=== PATIENT | female | born 1940 | race Caucasian/White ===

== ENCOUNTER 2017-01-01 09:18 | Emergency (ER) | payer OTHER ==
[2017-01-01 09:31] VITALS: TEMP 36.6; Ht 162.6 cm
[2017-01-01] MEDS ORDERED: DIPHTHERIA/TETANUS/PERTUSSIS 0.5 ML SYR/VIAL IM. ONE (10:15)
[2017-01-01] MEDS ORDERED: METH8TAB5 PO (10:45)
[2017-01-01] MEDS ORDERED: ATOR-24 PO (10:45)
[2017-01-01] MEDS ORDERED: HYDR-4717 PO (10:45)
[2017-01-01] MEDS ORDERED: CHOL1TAB2 PO (10:45)
[2017-01-01] MEDS ORDERED: FURO-85 PO (10:45)
[2017-01-01] MEDS ORDERED: GLIP5TAB11 PO (10:45)
[2017-01-01] MEDS ORDERED: METO25TA3 PO (10:45)
[2017-01-01] MEDS ORDERED: ASPI81TA28 PO (10:45)
[2017-01-01] MEDS ORDERED: FOLI1TAB7 PO (10:45)
[2017-01-01] MEDS ORDERED: LEVO50TA PO (10:45)
[2017-01-01] MEDS ORDERED: HYG/25 PO (10:45)
--- NOTE | 2017-01-01 11:16 | EMERGENCY ROOM VISIT NOTE ---
History First contact with patient: 10:06 Chief Complaint: FALL Stated Complaint: FELL AT HOME, BRUISES/CUTS ON ARM History of Present Illness The patient is a 76 year old female who presents to the Emergency Room via private vehicle accompanied by son with complaints of "fell at home, bruises/ cuts on arm". The patient states that this morning around 7:30 AM, in her home where she lives alone, she went to the refrigerator, and when she reached out to grab the handle she missed the handle, and fell and went to lean against her walker of which was not locked, and continue to wheel causing her to fall. She states that she fell forward and struck her left arm on the counter. She states that although she was hypertensive in triage, she normally takes blood pressure medications 3 times daily, and because the fall was not able take her medication this morning and instead came here for evaluation and management. She denies any anticoagulants, and her tetanus is not up-to-date. She points to the left arm as a location of the laceration/skin tears. She denies any loss of consciousness, syncope, chest pain, shortness of breath, other concerns or injuries. Review of Systems A complete 10-point Review of Systems was discussed with the patient, with pertinent positives and negatives listed in the History of Present Illness. All remaining Review of Systems questions can be considered negative unless otherwise specified. Past Medical/Surgical History Diabetes, high blood pressure, skin problems, cholecystectomy, appendectomy Family History High blood pressure, cancer, gallbladder disease Social History Smoking Status: Never Smoker Social History: Patient lives at home with self. Current/Historical Medications Scheduled Aspirin (Aspirin Ec), 81 MG PO DAILY Atorvastatin (Lipitor), 40 MG PO DAILY Chlorthalidone (Hygroton), 62.5 MG PO DAILY Cholecalciferol (Vitamin D-3), 1,000 TAB PO DAILY Folic Acid (Folvite), 1 MG PO DAILY Furosemide (Lasix), 20 MG PO DAILY Glipizide (Glucotrol), 5 MG PO DAILY Hydralazine Hcl (Apresoline), 50 MG PO TID Levothyroxine Sodium (Synthroid), 50 MCG PO DAILY Methylprednisolone (Methylprednisolone), 4 MG PO DAILY Metoprolol Succ (Toprol Xl) (Toprol-Xl), 37.5 MG PO DAILY Allergies Coded Allergies: Regla (Verified Allergy, Severe, ANAPHYLAXIS, 01/01/17) tongue throat swelling Physical Exam Vital Signs Date Time Temp Pulse Resp B/P Pulse Ox O2 Delivery O2 Flow Rate FiO2 01/01/17 11:17 70 20 190/69 94 Room Air 01/01/17 09:31 36.6 70 18 208/85 96 Room Air Pain Rating (0-10): 0 Physical Exam VITAL SIGNS - Vital signs and nursing notes were reviewed. Patient is afebrile , hypertensive at 208/85, non-tachycardic and is saturating well on room air 96% . GENERAL -76-year-old female appearing her stated age who is in no acute distress. Communicates well with provider and answers questions appropriately. SKIN - there are numerous skin tears over the left lateral/dorsal aspect of the forearm. These are superficial, with evidence of contusion surrounding his regions. HEAD - NC/AT. EYES - PERRL with EOMI bilaterally. Sclera anicteric. Palpebral conjunctiva pink and moist with no injection noted. EARS - No deformities of external structures noted on gross examination bilaterally. No pain elicited with palpation of the tragus bilaterally. External auditory canals without discharge or otorrhea. Tympanic membranes pearly quiroz without retraction or bulging. No fluid or purulent material visualized behind the TM. Handle of malleus, umbo, cone of light, pars tensa/ flaccid all easily visualized. NOSE - Midline and without cyanosis. No epistaxis or purulent drainage noted. Septum midline without deviation or septal hematoma noted. MOUTH/OROPHARYNX - Without perioral cyanosis. Buccal mucosa pink and moist and without leukoplakia. Tongue midline with equal elevation of palate bilaterally. No tonsillar hypertrophy, erythema, or exudates noted. Fair dentition noted. NECK - Neck with FROM. Supple to palpation. No C-spine tenderness LUNGS - Chest wall symmetric without accessory muscle use, intercostals retractions, or central cyanosis. Normal vesicular breath sounds CTA B/L. No wheezes, rales, or rhonchi appreciated. CARDIAC - RRR with S1/S2. No murmur, rubs, or gallops appreciated. ABDOMEN - Abdominal contour without pulsations or visible masses. BS normoactive all four quadrants. No tenderness, palpable masses, hepatosplenomegaly, or ascites noted. EXTREMITIES - No clubbing or peripheral cyanosis. No pretibial edema present. She is neurovascularly intact in the upper extremity is. +5/5 strength noted in UE/LE bilaterally. NEUROLOGIC - Cranial nerves II through XII grossly intact. Sensory intact to light touch throughout. PSYCH - A&Ox3 and cooperates fully with examiner. Pt is very pleasant and interacts well with examiner. Medical Decision & Procedures Medications Administered Medications (Trade) Dose Ordered Sig/Rob Route Start Time Stop Time Status Last Admin Dose Admin Diphtheria/ Pertussis/Tetanus Vacc (Adacel Inj) 0.5 ml ONCE ONCE IM. 01/01/17 10:15 01/01/17 10:17 DC 01/01/17 10:24 0.5 ML Medical Decision Patient was seen and evaluated as above. She presents for evaluation of her skin tears of the left arm. There is no bony tenderness. No other complaints. I do not believe that radiographs or laboratory studies at this time would be of benefit. She denies any chest pain, shortness of breath, syncope, loss of consciousness or any other concerns. The region, after obtaining consent was cleansed with normal saline, was then dried with sterile gauze and Dermabond was applied to the regions. This was to help provide protection, and decrease chance of infection secondary to open wounds. The region was dressed with nonadherent bandages, and was supplied circumferentially with rolled gauze. She was educated upon management as was her son. She was given her Adacel vaccination. She was educated upon worrisome symptoms in which to return, had questions prior to discharge and was discharged home in good condition. In the evaluation and treatment of this patient following differential diagnoses were entertained: Laceration, skin tear, fracture, among others. Impression Primary Impression: Fall Additional Impressions: Contusion of multiple sites Skin tear Departure Information Dispostion Home / Self-Care Condition GOOD Referrals Capri Gonzáles M.D. (PCP) Patient Instructions [facility] Additional Instructions Discharge Instructions: You have received dermabond on your left arm. This is dissolvable. Proper wound care is essential for adequate wound healing and infection prevention. You can shower and clean the wound with soap and water. Do not scour over the wound, pat dry with a towel. Do not submerse the wound (i.e. bathe or dish wash) Look for signs of infection of the wound including: increased pain, swelling, foul discharge, streaking, or increased temperature. If any of these are noticed you should return to the Emergency Department for further assessment and treatment. As with any laceration you may have received nerve damage to the surrounding tissues. This damage may or may not be permanent. You should keep the area covered with sunscreen for the first 6 months to 1 year when at risk for exposure to help minimize scarring. You can also use scar reducing creams or Vitamin E oil to help minimize scarring. Please continue regular medications. Please call your family doctor first thing Tuesday to schedule follow-up regarding your fall today. Please return to the emergency department with any new/concerning symptoms. Problem Qualifiers
[2017-01-01 11:17] VITALS: BP 190/69; PULSE 70; O2SAT 94
[2017-03-05] MEDS ORDERED: GLIP5TAB11 PO (09:21)
[2017-03-05] MEDS ORDERED: CIPR250T5 PO (09:21)
[2017-03-05] MEDS ORDERED: PRED10TA PO (09:21)
[2017-03-05] MEDS ORDERED: MCRK/10 PO (09:33)
== END 2017-01-01 11:30 | disposition home or self-care (01) ==
LOC: C.EDB 09:23 → C.EDC 11:30
DX: S40.022A Contusion of left upper arm, initial encounter (principal); W19.XXXA Unspecified fall, initial encounter; I10 Essential (primary) hypertension; Z79.82 Long term (current) use of aspirin; Z23 Encounter for immunization

== ENCOUNTER 2017-03-02 08:42 | Inpatient (IN) | payer OTHER ==
[2017-03-02] VITALS (7 sets, daily range): BP systolic 126–154; BP diastolic 71–78; PULSE 58–78; TEMP 36.3–37; O2SAT 93–96; BMI 43.4
[~2017-03-02] VITALS: Ht 152.4 cm; Wt 103.6 kg
[~2017-03-02 08:42] MED LIST: ASPI81TA28 PO; ATOR-24 PO; CHOL1TAB2 PO; FOLI1TAB7 PO; FURO-85 PO; GLIP5TAB11 PO; HYDR-4717 PO; HYG/25 PO; LEVO50TA PO; METH8TAB5 PO; METO25TA3 PO
--- NOTE | 2017-03-02 09:26 | EMERGENCY ROOM VISIT NOTE ---
History First contact with patient: 08:58 Chief Complaint: FOOT PAIN Stated Complaint: FOOT PAIN History of Present Illness The patient is a 76 year old female who presents to the Emergency Room with complaints of right foot pain. The patient states that she has had pain in the right foot since yesterday. She states it got significantly worse around 3 AM. The patient has a history of gout but states this is more painful. She rates her discomfort a 10/10. She states that she does not have any pain at rest but has significant discomfort when she tries to bear weight. She states she also was scratched by a dog a few weeks ago and has not completely healed. She has a history of lymphedema. She states that the swelling in her legs seems to be her baseline. She states that she usually takes prednisone with her flareups of gout. She states she just finished prednisone on Tuesday for wrist pain. She denies any fevers, chills. She denies any falls or injuries. She denies any abdominal pain, nausea, vomiting, chest pain or trouble breathing. She denies any other extremity pain. Review of Systems A 10 system review of systems was completed with positives and pertinent negatives listed in the HPI. Past Medical/Surgical History Medical Problems: (1) Foot pain, right (2) Hyperlipidemia (3) Hypertension (4) Hypothyroid Social History Smoking Status: Never Smoker Current/Historical Medications Scheduled Aspirin (Aspirin Ec), 81 MG PO DAILY Atorvastatin (Lipitor), 40 MG PO DAILY Chlorthalidone (Hygroton), 62.5 MG PO DAILY Cholecalciferol (Vitamin D-3), 1,000 TAB PO DAILY Folic Acid (Folvite), 1 MG PO DAILY Furosemide (Lasix), 20 MG PO DAILY Glipizide (Glucotrol), 5 MG PO DAILY Hydralazine Hcl (Apresoline), 50 MG PO TID Levothyroxine Sodium (Synthroid), 50 MCG PO DAILY Methylprednisolone (Methylprednisolone), 4 MG PO DAILY Metoprolol Succ (Toprol Xl) (Toprol-Xl), 37.5 MG PO DAILY Allergies Coded Allergies: Pecan (Verified Allergy, Severe, ANAPHYLAXIS, 03/02/17) tongue throat swelling Physical Exam Vital Signs Date Time Temp Pulse Resp B/P (MAP) Pulse Ox O2 Delivery O2 Flow Rate FiO2 03/02/17 12:56 65 22 161/64 92 03/02/17 10:15 65 22 148/74 92 Room Air 03/02/17 08:48 36.8 69 22 176/57 96 Room Air Physical Exam VITALS: Vitals are noted on the nurse's note and reviewed by myself. Vital signs stable. The patient is afebrile. GENERAL: This is a 76-year-old female, in no acute distress, nondiaphoretic, well-developed well-nourished. SKIN: The skin was without rashes, erythema, or bruising. There is 3+ bilateral pitting edema to the lower extremities. It is symmetric. There is no tenting of the skin. Capillary reflex less than 2 seconds. HEAD: Normocephalic atraumatic. EARS: The external ears are normal in appearance. EYES: Pupils equal round and reactive to light and accommodation. Conjunctivae without injection, sclerae without icterus. Extraocular movements intact. NOSE: Patent, turbinates without inflammation or discharge. MOUTH: Mucous membranes moist. Tonsils are not enlarged. Pharynx without erythema or exudate. Uvula midline. Airway patent. Tongue does not deviate. NECK: Supple without nuchal rigidity. No lymphadenopathy. No thyromegaly. Cervical spine is nontender. No JVD. HEART: Regular rate and rhythm without murmurs gallops or rubs. LUNGS: Clear to auscultation bilaterally without wheezes, rales or rhonchi. No retractions or accessory muscle use. MUSCULOSKELETAL: There is an abrasion to the right anterior lower extremity. There is very faint erythema but no significant warmth. There is no purulent drainage. There is bilateral lower extremity edema. It is symmetric. There is no calf tenderness or palpable cord. The remaining extremities are otherwise unremarkable. NEURO: Patient was alert and oriented to person place and time. No focal neurological deficits. Medical Decision & Procedures ER Provider Diagnostic Interpretation: RIGHT FOOT MIN 3 VIEWS ROUTINE CLINICAL HISTORY: right foot pain and swelling Right pain. Edema. COMPARISON: None. DISCUSSION: Generalized significant degenerative change throughout. Small bony erosion distal first metatarsal age-indeterminate fracture distal aspect distal phalanx second toe. Generalized osteopenia. Heel spur. Mild calcification of plantar fascia. Subtalar joint is intact. IMPRESSION: 1. Generalized osteoporosis. 2. Bony erosive change distal first metatarsal as well as the dorsal aspect of tarsal bones. 3. Age-indeterminate fracture distal aspect proximal phalanx second toe. 4. Underlying osteomyelitis at the sites of erosion are not excluded. Additional etiologies potentially include erosive osteoarthritis versus gout. Laboratory Results 03/02/17 09:47 Red Blood Count 4.66, Mean Corpuscular Volume 85.4, Mean Corpuscular Hemoglobin 27.3, Mean Corpuscular Hemoglobin Concent 31.9, Mean Platelet Volume 10.5, Neutrophils (%) (Auto) 92.7, Lymphocytes (%) (Auto) 3.9, Monocytes (%) (Auto) 2.9, Eosinophils (%) (Auto) 0.0, Basophils (%) (Auto) 0.1, Neutrophils # (Auto) 16.53, Lymphocytes # (Auto) 0.69, Monocytes # (Auto) 0.52, Eosinophils # (Auto) 0.00, Basophils # (Auto) 0.02 03/02/17 09:47 Test 03/02/17 09:43 03/02/17 09:47 03/02/17 12:06 Prothrombin Time 10.7 SECONDS (9.0-12.0) Prothromb Time International Ratio 1.0 (0.9-1.1) White Blood Count 17.83 K/uL (4.8-10.8) Red Blood Count 4.66 M/uL (4.2-5.4) Hemoglobin 12.7 g/dL (12.0-16.0) Hematocrit 39.8 % (37-47) Mean Corpuscular Volume 85.4 fL (80-100) Mean Corpuscular Hemoglobin 27.3 pg (25-34) Mean Corpuscular Hemoglobin Concent 31.9 g/dl (32-36) Platelet Count 261 K/uL (130-400) Mean Platelet Volume 10.5 fL (7.4-10.4) Neutrophils (%) (Auto) 92.7 % Lymphocytes (%) (Auto) 3.9 % Monocytes (%) (Auto) 2.9 % Eosinophils (%) (Auto) 0.0 % Basophils (%) (Auto) 0.1 % Neutrophils # (Auto) 16.53 K/uL (1.4-6.5) Lymphocytes # (Auto) 0.69 K/uL (1.2-3.4) Monocytes # (Auto) 0.52 K/uL (0.11-0.59) Eosinophils # (Auto) 0.00 K/uL (0-0.5) Basophils # (Auto) 0.02 K/uL (0-0.2) RDW Standard Deviation 46.3 fL (36.4-46.3) RDW Coefficient of Variation 14.8 % (11.5-14.5) Immature Granulocyte % (Auto) 0.4 % Immature Granulocyte # (Auto) 0.07 K/uL (0.00-0.02) Acanthocytes 1+ Erythrocyte Sedimentation Rate 38 mm/hr (0-21) Anion Gap 12.0 mmol/L (3-11) Est Creatinine Clear Calc Drug Dose 23.7 ml/min Estimated GFR () 24.4 Estimated GFR (Non- 21.1 BUN/Creatinine Ratio 33.2 (10-20) Uric Acid 13.2 mg/dl (2.6-7.2) Calcium Level 9.6 mg/dl (8.5-10.1) Total Bilirubin 0.8 mg/dl (0.2-1) Aspartate Amino Transf (AST/SGOT) 14 U/L (15-37) Alanine Aminotransferase (ALT/SGPT) 17 U/L (12-78) Alkaline Phosphatase 89 U/L (45-117) C-Reactive Protein 16.80 mg/dl (0-0.29) Total Protein 7.2 gm/dl (6.4-8.2) Albumin 2.9 gm/dl (3.4-5.0) Globulin 4.3 gm/dl (2.5-4.0) Albumin/Globulin Ratio 0.7 (0.9-2) Beta-Hydroxybutyric Acid 8.56 mg/dL (0.2-2.81) Lactic Acid Level 1.0 mmol/L (0.4-2.0) Medications Administered Medications (Trade) Dose Ordered Sig/Rob Route Start Time Stop Time Status Last Admin Dose Admin Piperacillin Sod/ Tazobactam Sod (Zosyn Iv) 4.5 gm NOW STAT IV 03/02/17 11:25 03/02/17 11:26 DC 03/02/17 12:20 4.5 GM Vancomycin HCl 2000 mg/Sodium Chloride 540 ml @ 200 mls/hr 1125 IV 03/02/17 11:25 03/02/17 16:00 DC 03/02/17 16:20 200 MLS/HR Sodium Chloride 1,000 ml @ 75 mls/hr [id number] IV 03/02/17 12:10 04/01/17 12:09 03/02/17 16:21 75 MLS/HR Hydralazine HCl (Apresoline Tab) 50 mg TID PO 03/02/17 14:00 04/01/17 13:59 03/02/17 16:21 50 MG ED Course Patient was seen and examined. Previous visits were reviewed. The patient does have a leukocytosis of 17.3. Her sedimentation rate is 38. He CRP is elevated at 16.8 and uric acid is elevated at 13.3. The patient's creatinine elevated at 73 and 2.2, respectively. Her baseline creatinine is 1.6. She is hyperglycemic with glucose 310. beta hydroxybutyric acid is elevated at 8.56. INR is 1.0. The patient declined pain medication throughout her stay. She was given 2 g IV vancomycin She was given IV Zosyn X-ray of the foot was obtained as above and reveals bony erosion with consideration of osteomyelitis versus gout. The patient presents to the emergency department with right foot pain. The pain is diffuse in nature. There is no significant erythema or warmth. She does have an open wound proximal to the foot pain. There is question of osteomyelitis versus gout on x-ray. Given the patient's leukocytosis, hyperglycemia, severe diffuse foot pain and question of osteomyelitis on x-ray, she would benefit from further evaluation and management in the hospital. It is likely that this represents gout but osteomyelitis must be considered. [facility] of the foot and this was ordered. The patient was also seen and examined by who agrees with the assessment and treatment plan. Medical Decision The differential diagnosis includes osteomyelitis, cellulitis, gout, arthritis, among others Impression Primary Impression: Right foot pain Additional Impressions: Acute on chronic renal insufficiency Cellulitis Departure Information Dispostion Admitted as an inpatient Referrals Capri Gonzáles M.D. (PCP) Forms HOME CARE DOCUMENTATION FORM, IMPORTANT VISIT INFORMATION Patient Instructions [facility] Problem Qualifiers Additional Impressions:
--- NOTE | 2017-03-02 09:49 | DIAGNOSTIC IMAGING REPORT ---
RIGHT FOOT MIN 3 VIEWS ROUTINE CLINICAL HISTORY: right foot pain and swelling Right pain. Edema. COMPARISON: None. DISCUSSION: Generalized significant degenerative change throughout. Small bony erosion distal first metatarsal age-indeterminate fracture distal aspect distal phalanx second toe. Generalized osteopenia. Heel spur. Mild calcification of plantar fascia. Subtalar joint is intact. IMPRESSION: 1. Generalized osteoporosis. 2. Bony erosive change distal first metatarsal as well as the dorsal aspect of tarsal bones. 3. Age-indeterminate fracture distal aspect proximal phalanx second toe. 4. Underlying osteomyelitis at the sites of erosion are not excluded. Additional etiologies potentially include erosive osteoarthritis versus gout. Electronically signed by: Hans Gr M.D. 03/02/2017 9:48 AM Dictated Date/Time: 03/02/2017 9:45 AM
[2017-03-02 10:03] LABS: HEMATOCRIT 39.8 % (37-47); MEAN CELL VOLUME 85.4 fL (80-100); MEAN CORPUSCULAR HEMOGLOBIN 27.3 pg (25-34); MEAN CORPUSCULAR HGB CONC 31.9 g/dl (32-36); MEAN PLATELET VOLUME 10.5 fL (7.4-10.4); PLATELET COUNT 261 K/uL (130-400); RED BLOOD COUNT 4.66 M/uL (4.2-5.4); WHITE BLOOD COUNT 17.83 K/uL (4.8-10.8)
[2017-03-02 10:23] LABS: ACANTHOCYTES 1+; BASO % 0.1 %; BASO ABS # 0.02 K/uL (0-0.2); COMPLETE YES; IG% 0.4 %; LYMPH % 3.9 %; LYMPH ABS # 0.69 K/uL (1.2-3.4); MONO % 2.9 %; NEUT % 92.7 %
[2017-03-02 10:25] LABS: CREATININE 2.2 mg/dl (0.60-1.20)
[2017-03-02 10:26] LABS: ALB/GLOB RATIO 0.7 (0.9-2); BUN/CREATININE RATIO 33.2 (10-20); C-REACTIVE PROTEIN 16.8 mg/dl (0-0.29); CALCIUM 9.6 mg/dl (8.5-10.1); URIC ACID 13.2 mg/dl (2.6-7.2)
[2017-03-02 10:35] LABS: POTASSIUM 3.6 mmol/L (3.5-5.1)
[2017-03-02 10:41] LABS: POTASSIUM 3.6 mmol/L (3.5-5.1)
[2017-03-02 10:47] LABS: BETA-HYDROXYBUTYRATE 8.56 mg/dL (0.2-2.81)
--- NOTE | 2017-03-02 11:18 | EMERGENCY ROOM VISIT NOTE ---
ED Visit Note First contact with patient: 08:58 Patient was seen by our PA/STOCK HOLDER. I was involved in the patient's care and did evaluate the patient myself. I was involved in the care throughout the ER stay. Patient presents with right foot pain which is now better than when she arrived. She did receive some oral prednisone this morning. She has a history of gout in multiple different joints and feels this may be a gout flare. There has been no fever. No trauma reported. Laboratory testing shows a leukocytosis and some renal insufficiency/dehydration. She also is somewhat hyperglycemic. Imaging has been ordered.
[2017-03-02] MEDS ORDERED: PIPERACILLIN/TAZOBACTAM 4.5 GM/100ML D5W IV STA (11:25)
[2017-03-02] MEDS ORDERED: VANCOMYCIN INJ 2,000 MG in SODIUM CHLORIDE 0.9% 250ML 250 ML IV STA (11:25)
[2017-03-02] MEDS ORDERED: VANCOMYCIN INJ 2,000 MG in SODIUM CHLORIDE 0.9% 500ML 500 ML IV SCH (11:25)
[2017-03-02] MEDS ORDERED: ONDANSETRON INJ 2 MG/ML 2 ML VIAL IV PRN (12:15)
[2017-03-02] MEDS ORDERED: ACETAMINOPHEN 325 MG TAB PO PRN (12:15)
[2017-03-02] MEDS ORDERED: GLUCOSE 40% GEL 15 GM TUBE PO PRN (12:30)
[2017-03-02] MEDS ORDERED: DEXTROSE 50% 50 ML SYR IV PRN (12:30)
[2017-03-02] MEDS ORDERED: GLUCOSE 10 TABS/TUBE PO PRN (12:30)
[2017-03-02] MEDS ORDERED: GLUCAGON FOR INJ 1 MG VIAL SQ PRN (12:30)
--- NOTE | 2017-03-02 13:05 | History and Physical ---
History & Physical Date & Time of Service: Mar 02, 2017 at 12:36 Chief Complaint: Foot Pain Primary Care Physician: Capri Gonzáles M.D. History of Present Illness Source: patient, family Patient is a 76 Yr female with PMH of CAD, CKD III, DM II, RA, HTN, HLP and ? pseudogout presents with history of sudden onset of right foot pain since one day duration. She states the foot pain is worse at night and especially with weight bearing and on ambulation. Rates the pain as 10/10, non radiating. She took 3 baby aspirin and prednisone this morning and currently states the pain is better. Denies any trauma, fever, chills, redness, swelling, discharge, nausea, vomiting, change in medications recently. She reports acquiring a scratch wound on her right leg by her dog 2 weeks ago while playing with it but denies any discharge, swelling, redness. Her PCP treated her for possible pseudogout of her wrist with prednisone which she completed 3 days ago. She also has history of lymphedema and rheumatoid arthritis for which she was not treated with methotrexate secondary to kidney disease per patient. Also denies any chest pain, SOB, abd pain, dizziness, headache, change in bowel/bladder habits. Past Medical/Surgical History Past Medical History: CAD, CKD III, DM II, RA, HTN, HLP Past Surgical History: Cholecystectomy Family History Not contributory Social History Smoking Status: Never Smoker Alcohol Use: occasionally Drug Use: none Allergies Coded Allergies: Pecan (Verified Allergy, Severe, ANAPHYLAXIS, 03/02/17) tongue throat swelling Home Medications Scheduled Aspirin (Aspirin Ec), 81 MG PO DAILY Atorvastatin (Lipitor), 40 MG PO DAILY Chlorthalidone (Hygroton), 62.5 MG PO DAILY Cholecalciferol (Vitamin D-3), 1,000 TAB PO DAILY Folic Acid (Folvite), 1 MG PO DAILY Furosemide (Lasix), 20 MG PO DAILY Glipizide (Glucotrol), 5 MG PO DAILY Hydralazine Hcl (Apresoline), 50 MG PO TID Levothyroxine Sodium (Synthroid), 50 MCG PO DAILY Methylprednisolone (Methylprednisolone), 4 MG PO DAILY Metoprolol Succ (Toprol Xl) (Toprol-Xl), 37.5 MG PO DAILY Review of Systems See HPI for pertinent positives & negatives. A total of 10 systems reviewed and were otherwise negative. Physical Exam Vital Signs Date Time Temp Pulse Resp B/P (MAP) Pulse Ox O2 Delivery O2 Flow Rate FiO2 03/02/17 10:15 65 22 148/74 92 Room Air 03/02/17 08:48 36.8 69 22 176/57 96 Room Air General Appearance: WD/WN, no apparent distress Head: normocephalic, atraumatic Eyes: normal inspection, PERRL ENT: normal ENT inspection, hearing grossly normal Neck: supple, trachea midline Respiratory/Chest: chest non-tender, lungs clear, no respiratory distress, no accessory muscle use Cardiovascular: regular rate, rhythm, no JVD, no murmur Abdomen/GI: normal bowel sounds, non tender, soft, + pertinent finding ( Protuberant) Back: normal inspection Extremities/Musculoskelatal: normal inspection, + pertinent finding (+B/L Lymphedema, non tender foot on exam, No erythema ) 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, no motor/sensory deficits, alert, normal mood/affect, oriented x 3 Skin: normal color, + pertinent finding (Right leg scatch wound) Diagnostics Laboratory Results Results Past 24 Hours Test 03/02/17 09:47 03/02/17 12:06 Range/Units White Blood Count 17.83 4.8-10.8 K/uL Red Blood Count 4.66 4.2-5.4 M/uL Hemoglobin 12.7 12.0-16.0 g/dL Hematocrit 39.8 37-47 % Mean Corpuscular Volume 85.4 80-100 fL Mean Corpuscular Hemoglobin 27.3 25-34 pg Mean Corpuscular Hemoglobin Concent 31.9 32-36 g/dl Platelet Count 261 130-400 K/uL Mean Platelet Volume 10.5 7.4-10.4 fL Neutrophils (%) (Auto) 92.7 % Lymphocytes (%) (Auto) 3.9 % Monocytes (%) (Auto) 2.9 % Eosinophils (%) (Auto) 0.0 % Basophils (%) (Auto) 0.1 % Neutrophils # (Auto) 16.53 1.4-6.5 K/uL Lymphocytes # (Auto) 0.69 1.2-3.4 K/uL Monocytes # (Auto) 0.52 0.11-0.59 K/uL Eosinophils # (Auto) 0.00 0-0.5 K/uL Basophils # (Auto) 0.02 0-0.2 K/uL RDW Standard Deviation 46.3 36.4-46.3 fL RDW Coefficient of Variation 14.8 11.5-14.5 % Immature Granulocyte % (Auto) 0.4 % Immature Granulocyte # (Auto) 0.07 0.00-0.02 K/uL Acanthocytes 1+ Erythrocyte Sedimentation Rate 38 0-21 mm/hr Sodium Level 137 136-145 mmol/L Potassium Level 3.6 3.5-5.1 mmol/L Chloride Level 97 98-107 mmol/L Carbon Dioxide Level 28 21-32 mmol/L Anion Gap 12.0 3-11 mmol/L Blood Urea Nitrogen 73 7-18 mg/dl Creatinine 2.20 0.60-1.20 mg/dl Est Creatinine Clear Calc Drug Dose 23.7 ml/min Estimated GFR () 24.4 Estimated GFR (Non- 21.1 BUN/Creatinine Ratio 33.2 10-20 Random Glucose 310 70-99 mg/dl Uric Acid 13.2 2.6-7.2 mg/dl Calcium Level 9.6 8.5-10.1 mg/dl Total Bilirubin 0.8 0.2-1 mg/dl Aspartate Amino Transf (AST/SGOT) 14 15-37 U/L Alanine Aminotransferase (ALT/SGPT) 17 12-78 U/L Alkaline Phosphatase 89 45-117 U/L C-Reactive Protein 16.80 0-0.29 mg/dl Total Protein 7.2 6.4-8.2 gm/dl Albumin 2.9 3.4-5.0 gm/dl Globulin 4.3 2.5-4.0 gm/dl Albumin/Globulin Ratio 0.7 0.9-2 Beta-Hydroxybutyric Acid 8.56 0.2-2.81 mg/dL Microbiology Results 03/02/17 Blood Culture, Received Pending 03/02/17 Blood Culture, Received Pending Diagnostic Radiology Foot X ray: 1. Generalized osteoporosis. 2. Bony erosive change distal first metatarsal as well as the dorsal aspect of tarsal bones. 3. Age-indeterminate fracture distal aspect proximal phalanx second toe. 4. Underlying osteomyelitis at the sites of erosion are not excluded. Additional etiologies potentially include erosive osteoarthritis versus gout. Impression Assessment and Plan Right Foot Pain: DD: Likely secondary to 2nd toe fracture/Inflammatory Joint disease. To r/o osteomyelitis Presents with sudden onset of right foot pain, denies trauma, fever. Foot X ray: showed bony erosive change distal 1st metatarsal and dorsal aspect of tarsal bones. Age-indeterminate fracture distal aspect proximal phalanx second toe Will start empirically on Vanco and Zosyn Will get MRI foot Has elevated uric acid levels (On Chlorthalidone, Lasix at home) Leukocytosis, elevated ESR: patient recently completed prednisone course for possible pseudo gout of wrist Follow up blood/wound cultures Consider ID input if MRI suggestive of Osteomyelitis Start on prednisone 20mg daily PT//OT GILBERTO on CKD III: Baseline Cr:1.6 Start on IV Fluids Hold home diuretics for now Avoid nephrotoxic agents Monitor renal function DM II: Last A1C:5.6 in Aug 2016 Blood sugar levels are uncontrolled likely secondary to acute infection and recent prednisone use Hold home diabetic meds Start ISS, accu checks H/O Rheumatoid arthritis: Not on any disease modifying meds at home Hypothyroidism: Continue levothyroxine DVT Px: Heparin SQ Code Status: Full Code VTE Prophylaxis VTE Risk Assessment Done? Y/N: Yes Risk Level: Low
[2017-03-02] MEDS ORDERED: VANCOMYCIN CONSULT ACTIVE PRN (13:28)
[2017-03-02] MEDS ORDERED: PIPERACILL/TAZOBAC CONSULT ACTIVE PRN (13:45)
--- NOTE | 2017-03-02 14:35 | DIAGNOSTIC IMAGING REPORT ---
MRI OF THE RIGHT FOREFOOT WITHOUT IV CONTRAST CLINICAL HISTORY: Right foot pain and swelling. Clinical concern for ostomy myelitis. COMPARISON STUDY: Radiographs of the right foot dated 03/02/2017. TECHNIQUE: MRI of the right forefoot is performed utilizing various T1 and T2-weighted sequences in the axial, sagittal, coronal planes. IV contrast was not measured for this examination. FINDINGS: There is no marrow signal in amount is identified typical in appearance for osteomyelitis. There is erosive change is seen along the medial aspect of the first metatarsal head. This is T1 hypointense and largely T2 hypointense. Similar-appearing change is seen at the third and fourth tarsometatarsal joints. Multiple milder foci of similar change are seen diffusely throughout the tarsal bones and phalanges. Similar-appearing changes are also seen within the tibia on the coronal view. There is mild marrow edema with more typical osteoarthritic change seen in the midfoot. Degenerative spurring is noted along the dorsal aspect of the tarsal bones. There is significant subcutaneous soft tissue edema in the foot, greatest dorsally and laterally. No organized fluid collection is seen to suggest abscess. IMPRESSION: 1. There are no marrow signal changes identified typical in appearance for osteomyelitis. 2. There are numerous foci of bony erosion throughout the foot, with the largest present in the first metatarsal head and at the third and fourth tarsometatarsal articulations. The appearance is nonspecific, with gouty arthropathy or other erosive arthritis top differential considerations. Clinical correlation will be essential. 3. There is no MRI evidence of fracture. 4. Diffuse subcutaneous soft tissue edema is identified, greatest dorsally and laterally. The appearance suggests cellulitis. No organized fluid collection is seen. Electronically signed by: Johnny Soliman M.D. 03/02/2017 2:33 PM Dictated Date/Time: 03/02/2017 2:16 PM
--- NOTE | 2017-03-02 15:20 | Pharmacy Progress Note ---
Pharmacy Abx Initial Consult Date of Service Mar 02, 2017. Pharmacy Dosing Scope Date of Consult: 03/02/17 Consultation requested by: Dr. Middleton Pharmacy is consulted to initiate Vancomycin IV dosing therapy, order appropriate labs and adjust drug dose/frequency. Subjective The patient is a 76 year old female admitted on Mar 02, 2017 at 14:46. Objective Height (Feet): 5 Height (Inches): 1.00 Weight (Kilograms): 100.800 Vital Signs (Past 12Hrs) Vital Signs Past 12 Hours Date Time Temp Pulse Resp B/P (MAP) Pulse Ox O2 Delivery O2 Flow Rate FiO2 03/02/17 14:47 36.6 58 20 153/78 (103) 96 Room Air 03/02/17 12:56 65 22 161/64 92 03/02/17 10:15 65 22 148/74 92 Room Air 03/02/17 08:48 36.8 69 22 176/57 96 Room Air Lab Results (24Hrs) Laboratory Tests (24 Hours) Test 03/02/17 09:47 03/02/17 12:06 C-Reactive Protein 16.80 mg/dl (0-0.29) H Erythrocyte Sedimentation Rate 38 mm/hr (0-21) H White Blood Count 17.83 K/uL (4.8-10.8) H Red Blood Count 4.66 M/uL (4.2-5.4) Hemoglobin 12.7 g/dL (12.0-16.0) Hematocrit 39.8 % (37-47) Mean Corpuscular Volume 85.4 fL (80-100) Mean Corpuscular Hemoglobin 27.3 pg (25-34) Mean Corpuscular Hemoglobin Concent 31.9 g/dl (32-36) L Platelet Count 261 K/uL (130-400) Mean Platelet Volume 10.5 fL (7.4-10.4) H Neutrophils (%) (Auto) 92.7 % Lymphocytes (%) (Auto) 3.9 % Monocytes (%) (Auto) 2.9 % Eosinophils (%) (Auto) 0.0 % Basophils (%) (Auto) 0.1 % Neutrophils # (Auto) 16.53 K/uL (1.4-6.5) H Lymphocytes # (Auto) 0.69 K/uL (1.2-3.4) L Monocytes # (Auto) 0.52 K/uL (0.11-0.59) Eosinophils # (Auto) 0.00 K/uL (0-0.5) Basophils # (Auto) 0.02 K/uL (0-0.2) Lactic Acid Level 1.0 mmol/L (0.4-2.0) Micro Results Date/Time Source Procedure Growth Status 03/02/17 12:06 Blood Blood Culture Pending Received 03/02/17 11:51 Blood Blood Culture Pending Received Assessment & Plan Assessment 76 year old female admitted with possible Osteomyelitis of foot Plan Vancomycin for treatment of Osteomyelitis. Vancomycin IV * Patient with Scr = 2.2, Crcl = 23.7 today. Vancomycin 2000 mg (19.8 mg/kg) IV x1 dose ordered today. * Since patient has renal impairment, will wait to get a random level with AM labs tomorrow before re-dosing. * Goal trough level for Osteomyelitis: 15 to 20 mcg/mL * Patient's baseline Scr = 1.6. Therefore expecting renal function to improve tomorrow. Pharmacy will continue to follow and will adjust dose/frequency as necessary. Thank you.
[2017-03-02 15:26] LABS: PROTHROMBIN TIME (PATIENT) 10.7 SECONDS (9.0-12.0)
[2017-03-02] MEDS: SODIUM CHLORIDE 0.9% 1000ML 1,000 ML IV SCH (16:21)
[2017-03-02] MEDS: PIPERACILL/TAZOBAC IV 4.5 GM in DEXTROSE 5% 100ML IV SCH (17:55)
[2017-03-02] MEDS: INSULIN ASPART 100 UNITS/ML 3 ML PEN SC SCH ×2 (17:58→21:00)
[2017-03-02] MEDS ORDERED: NURSING VERBAL MED ORDER ONE (21:00)
[2017-03-02] MEDS ORDERED: INSULIN ASPART 100 UNITS/ML 3 ML PEN SC STA (21:35)
[2017-03-02] MEDS ORDERED: MICONAZOLE NITRATE POWDER 43 GM EXT PRN (21:45)
[2017-03-02] MEDS: HEPARIN SOD 5000 UNIT/0.5 ML CARP SQ SCH (21:58)
[2017-03-03] MEDS: PIPERACILL/TAZOBAC IV 4.5 GM in DEXTROSE 5% 100ML IV SCH ×2 (02:22→11:01)
[2017-03-03 04:00] VITALS: BP 154/76; PULSE 58; TEMP 36.5; O2SAT 96
[2017-03-03] MEDS: LEVOTHYROXINE 50 MCG TAB PO SCH (06:00)
[2017-03-03] MEDS: SODIUM CHLORIDE 0.9% 1000ML 1,000 ML IV SCH ×2 (06:00→14:48)
[2017-03-03] MEDS: HEPARIN SOD 5000 UNIT/0.5 ML CARP SQ SCH ×3 (06:01→21:04)
[2017-03-03 06:54] LABS: BASO % 0.2 %; BASO ABS # 0.03 K/uL (0-0.2); COMPLETE YES; HEMATOCRIT 32.2 % (37-47); IG% 0.4 %; LYMPH % 19.5 %; LYMPH ABS # 2.44 K/uL (1.2-3.4); MEAN CORPUSCULAR HEMOGLOBIN 27.4 pg (25-34); MEAN CORPUSCULAR HGB CONC 32.3 g/dl (32-36); MEAN PLATELET VOLUME 10.3 fL (7.4-10.4); MONO % 5.4 %; NEUT % 73.5 %; PLATELET COUNT 251 K/uL (130-400); RED BLOOD COUNT 3.79 M/uL (4.2-5.4); WHITE BLOOD COUNT 12.49 K/uL (4.8-10.8)
[2017-03-03 07:31] LABS: BUN/CREATININE RATIO 37.3 (10-20); CALCIUM 8.3 mg/dl (8.5-10.1); CREATININE 1.8 mg/dl (0.60-1.20); POTASSIUM 2.7 mmol/L (3.5-5.1)
[2017-03-03 07:38] VITALS: BP 133/69; PULSE 57; TEMP 36.7; O2SAT 95
[2017-03-03] MEDS: ASPIRIN 81 MG ECTAB PO SCH (08:17)
[2017-03-03] MEDS: ATORVASTATIN 40 MG TAB PO SCH (08:18)
[2017-03-03] MEDS: INSULIN ASPART 100 UNITS/ML 3 ML PEN SC SCH ×4 (08:19→21:03)
[2017-03-03] MEDS: METOPROLOL SUCC 25MG EXT REL TAB PO SCH (08:20)
[2017-03-03 08:59] LABS: ESTIMATED AVERAGE GLUCOSE 194 mg/dl; HA1C FLAG Normal (Normal)
[2017-03-03] MEDS: POTASSIUM CHLORIDE 10 MEQ TABCR PO SCH ×2 (11:03→14:36)
--- NOTE | 2017-03-03 11:30 | Pharmacy Progress Note ---
Pharmacy Abx Dose Progress Nt Date of Service Mar 03, 2017. Pharmacy Dosing Scope The patient is currently receiving the following antimicrobial agents per Pharmacy consult: Vancomycin IV pulse doses based on random levels. Objective Height (Feet): 5 Height (Inches): 0.00 Weight (Kilograms): 102.300 Vital Signs (Past 12Hrs) Vital Signs Past 12 Hours Date Time Temp Pulse Resp B/P (MAP) Pulse Ox O2 Delivery O2 Flow Rate FiO2 03/03/17 07:38 36.7 57 18 133/69 (90) 95 Room Air 03/03/17 04:00 36.5 58 18 154/76 (102) 96 Room Air 03/03/17 04:00 Room Air 03/02/17 23:59 Room Air 03/02/17 23:44 37.0 78 20 144/71 (95) 93 Room Air Lab Results (24Hrs) Item Value Date Time Random Vancomycin Level 21.2 mcg/ml 03/03/17 0615 Laboratory Tests (24 Hours) Test 03/02/17 12:06 03/03/17 06:15 Lactic Acid Level 1.0 mmol/L (0.4-2.0) White Blood Count 12.49 K/uL (4.8-10.8) H Red Blood Count 3.79 M/uL (4.2-5.4) L Hemoglobin 10.4 g/dL (12.0-16.0) L Hematocrit 32.2 % (37-47) L Mean Corpuscular Volume 85.0 fL (80-100) Mean Corpuscular Hemoglobin 27.4 pg (25-34) Mean Corpuscular Hemoglobin Concent 32.3 g/dl (32-36) Platelet Count 251 K/uL (130-400) Mean Platelet Volume 10.3 fL (7.4-10.4) Neutrophils (%) (Auto) 73.5 % Lymphocytes (%) (Auto) 19.5 % Monocytes (%) (Auto) 5.4 % Eosinophils (%) (Auto) 1.0 % Basophils (%) (Auto) 0.2 % Neutrophils # (Auto) 9.17 K/uL (1.4-6.5) H Lymphocytes # (Auto) 2.44 K/uL (1.2-3.4) Monocytes # (Auto) 0.67 K/uL (0.11-0.59) H Eosinophils # (Auto) 0.13 K/uL (0-0.5) Basophils # (Auto) 0.03 K/uL (0-0.2) Micro Results Date/Time Source Procedure Growth Status 03/02/17 12:06 Blood Blood Culture Pending Received 03/02/17 11:51 Blood Blood Culture Pending Received 03/02/17 21:50 Skin Leg Right Lower Gram Stain - Final Resulted 03/02/17 21:50 Wound Culture - Preliminary Gram Negative Bacilli Resulted Assessment & Plan Assessment 76 year old female receiving Vancomycin for treatment of possible osteomyelitis of the foot. Day # 2 of antimicrobial therapy Plan Vancomycin IV * Random Vanco level = 21.2 mcg/mL at 0615 am is slightly supra-therapeutic. * Goal trough level= 15 to 20 mcg/mL * Ordered Vancomycin 1350 mg IV x1 for 1400 today. Level should have dropped down into therapeutic range of 15 to 20 by that time. * A new random level ordered for: 03/04 with AM labs. * Less than traditional dose and pulse dosing selected in this patient due to likelihood of drug accumulation in obese patient (BMI 42 kg/m2) and with CKD. * Today Scr has improved to 1.8, Crcl = 28.6. Expecting to improve further. * We may be able to order a scheduled maintenance dose once renal function is stable. Pharmacy will continue to follow and will adjust dose/frequency as necessary. Thank you.
[2017-03-03 11:52] VITALS: BP 167/72; PULSE 67; TEMP 36.6; O2SAT 95
--- NOTE | 2017-03-03 12:19 | Progress Note ---
Internal Med Progress Note Date of Service: Mar 03, 2017. Provider Documentation: SUBJECTIVE: Patients right foot pain is better than on admission Does have pain in right hand joint- jessee 3rd finger. No fever, chills. OBJECTIVE: Vital Signs-as noted below Exam: General-AAOX3, no distress, morbidly obese Neck-Supple Lungs-AEBE, no wheezing, rhonchi Heart-S1, S2 normal Extremities-Chronic lymphedema bilaterally. No deformities noted. Tenderness on palpation of right foot. No erythema, swelling noted. Skin- Multiple ecchymosis + both upper extremities Lab data as noted below. MRI RIGHT LOWER EXTREMITY IMPRESSION: 1. There are no marrow signal changes identified typical in appearance for osteomyelitis. 2. There are numerous foci of bony erosion throughout the foot, with the largest present in the first metatarsal head and at the third and fourth tarsometatarsal articulations. The appearance is nonspecific, with gouty arthropathy or other erosive arthritis top differential considerations. Clinical correlation will be essential. 3. There is no MRI evidence of fracture. 4. Diffuse subcutaneous soft tissue edema is identified, greatest dorsally and laterally. The appearance suggests cellulitis. No organized fluid collection is seen. ASSESSMENT & PLAN: RIGHT FOOT PAIN : MRI lower extremities shows bony erosions throughout foot, largest in first MT head and 3rd, 4th Tarsometatarsal articulations, no fracture noted. D/D considered: Gout - with uric acid levels 13.2 . Does have hx of Rheumatoid arthritis but would see more involvement of joints with it. Was taken off MTX 1 -2 years ago due to worsening kidney function. No issues since than except for last few weeks with right hand- joint pains which was treated with steroid with possible diagnosis of pseudogout per PCP -Initially x rays concern for 2nd toe fracture/Osteomyelitis, however, MRI shows no fracture or OM. Clinically not concerned about OM. -Started on prednisone 20 mg daily on admission---> will change it to medrol dose pack -On IV Antibiotics- Vancomycin/Zosyn---> Change to Doxycycline for 4 more days as MRI on presentation shows cellulitis - right foot though clinically now no signs present now- likely resolved with IV antibiotics. -Continue with pain mx -Will need follow up with Rheumatology outpatient -PT/OT ordered. GILBERTO ON CKD III: Worsened Baseline Cr:1.6 . Came with creatinine of 2.2 -> down to 1.8 -On IV Fluids -Hold chlorthalidone HYPOKALEMIA Likely secondary to being on chlorthalidone at home -Replaced -Monitor K, Mg DM II : Last A1C:5.6 in Aug 2016 Blood sugar levels are uncontrolled likely secondary to acute infection and recent prednisone use -Hold home diabetic meds -ISS, accu checks HX OF RHEUMATOID ARTHRITIS Not on any disease modifying meds at home -Was taken off MTX 1-2 years ago due to worsening kidney function HYPOTHYROIDISM: Continue levothyroxine DVT Px: Heparin SQ Code Status: Full Code DISPOSITION PT/OT Expected discharge home when stable Vital Signs: Date Time Temp Pulse Resp B/P (MAP) Pulse Ox O2 Delivery O2 Flow Rate FiO2 03/03/17 11:52 36.6 67 18 167/72 (103) 95 Room Air 03/03/17 07:38 36.7 57 18 133/69 (90) 95 Room Air 03/03/17 04:00 36.5 58 18 154/76 (102) 96 Room Air 03/03/17 04:00 Room Air 03/02/17 23:59 Room Air 03/02/17 23:44 37.0 78 20 144/71 (95) 93 Room Air 03/02/17 21:48 61 154/75 (101) 03/02/17 20:00 96 Room Air 03/02/17 19:46 36.3 63 18 126/71 (89) 96 Room Air 03/02/17 18:18 36.6 58 20 153/78 96 Room Air 03/02/17 16:00 96 Room Air 03/02/17 14:47 36.6 58 20 153/78 (103) 96 Room Air 03/02/17 12:56 65 22 161/64 92 Lab Results: Results Past 24 Hours Test 03/02/17 16:25 03/02/17 20:39 03/03/17 06:15 03/03/17 07:41 Range/Units Bedside Glucose 292 310 115 70-90 mg/dl White Blood Count 12.49 4.8-10.8 K/uL Red Blood Count 3.79 4.2-5.4 M/uL Hemoglobin 10.4 12.0-16.0 g/dL Hematocrit 32.2 37-47 % Mean Corpuscular Volume 85.0 80-100 fL Mean Corpuscular Hemoglobin 27.4 25-34 pg Mean Corpuscular Hemoglobin Concent 32.3 32-36 g/dl Platelet Count 251 130-400 K/uL Mean Platelet Volume 10.3 7.4-10.4 fL Neutrophils (%) (Auto) 73.5 % Lymphocytes (%) (Auto) 19.5 % Monocytes (%) (Auto) 5.4 % Eosinophils (%) (Auto) 1.0 % Basophils (%) (Auto) 0.2 % Neutrophils # (Auto) 9.17 1.4-6.5 K/uL Lymphocytes # (Auto) 2.44 1.2-3.4 K/uL Monocytes # (Auto) 0.67 0.11-0.59 K/uL Eosinophils # (Auto) 0.13 0-0.5 K/uL Basophils # (Auto) 0.03 0-0.2 K/uL RDW Standard Deviation 45.7 36.4-46.3 fL RDW Coefficient of Variation 14.6 11.5-14.5 % Immature Granulocyte % (Auto) 0.4 % Immature Granulocyte # (Auto) 0.05 0.00-0.02 K/uL Sodium Level 142 136-145 mmol/L Potassium Level 2.7 3.5-5.1 mmol/L Chloride Level 103 98-107 mmol/L Carbon Dioxide Level 29 21-32 mmol/L Anion Gap 10.0 3-11 mmol/L Blood Urea Nitrogen 67 7-18 mg/dl Creatinine 1.80 0.60-1.20 mg/dl Est Creatinine Clear Calc Drug Dose 28.6 ml/min Estimated GFR () 31.1 Estimated GFR (Non- 26.9 BUN/Creatinine Ratio 37.3 10-20 Random Glucose 109 70-99 mg/dl Estimated Average Glucose 194 mg/dl Hemoglobin A1c 8.4 4.5-5.6 % Calcium Level 8.3 8.5-10.1 mg/dl Random Vancomycin Level 21.2 mcg/ml Test 03/03/17 11:44 Range/Units Bedside Glucose 271 70-90 mg/dl Microbiology Results 03/02/17 Gram Stain - Final, Resulted 03/02/17 Wound Culture - Preliminary, Resulted Gram Negative Bacilli
[2017-03-03] MEDS ORDERED: METHYLPREDNISOLONE 4MG TAB, 6 DAY TAPER PO SCH (12:30)
[2017-03-03] MEDS ORDERED: VANCOMYCIN INJ 1,350 MG in SODIUM CHLORIDE 0.9% 250ML 250 ML IV SCH (14:00)
[2017-03-03 14:21] VITALS: BMI 44.0
[2017-03-03] MEDS: METHYLPREDNISOLONE 4 MG TAB PO SCH ×3 (14:36→21:00)
[2017-03-03 15:44] VITALS: BP 164/76; PULSE 66; TEMP 37.2; O2SAT 92
[2017-03-03 18:41] LABS: BUN/CREATININE RATIO 32.2 (10-20); CALCIUM 8.5 mg/dl (8.5-10.1); CREATININE 1.8 mg/dl (0.60-1.20)
[2017-03-03 18:44] LABS: POTASSIUM 3.8 mmol/L (3.5-5.1)
[2017-03-03] MEDS ORDERED: NURSING VERBAL MED ORDER ONE (19:00)
[2017-03-03] MEDS ORDERED: INSULIN ASPART 100 UNITS/ML 3 ML PEN SC ONE (19:15)
[2017-03-03 19:28] VITALS: BP 139/77; PULSE 71; TEMP 37.3; O2SAT 94
[2017-03-03 19:32] LABS: BETA-HYDROXYBUTYRATE 1.78 mg/dL (0.2-2.81)
[2017-03-03] MEDS ORDERED: DOXYCYCLINE HYCLATE 100 MG CAP PO SCH (21:00)
[2017-03-03 23:04] VITALS: BP 150/72; PULSE 71; TEMP 37; O2SAT 94
[2017-03-04] VITALS (7 sets, daily range): BP systolic 142–185; BP diastolic 71–102; PULSE 56–109; TEMP 36.4–37; O2SAT 96–97; Ht 152.4 cm; Wt 103.6 kg
[2017-03-04] MEDS: SODIUM CHLORIDE 0.9% 1000ML 1,000 ML IV SCH (04:17)
[2017-03-04] MEDS: LEVOTHYROXINE 50 MCG TAB PO SCH (06:14)
[2017-03-04] MEDS: HEPARIN SOD 5000 UNIT/0.5 ML CARP SQ SCH ×3 (06:15→21:43)
[2017-03-04] MEDS: METHYLPREDNISOLONE 4 MG TAB PO SCH ×4 (06:33→21:42)
[2017-03-04] MEDS: METOPROLOL SUCC 25MG EXT REL TAB PO SCH (07:14)
[2017-03-04 07:43] LABS: HEMATOCRIT 35.2 % (37-47); MEAN CELL VOLUME 86.3 fL (80-100); MEAN CORPUSCULAR HGB CONC 31.3 g/dl (32-36); PLATELET COUNT 251 K/uL (130-400); RED BLOOD COUNT 4.08 M/uL (4.2-5.4); WHITE BLOOD COUNT 10.64 K/uL (4.8-10.8)
[2017-03-04 08:14] LABS: BUN/CREATININE RATIO 30.8 (10-20); CREATININE 1.6 mg/dl (0.60-1.20); MAGNESIUM 1.9 mg/dl (1.8-2.4); POTASSIUM 3.7 mmol/L (3.5-5.1)
[2017-03-04] MEDS ORDERED: VANCOMYCIN CONSULT ACTIVE PRN (08:36)
[2017-03-04] MEDS ORDERED: VANCOMYCIN INJ 2,000 MG in SODIUM CHLORIDE 0.9% 500ML 500 ML IV ONE (08:41)
[2017-03-04] MEDS: CIPROFLOXACIN 250 MG TAB PO SCH ×2 (08:55→21:41)
[2017-03-04] MEDS: INSULIN GLARGINE SOLOSTAR 100 UNITS/ML 3 ML PEN SC SCH (08:57)
[2017-03-04] MEDS: INSULIN ASPART 100 UNITS/ML 3 ML PEN SC SCH ×4 (08:59→21:44)
[2017-03-04] MEDS: ASPIRIN 81 MG ECTAB PO SCH (08:59)
[2017-03-04] MEDS: ATORVASTATIN 40 MG TAB PO SCH (08:59)
--- NOTE | 2017-03-04 09:04 | Pharmacy Progress Note ---
Pharmacy Abx Initial Consult Date of Service Mar 04, 2017. Pharmacy Dosing Scope Date of Consult: 03/04/17 Consultation requested by: Dr. Christelle Breen Pharmacy is consulted to initiate Vancomycin IV dosing therapy, order appropriate labs and adjust drug dose/frequency. Subjective The patient is a 76 year old female admitted on Mar 02, 2017 at 14:46. Objective Height (Feet): 5 Height (Inches): 0.00 Weight (Kilograms): 102.300 Vital Signs (Past 12Hrs) Vital Signs Past 12 Hours Date Time Temp Pulse Resp B/P (MAP) Pulse Ox O2 Delivery O2 Flow Rate FiO2 03/04/17 07:03 36.6 74 20 182/81 (114) 96 Room Air 03/04/17 04:00 Room Air 03/04/17 03:55 37.0 66 18 142/80 (100) 96 Room Air 03/04/17 00:00 Room Air 03/03/17 23:04 37.0 71 18 150/72 (98) 94 Room Air Lab Results (24Hrs) Laboratory Tests (24 Hours) Test 03/04/17 07:22 White Blood Count 10.64 K/uL (4.8-10.8) Micro Results Date/Time Source Procedure Growth Status 03/02/17 12:06 Blood Blood Culture - Preliminary NO GROWTH TO DATE. Resulted 03/02/17 11:51 Blood Blood Culture - Preliminary Gram Positive Cocci Resulted 03/02/17 21:50 Skin Leg Right Lower Gram Stain - Final Resulted 03/02/17 21:50 Wound Culture - Preliminary Enterobacter Cloacae Resulted Risk Factors for Resistance None identified at this time Assessment & Plan Assessment 76 year old female being restarted on IV Vancomycin for possible bacteremia. * 1 of 2 blood culture from 03/02/17 growing G+ cocci. She last received Vancomycin 2000mg (~20mg/kg) IV x 1 on 03/02 @ 1620. This resulted in a random Vancomycin level of 21.2 mcg/mL (~14 hours after this dose). * Patient also with cellulitis; RLE wound grew alcala-sensitive Enterobacter cloacae (she is on Cipro 250mg po BID for this; not a consult) * Renal function improved to baseline (per H&P, baseline sCr = 1.6 for this patient with stage III CKD). sCr = 1.6 mg/dL with estimated CrCL ~32 mL/min per recent labs today 03/04/17. Therefore, will start maintenance regimen. Plan Vancomycin IV * Loading dose: 2000 mg (~19.5 mg/kg) x 1 today on 03/04/17 * Maintenance dose: 1350 mg IV (13 mg/kg) every 24 hours on 03/05/17 * Goal trough level for bacteremia : 15 to 20 mcg/mL * Trough level ordered for 03/06/17 @ 0930 (only prior to 2nd dose and therefore not reflective of steady state, but would like to assess dosing regimen early due to CKD and BMI 44 kg/m2 -- she is at risk for drug accumulation) Pharmacy will continue to follow and will adjust dose/frequency as necessary. Thank you.
[2017-03-04] MEDS ORDERED: NURSING VERBAL MED ORDER ONE (10:45)
[2017-03-04] MEDS ORDERED: AMLODIPINE BESYLATE 5 MG TAB PO ONE (11:00)
--- NOTE | 2017-03-04 11:38 | Progress Note ---
Internal Med Progress Note Date of Service: Mar 04, 2017. Provider Documentation: SUBJECTIVE: Patients right foot pain is better than on admission Does have pain in right hand joint- jessee 3rd finger. No fever, chills. OBJECTIVE: Vital Signs-as noted below Exam: General-AAOX3, no distress, morbidly obese Neck-Supple Lungs-AEBE, no wheezing, rhonchi Heart-S1, S2 normal Extremities-Chronic lymphedema bilaterally. No deformities noted. Tenderness on palpation of right foot. RLL -payne- wound with dressing + No erythema, swelling noted. Skin- Multiple ecchymosis + both upper extremities Lab data as noted below. MRI RIGHT LOWER EXTREMITY IMPRESSION: 1. There are no marrow signal changes identified typical in appearance for osteomyelitis. 2. There are numerous foci of bony erosion throughout the foot, with the largest present in the first metatarsal head and at the third and fourth tarsometatarsal articulations. The appearance is nonspecific, with gouty arthropathy or other erosive arthritis top differential considerations. Clinical correlation will be essential. 3. There is no MRI evidence of fracture. 4. Diffuse subcutaneous soft tissue edema is identified, greatest dorsally and laterally. The appearance suggests cellulitis. No organized fluid collection is seen. ASSESSMENT & PLAN: RIGHT FOOT PAIN : MRI lower extremities shows bony erosions throughout foot, largest in first MT head and 3rd, 4th Tarsometatarsal articulations, no fracture noted. D/D considered: Gout - with uric acid levels 13.2 . Does have hx of Rheumatoid arthritis but would see more involvement of joints with it. Was taken off MTX 1 -2 years ago due to worsening kidney function. No issues since than except for last few weeks with right hand- joint pains which was treated with steroid with possible diagnosis of pseudogout per PCP -Initially x rays concerning for 2nd toe fracture/Osteomyelitis, however, MRI shows no fracture or OM. Clinically not concerned about OM. -Started on prednisone 20 mg daily on admission--->Changed it to medrol dose pack on 03/03/17 -S/P IV Antibiotics- Vancomycin/Zosyn. MRI showed some cellulitis - right foot , no signs on my evaluation, so antibiotics changed to Doxy on 03/03 and today will change to Ciprofloxacin per Wound cx- RLE- Enterobacter Cloacae sensitivity results -Continue with pain mx -Will need follow up with Rheumatology outpatient -Consulted orthopedics for abnormal MRI results, unclear etiology. Discussed with MARKUS Cha. -PT/OT ordered. GILBERTO ON CKD III: Worsened Baseline Cr:1.6 . Came with creatinine of 2.2 -> down to 1.8-->1.6 -On IV Fluids- Ok to discontinue today -Hold chlorthalidone HYPOKALEMIA Likely secondary to being on chlorthalidone at home -Replaced -Monitor K, Mg HTN- Uncontrolled -Added norvasc 5 mg today -Continue with Hydralazine 50 mg PO TID DM II :, Uncontrolled Last A1C:5.6 in Aug 2016, now 8.4 Blood sugar levels are uncontrolled likely secondary to acute infection and recent prednisone use -Was taken off Metformin due to CKD. Will need to start her on medications prior to discharge -In hospital, added lantus q HS and ISS -Appreciate DM educator inputs. HX OF RHEUMATOID ARTHRITIS Not on any disease modifying meds at home -Was taken off MTX 1-2 years ago due to worsening kidney function HYPOTHYROIDISM: -Continue levothyroxine DVT Px: -Heparin SQ Code Status: -Full Code DISPOSITION -PT/OT - Rehab -Agreeable to go to rehab Vital Signs: Date Time Temp Pulse Resp B/P (MAP) Pulse Ox O2 Delivery O2 Flow Rate FiO2 03/04/17 10:42 64 174/72 (106) 03/04/17 07:03 36.6 74 20 182/81 (114) 96 Room Air 03/04/17 04:00 Room Air 03/04/17 03:55 37.0 66 18 142/80 (100) 96 Room Air 03/04/17 00:00 Room Air 03/03/17 23:04 37.0 71 18 150/72 (98) 94 Room Air 03/03/17 20:00 Room Air 03/03/17 19:28 37.3 71 20 139/77 (97) 94 Room Air 03/03/17 16:00 Room Air 03/03/17 15:44 37.2 66 20 164/76 (105) 92 Room Air 03/03/17 12:00 Room Air 03/03/17 11:52 36.6 67 18 167/72 (103) 95 Room Air Lab Results: Results Past 24 Hours Test 03/03/17 11:44 03/03/17 16:30 03/03/17 17:13 03/03/17 20:24 Range/Units Bedside Glucose 271 318 341 70-90 mg/dl Sodium Level 140 136-145 mmol/L Potassium Level 3.8 3.5-5.1 mmol/L Chloride Level 104 98-107 mmol/L Carbon Dioxide Level 26 21-32 mmol/L Anion Gap 10.0 3-11 mmol/L Blood Urea Nitrogen 58 7-18 mg/dl Creatinine 1.80 0.60-1.20 mg/dl Est Creatinine Clear Calc Drug Dose 28.6 ml/min Estimated GFR () 31.1 Estimated GFR (Non- 26.9 BUN/Creatinine Ratio 32.2 10-20 Random Glucose 360 70-99 mg/dl Calcium Level 8.5 8.5-10.1 mg/dl Magnesium Level 2.0 1.8-2.4 mg/dl Beta-Hydroxybutyric Acid 1.78 0.2-2.81 mg/dL Test 03/04/17 07:19 03/04/17 07:22 Range/Units Bedside Glucose 125 70-90 mg/dl White Blood Count 10.64 4.8-10.8 K/uL Red Blood Count 4.08 4.2-5.4 M/uL Hemoglobin 11.0 12.0-16.0 g/dL Hematocrit 35.2 37-47 % Mean Corpuscular Volume 86.3 80-100 fL Mean Corpuscular Hemoglobin 27.0 25-34 pg Mean Corpuscular Hemoglobin Concent 31.3 32-36 g/dl RDW Standard Deviation 46.0 36.4-46.3 fL RDW Coefficient of Variation 14.6 11.5-14.5 % Platelet Count 251 130-400 K/uL Mean Platelet Volume 10.0 7.4-10.4 fL Sodium Level 144 136-145 mmol/L Potassium Level 3.7 3.5-5.1 mmol/L Chloride Level 109 98-107 mmol/L Carbon Dioxide Level 27 21-32 mmol/L Anion Gap 8.0 3-11 mmol/L Blood Urea Nitrogen 49 7-18 mg/dl Creatinine 1.60 0.60-1.20 mg/dl Est Creatinine Clear Calc Drug Dose 32.2 ml/min Estimated GFR () 35.9 Estimated GFR (Non- 31.0 BUN/Creatinine Ratio 30.8 10-20 Random Glucose 130 70-99 mg/dl Calcium Level 9.0 8.5-10.1 mg/dl Magnesium Level 1.9 1.8-2.4 mg/dl
--- NOTE | 2017-03-04 18:55 | Medical Consult ---
Consultation Note Date of Service Mar 04, 2017. Consultation Note This is a 76-year-old female seen at the request of Dr. Nupur Breen. Patient had sudden onset of right foot pain. Patient had difficulty with ambulation due to the pain. She presented to [facility]. Patient was admitted for treatment of cellulitis with possibility of osteomyelitis in the right foot. The patient has a history of rheumatoid arthritis and has been on disease modifying drugs for the last 1-2 years. She is noted to have an elevated sedimentation rate, C-reactive protein and serum uric acid. Patient was placed on IV antibiotics and steroids. Past medical history: CKD 3, rheumatoid arthritis, HLP, previous diagnosis diabetes mellitus now resolved, hypertension, obesity Past surgical history: Noncontributory Allergies: pecans Medications: Please see the medications in the medical record. Social history: Denies tobacco, drug use, alcohol. Lives alone. Retired. Physical exam: Patient is sitting upright in the bedside chair. Her niece is present at bedside. The patient is alert and oriented 3. Speech is clear and fluent. Examination of the lower extremities demonstrates chronic venous stasis changes. She has a superficial abrasion on the right anterior lower leg which is covered with a bandage. There is mild cellulitic appearance of the right lower extremity. There is 3 out of 4 edema on bilateral lower extremities with slight the enlarged right lower extremity compared to the left. Dorsalis pedis and posterior tibial pulses are 2 out of 4 bilateral lower extremities. She has light touch sensation intact bilateral lower extremities. Skin is warm, dry and intact. There are no abrasions, ulcers or lesions of the right foot noted. Active and passive range of motion of the ankles and hindfoot, midfoot and toes are slightly diminished however within normal limits. She has right greater than left hindfoot, midfoot, and forefoot edema. She has right greater than left swelling of the toes. She has mild tenderness to palpation over the midfoot and forefoot on the right compared to the left. Imaging studies: Radiographs and MRI reviewed. Periarticular erosions noted. Findings more consistent with gouty arthropathy or CPPD rather than rheumatoid, cellulitis, abscess or osteomyelitis. Impression: Acute gouty flare right foot with superimposed cellulitis. Chronic venous stasis changes bilateral lower extremities. Rheumatoid arthritis Recommendation: Continue conservative management with IV antibiotics and steroids. No indication for surgical intervention. Thank you the opportunity to consult in the care of this patient. Jose Mon D.O.
[2017-03-04] MEDS ORDERED: METHYLPREDNISOLONE 4 MG TAB PO SCH (21:00)
[2017-03-05] VITALS: BP 171/82; PULSE 69; TEMP 36.6; O2SAT 94
[2017-03-05 05:51] LABS: HEMATOCRIT 34.7 % (37-47); MEAN CELL VOLUME 85.9 fL (80-100); MEAN CORPUSCULAR HEMOGLOBIN 27.5 pg (25-34); PLATELET COUNT 251 K/uL (130-400); RED BLOOD COUNT 4.04 M/uL (4.2-5.4); WHITE BLOOD COUNT 8.81 K/uL (4.8-10.8)
[2017-03-05 06:16] LABS: CREATININE 1.3 mg/dl (0.60-1.20)
[2017-03-05] MEDS: LEVOTHYROXINE 50 MCG TAB PO SCH (06:28)
[2017-03-05] MEDS: METHYLPREDNISOLONE 4 MG TAB PO SCH ×2 (06:28→13:00)
[2017-03-05] MEDS: HEPARIN SOD 5000 UNIT/0.5 ML CARP SQ SCH ×2 (06:29→13:53)
[2017-03-05 07:46] VITALS: BP 192/92; PULSE 71; TEMP 36.8; O2SAT 95
[2017-03-05 08:00] VITALS: O2SAT 95
[2017-03-05] MEDS: ASPIRIN 81 MG ECTAB PO SCH (08:56)
[2017-03-05] MEDS: ATORVASTATIN 40 MG TAB PO SCH (08:56)
[2017-03-05] MEDS: METOPROLOL SUCC 25MG EXT REL TAB PO SCH (08:56)
[2017-03-05] MEDS: CIPROFLOXACIN 250 MG TAB PO SCH (08:58)
[2017-03-05] MEDS ORDERED: AMLODIPINE BESYLATE 5 MG TAB PO SCH (09:00)
[2017-03-05] MEDS: INSULIN ASPART 100 UNITS/ML 3 ML PEN SC SCH ×2 (09:02→13:02)
[2017-03-05] MEDS: INSULIN GLARGINE SOLOSTAR 100 UNITS/ML 3 ML PEN SC SCH (09:04)
--- NOTE | 2017-03-05 09:19 | Progress Note ---
Internal Med Progress Note Date of Service: Mar 05, 2017. Provider Documentation: SUBJECTIVE: Patient is upset, crying that she wants to just go home. Tried to ask her if anything is bothering her and keeps saying that she wants to go home Refusing to let us take her BP, take any pills. Denies any complaints. No fever, chills. OBJECTIVE: Vital Signs-as noted below Exam: General-Awake, alert, oriented, Emotional, crying + Neck-Supple Lungs-AEBE, no wheezing, rhonchi Heart-S1, S2 normal Extremities-Chronic lymphedema bilaterally. Tenderness on palpation of right foot. RLL - payne- wound with dressing + No erythema, swelling noted. Skin- Multiple ecchymosis + both upper extremities. Lab data as noted below. MRI RIGHT LOWER EXTREMITY IMPRESSION: 1. There are no marrow signal changes identified typical in appearance for osteomyelitis. 2. There are numerous foci of bony erosion throughout the foot, with the largest present in the first metatarsal head and at the third and fourth tarsometatarsal articulations. The appearance is nonspecific, with gouty arthropathy or other erosive arthritis top differential considerations. Clinical correlation will be essential. 3. There is no MRI evidence of fracture. 4. Diffuse subcutaneous soft tissue edema is identified, greatest dorsally and laterally. The appearance suggests cellulitis. No organized fluid collection is seen. ASSESSMENT & PLAN: Patient is very emotional, crying and wants to be discharged home. Refusing any rx, vitals, medications because wants to go home. Refusing to go home. RIGHT FOOT PAIN : LIKELY ACUTE GOUTY FLARE MRI lower extremities shows bony erosions throughout foot, largest in first MT head and 3rd, 4th Tarsometatarsal articulations, no fracture noted. D/D considered: Gout - with uric acid levels 13.2 . Does have hx of Rheumatoid arthritis but would see more involvement of joints with it. Was taken off MTX 1 -2 years ago due to worsening kidney function. No issues since than except for last few weeks with right hand- joint pains which was treated with steroid with possible diagnosis of pseudogout per PCP -Initially x rays concerning for 2nd toe fracture/Osteomyelitis, however, MRI shows no fracture or OM. Clinically not concerned about OM. -Started on prednisone 20 mg daily on admission--->Changed it to medrol dose pack on 7/6/17--> Discharge on steroids- prednisone 40 mg x 4 more days -S/P IV Antibiotics- Vancomycin/Zosyn. MRI showed some cellulitis - right foot , no signs on my evaluation, so antibiotics changed to to Levofloxacin per Wound cx- RLE- Enterobacter Cloacae sensitivity results -Not required any pain medications -Recommend follow up with Rheumatology outpatient -Consulted orthopedics for abnormal MRI results, unclear etiology--> Per ortho, this is likely acute gouty flare -PT/OT ordered.- recommends rehab, but patient refusing now. GILBERTO ON CKD III: Improved Baseline Cr:1.6 . Came with creatinine of 2.2 -> down to 1.8-->1.6 -->1.3 ( Likely near baseline) -S/P IV Fluids -Okay to restart Chlorthalidone HYPOKALEMIA Likely secondary to being on chlorthalidone at home -Replaced -Monitor K, Mg HTN- Uncontrolled -Added norvasc 5 mg yesterday. BP in 190s, but refusing to let us take her BP today morning. Convinced her to take her PO pills at least before being discharged. Agreeable to taking pills. -Continue with Hydralazine 50 mg PO TID . Will re start her home medication- Chlorthalidone. DM II :, Uncontrolled Last A1C:5.6 in Aug 2016, now 8.4 Blood sugar levels are uncontrolled likely secondary to acute infection and recent prednisone use -Was taken off Metformin due to CKD. Will start her on low dose of Glipizide 5 mg daily -In hospital, added lantus q HS and ISS -Appreciate DM educator inputs. -Need to follow up outpatient HX OF RHEUMATOID ARTHRITIS Not on any disease modifying meds at home -Was taken off MTX 1-2 years ago due to worsening kidney function HYPOTHYROIDISM: -Continue levothyroxine DVT Px: -Heparin SQ Code Status: -Full Code DISPOSITION -PT/OT - Recommends Rehab -Patient is very emotional, crying and wants to be discharged home. Refusing any rx, vitals, medications because wants to go home. Refusing to go rehab. Says she will have enough support from family members at home Okay to discharge home today. Refusing to let us take her BP which is high in AM, convinced to take atleast AM pills before being discharged. Vital Signs: Date Time Temp Pulse Resp B/P (MAP) Pulse Ox O2 Delivery O2 Flow Rate FiO2 03/05/17 07:46 36.8 71 18 192/92 (125) 95 Room Air 03/05/17 04:00 Room Air 03/05/17 00:00 36.6 69 20 171/82 (111) 94 Room Air 03/05/17 00:00 Room Air 03/04/17 22:25 66 185/102 (129) 03/04/17 20:07 36.5 109 18 168/79 (108) 97 Room Air 03/04/17 19:30 Room Air 03/04/17 16:00 Room Air 03/04/17 15:12 36.4 64 16 157/71 (99) 97 Room Air 03/04/17 12:00 Room Air 03/04/17 11:37 36.5 56 16 167/81 (109) 97 Room Air 03/04/17 10:42 64 174/72 (106) Lab Results: Results Past 24 Hours Test 03/04/17 11:21 03/04/17 16:24 03/04/17 19:27 03/05/17 05:27 Range/Units Bedside Glucose 159 198 287 70-90 mg/dl White Blood Count 8.81 4.8-10.8 K/uL Red Blood Count 4.04 4.2-5.4 M/uL Hemoglobin 11.1 12.0-16.0 g/dL Hematocrit 34.7 37-47 % Mean Corpuscular Volume 85.9 80-100 fL Mean Corpuscular Hemoglobin 27.5 25-34 pg Mean Corpuscular Hemoglobin Concent 32.0 32-36 g/dl RDW Standard Deviation 45.2 36.4-46.3 fL RDW Coefficient of Variation 14.4 11.5-14.5 % Platelet Count 251 130-400 K/uL Mean Platelet Volume 10.0 7.4-10.4 fL Creatinine 1.30 0.60-1.20 mg/dl Est Creatinine Clear Calc Drug Dose 39.6 ml/min Estimated GFR () 46.2 Estimated GFR (Non- 39.8 Test 03/05/17 08:04 Range/Units Bedside Glucose 147 70-90 mg/dl
[2017-03-05] MEDS ORDERED: PRED10TA PO (09:21)
[2017-03-05] MEDS ORDERED: GLIP5TAB11 PO (09:21)
[2017-03-05] MEDS ORDERED: CPR250 PO (09:21)
--- NOTE | 2017-03-05 09:25 | Discharge Instructions ---
Discharge Instructions Date of Service Mar 05, 2017. Admission Reason for Admission: Foot Pain Discharge Discharge Diagnosis / Problem: 1. Right foot pain, likely acute gouty flare 2. HTN, uncontrolled Discharge Goals Goal(s): Decrease discomfort, Improve function, Improve disease control, Prevent Disease Progression Activity Recommendations Activity Limitations: resume your previous activity (as tolerated - Outpatient PT/OT recommended) . Instructions / Follow-Up Instructions / Follow-Up MEDICATION CHANGES: 1. New medication; Prednisone 40 mg daily x 4 more days for gouty flare 2. New medication: Ciprofloxacin 250 mg PO BID x 5 more days to complete course of 7 days of antibiotics for RLE Cellulitis/Wound growing Enterobacter Cloacae 3. Increase Glipizide to 10 mg from 5 mg as DM uncontrolled 4. Kdur supplement 10 meq to be taken daily while on chlorthalidone/Lasix to prevent low K FOLLOW UP 1. Follow up with PCP in 1 week. We will call you for appt date/time Current Hospital Diet Patient's current hospital diet: AHA Diet (Heart Healthy), Diabetes Type 2 Diet Discharge Diet Recommended Diet: AHA Diet (Heart Healthy), Low Sodium Diet (2gm Na), Diabetes Type 2 Diet Pending Studies Studies pending at discharge: no Laboratory Results Hemoglobin A1c Test 03/03/17 06:15 Range/Units Estimated Average Glucose 194 mg/dl Hemoglobin A1c 8.4 H 4.5-5.6 % Medical Emergencies . Who to Call and When: Medical Emergencies: If at any time you feel your situation is an emergency, please call 911 immediately. . Non-Emergent Contact Non-Emergency issues call your: Primary Care Provider . . "Provider Documentation" section prepared by Nupur Breen. . VTE Core Measure Inpt VTE Proph given/why not?: Unfractionated heparin SQ
--- NOTE | 2017-03-05 09:31 | Discharge Summary ---
Discharge Summary Date of Service Mar 05, 2017. Discharge Summary Admission Date: Mar 02, 2017 at 14:46 Discharge Date: Mar 05, 2017 Discharge Disposition: Home with services (PT/OT at home recommended) Principal Diagnosis: 1. Right foot pain, likely acute gouty flare 2. GILBERTO on CKD III 3. Hypokalemia 4. HTN, Uncontrolled 5. Abnormal Blood cx, likely contaminant Secondary Diagnoses/Problems: 1. DM-II, Uncontrolled 2. Hypothyroidism 3. Morbid obesity 4. Chronic lymphedema 5. Physical deconditioning Procedures: MRI Lower extremity- right foot CXR IV antibiotics Wound cx Blood cx PT/OT Consultations: Orthopedics, Dr Mon DM educator Pending Studies/Follow-Up: Instructions / Follow-Up Instructions / Follow-Up MEDICATION CHANGES: 1. New medication; Prednisone 40 mg daily x 4 more days for gouty flare 2. New medication: Ciprofloxacin 250 mg PO BID x 5 more days to complete course of 7 days of antibiotics for RLE Cellulitis/Wound growing Enterobacter Cloacae 3. Increase Glipizide to 10 mg from 5 mg as DM uncontrolled 4. Kdur supplement 10 meq to be taken daily while on chlorthalidone/Lasix to prevent low K MONITOR 1. BP- Hypertensive while in hospital 2. DM-II uncontrolled with HAB1C 8.4. Increased glipizide to 10 mg. 3. Monitor K outpatient while on chlorthalidone FOLLOW UP 1. Follow up with PCP in 1 week. We will call you for appt date/time Medication Reconciliation New Medications: Potassium Chloride (K-Tabs) 10 Meq Tabcr 10 MEQ PO DAILY for 20 Days, % Prednisone Tab (Prednisone) 10 Mg Tab 40 MG PO DAILY for 4 Days, #16 TAB Ciprofloxacin (Ciprofloxacin HCl) 250 Mg Tab 250 MG PO Q12 for 7 Days, #14 TAB Changed Medications: Glipizide (Glucotrol) 5 Mg Tab 10 MG PO DAILY for 30 Days, #60 TAB (Changed from: 5 MG) Continued Medications: Aspirin (Aspirin Ec) 81 Mg Tab 81 MG PO DAILY Atorvastatin (Lipitor) 40 Mg Tab 40 MG PO DAILY, TAB Chlorthalidone (Hygroton) 25 Mg Tab 62.5 MG PO DAILY, TAB Cholecalciferol (Vitamin D-3) 1,000 Unit Tab 1000 TAB PO DAILY Folic Acid (Folvite) 1 Mg Tab 1 MG PO DAILY, TAB Furosemide (Lasix) 20 Mg Tab 20 MG PO DAILY, TAB Hydralazine Hcl (Apresoline) 50 Mg Tab 50 MG PO TID, TAB Levothyroxine Sodium (Synthroid) 50 Mcg Tab 50 MCG PO DAILY, TAB Metoprolol Succ (Toprol Xl) (Toprol-Xl) 25 Mg Tabcr 37.5 MG PO DAILY, #30 TAB Discontinued Medications: Methylprednisolone (Methylprednisolone) 8 Mg Tab 4 MG PO DAILY Admission Information HPI (per Admitting provider): Patient is a 76 Yr female with PMH of CAD, CKD III, DM II, RA, HTN, HLP and ? pseudogout presents with history of sudden onset of right foot pain since one day duration. She states the foot pain is worse at night and especially with weight bearing and on ambulation. Rates the pain as 10/10, non radiating. She took 3 baby aspirin and prednisone this morning and currently states the pain is better. Denies any trauma, fever, chills, redness, swelling, discharge, nausea, vomiting, change in medications recently. She reports acquiring a scratch wound on her right leg by her dog 2 weeks ago while playing with it but denies any discharge, swelling, redness. Her PCP treated her for possible pseudogout of her wrist with prednisone which she completed 3 days ago. She also has history of lymphedema and rheumatoid arthritis for which she was not treated with methotrexate secondary to kidney disease per patient. Also denies any chest pain, SOB, abd pain, dizziness, headache, change in bowel/bladder habits. Physical Exam (per Admitting): General Appearance: WD/WN, no apparent distress Head: normocephalic, atraumatic Eyes: normal inspection, PERRL ENT: normal ENT inspection, hearing grossly normal Neck: supple, trachea midline Respiratory/Chest: chest non-tender, lungs clear, no respiratory distress, no accessory muscle use Cardiovascular: regular rate, rhythm, no JVD, no murmur Abdomen/GI: normal bowel sounds, non tender, soft, + pertinent finding ( Protuberant) Back: normal inspection Extremities/Musculoskelatal: normal inspection, + pertinent finding (+B/L Lymphedema, non tender foot on exam, No erythema ) Neurologic/Psych: rn pool II-XII nml as tested, no motor/sensory deficits, alert , normal mood/affect, oriented x 3 Skin: normal color, + pertinent finding (Right leg scatch wound) Hospital Course Patient is very emotional, crying and wants to be discharged home. Refusing any rx, vitals, medications because wants to go home. Refusing to go home. RIGHT FOOT PAIN : LIKELY ACUTE GOUTY FLARE : MRI lower extremities shows bony erosions throughout foot, largest in first MT head and 3rd, 4th Tarsometatarsal articulations, no fracture noted. D/D considered: Gout - with uric acid levels 13.2 . Does have hx of Rheumatoid arthritis but would see more involvement of joints with it. Was taken off MTX 1 -2 years ago due to worsening kidney function. No issues since than except for last few weeks with right hand- joint pains which was treated with steroid with possible diagnosis of pseudogout per PCP -Initially x rays concerning for 2nd toe fracture/Osteomyelitis, however, MRI shows no fracture or OM. Clinically not concerned about OM. -Started on prednisone 20 mg daily on admission--->Changed it to medrol dose pack on 03/03/17--> Discharge on steroids- prednisone 40 mg x 4 more days -S/P IV Antibiotics- Vancomycin/Zosyn. MRI showed some cellulitis - right foot , no signs on my evaluation, so antibiotics changed to to Ciprofloxacin x 5 more days to complete 7 day course per Wound cx- RLE- Enterobacter Cloacae sensitivity results -Not required any pain medications -Recommend follow up with Rheumatology outpatient -Consulted orthopedics for abnormal MRI results, unclear etiology--> Per ortho, this is likely acute gouty flare -PT/OT ordered.- recommends rehab, but patient refusing now. GILBERTO ON CKD III: Improved Baseline Cr:1.6 . Came with creatinine of 2.2 -> down to 1.8-->1.6 -->1.3 ( Likely near baseline) -S/P IV Fluids -Okay to restart Chlorthalidone HYPOKALEMIA Likely secondary to being on chlorthalidone at home -Replaced -Added Kdur 10 meq daily supplement while on lasix, chlorthalidone -Monitor K outpatient ABNORMAL BLOOD CULTURE -Received 2 dose of IV Vancomycin as 1/2 bottles grew GPC--> Coag negative staph ---> Likely contaminant. Discontinued antibiotics HTN- Uncontrolled -Added norvasc 5 mg yesterday. BP in 190s, but refusing to let us take her BP today morning. Convinced her to take her PO pills at least before being discharged. Agreeable to taking pills. -Continue with Hydralazine 50 mg PO TID . Will re start her home medication- Chlorthalidone, lasix daily, so not discharging on Norvasc -Monitor BP outpatient. DM II :, Uncontrolled Last A1C:5.6 in Aug 2016, now 8.4 Blood sugar levels are uncontrolled likely secondary to acute infection and recent prednisone use -Was taken off Metformin due to CKD. Increase glipizide to 10 mg daily from 5 mg daily -In hospital, added lantus q HS and ISS -Appreciate DM educator inputs. -Need to follow up outpatient HX OF RHEUMATOID ARTHRITIS Not on any disease modifying meds at home -Was taken off MTX 1-2 years ago due to worsening kidney function HYPOTHYROIDISM: -Continue levothyroxine DVT Px: -Heparin SQ Code Status: -Full Code DISPOSITION -PT/OT - Recommends Rehab -Patient is very emotional, crying and wants to be discharged home. Refusing any rx, vitals, medications because wants to go home. Refusing to go rehab. Says she will have enough support from family members at home Okay to discharge home today. Refusing to let us take her BP which is high in AM, convinced to take atleast AM pills before being discharged. Total time spent on discharge = 35 minutes This includes examination of the patient, discharge planning, medication reconciliation, and communication with other providers. Discharge Instructions Discharge Discharge Diagnosis / Problem: 1. Right foot pain, likely acute gouty flare 2. HTN, uncontrolled Discharge Goals Goal(s): Decrease discomfort, Improve function, Improve disease control, Prevent Disease Progression Activity Recommendations Activity Limitations: resume your previous activity (as tolerated - Outpatient PT/OT recommended) . Instructions / Follow-Up Instructions / Follow-Up MEDICATION CHANGES: 1. New medication; Prednisone 40 mg daily x 4 more days for gouty flare 2. New medication: Ciprofloxacin 250 mg PO BID x 5 more days to complete course of 7 days of antibiotics for RLE Cellulitis/Wound growing Enterobacter Cloacae 3. Increase Glipizide to 10 mg from 5 mg as DM uncontrolled 4. Kdur supplement 10 meq to be taken daily while on chlorthalidone/Lasix to prevent low K FOLLOW UP 1. Follow up with PCP in 1 week. We will call you for appt date/time Current Hospital Diet Patient's current hospital diet: AHA Diet (Heart Healthy), Diabetes Type 2 Diet Discharge Diet Recommended Diet: AHA Diet (Heart Healthy), Low Sodium Diet (2gm Na), Diabetes Type 2 Diet Pending Studies Studies pending at discharge: no Laboratory Results Hemoglobin A1c Test 03/03/17 06:15 Range/Units Estimated Average Glucose 194 mg/dl Hemoglobin A1c 8.4 H 4.5-5.6 % Medical Emergencies . Who to Call and When: Medical Emergencies: If at any time you feel your situation is an emergency, please call 911 immediately. . Non-Emergent Contact Non-Emergency issues call your: Primary Care Provider . . "Provider Documentation" section prepared by Nupur Breen. . VTE Core Measure Inpt VTE Proph given/why not?: Unfractionated heparin SQ
[2017-03-05] MEDS ORDERED: MCRK/10 PO (09:33)
[2017-03-05] MEDS ORDERED: VANCOMYCIN INJ 1,350 MG in SODIUM CHLORIDE 0.9% 250ML 250 ML IV SCH (10:00)
[2017-03-05 10:08] VITALS: BP 192/92; PULSE 71; TEMP 36.8; O2SAT 95
[2017-03-05 12:00] VITALS: O2SAT 96
[2017-03-06] MEDS ORDERED: METHYLPREDNISOLONE 4 MG TAB PO SCH (07:00)
[2017-03-06] MEDS ORDERED: VANCOMYCIN TROUGH ONE (09:30)
[2017-03-07] MEDS ORDERED: METHYLPREDNISOLONE 4 MG TAB PO SCH (07:00)
[2017-03-08] MEDS ORDERED: METHYLPREDNISOLONE 4 MG TAB PO SCH (07:00)
== END 2017-03-05 15:20 | disposition home health service (06) | DRG 603 ==
LOC: EDBD 08:42 → C.EDB 08:44 → ENRESERV 12:43 → C.MED 14:46
PROVIDERS: ADMIT Internal Medicine; ATTEND Internal Medicine
DX: L03.115 Cellulitis of right lower limb (principal); N17.9 Acute kidney failure, unspecified; Z68.41 Body mass index [BMI] 40.0-44.9, adult; E66.9 Obesity, unspecified; E78.5 Hyperlipidemia, unspecified; I12.9 Hypertensive chronic kidney disease with stage 1 through stage 4 chronic kidney disease, or unspecified chronic kidney disease; E03.9 Hypothyroidism, unspecified; E87.6 Hypokalemia; N18.3 Chronic kidney disease, stage 3 (moderate); Z79.82 Long term (current) use of aspirin

== ENCOUNTER 2024-07-16 10:24 | Inpatient (IN) ==
[2024-07-16 11:31] LABS: Basophils # (auto) 0.05 K/uL (0.00-0.20); Basophils % (auto) 0.9 %; Eosinophils # (auto) 0.17 K/uL (0.00-0.50); Eosinophils % (auto) 2.9 %; Hematocrit (blood only) 25.5 % (37.0-47.0); Hemoglobin 7.4 g/dl (12.0-16.0); Immature Granulocytes # (auto) 0.03 K/uL (0.01-0.20); Immature Granulocytes % (auto) 0.5 %; Lymphocytes # (auto) 1.12 K/uL (1.20-3.40); Lymphocytes % (auto) 19.2 %; Mean Corpuscular Hemoglobin 30.6 pg (25.0-34.0); Mean Corpuscular Volume 105.4 fL (80.0-100.0); Monocytes # (auto) 0.24 K/uL (0.11-0.59); Monocytes % (auto) 4.1 %; Neutrophils # (auto) 4.23 K/uL (1.40-6.50); Neutrophils % (auto) 72.4 %; Platelet Count 204 K/uL (130-400); RDW Coefficient of Variation 14.6 % (11.5-14.5); Red Blood Count 2.42 M/uL (4.20-5.40); White Blood Count 5.84 K/ul (4.8-10.8)
--- NOTE | 2024-07-16 11:31 | XRay Report ---
XR chest 1V portable HISTORY: 84 years-old Female Chest pain, nonspecific COMPARISON: None TECHNIQUE: AP view of the chest FINDINGS: Heart size is normal. Perivascular congestion with interstitial coarsening. Small pleural effusions w ith mild bibasilar consolidation. Atherosclerosis of the aorta. Bones appear grossly intact. IMPRESSION: 1. Cardiomegaly with pulmonary edema. 2. Small pleural effusions with mild bibasilar consolidation. ACT 112: Negative or not required by law. The above report was generated using voice recognition software. It may contain grammatical, syntax o r spelling errors. Electronically signed by: Lizandro Pond M.D. 07/16/2024 11:30 AM
[2024-07-16 11:56] LABS: Anion Gap 8 (3-11); BUN Creatinine Ratio 26.9 (10-20); Blood Urea Nitrogen 73 mg/dl (6-23); Calcium 9.6 mg/dl (8.6-10.3); Carbon Dioxide 24 mmol/L (21-32); Chloride 111 mmol/L (98-107); Glucose 111 mg/dl (70-99(Fasting)); Lipase 30 U/L (11-82); Potassium 4.9 mmol/L (3.5-5.1); Sodium 143 mmol/L (136-145)
[2024-07-16 12:02] LABS: Macrocytosis Present; Polychromasia 1+
[2024-07-16 12:06] LABS: Influenza A virus by PCR Negative (Neg); Influenza B virus by PCR Negative (Neg); RSV by PCR Negative (Neg); SARS CoV2 RNA(COVID-19) Ceph NEGATIVE (Negative)
[2024-07-16 12:20] LABS: Troponin I High Sensitivity 246.7 pg/ml (0-14)
[2024-07-16 13:33] LABS: INR 1.1 (0.9-1.1); Partial Thromboplastin Time 27 Seconds (21-31); Prothrombin Time 11.6 Seconds (9.0-12.0)
--- NOTE | 2024-07-16 13:39 | History & Physical Report ---
Date of Service July 16, 2024 Assessment & Plan (1) Acute on chronic diastolic CHF (congestive heart failure): (2) Acute worsening of stage 4 chronic kidney disease: (3) Elevated troponin: (4) Anemia: (5) T2DM (type 2 diabetes mellitus): (6) Hypertension: (7) Hyperlipidemia: Plan This is an 84-year-old female who has a significant past medical history of T2DM, HTN, HLD, hypothyroidism, hyperparathyroidism, venous insufficiency, CKD stage IV, aortic valve sclerosis, vitamin D deficiency, senile osteoporosis, gouty arthropathy and lymphedema of the bilateral lower extremities who presents to ED secondary to worsening shortness of breath. Shortness of breath Acute on chronic diastolic CHF Elevated troponin admit to PCU consult cardiology obtain echocardiogram, repeat troponin q6h, 2hr trop is stable TSH WNL Lasix 40mg IV BID, shafer cath placed, strict I and O, daily standing weights last echo 04/2022 preserved EF, diastolic dysfunction with AV sclerosis Acute worsening of stage [address] Gomez/Osmar Nephro baseline cr 1.8-2, cr 2.7 today avoid nephrotoxic agents, consult nephrology Urine negative for blood/protein Acute uncomplicated UTI urine concerning for infection, wbc normal, no fever possible asymptomatic bacturia, await urine culture, empiric ceftriaxone for now Anemia hgb 7.4, last done 1 year ago was 11.3 pt reports no concerning s/sx for bleeding anemia panel unremarkable, folate/b12 still pending possibly in setting of CKD vs loss, monitor closely hx of T2DM diet controlled as outpt, last a1c 4.8, will repeat a1c in a.m. DVT ppx: SCDS for now, if hemoglobin remains stable consider chemical prophylaxis in a.m. FULL CODE PCP: Jovita Gutiérrez Dispo: admit to PCU, will need to consult PT/OT when appropriate I spent a total of 76 minutes reviewing notes, outpatient records, labs, medication, coordinating, documenting and providing care for this patient exclu ding time spent in the performance of separately billed services. Pt was seen and examined in collaboration with Dr. Olson, please see addendum History of Present Illness Chief Complaint: SOB Primary Care Provider: Jovita Gutiérrez, DO This is an 84-year-old female who has a significant past medical history of T2DM, HTN, HLD, hypothyroidism, hyperparathyroidism, venous insufficiency, CKD stage IV, aortic valve sclerosis, vitamin D deficiency, senile osteoporosis, gouty arthropathy and lymphedema of the bilateral lower extremities who presents to ED secondary to worsening shortness of breath. History obtained from patient, family at bedside and and patient and chart review. She reports acute onset of shortness of breath that started 2 days ago. She typically lives at home alone and ambulates with assist device. She noted 2 days ago she was becoming more short of breath with exertion. She denies any shortness of breath at rest, orthopnea or PND, but she does sleep in a recliner. She does note an intermittent cough, but nothing that is new. She denies any significant weight gain or change in her chronic lower extremity edema. She asked reports a 16 pound weight loss as she reports she has been trying to lose weight and is watching her bread intake. She feels she is cautious on her salt intake. She has been taking her medications regularly. No recent illness. She denies any fever, chills, sweats, chest pain, hemoptysis, nausea, vomiting, abdominal pain, melena, medic easier, hematuria, change in her bowel or urinary habits. Family at bedside also states that she has a caregiver that comes to the house to help her bathe and they also report no new changes in regards to any possible concerns for bleeding. Son at bedside feels her medications and is competent she is taking her medications appropriately. Per outpatient chart review her last echocardiogram was in April 2022 which revealed a preserved EF of 55%, grade 1 diastolic dysfunction aortic valve sclerosis. Her baseline creatinine is approximately 1.8-2 which she follows with [facility] nephrology. Her most recent A1c over a year ago was 4.8. Her last hemoglobin 1 year ago was 11.3. Allergies Allergy/AdvReac Type Severity Reaction Status Date / Time pecan nut Allergy Severe ANAPHYLAXIS Verified 03/02/17 09:41 Home Medications Medication Instructions Recorded Confirmed Type allopurinol 100 mg tablet 200 mg PO DAILY 07/16/24 07/16/24 History aspirin 81 mg tablet,delayed 81 mg PO 2XWK 07/16/24 07/16/24 History release atorvastatin 40 mg tablet 40 mg PO DAILY 07/16/24 07/16/24 History chlorthalidone 25 mg tablet 50 mg PO DAILY 07/16/24 07/16/24 History cholecalciferol (vitamin D3) 10 10 mcg PO DAILY 07/16/24 07/16/24 History mcg (400 unit) capsule folic acid 1 mg tablet 1 mg PO DAILY 07/16/24 07/16/24 History furosemide 20 mg tablet 20 mg PO DAILY 07/16/24 07/16/24 History hydralazine 10 mg tablet 10 mg PO BID 07/16/24 07/16/24 History levothyroxine 75 mcg tablet 75 mcg PO DAILY@0630 07/16/24 07/16/24 History lisinopril 5 mg tablet 5 mg PO PM 07/16/24 07/16/24 History metoprolol succinate 25 mg 25 mg PO DAILY 07/16/24 07/16/24 History tablet,extended release 24 hr Past Med/Surg History Problem List (Updated 07/16/24 @ 15:48 by Agatha Bronson PA-C) Elevated troponin Acute worsening of stage 4 chronic kidney disease Acute on chronic diastolic CHF (congestive heart failure) Anemia (Acute) Congestive heart failure (Acute) Medical History CKD (chronic kidney disease) stage 4, GFR 15-29 ml/min Gouty arthropathy Osteoporosis Vitamin D deficiency Aortic valve sclerosis Hyperparathyroidism T2DM (type 2 diabetes mellitus) Foot pain, right Hypothyroid Hyperlipidemia Hypertension Surgical History Hx of cholecystectomy Hx of appendectomy Family History Mother No problems noted. Sister Stroke Social History Smoking Status: Never smoker Preferred Language: Kazakh Feels Safe at Home: Yes Review of Systems Review of Systems: All systems reviewed & are unremarkable except as noted in HPI & below Physical Exam Physical Exam: Gen: WD/WN, elderly, F, lying in bed, answers questions appropriately, NAD, A&O x3 HEENT: Normocephalic, atraumatic, conjunctivae moist, sclerae anicteric, mucous membranes moist. Lung: Clear to Auscultation bilaterally, no wheezes/rales/rhonchi Heart: Regular rate, regular rhythm, no murmurs, rubs, or gallops Abdomen: obese Soft, NT, ND +BS x 4 Extremities: bilateral lymphedema, nonpitting, no erythema Skin: Warm, no rash, negative turgor. Results & Data Results & Data Vital Signs (Past 12 Hours) Vital Signs Temp Pulse Resp BP Pulse Ox O2 Del Method 07/16/24 13:00 60 20 176/81 H 94 07/16/24 12:30 61 21 174/88 H 95 07/16/24 12:19 54 L 07/16/24 12:03 59 L 17 176/83 H 96 07/16/24 11:30 26 H 166/85 H 95 07/16/24 11:12 94 Room Air 07/16/24 11:12 Room Air 07/16/24 11:05 50 L 18 145/54 H 96 07/16/24 10:48 59 L 22 94 Room Air 07/16/24 10:31 36.7 C 59 L 22 136/41 L 94 Room Air Laboratory Results I have independently reviewed and interpreted patient's admitting labs including CBC, CMP, PTT, PT/INR, mag and troponin. Diagnostic Findings Chest X-Ray 07/16/24 10:50 XR chest 1V portable HISTORY: 84 years-old Female Chest pain, nonspecific COMPARISON: None TECHNIQUE: AP view of the chest FINDINGS: Heart size is normal. Perivascular congestion with interstitial coarsening. Sma ll pleural effusions with mild bibasilar consolidation. Atherosclerosis of the aorta. Bones appear grossly intact. IMPRESSION: 1. Cardiomegaly with pulmonary edema. 2. Small pleural effusions with mild bibasilar consolidation. ACT 112: Negative or not required by law. The above report was generated using voice recognition software. It may contain grammatical, syntax or spelling errors. Electronically signed by: Lizandro Pond M.D. 07/16/2024 11:30 AM Medications Administered Medication List Discontinued Medications Furosemide (Furosemide 40 Mg/4 Ml Vial) 40 mg IV ONE ONE Stop: 07/16/24 12:45 Last Admin: 07/16/24 14:07 Dose: 40 mg Documented By: HI ECG Additional Comments: I have independently reviewed and interpreted patient's admitting EKG which revealed: COVID-19 Results Results COVID-19 Adm Lab Results: RBC 2.42 M/uL (4.20-5.40) L 07/16/24 WBC 5.84 K/ul (4.8-10.8) 07/16/24 Hgb 7.4 g/dl (12.0-16.0) L 07/16/24 Hct 25.5 % (37.0-47.0) L 07/16/24 Plt Count 204 K/uL (130-400) 07/16/24 Neutrophils (%) (Auto) 72.4 % 07/16/24 Lymphocytes (%) (Auto) 19.2 % 07/16/24 Monocytes # (Auto) 0.24 K/uL (0.11-0.59) 07/16/24 Eosinophils # (Auto) 0.17 K/uL (0.00-0.50) 07/16/24 Immature Granulocyte % (Auto) 0.5 % 07/16/24 Neutrophils # (Auto) 4.23 K/uL (1.40-6.50) 07/16/24 Lymphocytes # (Auto) 1.12 K/uL (1.20-3.40) L 07/16/24 Monocytes # (Auto) 0.24 K/uL (0.11-0.59) 07/16/24 Eosinophils # (Auto) 0.17 K/uL (0.00-0.50) 07/16/24 Basophils # (Auto) 0.05 K/uL (0.00-0.20) 07/16/24 Immature Granulocyte # (Auto) 0.03 K/uL (0.01-0.20) 4 Polychromasia 1+ 07/16/24 Macrocytosis Present 07/16/24 Na 143 mmol/L (136-145) 07/16/24 K 4.9 mmol/L (3.5-5.1) 07/16/24 Cl 111 mmol/L (98-107) H 07/16/24 CO2 24 mmol/L (21-32) 07/16/24 Anion Gap 8 (3-11) 07/16/24 BUN 73 mg/dl (6-23) H 07/16/24 Creatinine 2.71 mg/dl (0.6-1.2) H 07/16/24 BUN/Creatinine Ratio 26.9 (10-20) H 07/16/24 Glucose Level 111 mg/dl (70-99(Fasting)) H 07/16/24 Ca 9.6 mg/dl (8.6-10.3) 07/16/24 Ferritin 181.1 ng/ml (8-388) 07/16/24 PTT 27 Seconds (21-31) 07/16/24 INR 1.1 (0.9-1.1) 07/16/24 COVID-19 PCR NEGATIVE (Negative) 07/16/24 Influenza Virus Type A (PCR) Negative (Neg) 07/16/24 Influenza Virus Type B (PCR) Negative (Neg) 07/16/24 Chest X-Ray 07/16/24 Code Status & VTE Plan Code Status FULL CODE Supervising Physician Co-Signing Physician Notes Pt seen and examined in the ED. Her daughter is present along with nursing. Main complaint is increasing CARTER requiring longer recovery periods. Will need esther work up the anemia. I agree with the AYAAN plan of treatment as indicated above. Total time spent in care was 20 minutes. (4) Anemia Anemia type: unspecified type Qualified Code(s): D64.9 - Anemia, unspecified
[2024-07-16] MEDS: FUROSEMIDE 40 MG/4 ML VIAL IV ONE (14:07)
[2024-07-16 14:51] LABS: Appearance Urine Clear (Clear); Bacteria Urine Automated 4+ (None Seen); Bilirubin Urine Negative (Negative); Blood Urine Negative (Negative); Cast Urine Automated 0-2 /lpf (0-2); Color Urine Yellow; Epithelial Cell Urine Auto 0-2 /hpf (0-2); Glucose Urine UA Negative (Negative); Ketones Urine Negative (Negative); Leukocyte Esterase Urine 2+ (Negative); Nitrite Urine Negative (Negative); Protein Urine Negative (Negative); RBC Urine Automated 0-2 /hpf (0-2); Urobilinogen Urine Negative (Negative); WBC Urine Automated 21-50 /hpf (0-5); pH Urine 5.5 (4.5-7.5)
--- NOTE | 2024-07-16 15:03 | Emergency Department Note ---
History of Present Illness General Chief Complaint: Shortness of Breath/Dyspnea Stated Complaint: SOB/TROUBLE BREATHING, FATIGUE Time Seen by Provider: 07/16/24 10:49 History of Present Illness Provider Complaint: shortness of breath Onset (ago): week(s) (1) Severity: moderate Consistency/Duration: + progressively worsening Relieved By: + rest Exacerbated By: + exertion Known history of: congestive heart failure Associated symptoms: + orthopnea; no chest pain, no pain with inspiration, no cough, no wheezing, no sputum production or no abdominal pain Related Data Home oxygen amount: none Home Medications Medication Instructions Recorded Confirmed Type allopurinol 100 mg tablet 200 mg PO DAILY 07/16/24 07/16/24 History aspirin 81 mg tablet,delayed 81 mg PO 2XWK 07/16/24 07/16/24 History release atorvastatin 40 mg tablet 40 mg PO DAILY 07/16/24 07/16/24 History chlorthalidone 25 mg tablet 50 mg PO DAILY 07/16/24 07/16/24 History cholecalciferol (vitamin D3) 10 10 mcg PO DAILY 07/16/24 07/16/24 History mcg (400 unit) capsule folic acid 1 mg tablet 1 mg PO DAILY 07/16/24 07/16/24 History furosemide 20 mg tablet 20 mg PO DAILY 07/16/24 07/16/24 History hydralazine 10 mg tablet 10 mg PO BID 07/16/24 07/16/24 History levothyroxine 75 mcg tablet 75 mcg PO DAILY@0630 07/16/24 07/16/24 History lisinopril 5 mg tablet 5 mg PO PM 07/16/24 07/16/24 History metoprolol succinate 25 mg 25 mg PO DAILY 07/16/24 07/16/24 History tablet,extended release 24 hr Allergies Allergy/AdvReac Type Severity Reaction Status Date / Time pecan nut Allergy Severe ANAPHYLAXIS Verified 03/02/17 09:41 Past Med/Surg History Problem List (Updated 07/16/24 @ 15:03 by oBb Coles MD) Anemia (Acute) Congestive heart failure (Acute) Medical History CKD (chronic kidney disease) stage 4, GFR 15-29 ml/min Gouty arthropathy Osteoporosis Vitamin D deficiency Aortic valve sclerosis Hyperparathyroidism T2DM (type 2 diabetes mellitus) Foot pain, right Hypothyroid Hyperlipidemia Hypertension Surgical History Hx of cholecystectomy Hx of appendectomy Family History Mother No problems noted. Sister Stroke Social History Smoking Status: Never smoker Preferred Language: Singaporean Feels Safe at Home: Yes Physical Exam 2 Vital Signs: Vital Signs - 24 hr 07/16/24 10:31 07/16/24 10:48 07/16/24 11:05 Temperature 36.7 C Temperature Source Temporal Artery Sc an Pulse Rate 59 L 59 L 50 L Pulse Rate from Sp O2 Sensor Pulse Rhythm Regular Respiratory Rate 22 22 18 Respiratory Effort / Characteristics Non-Labored Sponta neous Respiratory Depth Normal Respiratory Patter n Regular Blood Pressure 136/41 L 145/54 H Blood Pressure Nilsa n 72 94 Pulse Oximetry 94 94 96 Oxygen Delivery Me thod Room Air Room Air Sepsis Recent Feve r Within 48 Hours No Sepsis New/Unexpla ined Change in Men ghassan Status N/A Sepsis Action Take n by Nursing No Action Required 07/16/24 11:12 07/16/24 11:12 07/16/24 11:30 Temperature Temperature Source Pulse Rate Pulse Rate from Sp O2 Sensor 54 L Pulse Rhythm Respiratory Rate 26 H Respiratory Effort / Characteristics Non-Labored Sponta neous Respiratory Depth Normal Respiratory Patter n Regular Blood Pressure 166/85 H Blood Pressure Nilsa n 112 Pulse Oximetry 94 95 Oxygen Delivery Me thod Room Air Room Air Sepsis Recent Feve r Within 48 Hours Sepsis New/Unexpla ined Change in Men ghassan Status Sepsis Action Take n by Nursing 07/16/24 12:03 07/16/24 12:19 07/16/24 12:30 Temperature Temperature Source Pulse Rate 59 L 54 L 61 Pulse Rate from Sp O2 Sensor 57 L 60 Pulse Rhythm Respiratory Rate 17 21 Respiratory Effort / Characteristics Respiratory Depth Respiratory Patter n Blood Pressure 176/83 H 174/88 H Blood Pressure Nilsa n 114 116 Pulse Oximetry 96 95 Oxygen Delivery Me thod Sepsis Recent Feve r Within 48 Hours Sepsis New/Unexpla ined Change in Men ghassan Status Sepsis Action Take n by Nursing 07/16/24 13:00 07/16/24 14:15 Temperature Temperature Source Pulse Rate 60 58 L Pulse Rate from Sp O2 Sensor 52 L 59 L Pulse Rhythm Respiratory Rate 20 21 Respiratory Effort / Characteristics Respiratory Depth Respiratory Patter n Blood Pressure 176/81 H 157/77 H Blood Pressure Nilsa n 112 103 Pulse Oximetry 94 93 Oxygen Delivery Me thod Sepsis Recent Feve r Within 48 Hours Sepsis New/Unexpla ined Change in Men ghassan Status Sepsis Action Take n by Nursing Physical Exam: Physical Exam GENERAL: oriented to person, place, and time. appears well-developed and well- nourished. HENT: Exam performed. - Head: Normocephalic and atraumatic. EYES: Conjunctivae and EOM are normal. Right eye exhibits no discharge. Left eye exhibits no discharge. No scleral icterus. NECK: Normal range of motion. Neck supple. No JVD present. CV: Normal rate, irregular rhythm, normal heart sounds and intact distal pulses. 2+ pitting edema of the bilateral lower extremity. Palpable radial pulses bue. PULM/CHEST: Inspiratory rales bilaterally at the bases ABD: The abdomen is soft and obese. There is no tenderness. NEURO: Motor and sensation grossly intact. Course Course 1049: The patient was evaluated in room C12. A complete history and physical exam was performed Cardiac monitoring: An order was placed for continuous cardiac monitoring. The monitor shows a rate of 60 with atrial fibrilation rhythm interpreted by me 1237: Vital signs stable. Labs show a hemoglobin of 7.4. External medical records from the [facility] system were obtained by [facility] case coordinator and the patient's last blood work showed a hemoglobin of 11.3. Patient's imaging shows that she is fluid overloaded. Discussed case with Dr. Hancock patient's b2b sales consultant at [facility]. She agrees that the patient should be diuresed starting with Lasix. She states no need for transfusion at this time. Patient to be admitted to the hospitalist team and Dr. Hancock will see the patient when they are admitted. Administered Medications Discontinued Medications Furosemide (Furosemide 40 Mg/4 Ml Vial) 40 mg IV ONE ONE Stop: 07/16/24 12:45 Last Admin: 07/16/24 14:07 Dose: 40 mg Documented By: HI Medical Decision Making Medical Records Attestation: I reviewed the patient's medical records. External medical records from the [facility] system were obtained by [facility] case [facility] and the patient's last blood work showed a hemoglobin of 11.3. Laboratory Data Attestation: I reviewed the patient's lab results. 07/16/24 11:00 07/16/24 11:00 Lab Results 07/16/24 07/16/24 07/16/24 Range/Units 11:00 11:05 12:30 WBC 5.84 (4.8-10.8) K/ul RBC 2.42 L (4.20-5.40) M/uL Hgb 7.4 L (12.0-16.0) g/dl Hct 25.5 L (37.0-47.0) % MCV 105.4 H (80.0-100.0) fL MCH 30.6 (25.0-34.0) pg MCHC 29.0 L (32.0-36.0) g/dL RDW Std Deviation 57.0 H (36.4-46.3) fL RDW Coeff of Roverto 14.6 H (11.5-14.5) % Plt Count 204 (130-400) K/uL MPV 12.0 (9.4-12.4) fL Immature Gran % (Auto) 0.5 % Neut % (Auto) 72.4 % Lymph % (Auto) 19.2 % Republic % (Auto) 4.1 % Eos % (Auto) 2.9 % Baso % (Auto) 0.9 % Neut # (Auto) 4.23 (1.40-6.50) K/uL Lymph # (Auto) 1.12 L (1.20-3.40) K/uL Republic # (Auto) 0.24 (0.11-0.59) K/uL Eos # (Auto) 0.17 (0.00-0.50) K/uL Baso # (Auto) 0.05 (0.00-0.20) K/uL Immature Gran # (Auto) 0.03 (0.01-0.20) K/uL Polychromasia 1+ Macrocytosis Present PT Cancelled 11.6 INR Cancelled 1.1 APTT Cancelled 27 PTT Ratio Cancelled 1.0 Sodium 143 (136-145) mmol/L Potassium 4.9 (3.5-5.1) mmol/L Chloride 111 H (98-107) mmol/L Carbon Dioxide 24 (21-32) mmol/L Anion Gap 8 (3-11) BUN 73 H (6-23) mg/dl Creatinine 2.71 H (0.6-1.2) mg/dl Est Cr Clr Drug Dosing Not Reportable eGFR 16.79 BUN/Creatinine Ratio 26.9 H (10-20) Glucose 111 H (70-99(Fasting)) mg/dl Calcium 9.6 (8.6-10.3) mg/dl Troponin I High Sens 246.7 H* (0-14) pg/ml B-Natriuretic Peptide 3242 H (0-100) pg/ml Lipase 30 (11-82) U/L Urine Color Urine Appearance (Clear) Urine pH (4.5-7.5) Ur Specific [place] (1.000-1.030) Urine Protein (Negative) Urine Glucose (UA) (Negative) Urine Ketones (Negative) Urine Blood (Negative) Urine Nitrite (Negative) Urine Bilirubin (Negative) Urine Urobilinogen (Negative) Ur Leukocyte Esterase (Negative) Urine WBC (Auto) (0-5) /hpf Urine RBC (Auto) (0-2) /hpf U Hyaline Cast (Auto) (0-2) /lpf U Epithel Cells (Auto) (0-2) /hpf Urine Bacteria (Auto) (None Seen) SARS-CoV-2 (PCR) NEGATIVE (Negative) Influenza Type A (PCR) Negative (Neg) Influenza Type B (PCR) Negative (Neg) RSV (RT-PCR) Negative (Neg) 07/16/24 Range/Units 14:25 WBC (4.8-10.8) K/ul RBC (4.20-5.40) M/uL Hgb (12.0-16.0) g/dl Hct (37.0-47.0) % MCV (80.0-100.0) fL MCH (25.0-34.0) pg MCHC (32.0-36.0) g/dL RDW Std Deviation (36.4-46.3) fL RDW Coeff of Roverto (11.5-14.5) % Plt Count (130-400) K/uL MPV (9.4-12.4) fL Immature Gran % (Auto) % Neut % (Auto) % Lymph % (Auto) % Republic % (Auto) % Eos % (Auto) % Baso % (Auto) % Neut # (Auto) (1.40-6.50) K/uL Lymph # (Auto) (1.20-3.40) K/uL Republic # (Auto) (0.11-0.59) K/uL Eos # (Auto) (0.00-0.50) K/uL Baso # (Auto) (0.00-0.20) K/uL Immature Gran # (Auto) (0.01-0.20) K/uL Polychromasia Macrocytosis PT INR APTT PTT Ratio Sodium (136-145) mmol/L Potassium (3.5-5.1) mmol/L Chloride (98-107) mmol/L Carbon Dioxide (21-32) mmol/L Anion Gap (3-11) BUN (6-23) mg/dl Creatinine (0.6-1.2) mg/dl Est Cr Clr Drug Dosing eGFR BUN/Creatinine Ratio (10-20) Glucose (70-99(Fasting)) mg/dl Calcium (8.6-10.3) mg/dl Troponin I High Sens (0-14) pg/ml B-Natriuretic Peptide (0-100) pg/ml Lipase (11-82) U/L Urine Color Yellow Urine Appearance Clear (Clear) Urine pH 5.5 (4.5-7.5) Ur Specific [place] 1.010 (1.000-1.030) Urine Protein Negative (Negative) Urine Glucose (UA) Negative (Negative) Urine Ketones Negative (Negative) Urine Blood Negative (Negative) Urine Nitrite Negative (Negative) Urine Bilirubin Negative (Negative) Urine Urobilinogen Negative (Negative) Ur Leukocyte Esterase 2+ H (Negative) Urine WBC (Auto) 21-50 H (0-5) /hpf Urine RBC (Auto) 0-2 (0-2) /hpf U Hyaline Cast (Auto) 0-2 (0-2) /lpf U Epithel Cells (Auto) 0-2 (0-2) /hpf Urine Bacteria (Auto) 4+ H (None Seen) SARS-CoV-2 (PCR) (Negative) Influenza Type A (PCR) (Neg) Influenza Type B (PCR) (Neg) RSV (RT-PCR) (Neg) Imaging Data Attestation: I personally reviewed and interpreted this imaging study as follows: My Impression: Chest x-ray: Cardiomegaly with cephalization Radiologist's Impression: Chest X-Ray 07/16/24 10:50 XR chest 1V portable HISTORY: 84 years-old Female Chest pain, nonspecific COMPARISON: None TECHNIQUE: AP view of the chest FINDINGS: Heart size is normal. Perivascular congestion with interstitial coarsening. Small pleural effusions with mild bibasilar consolidation. Atherosclerosis of the aorta. Bones appear grossly intact. IMPRESSION: 1. Cardiomegaly with pulmonary edema. 2. Small pleural effusions with mild bibasilar consolidation. ACT 112: Negative or not required by law. The above report was generated using voice recognition software. It may contain grammatical, syntax or spelling errors. Electronically signed by: Lizandro Pond M.D. 07/16/2024 11:30 AM ECG Data Attestation: I personally reviewed and interpreted this ECG as follows: Interpretation: Atrial fibrillation with a rate of 59. QRS [address] elevation or ST depression. T wave inversion in lead I and aVL. Right bundle branch block present. MDM Narrative Vital signs stable. Labs show a hemoglobin of 7.4. External medical records from the [facility] system were obtained by [facility] case [facility] and the patient's last blood work showed a hemoglobin of 11.3. Patient's imaging shows that she is fluid overloaded. Discussed case with Dr. Hancock patient's b2b sales consultant at [facility]. She agrees that the patient should be diuresed starting with Lasix. She states no need for transfusion at this time. Patient to be admitted to the hospitalist team and Dr. Hancock will see the patient when they are admitted. Impression & Plan Congestive heart failure, Anemia Discharge Plan Visit Data Chief Complaint: Shortness of Breath/Dyspnea Stated Complaint: SOB/TROUBLE BREATHING, FATIGUE ED Provider: Bob Coles Discharge Problem: Congestive heart failure, Anemia Patient Disposition: Admitted As Inpatient Forms Stand Alone Forms: My [facility] Prescriptions Prescriptions: No Action atorvastatin 40 mg tablet 40 mg PO DAILY hydralazine 10 mg tablet 10 mg PO BID chlorthalidone 25 mg tablet 50 mg PO DAILY allopurinol 100 mg tablet 200 mg PO DAILY aspirin [Aspir-81] 81 mg Tablet,Delayed Release (Dr/Ec) 81 mg PO 2XWK levothyroxine 75 mcg tablet 75 mcg PO DAILY@0630 folic acid 1 mg Tablet 1 mg PO DAILY lisinopril 5 mg tablet 5 mg PO PM furosemide 20 mg tablet 20 mg PO DAILY metoprolol succinate 25 mg tablet extended release 24 hr 25 mg PO DAILY cholecalciferol (vitamin D3) 10 mcg (400 unit) Capsule 10 mcg PO DAILY Referrals Referrals: Jovita Gutiérrez DO [Primary Care Provider] - Discharge Problem: Congestive heart failure Qualifiers: Heart failure type: unspecified Heart failure chronicity: acute on chronic Q ualified Code(s): I50.9 - Heart failure, unspecified Anemia Qualifiers: Anemia type: unspecified type Qualified Code(s): D64.9 - Anemia, unspecified
[2024-07-16 15:21] LABS: Thyroid Stimulating Hormone 2.99 uIu/ml (0.300-4.500)
[2024-07-16 15:23] LABS: T4 Free Thyroxine 1.61 ng/dl (0.61-1.60)
[2024-07-16 15:27] LABS: Ferritin 181.1 ng/ml (8-388)
[2024-07-16] MEDS: cefTRIAXone SODIUM 2,000 MG/50 ML BAG IV SCH (15:33)
--- OUTSIDE RECORDS SUMMARY | 2024-07-16 15:52 | External Medical Summary | Summary of Care ---
Author Name Unknown Organization [facility] Address [address] [facility] [place] [address] Phone [phone] Care Team Providers Care Raschel Knitting Machine Operator Name Role Phone Bandar Gutiérrez DO Primary Care Provider + [phone] Reason for Visit * Reason Onset Date Comments Medication Refill 04/19/2024 Encounter Details Date Type Department Care Team (Late st Contact Info) Description 04/19/2024 Refill Family Medicine [address] [phone] Bandar Gutiérrez [address] [place] [address] Allergies Active Allergy Reactions Criticality Noted Date Comments Amlodipine Edema Other Low 06/19/2014 Food (See Comments) Edema face/lips/tongue High 02/27 Nuts, pecans Nifedipine Edema Other Low 06/19/2014 documented as of this encounter (statuses as of 06/05/2024) Medications Medication Sig Dispensed Refills Start Date End Date Status Cholecalciferol 25 MCG (1000 UT) Oral Capsule Take 1 Capsule by mouth in the morning. 12/04/2015 Active Aspirin 81 MG TabletIndications: Sundays and Wednesdays Take one pill 2 days per week 1 Tab 01/06/2017 Active OneTouch Ultra Blue In Vitro Strip (Glucose Blood) Use once daily to check blood sugars. Dx E11.9. 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 2 Each 2 08/03/2022 Active Levothyroxine Sodium 75 MCG Oral Tablet (Levoxyl) Take 1 Tablet by mouth in the morning. (at least 30 min prior to breakfast or other meds). 90 Tablet 3 07/04/2023 Active Metoprolol Succinate ER 25 MG Oral Tablet Extended Release 24 Hour (toPROL XL) Take 1 Tablet by mouth in the morning. 90 Tablet 3 08/23/2023 Active hydrALAZINE HCl 10 MG Oral Tablet (Apresoline)Indica tions:HTN, goal below 140/90 Take 1 Tablet by mouth 2 times a day. 180 Tablet 1 03/15/2024 Active Chlorthalidone 25 MG Oral Tablet (Hygroton)Indicati ons:Essential hypertension with goal blood pressure less than 140/90 TAKE TWO TABLETS BY MOUTH EVERY DAY 180 Tablet 1 03/23/2024 Active Allopurinol 100 MG Oral Tablet (Zyloprim)Indicati ons:Gouty arthropathy TAKE TWO TABLETS BY MOUTH EVERY MORNING 180 Tablet 3 04/16/2024 Active Lisinopril 5 MG Oral Tablet (Prinivil)Indicati ons:Kidney disease, chronic, stage IV (GFR 15-29 ml/min) (HCC) TAKE ONE TABLET BY MOUTH ONCE DAILY IN THE EVENING 90 Tablet 1 04/13/2024 Active Furosemide 20 MG Oral Tablet (Lasix) Take 1 Tablet by mouth in the morning. 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 90 Tablet 3 05/04/2023 4 Discontinue d(Refill) Atorvastatin Calcium 40 MG Oral Tablet (Lipitor)Indicatio ns:Dyslipidemia, goal LDL below 100 Take 1 Tablet by mouth in the morning. 90 Tablet 3 05/04/2023 4 Discontinue d(Refill) Furosemide 20 MG Oral Tablet (Lasix) TAKE 1 TABLET BY MOUTH EVERY MORNING 30 Tablet 5 10/15/2023 4 Discontinue d(Refill) documented as of this encounter (statuses as of 06/05/2024) Active Problems Problem Noted Date Diagnosed Date DM type 2 causing eye disease 05/30/2023 Body mass index (BMI) of 45.0 to 49.9 in adult 0 03/04/2023 Hyperparathyroidism 03/04/2023 Aortic valve sclerosis 05/13/2022 Kidney disease, chronic, stage IV (GFR 15-29 ml/ min) 01/06/2021 Overview: Per CKD protocol Type 2 diabetes mellitus wit h stage 4 chronic kidney disease, without long-term current use of insulin 12/15/2018 Lymphedema of both lower extremities 12/15/2018 Irregular heart beat 12/15/2018 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, without long-term current use of insulin 10/24/2018 Benign hypertension with CKD (chronic kidney disease) stage IV 05/30/2018 Gouty arthropathy 03/09/2017 Generalized osteoarthritis 09/22/2016 Essential hypertension with goal blood pressure less than 140/90 05/12/2016 Senile osteoporosis 12/24/2015 Type 2 diabetes mellitus wit h hemoglobin A1c goal of less than 8.0% 12/09/2014 Overview: ICD-10 update of inactive term Vitamin D deficiency 09/14/2014 Hypothyroidism (acquired) 09/01/2014 Rotator cuff tear, left 05/21/2014 Dyslipidemia, goal LDL below 100 03/19/2014 Venous insufficiency 03/19/2014 documented as of this encounter (statuses as of 06/05/2024) Resolved Problems Problem Noted Date Diagnosed Date Resolved Date Body mass index (BMI) of 40. 0 to 44.9 in adult 06/07/2022 03/04/2023 Overview: Per Obesity protocol - Per Obesity protocol - Body mass index (BMI) of 45. 0 to 49.9 in adult 02/10/2021 06/10/2022 Overview: Per Obesity protocol - Body mass index (BMI) of 40. 0 to 44.9 in adult 01/08/2019 02/12/2021 Overview: Per Obesity protocol #1 Kidney disease, chronic, sta ge IV (GFR 15-29 ml/min) 12/15/2018 02/07/2019 Type 2 diabetes mellitus wit h stage 3 chronic kidney disease, without long-term current use of insulin 10/24/2018 12/15/2018 Rheumatoid arthritis of [facility] with negative rheumatoid factor 09/22/2016 05/23/2020 Osteoarthritis of ankle 11/18/201408/30 Osteoarthritis of foot joint 11/18/2014 09/22/2016 HTN, goal below 140/90 10/07/201405/12 Type 2 diabetes mellitus wit h hemoglobin A1c goal of less than 7.0% 09/02/2014 03/25/2015 Overview: ICD-10 update of inactive term Rotator cuff tear arthropathy 04/09/2014 12/15/2018 Hypertension goal BP (blood pressure) < 140/90 03/19/2014 10/07/2014 CAD (coronary artery disease) 03/19/2014 12/15/2018 Kidney disease, chronic, sta ge III (GFR 30-59 ml/min) 03/19/2014 06/12/2018 documented as of this encounter (statuses as of 06/05/2024) Immunizations Name Administration Dates Next Due COVID-19 mRNA, LNP-s, No Pre serve, 2-Dose Series (Moderna) 02/27/2021,01/30/2021 COVID-19, mRNA, LNP-s, PF, B ooster, 100mcg/0.5mg (Moderna) 09/09/2021 Covid-19, Mrna, Lnp-s, Pf, B ivalent, 30 Mcg, IM, 12 yrs and above ([facility] [place]) 06/09/2022 DTaP HIB - Dipth/Tet/Acell Pert/HIB 01/01/2017 Pneumococcal Conjugate Vaccine, 20-valent (Prevn ar20) 08/03/2022 Pneumococcal Polysaccharide PPV23 (Pneumovax) Seasonal Influenza, Quadrivalent Hd (Fluzone Hd) 05/13/2023,08/03/2022 documented as of this encounter Social History Tobacco Use Types Packs/Day Years Used Date Smoking Tobacco: Never Smokeless Tobacco: Never Alcohol Use Standard Drinks/Week Comments Yes 0 (1 standard drink = 0.6 oz pure alcohol) drinks a can a beer once a month or more AUDIT-C Answer Date Recorded Frequency of Alcohol Consumption Monthly or less 12/15/2018 Average Number of Drinks 1 or 2 019 Frequency of Binge Drinking Not on file 11/27 PHQ-2 Answer Date Recorded PHQ Adult Total Score 0 05/17/2024 Hunger Vital Sign Answer Date Recorded Within the past 12 months, y ou worried that your food would run out before you got the money to buy more. Never true 05/17/20 24 Within the past 12 months, t he food you bought just didn't last and you didn't have money to get more. Never true 05/17/2024 Childcare Answer Date Recorded Do you feel overwhelmed with taking care of a child, family member or friend? No 05/17/2024 Does your family need help f inding childcare? (Household - for ages 0-17 years) Not on file 05/17/2024 Clothing Answer Date Recorded Have you been unable to get clothing when it was really needed? No 05/17/2024 Is your family able to get c lothes or diapers when needed? (Household - for ages 0-17 years) Not on file 05/17/2024 Personal Safety Answer Date Recorded Do you feel unsafe or have concerns for your saf ety? No 05/17/2024 Do you have concerns for you r family's safety? (Household - for ages 0-17 years) Not on file 05/17/2024 Utilities Answer Date Recorded Do you have trouble paying y our heating, water, or electric bill? No 05/17/2024 Is your family able to pay t he heat, water, or electric bill? (Household - for ages 0-17 years) Not on file 05/17/2024 Does your family have access to good internet? (Household - for ages 0-17 years) Not on file 05/17/2024 Employment Status Answer Date Recorded Are you unemployed or without regular income? No 05/17/2024 Does the household have a re gular source of income? (Household - for ages 0-17 years) Not on file 05/17/2024 Social Connections Answer Date Recorded How often do you feel lonely or isolated from th ose around you? Never 05/17/2024 Financial Resource Strain Answer Date R ecorded Do you have any trouble payi ng for your medications, or do you think you might in the future? No 05/17/2024 Does your family have troubl e paying for medicine? (Household - for ages 0-17 years) Not on file 05/17/2024 Transportation Needs Answer Date Record ed Do you have trouble getting a ride to medical visits or work? (Adult - for ages 18 years and over) Not on file 05/17/2024 Does your family have a hard time getting a ride to doctors visits? (Household - for ages 0-17 years) Not on file 05/17/2024 Has lack of transportation k ept you from medical appointments, meetings, work, or from getting things needed for daily living? Check all that apply. No 05/17/2024 Do you (or your family) have trouble finding or paying for a ride (transportation)? (Household - for ages 0-17 years) Not on file 05/17/2024 Housing Stability Answer Date Recorded Do you currently live in a s helter or have no steady place to sleep at night? No 05/17/2024 Do you think you are at risk of becoming homeless? (Adult - for ages 18 years and over) Not on file 05/17/2024 Does your family worry about paying for your home or becoming homeless? (Household - for ages 0-17 years) Not on file 0 05/17/2024 Are you homeless or worried that you might be in the future? No 05/17/2024 Are you (or your family) shiva eless or worried that you might be in the future? (Household - for ages 0-17 years) Not on file Food Insecurity Answer Date Recorded Do you need food for this week? No 05/17/2024 Are you able to get enough f ood for your family? (Household - for ages 0-17 years) Not on file 05/17/2024 Does your family need food t his week? (Household - for ages 0-17 years) Not on file 05/17/2024 Do you always have enough fo od for your family? (Household - for ages 0-17 years) Not on file 05/17/2024 Sex and Gender Information Value Date Recorded Sex Assigned at Female 04/30/2021 3:22 PM EDT Gender Identity Female 04/30/2021 3:22 PM EDT Sexual Orientation Straight 04/30/2021 3: 22 PM EDT Job Start Date Occupation Industry Not on file Not on file Not on file documented as of this encounter Miscellaneous Notes * Telephone Encounter - Bandar Gutiérrez DO - 06/05/2024 3:53 PM EDTSigned Prescriptions: Disp Refills Furosemide 20 MG Oral Tablet (Lasix) 30 Tab*5 Sig: Take 1 Tabletby mouth in the morning.Authorizing Provider: BANDAR GUTIÉRREZ * Telephone Encounter - Katlyn Potts RN - 06/04/2024 8:53 AM EDTPending Prescriptions: Disp Refills Furosemide 20 MG Oral Tablet (Lasix) 30 Tab*5 Sig: Take 1 Tablet by mouth in the morning. * Telephone Encounter - Toribio Vargas, RAMON - 06/01/2024 10:18 AM EDTPending Prescriptions: Disp Refills Furosemide 20 MG Oral Tablet (Lasix) 30 Tab*5 Sig: Take 1 Tablet by mouth in the morning. In the morning.. * Telephone Encounter - Toribio Vargas OSA - 06/01/2024 10:17 AM EDT Pt is scheduled with Alonso 06/12/24. I am not able to close/done encounter * Telephone Encounter - Tiffany Butler OSA - 05/17/2024 3:01 PM EDT Pt is scheduled to see Alonso Tamayo in May and Dr. Gutiérrez in December 2024. * Telephone Encounter - Pamela Ardon LPN - 04/19/2024 3:30 PM EDTPending Prescriptions: Disp Refills Furosemide 20 MG Oral Tablet (Lasix) 30 Tab*5 Sig: Take 1 Tablet by mouth in the morning. In the morning.. * Telephone Encounter - Pamela Ardon LPN - 04/19/2024 3:30 PM EDT Pt needs appt with Dr. Gutiérrez. * Telephone Encounter - Jamee East OSA - 04/19/2024 1:49 PM EDT Did you pend patient's preferred pharmacy and medication before forwarding?yes Pharmacy: [id number] Pending Prescriptions: Disp Refills Furosemide 20 MG Oral Tablet (Lasix) 30 Tab*5 Sig: Take 1 Tablet by mouth in the morning. In the morning.. Last Visit: 03/04/2023 (in office), Visit date not found (telemedicine) Next Visit: Visit date not found If no future appointments scheduled, and last appointment is greater than a year ago, please schedule patient for a follow-up appointment Last date the medication was ordered: 10.15.23 Is this request for a controlled substance?No Urine Drug Screen:No results found for this or any previous visit. Patient Phone Numbers Labs: Lab Results Component Value Date/Time CREAT 2.1 (H) 05/20/2023 09:38 AM CREAT 2.2 (H) 05/30/2020 10:46 AM POTASSIUM 4.4 05/20/2023 09:38 AM POTASSIUM 4.6 05/30/2020 10:46 AM TSH 3.24 05/20/2023 09:38 AM TSH 4.42 (H) 05/30/2020 10:46 AM LDLCALC 45 05/20/2023 09:38 AM LDLCALC 50 05/30/2020 10:46 AM LDLDIRECT NOT APPLICABLE 05/30/2020 10:46 AM ALT 8 (L) 07/15/2023 09:29 AM ALT 13 05/30/2020 10:46 AM HGBA1C 4.8 05/20/2023 09:38 AM HGBA1C 8.3 (H) 05/30/2020 10:46 AM documented in this encounter Plan of Treatment Upcoming Encounters Date Type Department Care Team (Late st Contact Info) Description 06/12/2024 3:40 PM EDT Office Visit Family Medicine [address] [place] [phone] Alonso Tamayo CRNP [address] [place] [address] [place] [address] 08/28/2024 2:40 PM EST Office Visit Nephrology [address] [place] [address] Unique Gomez MD [address] [facility] [place], [place] [address] 11/19/2024 3:00 PM EDT Office Visit Nephrology [address] [place] [address] Unique Gomez MD [address] [facility] [address] [place] [address] 01/09/2025 3:10 PM EDT Office Visit Family Medicine [address] [place] [phone] Bandar Gutiérrez, [address] [place] [address] 05/21/2025 2:30 PM EDT Nurse Only Ancillary [address] [place] [address] [place], Nurse [address] [place] [address] Health Maintenance Due Date Last Done Comments Zoster Vaccines (1 of 2) 1990 GFR 11/18/2023 05/20/2023, 01/28, 08/03/2022, Additional history exists HbA1c 11/18/2023 05/20/2023, 12/01/2022, 2022, Additional history exists Albumin/Creatinine Ratio 02/17/2024 023, 05/11/2022, 08/07/2021, Additional history exists PTH 02/17/2024 02/16/2023, 04/29, 07/21/2021, Additional history exists Phosphate 02/17/2024 02/16/2023, 04/29, 07/21/2021, Additional history exists Nephrology Referral 03/08/2024 03/08/2023 Diabetic Eye Exam 04/07/2024 04/07/2023, , 01/14/2021, Additional history exists COVID-19 Vaccine ( season) 2024 06/09/2022, 09/09/2021, 02/27/2021, Additional history exists Influenza Vaccine (FLU shot) (#1) 2024 05/13/2023, 08/03/2022 TSH 05/20/2024 05/20/2023, 12/01/2022, 01/18/2022, Additional history exists *BISPHONATE OR OTHER ACCEPTABLE MEDICATION NEEDED FOR OSTEOPOROSIS (REFER TO SMARTSET #1146) 05/22/2024 Hgb 07/15/2024 07/15/2023, 04/30, 02/16/2023, Additional history exists Adult Wellness Visit 05/17/2025 05/17/2024, 05/13/2023, 05/11/2022, Additional history exists Depression Screening 05/17/2025 05/17/2024 Diabetic Foot Exam 05/17/2025 05/17/2024, 0 03/04/2023, 01/18/2022, Additional history exists DTap/Tdap Vaccines (2 - Tdap) 01/01/2027 01/01/2017 Pneumococcal Vaccine: 65+ Years Completed 08/03/2022, 07/21/2021 HPV (Gardasil) Vaccine Aged Out No lo nger eligible based on patient's age to complete this topic Hepatitis B Vaccine Aged Out No longe r eligible based on patient's age to complete this topic MENINGOCOCCAL (MENACTRA/MENVEO) Aged Out No longer eligible based on patient's age to complete this topic documented as of this encounter Medical Devices Not on filedocumented as of this encounter Care Teams Raschel Knitting Machine Operator Relationship Specialty Start Date End Date Bandar Gutiérrez DO [address] [place] [address] [place] [address] PCP - General Internal Medicine 12/15/18 documented as of this encounter
--- OUTSIDE RECORDS SUMMARY | 2024-07-16 15:52 | External Medical Summary | Summary of Care ---
Author Name Unknown Organization [facility] Address [address] [facility] [place] [address] Phone [phone] Care Team Providers Care Dial Lathe Operator Name Role Phone Jovita Gutiérrez DO Primary Care Provider + [phone] Reason for Visit * Reason Onset Date Comments Medication Refill 07/04/2024 Encounter Details Date Type Department Care Team (Late st Contact Info) Description 07/04/2024 Refill Family Medicine [address] [place] [phone] Jovita Gutiérrez [address] [place] [address] Allergies Active Allergy Reactions Criticality Noted Date Comments Amlodipine Edema Other Low 06/19/2014 Food (See Comments) Edema face/lips/tongue High 02/27 Nuts, pecans Nifedipine Edema Other Low 06/19/2014 documented as of this encounter (statuses as of 07/04/2024) Medications Medication Sig Dispensed Refills Start Date [...] Emergency room. 2 Each 2 08/03/2022 Active Metoprolol Succinate ER 25 MG Oral Tablet Extended Release 24 Hour (toPROL XL) Take 1 Tablet by mouth in the morning. 90 Tablet 3 08/23/2023 Active Chlorthalidone 25 MG Oral Tablet (Hygroton)Indicati ons:Essential hypertension with goal blood pressure less than 140/90 TAKE TWO TABLETS BY MOUTH EVERY DAY 180 Tablet 1 03/23/2024 Active Allopurinol 100 MG Oral Tablet (Zyloprim)Indicati ons:Gouty arthropathy TAKE TWO TABLETS BY MOUTH EVERY MORNING 180 Tablet 3 04/16/2024 Active Lisinopril 5 MG Oral Tablet (Prinivil)Indicati ons:Kidney disease, chronic, stage IV (GFR 15-29 ml/min) ([facility]) TAKE ONE TABLET BY MOUTH ONCE DAILY IN THE EVENING 90 Tablet 1 04/13/2024 Active Furosemide 20 MG Oral Tablet (Lasix) Take 1 Tablet by mouth in the morning. 30 Tablet 5 06/05/2024 Active Atorvastatin Calcium 40 MG Oral Tablet (Lipitor)Indicatio ns:Dyslipidemia, goal LDL below 100 Take 1 Tablet by mouth in the morning. 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 90 Tablet 04/23/2024 Active hydrALAZINE HCl 10 MG Oral Tablet (Apresoline)Indica tions:HTN, goal below 140/90 Take 1 Tablet by mouth 2 times a day. 180 Tablet 1 06/12/2024 Active Levothyroxine Sodium 75 MCG Oral Tablet (Levoxyl) Take 1 Tablet by mouth in the morning. (at least 30 min prior to breakfast or other meds). 90 Tablet 3 07/04/2024 Active Levothyroxine Sodium 75 MCG Oral Tablet (Levoxyl) Take 1 Tablet by mouth in the morning. (at least 30 min prior to breakfast or other meds). 90 Tablet 3 07/04/2023 4 Discontinue d(Refill) documented as of this encounter (statuses as of 07/04/2024) Active Problems Problem Noted Date Diagnosed Date [...] as of this encounter (statuses as of 07/04/2024) Resolved Problems Problem Noted Date Diagnosed Date [...] of insulin 10/24/2018 12/15/2018 Rhe[facility]oid [facility] with negative rheumatoid factor 09/22/2016 [...] as of this encounter (statuses as of 07/04/2024) Immunizations Name Administration Dates Next Due COVID-19 mRNA, LNP-s, No Pre serve, 2-Dose Series (Moderna) 02/27/2021,01/30/2021 COVID-19, mRNA, LNP-s, PF, B ooster, 100mcg/0.5mg (Moderna) 09/09/2021 Covid-19, Mrna, Lnp-s, Pf, B ivalent, 30 Mcg, IM, 12 yrs and above ([place]) 06/09/2022 DTaP HIB - Dipth/Tet/Acell Pert/HIB 01/01/2017 [...] encounter Miscellaneous Notes * Telephone Encounter - Sherita Friedman MD - 07/04/2024 1:47 PM EST Signed Prescriptions: Disp Refills Levothyroxine Sodium 75 MCG Oral Tablet (L*90 Tab*3 Sig: Take 1 Tablet by mouth in the morning. (at least 30 min prior to breakfast or other meds). Authorizing Provider: SHERITA FRIEDMAN * Telephone Encounter - Katlyn Potts, GIN - 07/04/2024 8:59 AM ESTPending Prescriptions: Disp Refills Levothyroxine Sodium 75 MCG Oral Tablet (L*90 Tab*3 Sig: Take 1 Tablet by mouth in the morning. (at least 30 min prior to breakfast or other meds). * Telephone Encounter - Karyn Sanchez OSA - 07/04/2024 7:54 AM EST Did you pend patient's preferred pharmacy and medication before forwarding?yes [facility]acy[id number] [address] [facility] Pending Prescriptions: Disp Refills Levothyroxine Sodium 75 MCG Oral Tablet (*90 Tab*3 Sig: Take 1 Tablet by mouth in the morning. (at least 30 min prior to breakfast or other meds). Last Visit: 03/04/2023 (in office), Visit date not found (telemedicine) Next Visit: 01/09/2025 If no future appointments scheduled, and last appointment is greater than a year ago, please schedule patient for a follow-up appointment Last date the medication was ordered: 07.04.23 Is this request for a controlled substance?No Urine Drug Screen:No results found for this or any previous visit. Patient Phone Numbers Labs: Lab Results Component Value Date/Time CREAT 2.1 (H) 05/20/2023 09:38 AM CREAT 2.2 (H) 05/30/2020 10:46 AM POTASSIUM 4.4 05/20/2023 09:38 AM POTASSIUM 4.6 05/30/2020 10:46 AM TSH 3.24 05/20/2023 09:38 AM TSH 4.42 (H) 05/30/2020 10:46 AM LDL 45 05/20/2023 09:38 AM LDL 50 05/30/2020 10:46 AM LDL NOT APPLICABLE 05/30/2020 10:46 AM ALT 8 (L) 07/15/2023 09:29 AM ALT 13 05/30/2020 10:46 AM HGBA1C 4.8 05/20/2023 09:38 AM HGBA1C 8.3 (H) 05/30/2020 10:46 AM documented in this encounter Plan of Treatment Upcoming Encounters Date Type Department Care Team (Late st Contact Info) Description 08/28/2024 2:40 PM EST Office Visit Nephrology [address] [place] [address] Unique Gomez MD [address] [place] [address] 11/19/2024 3:00 PM EDT Office Visit Nephrology [address] [place] [address] Unique Gomez MD [address] [place] [address] 01/09/2025 3:10 PM EDT Office Visit Family Medicine [address] [place] [phone] Jovita Gutiérrez[address] [place] [address] 05/21/2025 2:30 PM EDT Nurse Only Ancillary [address] [place] [address] [place], Nurse Annual [address] [place] [address] Health Maintenance Due Date Last Done Comments Zoster Vaccines (1 of 2) 1990 GFR 11/18/2023 05/20/2023, 01/28, 08/03/2022, Additional history exists HbA1c 11/18/2023 05/20/2023, 01/2022, 2022, Additional history exists Albumin/Creatinine Ratio 02/17/2024 [...] (#1) 2024 05/13/2023, 08/03/2022 TSH 05/20/2024 05/20/2023, 01/2022, 01/18/2022, Additional history exists *BISPHONATE OR OTHER [...] filedocumented as of this encounter Care Teams Dial Lathe Operator Relationship Specialty Start Date End Date Jovita Gutiérrez DO [address] [place] [address] [place] [address] PCP - General Internal Medicine 12/15/18 documented as of this encounter
--- OUTSIDE RECORDS SUMMARY | 2024-07-16 15:52 | External Medical Summary | Summary of Care ---
Author Name Unknown Organization [facility] Address [address] [facility] [place] [address] Phone [phone] Care Team Providers Care Prosthetic Aides Teacher Name Role Phone Bandar Gutiérrez DO Primary Care Provider [phone] Reason for Visit * Reason Onset Date Comments Medication Refill 06/12/2024 Encounter Details Date Type Department Care Team (Late st Contact Info) Description 06/12/2024 Refill Family Medicine [address] [place] [address] Bandar Gutiérrez [address] [place] [address] HTN, goal below 140/90 Allergies Active Allergy Reactions Criticality Noted Date Comments Amlodipine Edema Other Low 06/19/2014 Food (See Comments) Edema face/lips/tongue High 02/27 Nuts, pecans Nifedipine Edema Other Low 06/19/2014 documented as of this encounter (statuses as of 06/12/2024) Medications Medication Sig Dispensed Refills Start Date [...] a day. 180 Tablet 1 06/12/2024 Active hydrALAZINE HCl 10 MG Oral Tablet (Apresoline)Indica tions:HTN, goal below 140/90 Take 1 Tablet by mouth 2 times a day. 180 Tablet 1 03/15/2024 4 Discontinue d(Refill) documented as of this encounter (statuses as of 06/12/2024) Active Problems Problem Noted Date Diagnosed Date [...] as of this encounter (statuses as of 06/12/2024) Resolved Problems Problem Noted Date Diagnosed Date [...] of insulin 10/24/2018 12/15/2018 Rheumatoid arthritis of [facility] sites with negative rheumatoid factor 09/22/2016 05/23/2020 [...] as of this encounter (statuses as of 06/12/2024) Immunizations Name Administration Dates Next Due COVID-19 mRNA, LNP-s, No Pre serve, 2-Dose Series (Moderna) 02/27/2021,01/30/2021 COVID-19, mRNA, LNP-s, PF, B ooster, 100mcg/0.5mg (Moderna) 09/09/2021 Covid-19, Mrna, Lnp-s, Pf, B ivalent, 30 Mcg, IM, 12 yrs and above ([employer]) 06/09/2022 DTaP HIB - Dipth/Tet/Acell Pert/HIB 01/01/2017 [...] Telephone Encounter - Bandar Gutiérrez DO - 06/12/2024 4:12 PM EDTSigned Prescriptions: Disp Refills hydrALAZINE HCl 10 MG Oral Tablet (Apresol*180 Ta*1 Sig: Take 1 Tablet by mouth 2 times a day. Authorizing Provider: BANDAR GUTIÉRREZ * Telephone Encounter - Katlyn Potts, RN - 06/12/2024 8:06 AM EDTPending Prescriptions: Disp Refills hydrALAZINE HCl 10 MG Oral Tablet (Apresol*180 Ta*1 Sig: Take 1 Tablet by mouth 2 times a day. * Telephone Encounter - Jigna Zepeda OSA - 06/12/2024 7:53 AM EDT Did you pend patient's preferred pharmacy and medication before forwarding?yes Pharmacy: [id number] Pending Prescriptions: Disp Refills hydrALAZINE HCl 10 MG Oral Tablet (Apreso*180 Ta*1 Sig: Take 1 Tablet by mouth 2 times a day. Last Visit: 03/04/2023 (in office), Visit date not found (telemedicine) Next Visit: 01/09/2025 If no future appointments scheduled, and last appointment is greater than a year ago, please schedule patient for a follow-up appointment Last date the medication was ordered: 03.15.24 Is this request for a controlled substance?No [...] 08/28/2024 2:40 PM EST Office Visit Nephrology [address] [place] [address] Unique Gomez MD [address] [place] [id number] 11/19/2024 3:00 PM EDT Office Visit Nephrology [address] [place] [address] Unique Gomez MD [address] [place] [address] [id number] 01/09/2025 3:10 PM EDT Office Visit Family Medicine [address] [place] [phone] Bandar Gutiérrez[address] [place] [address] 05/21/2025 2:30 PM EDT Nurse Only Ancillary [address] [place] [address] [place], Nurse Annual [address] [place] [address] Health Maintenance Due Date Last Done Comments [...] Not on filedocumented as of this encounter Visit Diagnoses Diagnosis HTN, goal below 140/90 Unspecified essential hypertension documented in this encounter Care Teams Prosthetic Aides Teacher Relationship Specialty Start Date End Date Bandar Gutiérrez DO [address] [place] [address] [place] [address] PCP - General Internal Medicine 12/15/18 documented as of this encounter
--- OUTSIDE RECORDS SUMMARY | 2024-07-16 15:53 | External Medical Summary | Summary of Care ---
Author Name Unknown Organization [facility] Address [address] [facility] [place] [address] Phone [phone] Care Team Providers Care Cpas Name Role Phone Bandar Gutiérrez DO Primary Care Provider + [phone] Reason for Visit * Reason Onset Date Comments Medication Refill 04/26/2024 Encounter Details Date Type Department Care Team (Late st Contact Info) Description 04/26/2024 Refill Family Medicine [address] [address] Bandar Gutiérrez [address] [place] [address] Allergies Active Allergy Reactions Criticality Noted Date Comments Amlodipine Edema Other Low 06/19/2014 Food (See Comments) Edema face/lips/tongue High 02/27 Nuts, pecans Nifedipine Edema Other Low 06/19/2014 documented as of this encounter (statuses as of 04/27/2024) Medications Medication Sig Dispensed Refills Start Date [...] THE EVENING 90 Tablet 1 04/13/2024 Active Atorvastatin Calcium 40 MG Oral Tablet (Lipitor)Indicatio ns:Dyslipidemia, goal LDL below 100 Take 1 Tablet by mouth in the morning. 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 90 Tablet 04/23/2024 Active Furosemide 20 MG Oral Tablet (Lasix) One daily 90 Tablet 1 04/27/2024 Active Furosemide 20 MG Oral Tablet (Lasix) TAKE 1 TABLET BY MOUTH EVERY MORNING 30 Tablet 5 10/15/2023 Discontinue d(Refill) documented as of this encounter (statuses as of 04/27/2024) Active Problems Problem Noted Date Diagnosed Date [...] as of this encounter (statuses as of 04/27/2024) Resolved Problems Problem Noted Date Diagnosed Date [...] of insulin 10/24/2018 12/15/2018 Rheumatoid arthritis of [facility] sites with negative rheumatoid factor 09/22/2016 05/23/2020 [...] as of this encounter (statuses as of 04/27/2024) Immunizations Name Administration Dates Next Due COVID-19 mRNA, LNP-s, No Pre serve, 2-Dose Series (Moderna) 02/27/2021,01/30/2021 COVID-19, mRNA, LNP-s, PF, B ooster, 100mcg/0.5mg (Moderna) 09/09/2021 Covid-19, Mrna, Lnp-s, Pf, B ivalent, 30 Mcg, IM, 12 yrs and above ([employer]) 06/09/2022 DTaP HIB - Dipth/Tet/Acell Pert/HIB 01/01/2017 [...] Date Recorded PHQ Adult Total Score 0 05/13/2023 Hunger Vital Sign Answer Date Recorded Within the past 12 months, y ou worried that your food would run out before you got the money to buy more. Never true 05/13/20 23 Within the past 12 months, t he food you bought just didn't last and you didn't have money to get more. Never true 05/13/2023 Childcare Answer Date Recorded Do you feel overwhelmed with taking care of a child, family member or friend? No 05/13/2023 Does your family need help f inding childcare? (Household - for ages 0-17 years) Not on file 05/13/2023 Clothing Answer Date Recorded Have you been unable to get clothing when it was really needed? No 05/13/2023 Is your family able to get c lothes or diapers when needed? (Household - for ages 0-17 years) Not on file 05/13/2023 Personal Safety Answer Date Recorded Do you feel unsafe or have concerns for your saf ety? No 05/13/2023 Do you have concerns for you r family's safety? (Household - for ages 0-17 years) Not on file 05/13/2023 Utilities Answer Date Recorded Do you have trouble paying y our heating, water, or electric bill? No 05/13/2023 Is your family able to pay t he heat, water, or electric bill? (Household - for ages 0-17 years) Not on file 05/13/2023 Does your family have access to good internet? (Household - for ages 0-17 years) Not on file 05/13/2023 Employment Status Answer Date Recorded Are you unemployed or without regular income? No 05/13/2023 Does the household have a re gular source of income? (Household - for ages 0-17 years) Not on file 05/13/2023 Social Connections Answer Date Recorded How often do you feel lonely or isolated from th ose around you? Never 05/13/2023 Financial Resource Strain Answer Date R ecorded Do you have any trouble payi ng for your medications, or do you think you might in the future? No 05/13/2023 Does your family have troubl e paying for medicine? (Household - for ages 0-17 years) Not on file 05/13/2023 Transportation Needs Answer Date Record ed READ ONLY Do you have troubl e getting a ride to medical visits or work? Never True 05/13/2023 Does your family have a hard time getting a ride to doctors visits? (Household - for ages 0-17 years) Not on file 05/13/2023 Has lack of transportation k ept you from medical appointments, meetings, work, or from getting things needed for daily living? Check all that apply. (Adult - for ages 18 years and over) Not on file 05/13/2023 Do you (or your family) have trouble finding or paying for a ride (transportation)? (Household - for ages 0-17 years) Not on file 05/13/2023 Housing Stability Answer Date Recorded Do you currently live in a s helter or have no steady place to sleep at night? No 05/13/2023 READ ONLY Do you think you a re at risk of becoming homeless? No 05/13/2023 Does your family worry about paying for your home or becoming homeless? (Household - for ages 0-17 years) Not on file 0 05/13/2023 Are you homeless or worried that you might be in the future? (Adult - for ages 18 years and over) Not on file Are you (or your family) shiva eless or worried that you might be in the future? (Household - for ages 0-17 years) Not on file Food Insecurity Answer Date Recorded Do you need food for this week? No 05/13/2023 Are you able to get enough f ood for your family? (Household - for ages 0-17 years) Not on file 05/13/2023 Does your family need food t his week? (Household - for ages 0-17 years) Not on file 05/13/2023 Do you always have enough fo od for your family? (Household - for ages 0-17 years) Not on file 05/13/2023 Sex and Gender Information Value Date Recorded Sex Assigned at Female 04/30/2021 3:22 PM EDT Gender Identity Female 04/30/2021 3:22 PM EDT Sexual Orientation Straight 04/30/2021 3: 22 PM EDT Job Start Date Occupation Industry Not on file Not on file Not on file documented as of this encounter Miscellaneous Notes * Telephone Encounter - Bandar Gutiérrez DO - 04/27/2024 8:26 AM EDTSigned Prescriptions: Disp Refills Furosemide 20 MG Oral Tablet (Lasix) 90 Tab*1 Sig: One daily Authorizing Provider: BANDAR GUTIÉRREZ * Telephone Encounter - Katlyn Potts RN - 04/26/2024 9:50 AM EDTPending Prescriptions: Disp Refills Furosemide 20 MG Oral Tablet (Lasix) 90 Tab*1 Sig: One daily * Telephone Encounter - Jamee East OSA - 04/26/2024 9:35 AM EDT Did you pend patient's preferred pharmacy and medication before forwarding?yes Pharmacy: [id number] [address] [facility] Pending Prescriptions: Disp Refills Furosemide 20 MG [...] Care Team (Late st Contact Info) Description 05/17/2024 2:00 PM EDT Nurse Only Ancillary [address] [place] [address] [place], Nurse [address] [place] [address] 11/19/2024 3:00 PM EDT Office Visit Nephrology [address] [place] [address] Unique Gomez MD [address] [place] [address] [place] [address] Health Maintenance Due Date Last Done Comments Zoster Vaccines (1 of 2) 1990 COVID-19 Vaccine ( season) 2023 06/09/2022, 09/09/2021, 02/27/2021, Additional history exists GFR 11/18/2023 05/20/2023, 01/28, 08/03/2022, Additional history exists HbA1c 11/18/2023 05/20/2023, 1201/2022, 2022, Additional history exists Albumin/Creatinine Ratio 02/17/2024 023, 05/11/2022, 08/07/2021, Additional history exists PTH 02/17/2024 02/16/2023, 04/29, 07/21/2021, Additional history exists Phosphate 02/17/2024 02/16/2023, 04/29, 07/21/2021, Additional history exists Diabetic Foot Exam 03/04/2024 03/04/2023, 0 01/18/2022, 01/14/2021, Additional history exists Nephrology Referral 03/08/2024 03/08/2023 Diabetic Eye Exam 04/07/2024 04/07/2023, , 01/14/2021, Additional history exists Influenza Vaccine (FLU shot) (#1) 2024 05/13/2023, 08/03/2022 Adult Wellness Visit 05/13/2024 05/13/2023, 05/11/2022, 04/30/2021 Depression Screening 05/13/2024 05/13/2023 TSH 05/20/2024 05/20/2023, 01/2022, 01/18/2022, Additional history exists Hgb 07/15/2024 07/15/2023, 04/30, 02/16/2023, Additional history exists DTap/Tdap Vaccines (2 - [...] filedocumented as of this encounter Care Teams Cpas Relationship Specialty Start Date End Date Bandar Gutiérrez DO [address] [place] [address] [place] [id number] PCP - General Internal Medicine 12/15/18 documented as of this encounter
--- OUTSIDE RECORDS SUMMARY | 2024-07-16 15:53 | External Medical Summary | Summary of Care ---
Author Name Unknown Organization [facility] Address [address] [facility] [place] [address] Phone [phone] Care Team Providers Care Defensive Fire Control Systems Operator Name Role Phone Bandar Palomino DO Primary Care Provider [phone] Reason for Visit * Reason Onset Date Comments Medication Refill 04/23/2024 Encounter Details Date Type Department Care Team (Late st Contact Info) Description 04/23/2024 Refill Family Medicine [address] [place] [address] Bandar Palomino [address] [place] [address] Dyslipidemia, goal LDL below 100; Rheumatoid arthritis of multiple sites with negative rheumatoid factor (HCC) Allergies Active Allergy Reactions Criticality Noted Date Comments Amlodipine Edema Other Low 06/19/2014 Food (See Comments) Edema face/lips/tongue High 02/27 Nuts, pecans Nifedipine Edema Other Low 06/19/2014 documented as of this encounter (statuses as of 04/23/2024) Medications Medication Sig Dispensed Refills Start Date [...] the morning. 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 90 Tablet 04/23/2024 Active Folic Acid 1 MG Oral TabletIndications: Rheumatoid arthritis of multiple sites with negative rheumatoid factor ([facility]) Take 1 Tablet by mouth in the morning. 90 Tablet 04/23/2024 Active Folic Acid 1 MG Oral TabletIndications: Rheumatoid arthritis of multiple sites with negative rheumatoid factor ([facility]) Take 1 Tablet by mouth in the morning. 90 Tablet 3 05/04/2023 4 Discontinue d(Refill) Atorvastatin Calcium 40 MG Oral Tablet (Lipitor)Indicatio ns:Dyslipidemia, goal LDL below 100 Take 1 Tablet by mouth in the morning. 90 Tablet 3 05/04/2023 4 Discontinue d(Refill) documented as of this encounter (statuses as of 04/23/2024) Active Problems Problem Noted Date Diagnosed Date [...] as of this encounter (statuses as of 04/23/2024) Resolved Problems Problem Noted Date Diagnosed Date [...] of insulin 10/24/2018 12/15/2018 Rheumatoid arthritis of [facility] sites with negative rheumatoid factor 09/22/2016 [...] as of this encounter (statuses as of 04/23/2024) Immunizations Name Administration Dates Next Due COVID-19 mRNA, LNP-s, No Pre serve, 2-Dose Series (Moderna) 02/27/2021,01/30/2021 COVID-19, mRNA, LNP-s, PF, B ooster, 100mcg/0.5mg (Moderna) 09/09/2021 Covid-19, Mrna, Lnp-s, Pf, B ivalent, 30 Mcg, IM, 12 yrs and above ([employer]) 06/09/2022 DTaP HIB - Dipth/Tet/Acell Pert/HIB 01/01/2017 [...] Miscellaneous Notes * Telephone Encounter - Bandar Palomino DO - 04/23/2024 1:20 PM EDTSigned Prescriptions: Disp Refills Atorvastatin Calcium 40 MG Oral Tablet (Li*90 Tab*0 Sig: Take 1 Tablet by mouth in the morning. Authorizing Provider: BANDAR PALOMINO Folic Acid 1 MG Oral Tablet 90 Tab*0 Sig: Take 1 Tablet by mouth in the morning. Authorizing Provider: BANDAR PALOMINO * Telephone Encounter - Katlyn Potts RN - 04/23/2024 11:44 AM EDTPending Prescriptions: Disp Refills Atorvastatin Calcium 40 MG Oral Tablet (Li*90 Tab*3 Sig: Take 1 Tablet by mouth in the morning. Folic Acid 1 MG Oral Tablet 90 Tab*3 Sig: Take 1 Tablet by mouth in the morning. * Telephone Encounter - Alexandra Gilman OSA - 04/23/2024 10:12 AM EDT Did you pend patient's preferred pharmacy and medication before forwarding?yes Pharmacy: [id number] [facility] Pending Prescriptions: Disp Refills Atorvastatin Calcium 40 MG Oral Tablet (L*90 Tab*3 Sig: Take 1 Tablet by mouth in the morning. Folic Acid 1 MG Oral Tablet 90 Tab*3 Sig: Take 1 Tablet by mouth in the morning. Last Visit: 03/04/2023 (in office), Visit date not found (telemedicine) Next Visit: Visit date not found If no future appointments scheduled, and last appointment is greater than a year ago, please schedule patient for a follow-up appointment Last date the medication was ordered: 05/04/23 Is this request for a controlled substance?No [...] Upcoming Encounters Date Type Department Care Team ([facility] st Contact Info) Description 05/17/2024 2:00 PM EDT Nurse Only Ancillary [address] [place] [address] [place], Nurse Annual Wellness [address] [place] [address] [place] [address] 11/19/2024 3:00 PM EDT Office Visit Nephrology [address] [place] [address] Unique Gomez MD [address] [facility] [place] [address] Health Maintenance Due Date Last Done Comments [...] Depression Screening 05/13/2024 05/13/2023 TSH 05/20/2024 05/20/2023, 12/0 01/2022, 01/18/2022, Additional history exists Hgb 07/15/2024 07/15/2023, 04/30, 02/16/2023, Additional history exists DTaP,Tdap,and Td Vaccines (2 - Tdap) 01/01/2027 01/01/2017 Pneumococcal [...] as of this encounter Visit Diagnoses Diagnosis Dyslipidemia, goal LDL below 100 Other and unspecified hyperlipidemia Rheumatoid arthritis of multiple sites with negative rheumatoid factor (HCC) documented in this encounter Care Teams Defensive Fire Control Systems Operator Relationship Specialty Start Date End Date Bandar Palomino DO [address] [place] [address] [place] [address] PCP - General Internal Medicine 12/15/18 documented as of this encounter
--- OUTSIDE RECORDS SUMMARY | 2024-07-16 15:53 | External Medical Summary | Summary of Care ---
Author Name Unknown Organization [facility] Address [address] [facility] [address] Phone [phone] Care Team Providers Care Supervisor Electric Name Role Phone Bandar Gutiérrez Primary Care Provider [phone] Reason for Visit * Reason Comments eRx-Medication Refill Encounter Details Date Type Department Care Team (Late st Contact Info) Description 04/13/2024 Refill Family Medicine [address] [address] Magdaleno Bills MD [address] [place] [address] [place] [address] Gouty arthropathy Allergies Active Allergy Reactions Criticality Noted Date Comments Amlodipine Edema Other Low 06/19/2014 Food (See Comments) Edema face/lips/tongue High 02/27 Nuts, pecans Nifedipine Edema Other Low 06/19/2014 documented as of this encounter (statuses as of 04/16/2024) Medications Medication Sig Dispensed Refills Start Date [...] Emergency room. 2 Each 2 08/03/2022 Active Folic Acid 1 MG Oral TabletIndications: Rheumatoid arthritis of multiple sites with negative rheumatoid factor (HCC) Take 1 Tablet by mouth in the morning. 90 Tablet 3 05/04/2023 Active Atorvastatin Calcium 40 MG Oral Tablet (Lipitor)Indicatio ns:Dyslipidemia, goal LDL below 100 Take 1 Tablet by mouth in the morning. 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 180 Tablet 3 04/19/2023 4 Discontinued documented as of this encounter (statuses as of 04/16/2024) Active Problems Problem Noted Date Diagnosed Date [...] as of this encounter (statuses as of 04/16/2024) Resolved Problems Problem Noted Date Diagnosed Date [...] of insulin 10/24/2018 12/15/2018 Rheumatoid arthritis of [facility] sites with negative rheumatoid factor 09/22/2016 05/23/2020 [...] as of this encounter (statuses as of 04/16/2024) Immunizations Name Administration Dates Next Due COVID-19 mRNA, LNP-s, No Pre serve, 2-Dose Series ([employer]) 02/27/2021,01/30/2021 COVID-19, mRNA, LNP-s, PF, B ooster, 100mcg/0.5mg ([employer]) 09/09/2021 Covid-19, Mrna, Lnp-s, Pf, B ivalent, 30 Mcg, IM, 12 yrs and above ([employer]) 06/09/2022 DTaP HIB - Dipth/Tet/Acell Pert/HIB 01/01/2017 [...] Telephone Encounter - Bandar Gutiérrez DO - 04/16/2024 11:42 AM EDTSigned Prescriptions: Disp Refills Allopurinol 100 MG Oral Tablet (Zyloprim) 180 Ta*3 Sig: TAKE TWO TABLETS BY MOUTH EVERY MORNING Authorizing Provider: BANDAR GUTIÉRREZ * Telephone Encounter - Nima Tucker [facility] - 04/15/2024 1:15 PM EDTPending Prescriptions: Disp Refills Allopurinol 100 MG Oral Tablet (Zyloprim) 180 Ta*3 Sig: TAKE TWO TABLETS BY MOUTH EVERY MORNING * Telephone Encounter - Nima Tucker [facility] - 04/15/2024 1:15 PM EDT Pending Prescriptions: Disp Refills Allopurinol 100 MG Oral Tablet (Zyloprim) 180 Ta*3 Sig: TAKE TWO TABLETS BY MOUTH EVERY MORNING Last Visit: 03/04/2023 (in office), Visit date not found (telemedicine) Next Visit: Visit date not found If no future appointments scheduled, and last appointment is greater than a year ago, please schedule patient for a follow-up appointment Last date the medication was ordered: 04-19-23 [facility]acy: [id number] [facility] Is this request for a controlled substance?No [...] AM HGBA1C 8.3 (H) 05/30/2020 10:46 AM Jessica Mehta.Ph. Clinical Pharmacist [facility] ([facility]) [address] [place] [address]: [phone] 04/15/2024,1:15 PM * Telephone Encounter - Interface, [facility] S[facility] Inbound - 04/15/2024 6:02 AM EDT Pending Prescriptions: Disp Refills Allopurinol 100 MG Oral Tablet [Pharmacy M*180 Ta*0 Sig: TAKE TWO TABLETS BY MOUTH EVERY MORNING documented in this encounter Plan of Treatment Upcoming Encounters Date Type Department Care Team (Late st Contact Info) Description 05/17/2024 2:00 PM EDT Nurse Only Ancillary [address] [place] [address] [place], Nurse [address] [place] [address] 11/19/2024 3:00 PM EDT Office Visit Nephrology [address] [place] [address] Unique Gomez MD [address] [place] [address] Health Maintenance Due Date Last Done Comments [...] as of this encounter Visit Diagnoses Diagnosis Gouty arthropathy Gouty arthropathy, unspecified documented in this encounter Care Teams Supervisor Electric Relationship Specialty Start Date End Date Bandar Gutiérrez DO [address] [place] [address] [place] [address] PCP - General Internal Medicine 12/15/18 documented as of this encounter
--- OUTSIDE RECORDS SUMMARY | 2024-07-16 15:53 | External Medical Summary | Summary of Care ---
Author Name Unknown Organization [facility] [address] [facility] [place] [address] Phone [phone] Care Team Providers Care Chain Saw Mechanic Name Role Phone Jovita Gutiérrez DO Primary Care Provider + [phone] Reason for Visit * Reason Onset Date Comments Medication Refill 04/24/2024 Encounter Created in Error 04/24/2024 Refil l script already sent through Encounter Details Date Type Department Care Team (Late st Contact Info) Description 04/24/2024 Refill Family Medicine [address] [place] [phone] Jovita Gutiérrez DO [address] [place] [address] [place] [address] Allergies Active Allergy Reactions Criticality Noted Date Comments Amlodipine Edema Other Low 06/19/2014 Food (See Comments) Edema face/lips/tongue High 02/27 Nuts, pecans Nifedipine Edema Other Low 06/19/2014 documented as of this encounter (statuses as of 05/21/2024) Medications Medication Sig Dispensed Refills Start Date End Date Status Cholecalciferol 25 MCG (1000 UT) Oral Capsule Take 1 Capsule by mouth in the morning. 12/04/2015 Active Aspirin 81 MG TabletIndications: and Wednesdays Take one pill 2 days per week 1 Tab 01/06/2017 Active OneTouch Ultra Blue In Vitro Strip (Glucose Blood) Use once daily to check blood sugars. Dx E11.9. (Pt uses one touch ultra blue) 90 Strip 1 07/21/2021 Active EpiPen 2-Dajuan 0.3 MG/0.3ML Injection Solution Auto-injectorIndicat ions:Anaphylactic reaction due to tree nuts and seeds, [...] Active hydrALAZINE HCl 10 MG Oral Tablet (Apresoline)Indicati ons:HTN, goal below 140/90 Take 1 Tablet by mouth 2 times a day. 180 Tablet 1 03/15/2024 Active Chlorthalidone 25 MG Oral Tablet (Hygroton)Indication s:Essential hypertension with goal blood pressure less than 140/90 TAKE TWO TABLETS BY MOUTH EVERY DAY 180 Tablet 1 03/23/2024 Active Allopurinol 100 MG Oral Tablet (Zyloprim)Indication s:Gouty arthropathy TAKE TWO TABLETS BY MOUTH EVERY MORNING 180 Tablet 3 04/16/2024 Active Lisinopril 5 MG Oral Tablet (Prinivil)Indication s:Kidney disease, chronic, stage IV (GFR 15-29 ml/min) (HCC) TAKE ONE TABLET BY MOUTH ONCE DAILY IN THE EVENING 90 Tablet 1 04/13/2024 Active Atorvastatin Calcium 40 MG Oral Tablet (Lipitor)Indications :Dyslipidemia, goal LDL below 100 Take 1 Tablet by mouth in the morning. 90 Tablet 04/23/2024 Active Folic Acid 1 MG Oral TabletIndications:Rh eumatoid arthritis of multiple sites with negative rheumatoid factor (HCC) Take 1 Tablet by mouth in the morning. 90 Tablet 04/23/2024 Active documented as of this encounter (statuses as of 05/21/2024) Active Problems Problem Noted Date Diagnosed Date [...] as of this encounter (statuses as of 05/21/2024) Resolved Problems Problem Noted Date Diagnosed Date [...] of insulin 10/24/2018 12/15/2018 [facility] with negative rheumatoid factor 09/22/2016 05/23/2020 [...] as of this encounter (statuses as of 05/21/2024) Immunizations Name Administration Dates Next Due COVID-19 mRNA, LNP-s, No Pre serve, 2-Dose Series (Moderna) 02/27/2021,01/30/2021 COVID-19, mRNA, LNP-s, PF, B ooster, 100mcg/0.5mg (Moderna) 09/09/2021 Covid-19, Mrna, Lnp-s, Pf, B ivalent, 30 Mcg, IM, 12 yrs and above ([employer]) 06/09/2022 DTaP HIB - Dipth/Tet/Acell Pert/HIB 01/01/2017 [...] on file documented as of this encounter Plan of Treatment Upcoming Encounters Date Type Department Care Team (Late st Contact Info) Description 06/12/2024 3:40 PM EDT Office Visit Family [address] [place] [phone] Alonso Tamayo CRNP [address] [place] [address] [place] [id number] 08/28/2024 2:40 PM EST Office Visit Nephrology [address] [place] [address] Unique Gomez MD [address] [place] [address] 11/19/2024 3:00 PM EDT Office Visit Nephrology [address] [place] [phone] Unique Gomez MD [address] [place] [address] 01/09/2025 3:10 PM EDT Office Visit Family [address] [place] [phone] Jovita Gutiérrez, [address] [place] [address] 05/21/2025 2:30 PM EDT Nurse Only Ancillary [address] [place] [address] [place], Nurse Annual Wellness [address] [place] [address] [place] [address] Health Maintenance Due Date Last Done Comments Zoster Vaccines (1 of 2) 1990 GFR 11/18/2023 05/20/2023, 01/28, 08/03/2022, Additional history exists HbA1c 11/18/2023 05/20/2023, 12/0 01/2022, 2022, Additional history exists Albumin/Creatinine Ratio [...] (#1) 2024 05/13/2023, 08/03/2022 TSH 05/20/2024 05/20/2023, 1201/2022, 01/18/2022, Additional history exists Hgb 07/15/2024 07/15/2023, [...] filedocumented as of this encounter Care Teams Chain Saw Mechanic Relationship Specialty Start Date End Date Jovita Gutiérrez DO [address] [place] [address] [place] [id number] PCP - General Internal Medicine 12/15/18 documented as of this encounter
--- OUTSIDE RECORDS SUMMARY | 2024-07-16 15:53 | External Medical Summary | Summary of Care ---
Author Name Unknown Organization [facility] Address [address] [facility] [place] [address] Phone [phone] Care Team Providers Care Lead Man [employer] Name Role Phone Jovita Gutiérrez Primary Care Provider + [phone] Reason for Visit * Reason Comments Adult Annual Wellness Visit, Subsequent Visit Encounter Details Date Type Department Care Team (Late st Contact Info) Description 05/17/2024 2:00 PM EDT Nurse Only Ancillary [address] [place] [address] [facility], Nurse [address] [place] [address] Adult Annual Wellness Visit, Subsequent Visit Allergies Active Allergy Reactions Criticality Noted Date Comments Amlodipine Edema Other Low 06/19/2014 Food (See Comments) Edema face/lips/tongue High 02/27 Nuts, pecans Nifedipine Edema Other Low 06/19/2014 documented as of this encounter (statuses as of 05/17/2024) Medications Medication Sig Dispensed Refills Start Date [...] One daily 90 Tablet 1 04/27/2024 Active documented as of this encounter (statuses as of 05/17/2024) Active Problems Problem Noted Date Diagnosed Date [...] as of this encounter (statuses as of 05/17/2024) Resolved Problems Problem Noted Date Diagnosed Date [...] of insulin 10/24/2018 12/15/2018 Rheumatoid arthritis of [facility] with negative rheumatoid factor [...] as of this encounter (statuses as of 05/17/2024) Immunizations Name Administration Dates Next Due COVID-19 mRNA, LNP-s, No Pre serve, 2-Dose Series (Moderna) 02/27/2021,01/30/2021 COVID-19, mRNA, LNP-s, PF, B ooster, 100mcg/0.5mg (Moderna) 09/09/2021 Covid-19, Mrna, Lnp-s, Pf, B ivalent, 30 Mcg, IM, 12 yrs and above (Artabase) 06/09/2022 DTaP HIB - Dipth/Tet/Acell Pert/HIB 01/01/2017 [...] y our heating, water, or electric bill? (Adult - for ages 18 years and over) Not on file 05/14/2024 Is your family able to pay t he heat, water, or electric bill? (Household - for ages 0-17 years) Not on file 05/14/2024 Does your family have access to good internet? (Household - for ages 0-17 years) Not on file 05/14/2024 Employment Status Answer Date Recorded Are you unemployed or without regular income? No 05/13/2023 Does the household have a re gular source of income? (Household - for ages 0-17 years) Not on file 05/13/2023 Social Connections Answer Date Recorded How often do you feel lonely or isolated from those around you? (Adult - for ages 18 years and over) Not on file 05/14/2024 Financial Resource Strain Answer Date R ecorded [...] on file documented as of this encounter Last Filed Vital Signs Vital Sign Reading Time Taken Comments Blood Pressure 128/78 05/17/2024 2:13 PM EDT Pulse 60 05/17/2024 2:13 PM EDT Temperature 34.8 C (94.6 F) 05/17/2024 2:13 PM ED T Respiratory Rate - - Oxygen Saturation 95% 05/17/2024 2:13 PM EDT Inhaled Oxygen Concentration - - Weight 98.4 kg (217 lb) 05/17/2024 2:13 PM EDT Height 152.4 cm (5') 05/17/2024 2:13 PM EDT Body Mass Index 42.38 05/17/2024 2:13 PM EDT documented in this encounter Patient Instructions * Patient Instructions* Lauren Artis RN - 05/17/2024 2:11 PM EDT Patient Instructions - Fall Prevention (This education is for all patients over 65 regardless of symptoms) Remember to take your current medications as prescribed. In order to prevent falls, you are encouraged to: Exercise Utilize assistive/adaptive devices Avoid multifocal lenses when walking Avoid hazards in home Maintain a regular toileting schedule Any questions please contact our office. Preventing Falls in the Home (This education is for all patients over 65 regardless of symptoms) As you get older, falls are more likely. Thats because your reaction time slows. Your muscles and joints may also get stiffer, making them less flexible. Illness, medications, and vision changes can also affect your balance. A fall could leave you unable to live on your own. To make your home safer, follow these tips: Floors Put nonskid pads under area rugs Remove throw rugs Replace worn floor coverings Tack carpets firmly to each step on carpeted stairs. Put nonskid strips on the edges of uncarpeted stairs Keep floors and stairs free of clutter and cords Arrange furniture so there are clear pathways Clean up any spills right away Bathrooms Install grab bars in the tub or shower Apply nonskid strips or put a nonskid rubber mat in the tub or shower Sit on a bath chair to bathe Use bathmats with nonskid backing Lighting Keep a flashlight in each room Put a nightlight along the pathway between the bedroom and the bathroom [employer] Patient Education Copyright 2008 - 2010 R[employer] except where otherwise noted Preventing Falls: Exercises to Improve Balance, Flexibility, Strength, and Staying Power (This education is for all patients over 65 regardless of symptoms) Certain types of exercises may help make you less likely to fall. Try the ones below. Or do other exercises that your healthcare provider suggests. Depending on your health, you may need to start slowly. Dont let that stop you. Even small amounts of exercise can help you. Be sure to talk to yourhealthcare provider before starting any exercise program. Improve Balance Many types of exercise can help improve balance. Benito chi and yoga are good examples. Heres another one to try. You can do it anytime and almost anywhere. Stand next to a counter or solid support. Push yourself up onto your tiptoes. Hold for 5 seconds. If you start to lose your balance, hold on to the counter. Rest and repeat 5 times. Work up to holding for 20 to 30 seconds, if you can. Increase Flexibility Being more flexible makes it easier for you to move around safely. Try exercises like the seated hamstring stretch. Sit in a chair and put one foot on a stool. Straighten your leg and reach with both hands down either side of your leg. Reach as far down your leg as you can. Hold for about 20 seconds. Go back to the starting position. Then repeat 5 times. Switch legs. Build Strength Resistance exercises help build strength. You can do them without equipment. Or you can use weights, elastic bands, or special machines. One such exercise is called the biceps curl. You can hold a 1 pound weight or even a can of soup. Do this exercise at least 3 times a week. Strive for everyday. Sit up straight in a chair. Keep your elbow close to your body and your wrist straight. Bend your arm, moving your hand up to your shoulder. Then slowly lower your arm. Repeat 5 times. Switch to the other arm. Build Your Staying Power Aerobic exercises make your heart and lungs stronger so you can keep moving longer. Walking and swimming are two of the best types of exercises you can do. Using a stationary bike is great, too. Find an aerobic exercise that you enjoy. Start slowly and build up. Even 5 minutes is helpful. Aimfor a goal of 30 minutes, at least 3 times a week. You dont have to do 30 minutes in one session. Break it up and walk a little throughout the day. More Helpful Tips Start easy. Slowly work up to doing more. Talk with your healthcare provider about the best exercises for you. Call senior centers or health clubs about exercise programs. If needed, have a family member watch you walk every so often to check your stability. Exercise with a friend. Choose an activity you both enjoy. Try exercises that you can do anytime, anywhere. Here are two examples. Have someone with you when you first try these: Practice walking by placing one foot right in front of the other. Stand up and sit down 10 times. Repeat this throughout the day. [employer] Patient Education Copyright 2008 - 2010 [employer] except where otherwise noted. Preventing Falls: Moving Safely Using a Cane or Walker (This education is for all patients over 65 regardless of symptoms) Keep the cane away from your feet so you dont trip. A walking aid, such as a cane or walker, can help you stay more independent and avoid falls. Remember to keep your walking aid within easy reach when youre in a chair or in bed. And learn how to use it safely so you dont injure yourself. Using a Cane If you have a stronger side, hold the cane on that side. Get your balance. Move the cane and your weaker leg forward. Support your weight on both the cane and your weaker side. Step with your stronger leg. Start again from step 1. If youre using a folding walker, be sure you know how to lock it open. Check that its locked open before each use. Using a Walker Roll the walker (or lift it, if youre using one without wheels) forward about 12 inches. Step forward with your weaker leg first. Use the walker to help keep your balance. Bring your other foot forward to the center of the walker. Start again from step 1. Helpful Tips Check with your healthcare provider about the right walking aid to use. Ask about a walker with a seat attached. Check the tips of your cane or walker to make sure they have nonskid covers. Move slowly from room to room. Dont alicia. Sit down to get dressed. Use a john pack or backpack to keep your hands free. Get help for jobs that mean climbing, even on a stepstool. [employer] Patient Education Copyright 2008 - 2010 Rj except where otherwise noted. Urinary Incontinence Plan of Care Documentation: (This education is for all patients over 65 regardless of symptoms) Current medications reconciled. Patient encouraged to: Practice kegal exercises Provide education materials Use the restroom every 2 hours throughout the day Limit caffeine, alcohol, spicy foods and acidic foods Keep a bladder diary Limit fluid intake 3-4 hours before bed Lose weight Prevent constipation Take fluid pills at a time when you can get to the bathroom quickly Control sugar better if diabetic Limit fluid intake to 60 oz. per day Wear support stockings (TEDs)if you have edema Lauren Artis RN 05/17/2024 Kegel Exercises Kegel exercises dont require special clothing or equipment. Theyre easy to learn and simple to do. And if you do them right, no one can tell youre doing them, so they can be done almost anywhere. Your doctor, nurse, or physical therapist can answer any questions you have and help you get started. A Weak Pelvic Floor The pelvic floor muscles may weaken due to aging, and vaginal childbirth, injury, surgery, chronic cough, or lack of exercise. If the pelvic floor is weak, your bladder and other pelvic organs may sag out of place. The urethra may also open too easily and allow urine to leak out. Kegel exercises can help you strengthen your pelvic floor muscles so they can better support the pelvic organs and control urine flow. How Kegel Exercises Are Done Try each of the Kegel exercises described below. When youre doing them, try not to move your leg, buttock, or stomach muscles. While youre urinating, try to stop the flow of urine. Start and stop it as often as you can. Contract as if you were stopping your urine stream, but do it when youre not urinating. Tighten your rectum as if trying not to pass gas. Contract your anus, but dont move your buttocks. Helpful Hints Do your Kegels as often as you can. The more you do them, the faster youll feel the results. Pick an activity you do often as a reminder. For instance, do your Kegels every time you sit down. Tighten your pelvic floor before you sneeze, get up from a chair, cough, laugh, or lift. This protects your pelvic floor from injury and can help prevent urine leakage. Try to hold each Kegel for a slow count to five. You probably wont be able to hold them for thatlong at first, but keep practicing. It will get easier as your pelvic floor gets stronger. Eventually, special weights that you place in your vagina may be recommended to help make your Kegels even more effective. [employer] Patient Education Copyright 2008 - 2010 Rj except where otherwise noted. Here are some helpful tips for your urinary incontinence: (This education is for all patients over 65 regardless of symptoms) Practice Kegel exercises Use the restroom every 2 hours throughout the day Limit caffeine, alcohol, spicy foods, and acidic foods Keep a bladder diary Limit fluid intake 3-4 hours before bed Lose weight Prevent constipation Take fluid pills at a time when can get to the bathroom quickly Control sugar better if diabetic Limit fluid intake to 60 oz. per day Any questions, please feel free to contact our office. Hi Ms. Quintana, As your primary care physician, I know that regular visits with my patients who have several chronic conditions can go a long way in helping you stay healthy. Many times, the clinic team and I are in touch with you and/or other care team members between office visits to adjust medications, discuss any changes in your health, and review our care plan to make sure it is still meeting your needs. I am dedicated to helping you take a more active role in your overall care. It is important that there are resources available to you, so I created a personalized plan of care with a Health Calendar for you, which is included on the next page of this letter. Below is a list that summarizes your electronic health record: Health Maintenance Due: Health Maintenance Due Topic Date Due Zoster Vaccines (1 of 2) Never done HbA1c 11/18/2023 GFR 11/18/2023 Albumin/Creatinine Ratio 02/17/2024 Phosphate 02/17/2024 PTH 02/17/2024 Diabetic Foot Exam 03/04/2024 Nephrology Referral 03/08/2024 Diabetic Eye Exam 04/07/2024 Influenza Vaccine (FLU shot) (1) 04/29/2024 COVID-19 Vaccine ( season) 2024 TSH 05/20/2024 Current Medication List: (as of Visit date not found (in office), Visit date not found (telemedicine) ) Current Outpatient Medications Medication Sig Dispense Refill Cholecalciferol 25 MCG (1000 UT) Oral Capsule Take 1 Capsule by mouth in the morning. Aspirin 81 MG Tablet Take one pill 2 days per week 1 Tab 0 Levothyroxine Sodium 75 MCG Oral Tablet (Levoxyl) Take 1 Tablet by mouth in the morning. (at least 30 min prior to breakfast or other meds). 90 Tablet 3 Metoprolol Succinate ER 25 MG Oral Tablet Extended Release 24 Hour (toPROL XL) Take 1 Tablet bymouth in the morning. 90 Tablet 3 hydrALAZINE HCl 10 MG Oral Tablet (Apresoline) Take 1 Tablet by mouth 2 times a day. 180 Tablet1 Chlorthalidone 25 MG Oral Tablet (Hygroton) TAKE TWO TABLETS BY MOUTH EVERY DAY 180 Tablet 1 Allopurinol 100 MG Oral Tablet (Zyloprim) TAKE TWO TABLETS BY MOUTH EVERY MORNING 180 Tablet 3 Lisinopril 5 MG Oral Tablet (Prinivil) TAKE ONE TABLET BY MOUTH ONCE DAILY IN THE EVENING 90 Tablet 1 Atorvastatin Calcium 40 MG Oral Tablet (Lipitor) Take 1 Tablet by mouth in the morning. 90 Tablet 0 Folic Acid 1 MG Oral Tablet Take 1 Tablet by mouth in the morning. 90 Tablet 0 Furosemide 20 MG Oral Tablet (Lasix) One daily 90 Tablet 1 OneTouch Ultra Blue In Vitro Strip (Glucose Blood) Use once daily to check blood sugars. Dx E11.9. (Pt uses one touch ultra blue) 90 Strip 1 EpiPen 2-Dajuan 0.3 MG/0.3ML Injection Solution Auto-injector For a severe reaction: Place orange end against the outer thigh, press firmly, hold in place for 10 seconds and go to the Emergency room. 2 Each 2 No current facility-administered medications for this visit. Current List of Allergies: (as of Visit date not found (in office), Visit date not found (telemedicine) ) Review of patient's allergies indicates: Allergen Reactions Food (See Comments) Edema face/lips/tongue Nuts, pecans Amlodipine Edema Other Nifedipine Edema Other Most Recent Lab Results: Results for orders placed or performed in visit on 07/15/23 LD Result Value Ref Range LD 177 <=250 U/L HAPTOGLOBIN Result Value Ref Range Haptoglobin 265 (H) 30 - 200 mg/dL HEPATIC FUNCTION PANEL Result Value Ref Range Albumin 4.2 3.8 - 5.0 g/dL AST 12 10 - 35 U/L Alkaline Phosphatase 138 (H) 35 - 130 U/L ALT 8 (L) 10 - 35 U/L Bilirubin, Total 0.8 <=1.2 mg/dL Bilirubin, Direct 0.3 0.0 - 0.3 mg/dL Protein 6.5 6.0 - 8.3 g/dL CBC Result Value Ref Range WBC 8.38 4.00 - 10.80 K/uL RBC 3.89 3.85 - 5.15 M/uL HGB 11.3 (L) 12.0 - 15.3 g/dL HCT 36.6 36.0 - 45.2 % MCV 94.1 81.5 - 97.5 fL MCH 29.0 27.0 - 34.0 pg MCHC 30.9 32.0 - 36.0 g/dL RDW 14.0 11.5 - 15.5 % PLT 212 140 - 400 K/uL MPV 10.6 6.6 - 11.1 fL DIFFERENTIAL, AUTOMATED Result Value Ref Range WBC 8.38 4.00 - 10.80 K/uL Neutrophils % 58.9 40.0 - 75.0 % Lymphocytes % 33.9 18.0 - 42.0 % Monocytes % 2.9 1.0 - 11.0 % Eosinophils % 4.1 0.0 - 6.0 % Basophils % 0.2 0.0 - 2.0 % Absolute Neutrophils 4.94 1.80 - 7.70 K/uL Absolute Lymphocytes 2.84 1.00 - 4.80 K/ul Absolute Monocytes 0.24 0.00 - 1.10 K/uL Absolute Eosinophils 0.34 0.00 - 0.70 K/uL Absolute Basophils 0.02 0.00 - 0.20 K/uL Sincerely, Jovita Gutiérrez DO 05/17/2024 [facility] Calendar (as of Visit date not found (in office), Visit date not found (telemedicine) ) Care needs Care needs Last completed Due next Zoster (Shingles) Vaccine (1 of 2) --- Never done A1C blood sugar test 05/20/2023 11/18/2023 Kidney Function Test 05/20/2023 11/18/2023 Urine albumin/creatinine test 02/16/2023 02/17/2024 PHOSPHORUS MONITORING 02/16/2023 02/17/2024 PARATHYROID HORMONE MONITORING (KIDNEY DISEASE) 02/16/2023 02/17/2024 Diabetic Foot Exam 03/04/2023 03/04/2024 Discussion about referral to kidney specialist 03/08/2023 03/08/2024 Diabetic Eye Exam 04/07/2023 04/07/2024 Flu vaccine (recommended) (1) 05/13/2023 04/29/2024 COVID-19 Vaccine ( - season) 2022 04/29/2024 Yearly thyroid level check 05/20/2023 05/20/2024 ANEMIA MONITORING 07/15/2023 07/15/2024 Adult Wellness Visit 05/17/2024 05/17/2025 Diphtheria, tetanus & pertussis vaccines (2 - Tdap) 01/01/2017 01/01/2027 As you look over the recommended services, be sure to check with your insurance company to determine what's covered. [employer] is a great tool that helps you review your medical record online, including test results, doctor notes and your health summary. You can also schedule appointments with me and other members of your care team, request prescription refills and ask for advice related to your medical conditions at [email or web address]. Diabetes: Keeping Feet Healthy Inspect your feet every day for signs of a problem. Diabetes can damage nerves in your feet and cause neuropathy. This condition makes it hard for you to feel injuries or sore spots. Diabetes can also change blood flow, making it harder for small problems, like a blister, to heal properly. In fact, minor injuries can quickly become serious infections that send you to the hospital. Practice self-care to protect your feet and keep them healthy. Take Special Care Inspect your feet daily for problems such as redness, blisters, cracks, dry skin, or numbness. Use a mirror to see the bottoms of your feet. Or, ask for help. Manage your diabetes. Monitor and control your blood sugar. Take all your medications as prescribed. Avoid walking barefoot, even indoors. Wash your feet with warm water and mild soap. Dry well, especially between toes. Dont treat corns or calluses yourself. Talk to your doctor or director of adult epilepsy (a doctor who specializes in foot care) if you need assistance trimming your toenails. Use moisturizing cream or lotion if you have dry skin, but dont use it between toes. Dont use heating pads on your feet. If you have neuropathy, you could get a burn and not feel it. Stop smoking. Smoking restricts blood flow and can make it harder for wounds to heal. Have Regular Checkups Foot problems can develop quickly. So be sure to follow your healthcare teams schedule for regular checkups. During office visits, take off your shoes and socks as soon as you get in the exam room. Ask your healthcare provider to examine your feet for problems. This will make it easier to find and treat small skin irritations before they get worse. Regular checkups can also help keep track of the blood flow and feeling in your feet. If you have neuropathy, you may need to have checkups more often. Wear Proper Footwear Wearing proper footwear is very important. If areas of your feet have been damaged by too much pressure, your healthcare provider may recommend changing your footwear. In some cases, avoiding high heels or tight work boots may be all thats needed. Or, your healthcare provider may recommend special shoes or custom inserts. These help protect your feet and keep existing irritations from getting worse. If you need special footwear, ask your healthcare provider if you qualify for [employer] diabetic shoe program. Make Sure Shoes and Socks Fit Any pair of shoes--new or old--should feel comfortable as soon as you put them on. There shouldnt be any rubbing when you walk. Wear the right shoe for any activity. For instance, a running shoe is designed to keep your feet injury-free while jogging. Buy shoes at the end of the day, when your feet are larger. Make sure they provide support without feeling too loose. Make sure your socks fit, t oo. Wear soft, seamless, well-padded socks for activity. Cotton or microfiber socks are best to help to absorb sweat. To protect your feet, avoid shoes that are open-toed or open-heeled. If you have questions about what kinds of shoes and socks are best, talk to your healthcare team. Get Regular Exercise Regular exercise improves blood flow in your feet. It also increases foot strength and flexibility.Gentle exercises, like walking or riding a stationary bicycle, are best. You can also do special foot exercises. Just be sure to talk with your healthcare provider before starting any exercise program. Also mention if any exercise causes pain, redness, or other signs of foot problems. Note: If you have any kind of break in the skin of your foot or ankle, keep the area clean. Then call your doctor--especially if the area doesnt appear to be healing. [id number] [employer], [address] [place] [address], [place] [address]. All rights reserved. This information is not intended as a substitute for professional medical care. Always follow your healthcare professional's instructions. documented in this encounter Progress Notes * Lauren Artis RN - 05/17/2024 2:06 PM EDT AD8 Dementia Screening Interview Person answering questions: patient Remember, "Yes, a change" indicates that there has been a change in the last several years caused by cognitive (thinking and memory) problems 1. Problems with judgement (eg: problems making decisions, bad financial decisions, problems with thinking). No (0) 2. Less interest in hobbies/activities. No (0) 3. Repeats the same things over and over (questions, stories, or statements). No (0) 4. Trouble learning how to use a tool, appliance, or gadget (eg: VCR, computer, microwave, remote control). No (0) 5. Forgets correct month or year. No (0) 6. Trouble handling complicated financial affairs (eg: balancing checkbook, income taxes, paying bills). No (0) 7. Trouble remembering appointments. No (0) 8. Daily problems with thinking and/or memory. No (0) TOTAL AD8: 0 - AD8 Dementia Screening Score The final score is a sum of the number items marked "Yes, A Change". 0 - 1: Normal cognition; 2 or greater: Cognitive impairments is likely to be present - further testing required Adult Annual Wellness Visit: Stacie Quintana is a 83 year old female who presents for an Adult Annual Wellness Visit. Depression Screening: Did the patient complete the screening questionnaire for Depression? Yes Is the patient's total score for Depression 15 or greater? No, no further intervention needed, unless requested by patient. Did the patient answer positively to the suicide question? No, no further intervention needed, unless requested by patient. In general, compared to other people your age, what would you say that your health is? Good Ht Readings from Last 1 Encounters: 05/17/24 1.524 m (5') Wt Readings from Last 1 Encounters: 05/17/24 98.4 kg (217 lb) Body Mass Index: BMI Greater than 30 Body mass index is 42.38 kg/m. BP Readings from Last 1 Encounters: 05/17/24 128/78 Medical/Surgical/Family History Reviewed: Yes Past Medical History: Diagnosis Date CAD (coronary artery disease) 03/19/2014 DM type 2 goal A1C below 7.5 12/09/2014 Dyslipidemia, goal LDL below 100 03/19/2014 Essential hypertension with goal blood pressure less than 140/90 05/12/2016 Generalized osteoarthritis 09/22/2016 Gouty arthropathy 03/09/2017 Hypertension goal BP (blood pressure) < 140/90 03/19/2014 Hypothyroidism (acquired) 09/01/2014 Kidney disease, chronic, stage III (GFR 30-59 ml/min) ([facility]) 03/19/2014 Osteoarthritis of ankle 11/18/2014 Osteoarthritis of foot joint 11/18/2014 Rheumatoid arthritis of multiple sites with negative rheumatoid factor ([facility]) 09/22/2016 Rotator cuff tear arthropathy 04/09/2014 Rotator cuff tear, left 05/21/2014 Senile osteoporosis 12/24/2015 Venous insufficiency 03/19/2014 Vitamin D deficiency 09/14/2014 Past Surgical History: Procedure Laterality Date REMOVAL OF APPENDIX 1956 ruptured - Dr. Martinez REMOVE GALLBLADDER Family History Problem Relation Name Age of Onset Other (solitary kidney) Mother had renal atrophy?related to Other (nephrolithiasis) Son Other (nephrolithiasis) Daughter Other (htn) None Other (other CKD/ESRD) None Stroke Sister w/ advanced dementia Has patient ever had cancer? No Social History Tobacco Use Smoking status: Never Smokeless tobacco: Never Substance Use Topics Alcohol use: Yes Comment: drinks a can a beer once a month or more Vaping/E-Cigarette Use Vaping/E-Cigarette Use Never User Vaping/E-Cigarette Substances Vaping/E-Cigarette Devices Tobacco/Alcohol screening completed today? No Hospital Care: Admissions (within the last year): Not Applicable ER within 30 days: No Does the patient have an Advance Directives/Living Will? No. Does the patient want information? Yes. Information given to patient Last Physical Exam: Last physical exam: 03/20 will need to sched Does patient see primary provider regularly? Yes Does patient see other providers? Yes, Specialist Patient Care Team updated? Yes Review of patient's allergies indicates: Allergen Reactions Food (See Comments) Edema face/lips/tongue Nuts, pecans Amlodipine Edema Other Nifedipine Edema Other Immunization History Administered Date(s) Administered COVID-19 mRNA, LNP-s, No Preserve, 2-Dose Series (Moderna) 01/30/2021, 02/27/2021 COVID-19, mRNA, LNP-s, PF, Booster, 100mcg/0.5mg (Moderna) 09/09/2021 Covid-19, Mrna, Lnp-s, Pf, Bivalent, 30 Mcg, IM, 12 yrs and above ([employer]) 06/09/2022 DTaP HIB - Dipth/Tet/Acell Pert/HIB 01/01/2017 Pneumococcal Conjugate Vaccine, 20-valent ([id number]) 08/03/2022 Pneumococcal Polysaccharide PPV23 (Pneumovax) 07/21/2021 Seasonal Influenza, Quadrivalent Hd (Fluzone Hd) 08/03/2022, 05/13/2023 Current Outpatient Medications Medication Sig Dispense Refill Cholecalciferol 25 MCG (1000 UT) Oral Capsule Take 1 Capsule by mouth in the morning. Aspirin 81 MG Tablet Take one pill 2 days per week 1 Tab 0 Levothyroxine Sodium 75 MCG Oral Tablet (Levoxyl) Take 1 Tablet by mouth in the morning. (at least 30 min prior to breakfast or other meds). 90 Tablet 3 Metoprolol Succinate ER 25 MG Oral Tablet Extended Release 24 Hour (toPROL XL) Take 1 Tablet by mouth in the morning. 90 Tablet 3 hydrALAZINE HCl 10 MG Oral Tablet (Apresoline) Take 1 Tablet by mouth 2 times a day. 180 Tablet 1 Chlorthalidone 25 MG Oral Tablet (Hygroton) TAKE TWO TABLETS BY MOUTH EVERY DAY 180 Tablet 1 Allopurinol 100 MG Oral Tablet (Zyloprim) TAKE TWO TABLETS BY MOUTH EVERY MORNING 180 Tablet 3 Lisinopril 5 MG Oral Tablet (Prinivil) TAKE ONE TABLET BY MOUTH ONCE DAILY IN THE EVENING 90 Tablet1 Atorvastatin Calcium 40 MG Oral Tablet (Lipitor) Take 1 Tablet by mouth in the morning. 90 Tablet 0 Folic Acid 1 MG Oral Tablet Take 1 Tablet by mouth in the morning. 90 Tablet 0 Furosemide 20 MG Oral Tablet (Lasix) One daily 90 Tablet 1 OneTouch Ultra Blue In Vitro Strip (Glucose Blood) Use once daily to check blood sugars. Dx E11.9. (Pt uses one touch ultra blue) 90 Strip 1 EpiPen 2-Dajuan 0.3 MG/0.3ML Injection Solution Auto-injector For a severe reaction: Place orange end against the outer thigh, press firmly, hold in place for 10 seconds and go to the Emergency room. 2 Each 2 No current facility-administered medications for this visit. Patient Active Problem List Diagnosis Dyslipidemia, goal LDL below 100 Venous insufficiency Rotator cuff tear, left Hypothyroidism (acquired) Vitamin D deficiency Type 2 diabetes mellitus with hemoglobin A1c goal of less than 8.0% ([facility]) Senile osteoporosis Essential hypertension with goal blood pressure less than 140/90 Generalized osteoarthritis Gouty arthropathy Benign hypertension with CKD (chronic kidney disease) stage IV ([facility]) Type 2 diabetes mellitus with diabetic dermatitis, without long-term current use of insulin ([facility]) Type 2 diabetes mellitus with stage 4 chronic kidney disease, without long-term current use of insulin ([facility]) Lymphedema of both lower extremities Irregular heart beat Kidney disease, chronic, stage IV (GFR 15-29 ml/min) ([facility]) Aortic valve sclerosis Body mass index (BMI) of 45.0 to 49.9 in adult ([facility]) Hyperparathyroidism ([facility]) DM type 2 causing eye disease ([facility]) Medication Compliance: Patient is able to obtain all of her medications? Yes Patient takes medications as prescribed? Yes Patient manages own medications: No Patient uses a pill box? Yes, refill(s) completed by son Dental Exam: full dentures Eye Screening: Yes: Every yearly Are you having trouble with hearing? No Do you use an assistive device to help your hearing? No Exercise Screening: does not exercise regularly Nutrition Assessment: Eats three meals a day Pain Screening: Are you having any pain? No Sleep Screening Tool 'STOP': Do you snore? No Do you feel fatigued during the day? No Do you wake up feeling like you haven't slept? No Have you been told you stop breathing at night? No Do you gasp for air or choke while sleeping? No Have you been told you have Sleep Apnea? No Do you have high blood pressure or are on medication(s) to control high blood pressure? No SCORE: If you check YES to two or more questions, make a referral for Obstructive Sleep Apnea Patient declined duran referral Patient and Caregiver Support System: Patient lives alone Means of Transportation: Family transports Patient lives in Two Story - How many stairs: 12 steps, lives on the [facility] floor [facility] Functional Status and ADL Skills: Has patient ever had an amputation? No Functional Assessment: 90- Able to carry on normal activity, minor symptoms of disease Ambulation: Patient ambulates with assistive device. Walker/wheelchair Dressing: Gets clothes and dresses without any assistance: Minimal Assistance Able to move freely in chair or bed including turning over: Independent Repositioning (bed or chair): Not applicable Transfers: Independent Toileting: Goes to bathroom, uses toilet, arranges clothes and returns without any assistance: Independent Toileting: continent of bladder and continent of bowel Feeding: Self Bathing: Assist; walk in shower, chair and grab bar, needs some assistance Requires minimal assistance with ADLs. Instrumental ADL's: Shopping: Minimal Assistance Housekeeping: Minimal Assistance Handling Finances: Moderate Assistance DME Vendor Name: Not Applicable Fall Risk Assessment: Can the patient demonstrate that she can stand from a sitting position? Yes Has the patient had a fall within the last 6 months? No Does the patient have a problem with her gait or balance? No Does the patient take 4 or more prescription medicines? Yes Does the patient use sedatives or narcotics? No Fall Risk Factors Present: Uses more than 4 medications Visually impaired Older than age 70 Tnd-Lz-pnb-Go Test: Time began at 200. Patient stood from sitting position and walked approximately 10 feet, returned and sat down. Total time for fea-ps-zct-go test was 12 seconds. Ref-Ud-dbj-Go Test completed? Yes Gender Specific Preventative Plan: Health Maintenance Topic Date Due Zoster Vaccines (1 of 2) Never done HbA1c 11/18/2023 GFR 11/18/2023 Albumin/Creatinine Ratio 02/17/2024 Phosphate 02/17/2024 PTH 02/17/2024 Nephrology Referral 03/08/2024 Diabetic Eye Exam 04/07/2024 Influenza Vaccine (FLU shot) (1) 04/29/2024 COVID-19 Vaccine (5 - 2024-25 season) 2024 TSH 05/20/2024 Hgb 07/15/2024 Diabetic Foot Exam 05/17/2025 Depression Screening 05/17/2025 Adult Wellness Visit 05/17/2025 DTap/Tdap Vaccines (2 - Tdap) 01/01/2027 Pneumococcal Vaccine: 65+ Years Completed Hepatitis B Vaccine Aged Out MENINGOCOCCAL (MENACTRA/MENVEO) Aged Out HPV (Gardasil) Vaccine Aged Out Follow Up/ Referrals/Handouts: Depression screening - completed Functional assessment - doing well, lives alone Falls Risk screening - discussed and encouraged to use walker Exercise screening - encouraged to stay active Nutrition assessment -. Education Provided patient doing well with weight loss Pain screening - doing well Patient has been verbally educated on the need or importance of Cholesterol, Diabetic Eye Exam, Diabetic Foot Exam, GFR, Hemoglobin A1c, Shingles Vaccine, Flu Vaccine, and covid Pt has completed the covid vaccines: No Declined flu,shingrix and covid vaccines Patient states she just had diabetic eye exam done with Dr. Estrada, I did call them and patient n/s for her last appointment. I will put it in her display note for next appointment in Oct Routine general medical examination at a health care facility (Primary) Risk and functional assessment DM type 2 causing eye disease (HCC) Kidney disease, chronic, stage IV (GFR 15-29 ml/min) ([facility]) Type 2 diabetes mellitus with hemoglobin A1c goal of less than 7.0% ([facility]) - DIABETES FOOT EXAM Benign hypertension with CKD (chronic kidney disease) stage IV ([facility]) Component Latest Ref Rng 02/16/2023 BUN 6 - 20 mg/dL 41 (H) CREATININE 0.5 - 1.0 mg/dL 1.9 (H) EGFR >=60 mL/min 26 (L) Patient does see Dr. Gomez but missed an appointment - Discussed Healthy lifestyle, importance of fluids - Diet education - Reviewed labs Dyslipidemia, goal LDL below 100 - Med reconciliation completed and compliance discussed. - pt to continue present medications. Lab Results Component Value Date/Time LDL CHOLESTEROL (CALCULATED) - [facility] 45 05/20/2023 09:38 AM LDL CHOLESTEROL (CALCULATED) - [facility] 50 05/30/2020 10:46 AM LDL CHOLESTEROL (DIRECT MEASURE) - [facility] NOT APPLICABLE 05/30/2020 10:46 AM Essential hypertension with goal blood pressure less than 140/90 - Med reconciliation completed and compliance discussed. - pt to continue present medications. BP Readings from Last 3 Encounters: 05/17/24 128/78 05/13/23 124/70 03/08/23 175/74 Gouty arthropathy - Med reconciliation completed and compliance discussed. - pt to continue present medications. Hypothyroidism (acquired) - Med reconciliation completed and compliance discussed. - pt to continue present medications. TSH Results: Lab Results Component Value Date/Time TSH - [facility] 3.24 05/20/2023 09:38 AM TSH - [facility] 2.47 08/03/2022 11:21 AM TSH - [facility] 3.05 01/18/2022 12:07 PM TSH - [facility] 4.42 (H) 05/30/2020 10:46 AM TSH - [facility] 2.87 12/15/2018 01:46 PM TSH - [facility] 4.30 (H) 01/18/2018 09:50 AM Lymphedema of both lower extremities Senile osteoporosis - Med reconciliation completed and compliance discussed. - pt to continue present medications. Type 2 diabetes mellitus with diabetic dermatitis, without long-term current use of insulin (HCC) Type 2 diabetes mellitus with hemoglobin A1c goal of less than 8.0% (HCC) Type 2 diabetes mellitus with stage 4 chronic kidney disease, without long-term current use of insulin (HCC) - Med reconciliation completed and compliance discussed. - pt to continue present medications. - Discussed Healthy lifestyle, importance of exercise - Diet education - Reviewed labs Hemoglobin AIC Results: Lab Results Component Value Date/Time HEMOGLOBIN A1C - [facility] 4.8 05/20/2023 09:38 AM HEMOGLOBIN A1C - [facility] 6.8 (H) 08/03/2022 11:21 AM HEMOGLOBIN A1C - [facility] 7.1 (H) 2022 09:52 AM HEMOGLOBIN A1C - [facility] 8.3 (H) 05/30/2020 10:46 AM HEMOGLOBIN A1C - [facility] 6.6 (H) 12/15/2018 01:46 PM HEMOGLOBIN A1C - [facility] 6.2 (H) 09/27/2018 11:40 AM Patient states meds were adjusted after last labs. Patient was not scheduled for pcp follow up , last seen 03/20. Discussed with patient she should be seen every 6mths by a provider. Vitamin D deficiency - Med reconciliation completed and compliance discussed. - pt to continue present medications. Follow Up: Return in 1 year (on 05/17/2025) for 12 month Subsequent Adult Wellness Visit. | For: 12 month Subsequent Adult Wellness Visit | Check-out note: 12 month Subsequent Adult Wellness Visit Would patient like to schedule next AWV visit? Yes Lauren Artis RN Socks and Shoes Removed for Annual Diabetic Foot Screening RIGHT FOOT: No Reddened, Cracking, Or Open Areas Noted. RIGHT Dorsalis Pedis Pulse: Palpable RIGHT Posterior Tibial Pulse: Unable to locate RIGHT Monofilament:Patient reports feeling monofilament pressure on plantar surface of foot LEFT FOOT: No Reddened, Cracking or Open Areas Noted. LEFT Dorsalis Pedis Pulse: Palpable LEFT Posterior Tibial Pulse: Unable to locate LEFT Monofilament:Patient reports feeling monofilament pressure on plantar surface of foot Do you need diabetic shoes: No documented in this encounter Plan of Treatment Upcoming Encounters Date Type Department Care Team (Late st Contact Info) Description 06/12/2024 3:40 PM EDT Office Visit Family Medicine [address] [place] [phone] Alonso Tamayo [address] [place] [address] 08/28/2024 2:40 PM EST Office Visit Nephrology [address] [place] [address] Unique Gomez MD [address] [facility] [place] [address] 11/19/2024 3:00 PM EDT Office Visit Nephrology [address] [place] [address] Unique Gomez MD [address] [facility] [place] [address] 01/09/2025 3:10 PM EDT Office Visit Family Medicine [address] [place] [phone] Jovita Gutiérrez, [address] [place] [address] 05/21/2025 2:30 PM EDT Nurse Only Ancillary [address] [place] [address] [place], Nurse Annual [address] [place] [address] Scheduled Orders Name Type Priority Associated Diagnoses Orde r Schedule HEMOGLOBIN A1C Lab Routine DM type 2 causing eye disease (HCC) Expected: 05/17/2024 (Approximate), Expires: 06/16/2025 RENAL FUNCTION PANEL Lab Routine Kidney disease, chronic, stage IV (GFR 15-29 ml/min) (HCC) Expected: 05/17/2024 (Approximate), Expires: 05/17/2025 PTH Lab Routine Kidney disease, chronic, stage IV (GFR 15-29 ml/min) (HCC) Expected: 05/17/2024 (Approximate), Expires: 05/17/2025 Health Maintenance Due Date Last Done Comments [...] 05/11/2022, Additional history exists Depression Screening 05/17/2025 05/17/2024, 05/13/20 Diabetic Foot Exam 05/17/2025 05/17/2024, 0 03/04/2023, [...] as of this encounter Visit Diagnoses Diagnosis Routine general medical examination at a health care facility- Primary Risk and functional assessment Screening for unspecified condition DM type 2 causing eye disease (HCC) Type II or unspecified type diabetes mellitus with ophthalmic manifestations, not stated as uncontrolled Kidney disease, chronic, stage IV (GFR 15-29 ml/min) (HCC) Chronic kidney disease, Stage IV (severe) Type 2 diabetes mellitus with hemoglobin A1c goal of less than 7.0% (HCC) Benign hypertension with CKD (chronic kidney disease) stage IV (HCC) Benign hypertensive kidney disease with chronic kidney disease stage I through stage IV, or unspecified Dyslipidemia, goal LDL below 100 Other and unspecified hyperlipidemia Essential hypertension with goal blood pressure less than 140/90 Gouty arthropathy Gouty arthropathy, unspecified Hypothyroidism (acquired) Unspecified hypothyroidism Lymphedema of both lower extremities Senile osteoporosis Type 2 diabetes mellitus with diabetic dermatitis, without long-term current use of insulin (HCC) Type 2 diabetes mellitus with hemoglobin A1c goal of less than 8.0% (HCC) Type 2 diabetes mellitus with stage 4 chronic kidney disease, without long-term current use of insulin (HCC) Vitamin D deficiency Unspecified vitamin D deficiency documented in this encounter Care Teams Lead Man Over All Dies In [employer] Relationship Specialty Start Date End Date Jovita Gutiérrez DO [address] [place] [address] [place] [address] PCP - General Internal Medicine 12/15/18 documented as of this encounter
--- OUTSIDE RECORDS SUMMARY | 2024-07-16 15:53 | External Medical Summary | Summary of Care ---
Author Name Unknown Organization [facility] Address [address] [facility] [place] [address] Phone [phone] Care Team Providers Care Sill Worker Name Role Phone Jovita Gutiérrez Primary Care Provider [phone] Reason for Visit * Reason Comments eRx-Medication Refill Encounter Details Date Type Department Care Team (Late st Contact Info) Description 03/23/2024 Refill Nephrology, Dhruv Gonzalez [address] [place] [address] Lionel Valenzuela MD 200 [facility] [place] [address] Essential hypertension with goal blood pressure less than 140/90 Allergies Active Allergy Reactions Criticality Noted Date Comments Amlodipine Edema Other Low 06/19/2014 Food (See Comments) Edema face/lips/tongue High 02/27 Nuts, pecans Nifedipine Edema Other Low 06/19/2014 documented as of this encounter (statuses as of 03/23/2024) Medications Medication Sig Dispensed Refills Start Date [...] Emergency room. 2 Each 2 08/03/2022 Active Allopurinol 100 MG Oral Tablet (Zyloprim)Indicati ons:Gouty arthropathy Take 2 Tablets by mouth in the morning. 180 Tablet 3 04/19/2023 Active Folic Acid 1 MG Oral TabletIndications: [...] EVERY MORNING 30 Tablet 5 10/15/2023 Active Lisinopril 5 MG Oral Tablet (Prinivil)Indicati ons:Kidney disease, chronic, stage IV (GFR 15-29 ml/min) ([facility]) TAKE ONE TABLET BY MOUTH ONCE DAILY IN THE EVENING 90 Tablet 01/11/2024 Active hydrALAZINE HCl 10 MG Oral Tablet (Apresoline)Indica tions:HTN, goal below 140/90 Take 1 Tablet by mouth 2 times a day. 180 Tablet 1 03/15/2024 Active Chlorthalidone 25 MG Oral Tablet (Hygroton)Indicati ons:Essential hypertension with goal blood pressure less than 140/90 TAKE TWO TABLETS BY MOUTH EVERY DAY 180 Tablet 1 03/23/2024 Active Chlorthalidone 25 MG Oral Tablet (Hygroton)Indicati ons:Essential hypertension with goal blood pressure less than 140/90 TAKE TWO TABLETS BY MOUTH EVERY DAY 180 Tablet 3 04/04/2023 4 Discontinued documented as of this encounter (statuses as of 03/23/2024) Active Problems Problem Noted Date Diagnosed Date [...] as of this encounter (statuses as of 03/23/2024) Resolved Problems Problem Noted Date Diagnosed Date [...] of insulin 10/24/2018 12/15/2018 Rheumatoid arthritis of [facility] sites with negative rheumatoid factor 09/22/2016 05/23/2020 [...] as of this encounter (statuses as of 03/23/2024) Immunizations Name Administration Dates Next Due COVID-19 mRNA, LNP-s, No Pre serve, 2-Dose Series (Moderna) 02/27/2021,01/30/2021 COVID-19, mRNA, LNP-s, PF, B ooster, 100mcg/0.5mg (Moderna) 09/09/2021 Covid-19, Mrna, Lnp-s, Pf, B ivalent, 30 Mcg, IM, 12 yrs and above (Pfizer) 06/09/2022 DTaP HIB - Dipth/Tet/Acell Pert/HIB 01/01/2017 [...] encounter Miscellaneous Notes * Telephone Encounter - Lionel Thurman MD - 03/23/2024 8:59 AM EDTSigned Prescriptions: Disp Refills Chlorthalidone 25 MG Oral Tablet (Hygroton)180 Ta*1 Sig: TAKE TWO TABLETS BY MOUTH EVERY DAY Authorizing Provider: LIONEL THURMAN * Telephone Encounter - Shonna Thurston LPN - 03/23/2024 8:13 AM EDTPending Prescriptions: Disp Refills Chlorthalidone 25 MG Oral Tablet (Hygroton)180 Ta*1 Sig: TAKE TWO TABLETS BY MOUTH EVERY DAY * Telephone Encounter - Shonna Thurston LPN - 03/23/2024 8:11 AM EDT Prescription refill request received from pharmacy. Pending as requested. Please authorize. documented in this encounter Plan of Treatment Upcoming Encounters Date Type Department Care Team (Late st Contact Info) Description 05/17/2024 2:00 PM EDT Nurse Only Ancillary [address] [place] [address] [place], Nurse [address] [place] [address] 11/19/2024 3:00 PM EDT Office Visit Nephrology [address] [place] [address] Lionel Thurman MD [address] [facility] [place] [address] Health Maintenance Due Date Last Done Comments Zoster Vaccines (1 of 2) 1990 COVID-19 Vaccine (2022- season) 2023 06/09/2022, 09/09/2021, 02/27/2021, Additional history [...] Vaccine (FLU shot) (#1) 2024 05/13/2023, 08/03/2022 Depression Screening 05/13/2024 05/13/2023 TSH 05/20/2024 05/20/2023, [...] as of this encounter Visit Diagnoses Diagnosis Essential hypertension with goal blood pressure less than 140/90 documented in this encounter Care Teams Sill Worker Relationship Specialty Start Date End Date Jovita Gutiérrez DO [address] [place] [address] [place] [phone] PCP - General Internal Medicine 12/15/18 documented as of this encounter
--- OUTSIDE RECORDS SUMMARY | 2024-07-16 15:53 | External Medical Summary | Summary of Care ---
Author Name Unknown Organization [facility] Address [address] [facility] [place] [address] Phone [phone] Care Team Providers Care Director Music Name Role Phone Jovita Gutiérrez DO Primary Care Provider + [phone] Encounter Details Date Type Department Care Team (Late st Contact Info) Description 05/21/2024 Orders Only PATIENT PORTAL DO NOT DELETE THIS DEPT USED BY [place] [id number] Allergies Active Allergy Reactions Criticality Noted Date [...] the morning. 12/04/2015 Active Aspirin 81 MG TabletIndications:[place] and Wednesdays Take one pill 2 days [...] of insulin 10/24/2018 12/15/2018 Rheumatoid arthritis [facility] with negative rheumatoid factor 09/22/2016 05/23/2020 [...] 30 Mcg, IM, 12 yrs and above ([facility]) 06/09/2022 DTaP HIB - Dipth/Tet/Acell Pert/HIB 01/01/2017 [...] 3:40 PM EDT Office Visit Family Medicine [address] [phone] Alonso Tamayo CRNP [address] [place] [address] Center [place] [address] 08/28/2024 2:40 PM EST Office Visit Nephrology [address] [place] [address] Unique Gomez MD [address] [place] [address] 11/19/2024 3:00 PM EDT Office Visit Nephrology [address] [place] [address] Unique Gomez MD [address] [place] [address] 01/09/2025 3:10 PM EDT Office Visit Family Medicine [address] [place] [phone] Jovita Gutiérrez, [address] [place] [address] 05/21/2025 2:30 PM EDT Nurse Only Ancillary [address] [place] [address] [place], Nurse Annual [address] [place] [address] Health Maintenance Due Date Last Done Comments [...] filedocumented as of this encounter Care Teams Director Music Relationship Specialty Start Date End Date Jovita Gutiérrez DO [address] [place] [address] [place] [address] PCP - General Internal Medicine 12/15/18 documented as of this encounter
--- OUTSIDE RECORDS SUMMARY | 2024-07-16 15:53 | External Medical Summary | Summary of Care ---
Author Name Unknown Organization [facility] Address [address] [address] Phone [phone] Care Team Providers Care Industrial Seamstress Name Role Phone Jovita Gutiérrez Primary Care Provider [phone] Reason for Visit * Reason Comments eRx-Medication Refill Encounter Details Date Type Department Care Team (Late st Contact Info) Description 01/11/2024 Refill Nephrology [address] [place] [address] Lionel Thurman MD [address] [place] [address] Kidney disease, chronic, stage IV (GFR 15-29 ml/min) ([facility]) Allergies Active Allergy Reactions Criticality Noted Date Comments Amlodipine Edema Other Low 06/19/2014 Food (See Comments) Edema face/lips/tongue High 02/27 Nuts, pecans Nifedipine Edema Other Low 06/19/2014 documented as of this encounter (statuses as of 02/14/2024) Medications Medication Sig Dispensed Refills Start Date [...] Emergency room. 2 Each 2 08/03/2022 Active Chlorthalidone 25 MG Oral Tablet (Hygroton)Indicati ons:Essential hypertension with goal blood pressure less than 140/90 TAKE TWO TABLETS BY MOUTH EVERY DAY 180 Tablet 3 04/04/2023 Active Allopurinol 100 MG Oral Tablet (Zyloprim)Indicati [...] Oral Tablet (Apresoline)Indica tions:HTN, goal below 140/90 take 1 tablet by mouth 2 times a day 240 Tablet 11/06/2023 Active Lisinopril 5 MG Oral Tablet (Prinivil)Indicati ons:Kidney disease, chronic, stage IV (GFR 15-29 ml/min) ([facility]) TAKE ONE TABLET BY MOUTH ONCE DAILY IN THE EVENING 90 Tablet 01/11/2024 Active Lisinopril 5 MG Oral Tablet (Prinivil)Indicati ons:Kidney disease, chronic, stage IV (GFR 15-29 ml/min) (HCC) take 1 tablet 1 time daily in the evening. 90 Tablet 3 01/21/2023 4 Discontinued documented as of this encounter (statuses as of 02/14/2024) Active Problems Problem Noted Date Diagnosed Date [...] as of this encounter (statuses as of 02/14/2024) Resolved Problems Problem Noted Date Diagnosed Date [...] of insulin 10/24/2018 12/15/2018 Rheumatoid arthritis of [facility] sites with negative rheumatoid factor [...] as of this encounter (statuses as of 02/14/2024) Immunizations Name Administration Dates Next Due COVID-19 mRNA, LNP-s, No Pre serve, 2-Dose Series (Moderna) 02/27/2021,01/30/2021 COVID-19, mRNA, LNP-s, PF, B ooster, 100mcg/0.5mg (Moderna) 09/09/2021 Covid-19, Mrna, Lnp-s, Pf, B ivalent, 30 Mcg, IM, 12 yrs and above ([employer]) 06/09/2022 DTaP HIB - Dipth/Tet/Acell Pert/HIB 01/01/2017 [...] money to get more. Never true 05/13/2023 Sex and Gender Information Value Date Recorded Sex Assigned at Female 04/30/2021 3:22 PM EDT Gender Identity Female 04/30/2021 3:22 PM EDT Sexual Orientation Straight 04/30/2021 3: 22 PM EDT Job Start Date Occupation Industry Not on file Not on file Not on file documented as of this encounter Miscellaneous Notes * Telephone Encounter - Graciela Johnson OSA - 02/14/2024 10:01 AM EDTSigned Prescriptions: Disp Refills Lisinopril 5 MG Oral Tablet (Prinivil) 90 Tab*0 Sig: TAKE ONE TABLET BY MOUTH ONCE DAILY IN THE EVENINGAuthorizing Provider: LIONEL THURMAN * Telephone Encounter - Lionel Thurman MD - 01/11/2024 6:32 PM EDTSigned Prescriptions: Disp Refills Lisinopril 5 MG Oral Tablet (Prinivil) 90 Tab*0 Sig: TAKE ONE TABLET BY MOUTH ONCE DAILY IN THE EVENING Authorizing Provider: LIONEL THURMAN * Telephone Encounter - Alie Gomez RN - 01/11/2024 8:27 AM EDTPending Prescriptions: Disp Refills Lisinopril 5 MG Oral Tablet [Pharmacy Med *90 Tab*0 Sig: TAKE ONE TABLET BY MOUTH ONCE DAILY IN THE EVENING * Telephone Encounter - Alie Gomez RN - 01/11/2024 8:25 AM EDT Prescription request received from pharmacy pending. Please authorize. Last OV 03/08/23 Cancelled October appointment-Note sent to hand cell tuber. documented in this encounter Plan of Treatment Upcoming Encounters Date Type Department Care Team (Late st Contact Info) Description 02/23/2024 12:30 PM EDT Office Visit Nephrology [address] [place] [address] Ghada Lewis PA-C [address] [facility] [place] [address] 05/17/2024 2:00 PM EDT Nurse Only Ancillary [address] [place] [address] [place], Nurse [address] [place] [address] 11/19/2024 3:00 PM EDT Office Visit Nephrology [address] [place] [address] Lionel Thurman MD [address] [facility] [place], [place] [id number] Health Maintenance Due Date Last Done Comments Zoster Vaccines (1 of 2) 1990 COVID-19 Vaccine ( - 2022- season) 2023 06/09/2022, 09/09/2021, 02/27/2021, Additional history [...] 04/07/2024 04/07/2023, , 01/14/2021, Additional history exists Depression Screening 05/13/2024 05/13/2023 TSH 05/20/2024 05/20/2023, 12/0 01/2022, 01/18/2022, Additional history exists Hgb 07/15/2024 07/15/2023, 04/30, 02/16/2023, Additional history exists DTaP,Tdap,and Td Vaccines (2 - Tdap) 01/01/2027 01/01/2017 Pneumococcal Vaccine: 65+ Years Completed 08/03/2022, 07/21/2021 Influenza Vaccine (FLU shot) Completed 05/13/2023, 08/03/2022 GARDASIL-HPV IMMUNIZATION SERIES Aged Out No longer eligible based on patient's age to complete this topic Hepatitis B Aged Out No longer eligi ble based on patient's age to complete this topic MENINGOCOCCAL (MENACTRA/MENVEO) Aged Out No longer eligible based on patient's age to complete this topic documented as of this encounter Medical Devices Not on filedocumented as of this encounter Visit Diagnoses Diagnosis Kidney disease, chronic, stage IV (GFR 15-29 ml/min) (HCC) Chronic kidney disease, Stage IV (severe) documented in this encounter Care Teams Industrial Seamstress Relationship Specialty Start Date End Date Jovita Gutiérrez DO [address] [place] [address] [place] [address] PCP - General Internal Medicine 12/15/18 documented as of this encounter
--- OUTSIDE RECORDS SUMMARY | 2024-07-16 15:53 | External Medical Summary | Summary of Care ---
Author Name Unknown Organization [facility] Address [address] [facility] [address] Phone [phone] Care Team Providers Care Drapery Examiner Name Role Phone Jovita Gutiérrez Primary Care Provider [phone] Reason for Visit * Reason Comments eRx-Medication Refill Encounter Details Date Type Department Care Team (Late st Contact Info) Description 04/13/2024 Refill Nephrology [address] [place] [address] Unique Gomez MD 200 [facility] [place] [address] Kidney disease, chronic, stage IV (GFR 15-29 ml/min) ([facility]) Allergies Active Allergy Reactions Criticality Noted Date Comments Amlodipine Edema Other Low 06/19/2014 Food (See Comments) Edema face/lips/tongue High 02/27 Nuts, pecans Nifedipine Edema Other Low 06/19/2014 documented as of this encounter (statuses as of 04/13/2024) Medications Medication Sig Dispensed Refills Start Date [...] Active Atorvastatin Calcium 40 MG Oral Tablet (Lipitor)Josettetio ns:Dyslipidemia, goal LDL below 100 Take 1 [...] EVERY DAY 180 Tablet 1 03/23/2024 Active Lisinopril 5 MG Oral Tablet (Prinivil)Indicati ons:Kidney disease, chronic, stage IV (GFR 15-29 ml/min) (HCC) TAKE ONE TABLET BY MOUTH ONCE DAILY IN THE EVENING 90 Tablet 1 04/13/2024 Active Lisinopril 5 MG Oral Tablet (Prinivil)Indicati ons:Kidney disease, chronic, stage IV (GFR 15-29 ml/min) (HCC) TAKE ONE TABLET BY MOUTH ONCE DAILY IN THE EVENING 90 Tablet 01/11/2024 Discontinued documented as of this encounter (statuses as of 04/13/2024) Active Problems Problem Noted Date Diagnosed Date [...] as of this encounter (statuses as of 04/13/2024) Resolved Problems Problem Noted Date Diagnosed Date [...] of insulin 10/24/2018 12/15/2018 Rheumatoid arthritis of [facility] sites with negative rheumatoid factor 09/22/2016 05/23/2020 [...] as of this encounter (statuses as of 04/13/2024) Immunizations Name Administration Dates Next Due COVID-19 mRNA, LNP-s, No Pre serve, 2-Dose Series (Moderna) 02/27/2021,01/30/2021 COVID-19, mRNA, LNP-s, PF, B ooster, 100mcg/0.5mg (Moderna) 09/09/2021 Covid-19, Mrna, Lnp-s, Pf, B ivalent, 30 Mcg, IM, 12 yrs and above ([employer]) 06/09/2022 DTaP HIB - Dipth/Tet/Acell Pert/HIB 01/01/2017 [...] do you feel lonely or isolated from ose around you? Never 05/13/2023 Financial Resource [...] encounter Miscellaneous Notes * Telephone Encounter - Nadja Reagan MD - 04/13/2024 9:16 AM EDTSigned Prescriptions: Disp Refills Lisinopril 5 MG Oral Tablet (Prinivil) 90 Tab*1 Sig: TAKE ONE TABLET BY MOUTH ONCE DAILY IN THE EVENING Authorizing Provider: NADJA REAGAN * Telephone Encounter - Shonna Thurston LPN - 04/13/2024 8:18 AM EDTPending Prescriptions: Disp Refills Lisinopril 5 MG Oral Tablet (Prinivil) 90 Tab*1 Sig: TAKE ONE TABLET BY MOUTH ONCE DAILY IN THE EVENING * Telephone Encounter - Shonna Thurston LPN - 04/13/2024 8:17 AM EDT Prescription refill request received from pharmacy. Pending as requested. Please authorize. documented in this encounter Plan of Treatment Upcoming Encounters Date Type Department Care Team (Late st Contact Info) Description 05/17/2024 2:00 PM EDT Nurse Only Ancillary [address] [place] [address] [place], Nurse Annual [address] [place] [address] 11/19/2024 3:00 PM EDT Office Visit Nephrology [address] [place] [address] Unique Gomez MD [address] [facility] [place] [address] Health Maintenance Due Date Last Done Comments [...] Depression Screening 05/13/2024 05/13/2023 TSH 05/20/2024 05/20/2023, 1201/2022, 01/18/2022, Additional history [...] (severe) documented in this encounter Care Teams Drapery Examiner Relationship Specialty Start Date End Date Jovita Gutiérrez DO [address] [place] [address] [place] [address] PCP - General Internal Medicine 12/15/18 documented as of this encounter
--- OUTSIDE RECORDS SUMMARY | 2024-07-16 15:53 | External Medical Summary | Summary of Care ---
Author Name Unknown Organization [facility] Address [address] [facility] [place] [address] Phone [phone] Care Team Providers Care Home Health Assistant Name Role Phone Bandar Palomino DO Primary Care Provider [phone] Reason for Visit * Reason Onset Date Comments Medication Refill 03/15/2024 Encounter Details Date Type Department Care Team (Late st Contact Info) Description 03/15/2024 Refill Family Medicine [address] [place] [address] Bandar Palomino [address] [place] [address] HTN, goal below 140/90 Allergies Active Allergy Reactions Criticality Noted Date Comments Amlodipine Edema Other Low 06/19/2014 Food (See Comments) Edema face/lips/tongue High 02/27 Nuts, pecans Nifedipine Edema Other Low 06/19/2014 documented as of this encounter (statuses as of 03/15/2024) Medications Medication Sig Dispensed Refills Start Date [...] of multiple sites with negative rheumatoid factor ([facility]) Take 1 Tablet by mouth in the [...] disease, chronic, stage IV (GFR 15-29 ml/min) ([facility]) TAKE ONE TABLET BY MOUTH ONCE DAILY IN THE EVENING 90 Tablet 01/11/2024 Active hydrALAZINE HCl 10 MG Oral Tablet (Apresoline)Indica tions:HTN, goal below 140/90 Take 1 Tablet by mouth 2 times a day. 180 Tablet 1 03/15/2024 Active hydrALAZINE HCl 10 MG Oral Tablet (Apresoline)Indica tions:HTN, goal below 140/90 take 1 tablet by mouth 2 times a day 240 Tablet 11/06/2023 4 Discontinue d(Refill) documented as of this encounter (statuses as of 03/15/2024) Active Problems Problem Noted Date Diagnosed Date [...] as of this encounter (statuses as of 03/15/2024) Resolved Problems Problem Noted Date Diagnosed Date [...] of insulin 10/24/2018 12/15/2018 [facility] sites with negative rheumatoid factor 09/22/2016 [...] as of this encounter (statuses as of 03/15/2024) Immunizations Name Administration Dates Next Due COVID-19 mRNA, LNP-s, No Pre serve, 2-Dose Series (Moderna) 02/27/2021,01/30/2021 COVID-19, mRNA, LNP-s, PF, B ooster, 100mcg/0.5mg (Moderna) 09/09/2021 Covid-19, Mrna, Lnp-s, Pf, B ivalent, 30 Mcg, IM, 12 yrs and above ([employer]) 06/09/2022 DTaP HIB - Dipth/Tet/Acell Pert/HIB 01/01/2017 [...] Telephone Encounter - Bandar Palomino DO - 03/15/2024 11:18 AM EDTSigned Prescriptions: Disp Refills hydrALAZINE HCl 10 MG Oral Tablet (Apresol*180 Ta*1 Sig: Take 1 Tablet by mouth 2 times a day. Authorizing Provider: BANDAR PALOMINO * Telephone Encounter - Coral Espinoza CPhT - 03/15/2024 9:20 AM EDT Pt requesting HIGH PRIORITY due to out of med Did you pend patient's preferred pharmacy and medication before forwarding?yes Pharmacy: [id number] [address] [facility] Pending Prescriptions: Disp Refills hydrALAZINE HCl 10 MG Oral Tablet (Apreso*240 Ta*0 Sig: Take 1 Tablet by mouth 2 times a day. Last Visit: 03/04/2023 (in office), Visit date not found (telemedicine) Next Visit: Visit date not found If no future appointments scheduled, and last appointment is greater than a year ago, please schedule patient for a follow-up appointment Last date the medication was ordered: 11/06/23 Is this request for a controlled substance?No [...] 05/17/2024 2:00 PM EDT Nurse Only Ancillary [address] [place] [address] [place], Nurse Annual [address] [place] [address] 11/19/2024 3:00 PM EDT Office Visit Nephrology [address] [place] [address] [facility] [address] Health Maintenance Due Date Last Done Comments Zoster Vaccines (1 of 2) 1990 COVID-19 Vaccine ( season) 2023 06/09/2022, 09/09/2021, 02/27/2021, Additional history exists GFR 11/18/2023 05/20/2023, 0608/2022, 08/03/2022, Additional history exists HbA1c 11/18/2023 05/20/2023, [...] hypertension documented in this encounter Care Teams Home Health Assistant Relationship Specialty Start Date End Date Bandar Palomino DO [address] [place] [address] [place] [address] PCP - General Internal Medicine 12/15/18 documented as of this encounter
[2024-07-16] MEDS ORDERED: POLYETHYLENE (MIRALAX) 17 GM PACK PO PRN (16:02)
[2024-07-16] MEDS ORDERED: FAMOTIDINE 20 MG TAB PO PRN (16:02)
[2024-07-16] MEDS: Patient's HEIGHT &/or WEIGHT Needed STA (16:21)
[2024-07-16 16:22] LABS: Folate (Folic Acid),Ser orPlas > 22.30 ng/ml (>5.38)
[2024-07-16 16:23] LABS: Vitamin B12 217 pg/ml (180-914)
[2024-07-16] MEDS: FUROSEMIDE 40 MG/4 ML VIAL IV SCH (16:34)
[2024-07-16] MEDS: hydrALAZINE 10 MG TAB PO SCH (20:09)
--- NOTE | 2024-07-16 21:38 | Electrocardiogram Report ---
Test Reason : Blood Pressure : */* mmHG Vent. Rate : 59 BPM Atrial Rate : * BPM P-R Int : * ms QRS Dur : 152 ms QT Int : 448 ms P-R-T Axes : * -30 151 degrees QTcB Int : 443 ms Sinus bradycardia with Premature atrial complexes Left axis deviation Right bundle branch block Minimal voltage criteria for LVH, may be normal variant ( R in aVL ) Septal infarct , age undetermined T wave abnormality, consider lateral ischemia Abnormal ECG No previous ECGs available Confirmed by Roddy Montana ([id number]) on 07/16/2024 9:37:37 PM Referred By: REFERRED SELF Confirmed By: Roddy Montana
--- NOTE | 2024-07-16 21:38 | Electrocardiogram Report ---
Test Reason : Blood Pressure : */* mmHG Vent. Rate : 64 BPM Atrial Rate : * BPM P-R Int : * ms QRS Dur : 166 ms QT Int : 456 ms P-R-T Axes : * -39 117 degrees QTcB Int : 470 ms Sinus rhythm Left axis deviation Right bundle branch block Left ventricular hypertrophy with repolarization abnormality ( R in aVL ) Cannot rule out Septal infarct , age undetermined Abnormal ECG When compared with ECG of 16-Jul-2024 10:48, No significant change Confirmed by Roddy Montana ([id number]) on 07/16/2024 9:38:07 PM Referred By: REFERRED SELF Confirmed By: Roddy Montana
[2024-07-16 22:04] LABS: Total Protein Urine Random 12.1 mg/dl (0-11.9)
[2024-07-16 22:09] LABS: Creatinine Urine Random 43.4 mg/dl; Protein Creatinine Ratio Urine 0.3 (0-0.2)
[2024-07-17] MEDS: LEVOTHYROXINE SODIUM 75 MCG TABLET PO SCH (05:20)
[2024-07-17 06:56] LABS: Basophils # (auto) 0.04 K/uL (0.00-0.20); Basophils % (auto) 0.6 %; Eosinophils # (auto) 0.26 K/uL (0.00-0.50); Hematocrit (blood only) 23.9 % (37.0-47.0); Hemoglobin 7.1 g/dl (12.0-16.0); Immature Granulocytes # (auto) 0.03 K/uL (0.01-0.20); Immature Granulocytes % (auto) 0.5 %; Lymphocytes # (auto) 1.54 K/uL (1.20-3.40); Mean Corpuscular Hgb Conc 29.7 g/dL (32.0-36.0); Mean Corpuscular Volume 104.4 fL (80.0-100.0); Mean Platelet Volume 11.3 fL (9.4-12.4); Monocytes % (auto) 4.7 %; Neutrophils # (auto) 4.26 K/uL (1.40-6.50); Neutrophils % (auto) 66.2 %; Platelet Count 189 K/uL (130-400); RDW Coefficient of Variation 14.8 % (11.5-14.5); RDW Standard Deviation 55.7 fL (36.4-46.3); Red Blood Count 2.29 M/uL (4.20-5.40); White Blood Count 6.43 K/ul (4.8-10.8)
[2024-07-17 07:21] LABS: Hypochromasia Present
[2024-07-17 07:29] LABS: Albumin Level 3.5 gm/dl (3.4-5.0); Bilirubin,Total 0.9 mg/dl (0.2-1.0); Calcium 9.5 mg/dl (8.6-10.3); Magnesium 1.7 mg/dl (1.7-2.4); Potassium 4.5 mmol/L (3.5-5.1)
[2024-07-17 07:36] LABS: Albumin Globulin Ratio 1.5 (0.9-2); BUN Creatinine Ratio 29.4 (10-20); Chol HDL Ratio 2.4 (0-5); Creatinine Clr Calc Pharmacy 17.1 ml/min; Globulin 2.3 gm/dl (2.5-4.0); Total Protein 5.8 gm/dl (6.0-8.3)
[2024-07-17] MEDS: CHOLECALCIFEROL 10 MCG (400 UNITS) TAB PO SCH (08:19)
[2024-07-17] MEDS: FOLIC ACID 1 MG TAB PO SCH (08:19)
[2024-07-17] MEDS: ATORVASTATIN 40 MG TAB PO SCH (08:19)
[2024-07-17] MEDS: allopurinoL 100 MG TAB PO SCH (08:20)
[2024-07-17] MEDS: METOPROLOL SUCC 25MG EXT REL TAB PO SCH (08:20)
--- NOTE | 2024-07-17 10:19 | Nephrology Consultation ---
Date of Consultation July 17, 2024 Assessment & Plan (1) Acute worsening of stage 4 chronic kidney disease: stage 1 nonoliguric gilberto on CKD 4, baseline creaitnine 1.8-2 UA w/ possible UTI > cx pending agree w/ lasix 40 mg IV bid for now daily stnading wts and 1.5 L FR appropriate other meds appropriate -daily bmp continue avoidance of nsaids and unless lifesaving IV con for CT Care coordinated w/ Dr Stratton via TText re labs, meds, f/u wts > we are in agreement. (2) Anemia: -daily hgb -monitor for bleeding -transfuse pRBC fo rchest pain or hgb <7 (3) Acute on chronic diastolic CHF (congestive heart failure): History of Present Illness Reason for Consultation: Gilberto on ckd Requesting Physician: Dr Olson Attending Physician: Rick Stratton DO History of Present Illness 84 y/o F whom I'm asked to see for GILBERTO on CKD was admitted yesterday afternoon w/ acute on chronic HFpEF after presenting with 48 hrs worsening exertional dyspnea. PMH includes CKD 4 (baseline creatinine 1.8-2), DM, HTN often uncontrolled, hypothyroid, HL, gout, chronic lymphedema, HL, class 3 obesity, intermittent hyperkalemia, OA, past treatment for inflammatory polyarthropathy/rheumatoid arthritis, chronic ambulatory dysfunction walker/ w-c dependent, chronic cough. No dyspnea at rest, orthopnea or PND; cough stable. denies significant edema changes. has lost 10-15 lb by reducing carb intake. No f/c, chest pain, n/v, abdominal pain, bleeding concerns, change in her bowel or voiding habits. tells me she feels better today than she had been. Presenting creatinine was 2.7, 2.6 this AM; presenting hgb 7.4, 7.1 this am. She was started on lasix 40 mg bid, w/ daily standing wts/strict I/O//shafer. concern for UTI on admission Allergies Allergy/AdvReac Type Severity Reaction Status Date / Time pecan nut Allergy Severe ANAPHYLAXIS Verified 03/02/17 09:41 Home Medications Medication Instructions Recorded Confirmed Type allopurinol 100 mg tablet 200 mg PO DAILY 07/16/24 07/16/24 History aspirin 81 mg tablet,delayed 81 mg PO 2XWK 07/16/24 07/16/24 History release atorvastatin 40 mg tablet 40 mg PO DAILY 07/16/24 07/16/24 History chlorthalidone 25 mg tablet 50 mg PO DAILY 07/16/24 07/16/24 History cholecalciferol (vitamin D3) 10 10 mcg PO DAILY 07/16/24 07/16/24 History mcg (400 unit) capsule folic acid 1 mg tablet 1 mg PO DAILY 07/16/24 07/16/24 History furosemide 20 mg tablet 20 mg PO DAILY 07/16/24 07/16/24 History hydralazine 10 mg tablet 10 mg PO BID 07/16/24 07/16/24 History levothyroxine 75 mcg tablet 75 mcg PO DAILY@0630 07/16/24 07/16/24 History lisinopril 5 mg tablet 5 mg PO PM 07/16/24 07/16/24 History metoprolol succinate 25 mg 25 mg PO DAILY 07/16/24 07/16/24 History tablet,extended release 24 hr Patient History Medical History CKD (chronic kidney disease) stage 4, GFR 15-29 ml/min Gouty arthropathy Osteoporosis Vitamin D deficiency Aortic valve sclerosis Hyperparathyroidism T2DM (type 2 diabetes mellitus) Foot pain, right Hypothyroid Hyperlipidemia Hypertension Surgical History Hx of cholecystectomy Hx of appendectomy Family History Mother No problems noted. Sister Stroke Social History Smoking Status: Never smoker Second Hand Exposure: No; Do You Dip or Chew Tobacco: No; Tobacco Cessation Education Requested by Patient: No Hx Alcohol Use: No Hx Substance Use: No Preferred Language: Belizean Communication Ability: Effective Label Maker Required: No Beliefs That Will Affect Care: None Current Living Situation: Alone Other Information That Helps Us Care for You: No Feels Safe at Home: Yes Safety Concerns: Feels Safe At This Time Assistive Devices: Walker Review of Systems 2 Review of Systems: All systems reviewed & are unremarkable except as noted in HPI & below Physical Exam 2 Constitutional: well developed (sitting in recliner), well nourished, + obese, + frail appearing and cooperative; no acute distress Eyes: EOM intact bilaterally ENMT: Ears: no external ear abnormality Nose: no external nose abnormality Mouth: + dry oral mucous membranes Neck: no nuchal rigidity Respiratory: normal respiratory effort Auscultation: + diminished lung sounds, + crackles and + wheezes (exp) Cardiovascular: Rate/Rhythm: regular rate and regular rhythm Extremities: n o edema Gastrointestinal (Abdomen): Inspection/Auscultation: normal bowel sounds P ercussion/Palpation: abdomen soft; abdomen nontender Musculoskeletal: Extremities: strength 5/5 throughout Skin: no rashes, warm and dry Neurologic: renner, fluent speech, no tremor Psychiatric: Orientation: alert and oriented x 3 Results & Data Vital Signs (Past 12 Hours) Vital Signs Temp Pulse Pulse Resp BP Pulse Ox O2 Del Method 07/17/24 07:16 36.6 C 72 18 114/51 L 95 Room Air 07/17/24 02:25 36.6 C 62 18 129/72 94 Room Air 07/16/24 23:00 59 L 07/16/24 22:35 36.7 C 74 18 137/73 92 Room Air Laboratory Results 07/17/24 06:42 07/17/24 06:42 UA 1010 2+ LE, 21-50WBC, 4+ bacter else bland; 300 mg protineuria Diagnostic Findings CXR (imagee personally reviewed/agree w/ report) 1. Cardiomegaly with pulmonary edema. 2. Small pleural effusions with mild bibasilar consolidation. (2) Anemia Anemia type: unspecified type Qualified Code(s): D64.9 - Anemia, unspecified
--- NOTE | 2024-07-17 11:20 | Cardiology Consultation ---
Date of Consultation July 17, 2024 Assessment & Plan (1) Symptomatic anemia: (2) Acute kidney injury: (3) Elevated troponin: (4) Acute systolic CHF (congestive heart failure), NYHA class 3: (5) Ischemic cardiomyopathy: (6) ASCVD (arteriosclerotic cardiovascular disease): Plan Acute decompensated systolic and diastolic congestive heart failure signs and symptoms. NYHA class III. Narrow QRS duration. Creatinine slightly improved this morning, 2.62. Continue IV furosemide, 40 mg twice per day. Monitor I's and O's, daily weights; continue Corbin catheter Add long-acting nitrates to hydralazine - alternative therapy for a patient with heart failure who is unable to take FEDE/ARB. Elevated high-sensitivity troponin. Patient with known ASCVD via remote catheterization in [place] circa 30 years ago that revealed nonobstructive coronary artery disease. Patient without overt angina. EKG without acute change. Resting echocardiogram pending. Recommend conservative cardiac medical management. Continue beta-destinee, aspirin, statin, risk factor and lifestyle modification. Symptomatic anemia. Hemoglobin 7.1 this morning. Recommend transfusion of pRBC's. Stage IV chronic kidney disease. Nephrology on board. Supervising Physician Co-Signing Physician Notes Attending attestation: Case reviewed with the advanced practitioner. I have personally performed a history and physical examination on the patient. I have reviewed the advanced practitioner's documentation on the date of service referenced in note, and I agree with, and take responsibility for the plan of care. Subjective: Patient accompanied by her daughter,Kamini, during my assessment. Patient reportedly feeling improved, with significant shortness of breath and sensation of abdominal sensation prior to hospitalization. Corbin catheter in place draining clear yellow urine. Exam: Pulmonary: Mildly decreased breath sounds at the bases Cardiovascular: Difficult to hear heart sounds, but regular rhythm, no murmurs Data: Telemetry and EKG revealed sinus rhythm Transthoracic echocardiogram performed today 07/17/2024: The left ventricular systolic function is moderately reduced. There is mild to moderate diffuse left ventricular hypokinesis with slightly more focal hypokinesis of the apical inferior segment. LVEF in the range of 35-40% Mild mitral regurgitation is present Mild tricuspid regurgitation is present. Mild to moderate pulmonary pretension is present. The pulmonary systolic pressure is estimated be 50 mmHg Grade 1 diastolic dysfunction is present Compared to the report of the previous outpatient echocardiogram performed in 2021 there has been interval decline in ejection fraction. Impression/ Plan: -Assessment as noted above Agree with furosemide 40 mg IV twice daily Anemia also felt to be playing a role in patient's symptoms. Guido Underwood, DO History of Present Illness Reason for Consultation: SOB, elevated trop, acute CHF Requesting Physician: [facility] Hospitalist, Agatha Bronson Attending Physician: Dr. Rick Stratton, DO History of Present Illness Stacie Quintana is an 84-year-old female who presented to [facility] on July 16, 2024 with complaints of worsening fatigue and dyspnea with minimal activity worse over the past 2 days. Laboratory work notable for hemoglobin of 7.4. Last available hemoglobin 11.3 on July 15, 2023. Creatinine was 2.71. High-sensitivity troponin elevated as follows: 246.7 -> 255.9 -> 248.9 -> 316.8. EKG on presentation somewhat difficult to discern, appearing to show sinus bradycardia with premature atrial contractions, left axis deviation, right bundle branch block, LVH. There are diffuse T wave changes similar to prior tracings as an outpatient. Chest x-ray: Cardiomegaly. Pulmonary edema. Small bilateral pleural effusions. She has never been evaluated for nocturnal hypoxemia or underlying obstructive sleep apnea. Denies chest pain or discomfort. No palpitations. She is comfortable at rest, chronically sleeping in a recliner since the . She has a chronic cough. No PND. No dizziness or syncope. No fevers or overt chills/rigors. No melena or hematochezia. Past Medical and Surgical History: ASCVD status post remote cardiac catheterization in [place], nonobstructive disease reported by family. Hypertension Dyslipidemia Type 2 diabetes mellitus Stage IV chronic kidney disease Hypothyroidism Gout Chronic lymphedema Rheumatoid arthritis Osteoarthritis Appendectomy Cholecystectomy Social History: Never smoker. No smokeless tobacco. No alcohol. No illegal drug use. 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 Two children. . Lives alone, with caregivers. Allergies Allergy/AdvReac Type Severity Reaction Status Date / Time pecan nut Allergy Severe ANAPHYLAXIS Verified 03/02/17 09:41 Home Medications Medication Instructions Recorded Confirmed Type allopurinol 100 mg tablet 200 mg PO DAILY 07/16/24 07/16/24 History aspirin 81 mg tablet,delayed 81 mg PO 2XWK 07/16/24 07/16/24 History release atorvastatin 40 mg tablet 40 mg PO DAILY 07/16/24 07/16/24 History chlorthalidone 25 mg tablet 50 mg PO DAILY 07/16/24 07/16/24 History cholecalciferol (vitamin D3) 10 10 mcg PO DAILY 07/16/24 07/16/24 History mcg (400 unit) capsule folic acid 1 mg tablet 1 mg PO DAILY 07/16/24 07/16/24 History furosemide 20 mg tablet 20 mg PO DAILY 07/16/24 07/16/24 History hydralazine 10 mg tablet 10 mg PO BID 07/16/24 07/16/24 History levothyroxine 75 mcg tablet 75 mcg PO DAILY@0630 07/16/24 07/16/24 History lisinopril 5 mg tablet 5 mg PO PM 07/16/24 07/16/24 History metoprolol succinate 25 mg 25 mg PO DAILY 07/16/24 07/16/24 History tablet,extended release 24 hr Patient History Medical History CKD (chronic kidney disease) stage 4, GFR 15-29 ml/min Gouty arthropathy Osteoporosis Vitamin D deficiency Aortic valve sclerosis Hyperparathyroidism T2DM (type 2 diabetes mellitus) Foot pain, right Hypothyroid Hyperlipidemia Hypertension Surgical History Hx of cholecystectomy Hx of appendectomy Family History Mother No problems noted. Sister Stroke Social History Smoking Status: Never smoker Second Hand Exposure: No; Do You Dip or Chew Tobacco: No; Tobacco Cessation Education Requested by Patient: No Hx Alcohol Use: No Hx Substance Use: No Preferred Language: Guatemalan Communication Ability: Effective Olive Packer Required: No Beliefs That Will Affect Care: None Current Living Situation: Alone Other Information That Helps Us Care for You: No Feels Safe at Home: Yes Safety Concerns: Feels Safe At This Time Assistive Devices: Walker Review of Systems Review of Systems: Complete Review of Systems is as stated above, negative, or noncontributory. Physical Exam Physical Exam: General: Comfortable. Lethartic. Pale. HENT: Normocephalic. Atraumatic. Eyes: PER. Conjunctiva pink, sclera pale. Neck: No overt JVD. Heart: RRR, 70. Soft systolic murmur at the LLSB. No rub. Lungs: Decreased. Left basilar rales. No wheeze. Abdomen: +BS. Soft. Nontender. No masses or organomegaly. Corbin catheter in place. Extremities: Thick, with lymphedematous changes, nonpitting edema. No clubbing. No cyanosis Limited neurological examination is without focal deficits. Pulses: radial=2/4, posterior tibial=2/4. Results & Data Vital Signs (Past 12 Hours) Vital Signs Temp Pulse Resp BP Pulse Ox O2 Del Method 07/17/24 10:39 36.3 C L 70 18 118/69 93 Room Air 07/17/24 07:16 36.6 C 72 18 114/51 L 95 Room Air 07/17/24 02:25 36.6 C 62 18 129/72 94 Room Air Laboratory Results Cardiac Enzymes 07/16/24 07/16/24 07/16/24 Range/Units 11:00 14:32 19:35 AST (13-39) U/L Troponin I High Sens 246.7 H* 255.9 H* 248.9 H* (0-14) pg/ml B-Natriuretic Peptide 3242 H (0-100) pg/ml 07/17/24 07/17/24 Range/Units 01:10 06:42 AST 17 (13-39) U/L Troponin I High Sens 316.8 H* D (0-14) pg/ml B-Natriuretic Peptide (0-100) pg/ml Coagulation 07/16/24 07/16/24 Range/Units 11:00 12:30 PT Cancelled 11.6 APTT Cancelled 27 B-Natriuretic Peptide 3242 H (0-100) pg/ml Lipids 07/17/24 Range/Units 06:42 Triglycerides 56 (0-150) mg/dl Cholesterol 93 (0-200) mg/dl HDL Cholesterol 38 mg/dl Cholesterol/HDL Ratio 2.4 (0-5) CBC 07/17/24 Range/Units 06:42 WBC 6.43 (4.8-10.8) K/ul RBC 2.29 L (4.20-5.40) M/uL Hgb 7.1 L (12.0-16.0) g/dl Hct 23.9 L (37.0-47.0) % Plt Count 189 (130-400) K/uL Neut # (Auto) 4.26 (1.40-6.50) K/uL Lymph # (Auto) 1.54 (1.20-3.40) K/uL [place] # (Auto) 0.30 (0.11-0.59) K/uL Eos # (Auto) 0.26 (0.00-0.50) K/uL Baso # (Auto) 0.04 (0.00-0.20) K/uL Comprehensive Metabolic Panel 07/16/24 07/17/24 Range/Units 11:00 06:42 Sodium 143 141 (136-145) mmol/L Potassium 4.9 4.5 (3.5-5.1) mmol/L Chloride 111 H 107 (98-107) mmol/L Carbon Dioxide 24 23 (21-32) mmol/L BUN 73 H 77 H (6-23) mg/dl Creatinine 2.71 H 2.62 H (0.6-1.2) mg/dl Glucose 111 H 92 (70-99(Fasting)) mg/dl Calcium 9.6 9.5 (8.6-10.3) mg/dl AST 17 (13-39) U/L ALT 22 (7-52) U/L Alkaline Phosphatase 81 (34-104) U/L Total Protein 5.8 L (6.0-8.3) gm/dl Albumin 3.5 (3.4-5.0) gm/dl Intake and Output 07/16/24 07/17/24 07/17/24 22:59 06:59 14:59 Intake Total 50 / 450 400 / 450 Output Total 1650 626 / 7 Balance -1601 / -1827 -226 / -1827 Intake: IV 50 / 50 cefTRIAXone SODIUM 2,000 mg In 50 / 50 50 ml @ 100 mls/hr IV Q24H [facility] Rx#:[id number] Oral 400 / 400 Output: Urine Amount (Catheter) 1649 625 / 5 Corbin/Indwelling 1649 # Bowel Movements 1 / 2 1 / 2 Other: Weight 106.8 kg 100.9 kg Weight Measurement Method Built in [facility] Standing Scale
--- NOTE | 2024-07-17 12:01 | Hospitalist Progress Note ---
Date of Service July 17, 2024 Assessment & Plan (1) Acute systolic CHF (congestive heart failure), NYHA class 3: (2) Acute renal failure superimposed on stage 4 chronic kidney disease: (3) Suspected UTI: (4) Anemia, chronic renal failure: (5) Ischemic cardiomyopathy: (6) Hypothyroid: (7) T2DM (type 2 diabetes mellitus): (8) Hypertension: (9) Hyperlipidemia: (10) ASCVD (arteriosclerotic cardiovascular disease): Plan Patient presents with acute on chronic systolic congestive heart failure with a significant decrease in her ejection fraction. Patient also with acute on chronic renal failure due to heart failure as well as progressive anemia due to renal dysfunction. Continue IV diuresis, patient appears to be responding appropriately Cardiology consultation pending, anticipate working towards goal-directed medical therapy for decreased ejection fraction, suspect renal dysfunction may prohibit cardiac catheterization Nephrology consultation pending, patient follows with them regularly, renal function improving with diuresis. The patient may be establishing a new baseline creatinine as we need to be more aggressively diuresing. Nephrology determine if patient would benefit from Procrit for her chronic anemia associated with her renal dysfunction Urinalysis abnormal, urine culture pending, continue Rocephin narrow antibiotics once sensitivities known. TSH normal, free T4 only minimally increased, continue usual dose of Synthroid Continue to monitor glucose, short acting insulin coverage Daughter at bedside and updated to plan of care Monitor electrolytes and renal function Therapies Admission and Anticipated Discharge Date Admission Date: July 16, 2024 Subjective Patient states she feels her breathing is a little bit better. No chest pain. Physical Exam Physical Exam: Constitutional: Alert, no acute distress HEENT: Mucous membranes moist. Lungs: Decreased breath sounds, Rales at bases CV: S1-S2, regular Abdomen: Soft, nontender, nondistended Extremities: Pitting edema Neuro: No focal deficits, generalized weakness Psych: Cooperative, normal mood Results & Data Results & Data Vital Signs (Past 12 Hours) Vital Signs Temp Pulse Resp BP Pulse Ox O2 Del Method 07/17/24 10:39 36.3 C L 70 18 118/69 93 Room Air 07/17/24 07:16 36.6 C 72 18 114/51 L 95 Room Air 07/17/24 02:25 36.6 C 62 18 129/72 94 Room Air Diagnostic Findings Reviewed imaging, laboratory and diagnostic studies. Pertinent findings as below. Echocardiogram showed ejection fraction 35 to 40%, this is significant decrease from previous Hemoglobin 7.1 Creatinine 2.6, slightly improved Troponins reviewed, essentially flat TSH 2.9 Free T4 1.61
[2024-07-17 20:31] LABS: Estimated Average Glucose 77 mg/dl; Hemoglobin A1C 4.3 % (4.5-5.6)
[2024-07-18] MEDS ORDERED: OLANZapine 10 MG/2.1 ML SDV IM PRN (04:11)
[2024-07-18] MEDS: OLANZapine 10 MG/2.1 ML SDV IM STA (04:22)
[2024-07-18 08:08] LABS: Hematocrit (blood only) 24.8 % (37.0-47.0); Hemoglobin 7.6 g/dl (12.0-16.0)
[2024-07-18 08:17] LABS: BUN Creatinine Ratio 29.5 (10-20); Calcium 9.5 mg/dl (8.6-10.3); Magnesium 1.6 mg/dl (1.7-2.4); Potassium 4.3 mmol/L (3.5-5.1)
[2024-07-18] MEDS: ASPIRIN 81 MG ECTAB PO SCH (08:57)
--- NOTE | 2024-07-18 10:02 | Cardiology Progress Note ---
Date of Service July 18, 2024 Assessment & Plan (1) Symptomatic anemia: (2) Acute kidney injury: (3) Elevated troponin: (4) Acute systolic CHF (congestive heart failure), NYHA class 3: (5) Ischemic cardiomyopathy: (6) ASCVD (arteriosclerotic cardiovascular disease): Plan Multifactorial presentation, with an element of acute decompensated systolic and diastolic congestive heart failure, acute kidney injury, symptomatic anemia without over evidence of active bleeding, UTI Elevated high-sensitivity troponin. Patient with known ASCVD via remote catheterization circa 30 years ago in [place], nonobstructive coronary artery disease observed at that time. Echo this admission with moderately reduced systolic function, EF 35-40%, with slightly more focal hypokinesis of the apical inferior segment. Patient without overt angina. EKG without acute change. Recommend conservative cardiac medical management. NYHA Class III. QRS duration in narrow. Mild to moderate pulmonary hypertension (PASP 50 mmHg), suspect underlying sleep apnea. Volume status appears compensated by examination, increased creatinine noted on AM labs. Symptomatic anemia. Hemoglobin improved to 7.6 g/dL this morning. Stage IV chronic kidney disease. Nephrology on board. Recommendations: * Hold on further IV diuresis (did receive 40 mg IV furosemide already this AM) * Supplement magnesium. * Add long-acting nitrates to hydralazine, alternative therapy for a patient with heart failure who is unable to take FEDE/ARB. * Continue evidence based beta-destinee therapy, aspirin, statin, risk factor and lifestyle modification. Admission and Anticipated Discharge Date Admission Date: July 16, 2024 Supervising Physician Co-Signing Physician Notes Attending attestation: Case reviewed with the advanced practitioner. I have personally performed a history and physical examination on the patient. I have reviewed the advanced practitioner's documentation on the date of service referenced in note, and I agree with, and take responsibility for the plan of care. Guido Underwood, DO Subjective Patient seen and examined. Chart, medications, telemetry reviewed. Son at bedside. Son notes that his mother had a rough night - hallucinations, inability to sleep. Received Zyprexa 5 mg this morning at 04:11. Preliminary urine culture with E. coli I/O's: -1,827, -1,290 (-3,117 mL's overall) Telemetry: Sinus with atrial ectopy, heart rates in the 70's. Review of Systems Review of Systems: Complete Review of Systems is as stated above, negative, or noncontributory. Physical Exam Physical Exam: General: Lethargic. HENT: Normocephalic. Atraumatic. Eyes: PER. Conjunctiva pink, sclera pale. Neck: No JVD. Heart: Regular at 70 bpm. Soft systolic murmur at the LLSB. No rub. Lungs: Clear anteriorly. Abdomen: +BS. Soft. Nontender. No masses or organomegaly. Corbin catheter in place. Extremities: Thick, with lymphedematous changes, no significant edema. No clubbing. No cyanosis Limited neurological examination is without focal deficits. Pulses: Posterior tibial=1/4. Results & Data Vital Signs (Past 12 Hours) Vital Signs Temp Pulse Pulse Resp BP Pulse Ox O2 Del Method 07/18/24 07:33 36.4 C L 72 18 145/68 H 97 Room Air 07/18/24 02:27 36.7 C 66 18 120/72 95 Room Air 07/17/24 22:30 36.6 C 61 18 137/78 94 Room Air 07/17/24 22:07 60 Laboratory Results CBC 07/18/24 Range/Units 07:25 Hgb 7.6 L (12.0-16.0) g/dl Hct 24.8 L (37.0-47.0) % Comprehensive Metabolic Panel 07/18/24 Range/Units 07:25 Sodium 144 (136-145) mmol/L Potassium 4.3 (3.5-5.1) mmol/L Chloride 107 (98-107) mmol/L Carbon Dioxide 25 (21-32) mmol/L BUN 82 H (6-23) mg/dl Creatinine 2.78 H (0.6-1.2) mg/dl Glucose 100 H (70-99(Fasting)) mg/dl Calcium 9.5 (8.6-10.3) mg/dl Intake and Output 07/17/24 07/18/24 07/18/24 22:59 06:59 14:59 Intake Total 170 / 510 100 / 510 Output Total 950 / 1800 600 / 1800 Balance -780 / -1290 -500 / -1290 Intake: IV 50 / 50 cefTRIAXone SODIUM 2,000 mg In 50 / 50 50 ml @ 100 mls/hr IV Q24H [facility] Rx#:[id number] Oral 120 / 460 100 / 460 Output: Urine Amount (Catheter) 950 / 1800 600 / 1800 Corbin/Indwelling 950 / 1800 600 / 1800 Other: Weight 99.7 kg Weight Measurement Method Standing Scale Diagnostic Findings July 16, 2024 TTE: Moderately reduced systolic function. EF 35-40%. Mild to moderate diffuse LV hypokinesis with slightly more focal hypokinesis of the apical inferior segment. Mild mitral and tricuspid regurgitation. Mild to moderate pulmonary hypertension (PASP 50 mmHg).
[2024-07-18] MEDS: MAGNESIUM SULFATE / D5W 1 GM/100 ML BAG IV SCH (11:11)
--- NOTE | 2024-07-18 11:25 | Nephrology Progress Note ---
Date of Service July 18, 2024 Assessment & Plan (1) Acute worsening of stage 4 chronic kidney disease: Plan: stage 1 nonoliguric wendy on CKD 4, baseline creatinine 1.8-2 UA w/ possible UTI > asx but cx E coli + standing wts improving 100.9 > 99.7 40 mg bid IV lasix held currently after AM dose by cardiology > agree daily standing wts and 1.5 L FR to continue other meds appropriate; potassium ok -daily bmp continue avoidance of nsaids and unless lifesaving IV con for CT magnesium 1.6 > being repleted IV; will also start po mag bid low threshold for CXR if cough continues or aspiration concerns continue standing weights as feasible Care coordinated w/ Dr Stratton via TText re meds, f/u wts, coughing noted > we are in agreement. (2) Anemia: Plan: hgb improving w/ diuresis >> 7.6 today -daily hgb -monitor for bleeding -transfuse pRBC fo rchest pain or hgb <7 (3) Acute on chronic diastolic CHF (congestive heart failure): Admission and Anticipated Discharge Date Admission Date: July 16, 2024 Subjective some visual hallucinatoins overnight; c/o leg pain; denies sob; feels edema a bit better; nursing concerned pt may not be able to stand or function at home as independently as reported at admission > waiting on PT eval; pt needing lots of assistance to stand Review of Systems 2 Review of Systems: All systems reviewed & are unremarkable except as noted in Subjective Physical Exam 2 Constitutional: well developed (sitting in bed), well nourished, + obese, + frail appearing and cooperative; no acute distress occasoinal thick cough; chews x 4 minutes when asked to finish before speaking; speaks constantly even when asked to focus on chewing; keeping eyes closed but clearly tracking/following Eyes: EOM intact bilaterally (keeps eyes closed much of visit) ENMT: Ears: + external ear abnormality Nose: no external nose abnormality Mouth: + dry oral mucous membranes Neck: no nuchal rigidity Respiratory: normal respiratory effort and + cough (thick, nonproductive) A uscultation: + diminished lung sounds and + crackles (fewer today) Cardiovascular: Rate/Rhythm: regular rate and regular rhythm Extremities: n o edema Gastrointestinal (Abdomen): Inspection/Auscultation: normal bowel sounds P ercussion/Palpation: abdomen soft; abdomen nontender Musculoskeletal: Extremities: strength 5/5 throughout Skin: no rashes, warm and dry Psychiatric: Orientation: alert and oriented x 3 Results & Data Vital Signs (Past 12 Hours) Vital Signs Temp Pulse Resp BP Pulse Ox O2 Del Method 07/18/24 07:33 36.4 C L 72 18 145/68 H 97 Room Air 07/18/24 02:27 36.7 C 66 18 120/72 95 Room Air Laboratory Results 07/18/24 07:25 07/18/24 07:25 (2) Anemia Anemia type: unspecified type Qualified Code(s): D64.9 - Anemia, unspecified
--- NOTE | 2024-07-18 12:23 | Hospitalist Progress Note ---
Date of Service July 18, 2024 Assessment & Plan (1) Acute systolic CHF (congestive heart failure), NYHA class 3: (2) Acute renal failure superimposed on stage 4 chronic kidney disease: (3) Anemia, chronic renal failure: (4) E. coli UTI: (5) Ischemic cardiomyopathy: (6) Hypothyroid: (7) T2DM (type 2 diabetes mellitus): (8) Hypertension: (9) Hyperlipidemia: (10) ASCVD (arteriosclerotic cardiovascular disease): (11) Mild cognitive impairment: (12) Delirium due to another medical condition: Plan Patient has responded nicely to diuresis Reviewed cardiology recommendations, holding further IV diuresis today, maximizing medical management for decreased ejection fraction Replacing magnesium Reviewed nephrology recommendations, continue to monitor hemoglobin and renal function Suspect patient is having some acute hospital delirium due to her UTI and other medical issues in the setting of probable mild cognitive impairment and sleep deprivation. Explained this to the patient's son at the bedside, he is understanding. Son reports patient sleeps in a recliner at home essentially all the time. Continue Rocephin for UTI, 3 days antibiotic anticipate will be adequate Therapies as able Case management to assist with discharge planning Admission and Anticipated Discharge Date Admission Date: July 16, 2024 Subjective Patient sitting up in chair this morning a little bit confused, son at bedside. Reports patient really did not sleep much at all last night. Patient denies chest pain or shortness of breath Physical Exam Physical Exam: Constitutional: Alert, sitting in chair, nontoxic HEENT: Mucous membranes moist. Lungs: Decreased breath sounds, crackles at bases CV: S1-S2, regular, systolic murmur Abdomen: Soft, nontender, nondistended Extremities: Minimal pitting edema lower extremities Neuro: No focal deficits, generalized weakness Psych: Cooperative, intermittently confused, occasional hallucinations Results & Data Results & Data Vital Signs (Past 12 Hours) Vital Signs Temp Pulse Resp BP Pulse Ox O2 Del Method 07/18/24 11:30 36.9 C 87 18 142/68 H 97 Room Air 07/18/24 07:33 36.4 C L 72 18 145/68 H 97 Room Air 07/18/24 02:27 36.7 C 66 18 120/72 95 Room Air Diagnostic Findings Reviewed imaging, laboratory and diagnostic studies. Pertinent findings as below. Hemoglobin 7.6, slightly improved Creatinine 2.78, slight increase Magnesium 1.6 Echocardiogram shows ejection fraction 35 to 40% with diffuse left ventricular hypokinesis, moderate pulm hypertension
[2024-07-18] MEDS: MAGNESIUM OXIDE 400 MG TAB PO SCH (13:32)
[2024-07-18] MEDS: ISOSORBIDE DINITRATE 5 MG TAB PO SCH (16:21)
[2024-07-18] MEDS: traZODone HCL 50 MG TAB PO SCH (20:36)
[2024-07-18] MEDS: ACETAMINOPHEN 325 MG TAB PO PRN (20:37)
[2024-07-19 07:02] LABS: Hematocrit (blood only) 24.1 % (37.0-47.0); Hemoglobin 7.2 g/dl (12.0-16.0); Mean Corpuscular Hgb Conc 29.9 g/dL (32.0-36.0); Mean Corpuscular Volume 103.9 fL (80.0-100.0); Mean Platelet Volume 11.7 fL (9.4-12.4); Platelet Count 199 K/uL (130-400); RDW Coefficient of Variation 14.9 % (11.5-14.5); RDW Standard Deviation 55.8 fL (36.4-46.3); Red Blood Count 2.32 M/uL (4.20-5.40); White Blood Count 5.85 K/ul (4.8-10.8)
[2024-07-19 07:52] LABS: BUN Creatinine Ratio 29.9 (10-20); Calcium 9.3 mg/dl (8.6-10.3); Creatinine Clr Calc Pharmacy 15.1 ml/min; Magnesium 2.1 mg/dl (1.7-2.4); Potassium 4.1 mmol/L (3.5-5.1)
[2024-07-19] MEDS: APIXABAN 2.5 MG TAB PO SCH (08:48)
--- NOTE | 2024-07-19 11:58 | Cardiology Progress Note ---
Date of Service July 19, 2024 Assessment & Plan (1) Symptomatic anemia: (2) Acute kidney injury: (3) Elevated troponin: (4) Acute systolic CHF (congestive heart failure), NYHA class 3: (5) Ischemic cardiomyopathy: (6) ASCVD (arteriosclerotic cardiovascular disease): Plan Multifactorial presentation, with new onset systolic as well as diastolic congestive heart failure, acute kidney injury, symptomatic anemia without over evidence of active bleeding, UTI Elevated high-sensitivity troponin. Patient with known ASCVD via remote catheterization circa 30 years ago in [place], nonobstructive coronary artery disease observed at that time. Echo this admission with moderately reduced systolic function, EF 35-40%, with slightly more focal hypokinesis of the apical inferior segment. Patient is not a candidate for intervention, thankfully without overt angina. EKG without acute change. Recommend conservative cardiac medical management. Personal review of telemetry and available EKG's reveals sinus with a low atrial focus with frequent premature atrial contractions, without overt atrial fibrillation. Mild to moderate pulmonary hypertension (PASP 50 mmHg), suspect underlying sleep apnea. Volume status: Compensated to mildly hypovolemic. Symptomatic anemia. Hemoglobin 7.2 g/dL this morning. Stage IV chronic kidney disease. Increase creatinine noted this AM. Nephrology on board. Recommendations: * Continue evidence based beta-destinee therapy as well as long-acting nitrates and hydralazine as alternative therapy for a patient with HFrEF unable to take FEDE/ARB. * Continue Aspirin and statin * Recommend holding diuretics today, deferring to Nephrology * Check ABG, ammonia level. * Prognosis appears poor, as discussed with son. Admission and Anticipated Discharge Date Admission Date: July 16, 2024 Supervising Physician Co-Signing Physician Notes Attending attestation: Case reviewed with the advanced practitioner. I have personally performed a history and physical examination on the patient. I have reviewed the advanced practitioner's documentation on the date of service referenced in note, and I agree with, and take responsibility for the plan of care. EKG from 3:33 am reviewed / interpreted independently. Atrial activity difficult to discern, but appears to by sinus rhythm with frequent premature atrial contractions. Telemetry at present , with regular R R interval, consistent with SR in the 60s. Patient more lethargic today. Significant change compared to 48 hours ago. Difficult to assess volume status on examination , however creatinine trending up to 2.98 despite holding diuretics suggesting itravascular volume depletion. CO2 on her basic metabolic panel was stable this am. 1- Would advise against anticoagulation with Eliquis for now. Not convinced patient having PAF and is anemic and confused. 2- check ABG and ammonia levels. Question if mental status change due to hospital delirium or other. Case discussed with Dr Stratton. Guido Underwood, DO Subjective Patient seen and examined. Chart, medications, telemetry reviewed. Son at bedside and nieces at bedside. Received Zyprexa the night before last, trazodone last night. Lethargic. Telemetry: Sinus with frequent atrial ectopy. Review of Systems Review of Systems: Complete Review of Systems is as stated above, negative, or noncontributory. Physical Exam Physical Exam: General: Pleasantly confused, lethargic. HENT: Normocephalic. Atraumatic. Mouth: Dry Eyes: PER. Conjunctiva pink, sclera pale. Neck: No JVD. Heart: Regular at 70 bpm. Grade I-II/ systolic murmur Lungs: Clear anteriorly. Abdomen: +BS. Soft. Nontender. No masses or organomegaly. Corbin catheter in place. Extremities: Thick, with lymphedematous changes, no significant edema. No clubbing. No cyanosis Limited neurological examination is without focal deficits. Pulses: Posterior tibial=1/4. Results & Data Vital Signs (Past 12 Hours) Vital Signs Temp Pulse Pulse Resp BP BP Pulse Ox 07/19/24 11:43 36.3 C L 67 18 114/64 91 07/19/24 10:24 07/19/24 07:50 36.6 C 75 19 109/62 93 07/19/24 07:34 73 07/19/24 03:40 97 07/19/24 03:39 85 18 107/65 91 07/19/24 03:12 76 07/19/24 02:31 37.0 C 58 L 18 105/62 92 07/19/24 01:21 110/68 O2 Del Method O2 Flow Rate 07/19/24 11:43 Room Air 07/19/24 10:24 Room Air 07/19/24 07:50 Nasal Cannula 1 07/19/24 07:34 07/19/24 03:40 Nasal Cannula 1 07/19/24 03:39 Room Air 07/19/24 03:12 07/19/24 02:31 Room Air 07/19/24 01:21 Laboratory Results CBC 07/19/24 Range/Units 06:12 WBC 5.85 (4.8-10.8) K/ul RBC 2.32 L (4.20-5.40) M/uL Hgb 7.2 L (12.0-16.0) g/dl Hct 24.1 L (37.0-47.0) % Plt Count 199 (130-400) K/uL Comprehensive Metabolic Panel 07/19/24 Range/Units 06:12 Sodium 145 (136-145) mmol/L Potassium 4.1 (3.5-5.1) mmol/L Chloride 109 H (98-107) mmol/L Carbon Dioxide 23 (21-32) mmol/L BUN 89 H (6-23) mg/dl Creatinine 2.98 H (0.6-1.2) mg/dl Glucose 126 H (70-99(Fasting)) mg/dl Calcium 9.3 (8.6-10.3) mg/dl Intake and Output 07/18/24 07/19/24 07/19/24 22:59 06:59 14:59 Intake Total 150 / 350 100 / 350 Output Total 1100 / 1250 150 / 1250 Balance -950 / -900 -50 / -900 Intake: IV 150 / 250 Magnesium Sulfate / D5w 1 gm In 100 / 200 100 ml @ 50 mls/hr IV Q2H [facility] Rx#:[id number] cefTRIAXone SODIUM 2,000 mg In 50 / 50 50 ml @ 100 mls/hr IV Q24H [facility] Rx#:[id number] Oral 100 / 100 Output: Urine Amount (Catheter) 1100 / 1250 150 / 1250 Corbin/Indwelling 1100 / 1250 150 / 1250 Other: Other Intake Source sips Weight 101.8 kg Weight Measurement Method [facility]
--- NOTE | 2024-07-19 12:24 | Nephrology Progress Note ---
Date of Service July 19, 2024 Assessment & Plan (1) Acute worsening of stage 4 chronic kidney disease: Plan: slightly worse stage 1 nonoliguric wendy on CKD 4, baseline creatinine 1.8-2. delirious pt > not taking po UA w/ possible UTI > asx but cx E coli + standing wts improving 100.9 > 99.7 07/18; no standing weight today > reminded team but w/ lethargy not an option today 40 mg bid IV lasix held currently after AM dose 07/18 by cardiology >> overall looking dry today and agree w/ cardiology plan to give 1/2 L NS daily standing wts when able and 1.5 L FR to continue other meds appropriate; potassium ok at 4.1 -daily bmp continue avoidance of nsaids and unless lifesaving IV con for CT magnesium 1.6 > 2.1 >> changed to daily from po mag bid low threshold for CXR if cough continues or aspiration concerns continue standing weights as feasible Care coordinated w/ Dr Stratton and Dr Underwood via TText re meds, IV fluid plan > we are in agreement. (2) Anemia: Plan: hgb down again >> 7.6 > 7.2 today -daily hgb -monitor for bleeding -transfuse pRBC fo rchest pain or hgb <7 -iron panel ordered Admission and Anticipated Discharge Date Admission Date: July 16, 2024 Subjective 1.3 L UOP and ongoing visual hallucinations overnight, decreased MS; challenging for aides to care for her/ combative per son. pt lethargic, not answering questions Review of Systems 2 Review of Systems: Unobtainable due to mental health condition Physical Exam 2 Constitutional: well developed, + obese, + frail appearing and + lethargic; no acute distress ENMT: Mouth: + dry oral mucous membranes Neck: no nuchal rigidity Respiratory: normal respiratory effort Auscultation: + diminished lung sounds Cardiovascular: Rate/Rhythm: regular rate and regular rhythm Extremities: n o edema Gastrointestinal (Abdomen): Inspection/Auscultation: normal bowel sounds P ercussion/Palpation: abdomen soft; abdomen nontender Skin: no rashes, warm and dry Results & Data Vital Signs (Past 12 Hours) Vital Signs Temp Pulse Pulse Resp BP BP Pulse Ox 07/19/24 11:43 36.3 C L 67 18 114/64 91 07/19/24 10:24 07/19/24 07:50 36.6 C 75 19 109/62 93 07/19/24 07:34 73 07/19/24 03:40 97 07/19/24 03:39 85 18 107/65 91 07/19/24 03:12 76 07/19/24 02:31 37.0 C 58 L 18 105/62 92 07/19/24 01:21 110/68 O2 Del Method O2 Flow Rate 07/19/24 11:43 Room Air 07/19/24 10:24 Room Air 07/19/24 07:50 Nasal Cannula 1 07/19/24 07:34 07/19/24 03:40 Nasal Cannula 1 07/19/24 03:39 Room Air 07/19/24 03:12 07/19/24 02:31 Room Air 07/19/24 01:21 Laboratory Results 07/19/24 06:12 07/19/24 06:12 (2) Anemia Anemia type: unspecified type Qualified Code(s): D64.9 - Anemia, unspecified
[2024-07-19 13:26] LABS: iSTAT Allen Test Pass; iSTAT Art Bld Gas pCO2 Correct 44 mmHg (35-46); iSTAT Art Bld Gas pH Corrected 7.357 (7.35-7.45); iSTAT Arterial Blood Gas HCO3 25 meg/L (19-24); iSTAT Arterial Blood Gas pCO2 44 mmHg (35-46); iSTAT Arterial Blood Gas pH 7.36 (7.35-7.45); iSTAT Arterial Blood Gas pO2 102 mmHg (80-95); iSTAT Arterial Blood Gas pO2 C 102; iSTAT Carbon Dioxide 26 mmol/L (24-31); iSTAT Hematocrit 23 % (37-47); iSTAT Hemoglobin 7.8 g/dl (12.0-16.0); iSTAT Sample Type Arterial; iSTAT Site R Radial; iSTAT Sodium 139 mmol/L (135-144)
--- NOTE | 2024-07-19 14:22 | XRay Report ---
XR chest 1V portable CLINICAL HISTORY: Shortness of breath. Altered mental status. COMPARISON STUDY: Chest radiograph July 16, 2024. FINDINGS: There is no pneumothorax. Small bilateral pleural effusions are unchanged. Bibasilar opacit ies persist. Pulmonary edema has slightly improved. Cardiomegaly is again noted. Mediastinal contours are stable. IMPRESSION: 1. Cardiomegaly. Slight improvement in pulmonary edema. 2. No change in small bilateral pleural effusions with associated bibasilar opacities which could ref lect atelectasis or pneumonia. Continued radiographic follow-up to ensure resolution is recommended. ACT 112: Negative or not required by law. Electronically signed by: Navin Pereyra M.D. 07/19/2024 2:21 PM
[2024-07-19] MEDS: SODIUM CHLORIDE 0.9% 500 ML IV SCH (14:38)
--- NOTE | 2024-07-19 14:45 | Hospitalist Progress Note ---
Date of Service July 19, 2024 Assessment & Plan (1) Acute systolic CHF (congestive heart failure), NYHA class 3: (2) Acute renal failure superimposed on stage 4 chronic kidney disease: (3) Delirium due to another medical condition: (4) Mild cognitive impairment: (5) Acute metabolic encephalopathy: (6) Anemia, chronic renal failure: (7) E. coli UTI: (8) Ischemic cardiomyopathy: (9) Hypothyroid: (10) T2DM (type 2 diabetes mellitus): (11) Hypertension: (12) Hyperlipidemia: (13) ASCVD (arteriosclerotic cardiovascular disease): Plan Patient with continued delirium and encephalopathy in the setting of progressing acute renal failure on chronic renal failure. ABG reviewed, no evidence of hypercarbia Ammonia level pending Chest x-ray reviewed as above. Patient completed course of antibiotics for UTI, discontinue Rocephin and observe off antibiotics Patient actually examining dry, will give 500 cc fluids over the next several hours to see how she responds to's giving her a little bit of fluid back. Diuretics have been on hold since yesterday Communication with cardiology, they extensively reviewed EKG, telemetry strips and old EKGs. Very difficult to discern but ultimately feel that the patient does not have atrial fibrillation. No need for anticoagulation Communication with nephrology, in agreement with giving some IV fluids, 500 cc over the next 5 to 6 hours Continue to monitor renal function Glucose was reviewed, continue to cover with insulin Discontinue Zyprexa, trazodone, avoid medications that could alter mental status, concern that due to progressive renal dysfunction these medications are contributing to her encephalopathy. Daughter and son at bedside at separate times, updated 1 at bedside. Multiple visits made to the bedside throughout the day Admission and Anticipated Discharge Date Admission Date: July 16, 2024 Subjective Patient continues to be extremely confused, restless most of the night, more somnolent. Concern for possible new A-fib on monitoring overnight Physical Exam Physical Exam: Constitutional: Somnolent, confused HEENT: Mucous membranes dry Lungs: Decreased breath sounds, poor airflow, few crackles, no wheezes CV: S1-S2, regular Abdomen: Soft, nontender, nondistended Extremities: No significant edema, skin loose and wrinkly Neuro: Somnolent, generalized weakness, confused Psych: Abnormal mentation, moments of lucidity Results & Data Results & Data Vital Signs (Past 12 Hours) Vital Signs Temp Pulse Pulse Resp BP BP Pulse Ox 07/19/24 11:43 36.3 C L 67 18 114/64 91 07/19/24 10:24 07/19/24 07:50 36.6 C 75 19 109/62 93 07/19/24 07:34 73 07/19/24 03:40 97 07/19/24 03:39 85 18 107/65 91 07/19/24 03:12 76 O2 Del Method O2 Flow Rate 07/19/24 11:43 Room Air 07/19/24 10:24 Room Air 07/19/24 07:50 Nasal Cannula 1 07/19/24 07:34 07/19/24 03:40 Nasal Cannula 1 07/19/24 03:39 Room Air 07/19/24 03:12 Diagnostic Findings Reviewed imaging, laboratory and diagnostic studies. Pertinent findings as below. WBCs 5.8 Hemoglobin 7.2, essentially stable Platelets 199 ABG: pH 7.36/pCO2 44/pCO2 102/HCO3 25/O2 sat 98% Electrolytes stable Creatinine 2.98, slightly increased Personally reviewed chest x-ray, essentially unchanged from previous, radiology report reading slight improvement Personally reviewed EKG from earlier today, irregular, difficult to determine atrial fibrillation versus sinus rhythm with PACs
--- NOTE | 2024-07-20 05:42 | Electrocardiogram Report ---
Test Reason : Blood Pressure : */* mmHG Vent. Rate : 79 BPM Atrial Rate : 54 BPM P-R Int : * ms QRS Dur : 150 ms QT Int : 442 ms P-R-T Axes : * -42 121 degrees QTcB Int : 506 ms Sinus rhythm with frequent Premature atrial complexes Left axis deviation Right bundle branch block Minimal voltage criteria for LVH, may be normal variant T wave abnormality, consider lateral ischemia Abnormal ECG When compared with ECG of 16-Jul-2024 15:28, Premature atrial complexes are now Present Confirmed by Roddy Montana ([id number]) on 07/20/2024 5:41:41 AM Referred By: REFERRED SELF Confirmed By: Roddy Montana
[2024-07-20 07:01] LABS: Calcium 8.8 mg/dl (8.6-10.3); Magnesium 2.3 mg/dl (1.7-2.4); Potassium 4.6 mmol/L (3.5-5.1)
[2024-07-20 07:07] LABS: BUN Creatinine Ratio 29.1 (10-20); Creatinine Clr Calc Pharmacy 14.5 ml/min
--- NOTE | 2024-07-20 07:35 | Hospitalist Progress Note ---
Date of Service July 20, 2024 Assessment & Plan (1) Acute systolic CHF (congestive heart failure), NYHA class 3: (2) Acute renal failure superimposed on stage 4 chronic kidney disease: (3) Delirium due to another medical condition: (4) Mild cognitive impairment: (5) Acute metabolic encephalopathy: (6) Anemia, chronic renal failure: (7) E. coli UTI: (8) Ischemic cardiomyopathy: (9) Hypothyroid: (10) T2DM (type 2 diabetes mellitus): (11) Hypertension: (12) Hyperlipidemia: (13) ASCVD (arteriosclerotic cardiovascular disease): Plan Ms. Stacie Quintana is an 84-year-old female who has a significant past medical history of T2DM, HTN, HLD, hypothyroidism, hyperparathyroidism, venous insufficiency, CKD stage IV, aortic valve sclerosis, vitamin D deficiency, senile osteoporosis, gouty arthropathy and lymphedema of the bilateral lower extremities who was admitted 07/16 for decompensated heart failure, GILBERTO on CKD, and uncomplicated UTI. Course complicated by continued delirium and encephalopathy in the setting of progressing acute renal failure on chronic renal failure. Hgb down to 6.6 this am, no active signs of bleeding noted. Patient however feeling much improved and confirmed by son at bedside. #Acute on chronic macrocytic anemia b12 217, folate >22 Hgb <7 iso cardiac disease, will transfuse 1 UPRBC folowed by 20mg IV lasix no overt signs of bleed at this time #GILBERTO on CKD IV baseline 1.8-2 Cr, uptrending to 3.13 40 mg bid IV lasix held as of 07/18, s/p 1/2 NS daily standing weights 1.5 L FR continue po mag Acoid nsaids/contrast and other nephrotoxic agents IV lasix s/p PRBC shafer for I/Os #Acute metabolic encephalopathy avoid medications that could alter mental status, concern that due to progressive renal dysfunction these medications are contributing to her encephalopathy. ABG: no evidence of hypercarbia Ammonia level <10, b12 217, folate >22 avoid benzos or antipsychotics if able Delirium precautions #Elevated troponin iso demand #Acute HFmrEF 35-40% 07/17 #PACs Cards does not suspect atrial fibrillation. No need for anticoagulation continue conservative med management at this carline continue BB, imdur and hydralazine Continue to monitor renal function Glucose was reviewed, continue to cover with insulin Discontinue Zyprexa, trazodone, Daughter and son at bedside at separate times, updated 1 at bedside. Multiple visits made to the bedside throughout the day #Acute uncomplicated UTI asymptomatic, but notably ill on admission s/p CTX Dispo contingent on hgb and renal function stabilizing PT/OT rehab recommendation Admission and Anticipated Discharge Date Admission Date: July 16, 2024 Subjective NAEO Repoertedly mmuch better mentation this am, family at bedside Patient awake and talkative, no acute concerns this am reported discussed hgb of 6.6, patient denies any signs of bleeding from bowel or other acute concerns--agreed to transfusion Physical Exam Constitutional: WD/WN, vitals as above Respiratory: normal respiratory effort, lungs clear to auscultation Cardiovascular: KAVIN + bradycardic Musculoskeletal: BLE nonpitting edema Results & Data Results & Data Vital Signs (Past 12 Hours) Vital Signs Temp Pulse Pulse Resp BP BP Pulse Ox 07/20/24 07:00 51 L 07/20/24 02:55 36.6 C 66 18 116/73 93 07/20/24 01:01 46 L 07/19/24 22:12 36.4 C L 71 18 115/68 95 07/19/24 21:45 67 07/19/24 20:45 O2 Del Method 07/20/24 07:00 07/20/24 02:55 Room Air 07/20/24 01:01 07/19/24 22:12 Room Air 07/19/24 21:45 07/19/24 20:45 Room Air Laboratory Results Short CBC 07/20/24 Range/Units 06:16 WBC 5.42 (4.8-10.8) K/ul Hgb 6.6 L* (12.0-16.0) g/dl Hct 22.6 L (37.0-47.0) % Plt Count 176 (130-400) K/uL BMP 07/20/24 06:13 Sodium 142 Potassium 4.6 Chloride 109 H Carbon Dioxide 24 BUN 91 H Creatinine 3.13 H Glucose 81 Calcium 8.8 Medications Administered Home Medications Medication Instructions Recorded Confirmed Last Taken allopurinol 100 mg tablet 200 mg PO DAILY 07/16/24 07/16/24 Unknown aspirin 81 mg tablet,delayed 81 mg PO 2XWK 07/16/24 07/16/24 Unknown release atorvastatin 40 mg tablet 40 mg PO DAILY 07/16/24 07/16/24 Unknown chlorthalidone 25 mg tablet 50 mg PO DAILY 07/16/24 07/16/24 Unknown cholecalciferol (vitamin D3) 10 10 mcg PO DAILY 07/16/24 07/16/24 Unknown mcg (400 unit) capsule folic acid 1 mg tablet 1 mg PO DAILY 07/16/24 07/16/24 Unknown furosemide 20 mg tablet 20 mg PO DAILY 07/16/24 07/16/24 Unknown hydralazine 10 mg tablet 10 mg PO BID 07/16/24 07/16/24 Unknown levothyroxine 75 mcg tablet 75 mcg PO DAILY@0630 07/16/24 07/16/24 Unknown lisinopril 5 mg tablet 5 mg PO PM 07/16/24 07/16/24 Unknown metoprolol succinate 25 mg 25 mg PO DAILY 07/16/24 07/16/24 Unknown tablet,extended release 24 hr Active Medications Generic Name Dose Route Start Last Admin Trade Name Freq PRN Reason Stop Dose Admin Acetaminophen 650 mg 07/16/24 16:02 07/19/24 20:45 Acetaminophen 325 Mg Tab PO 08/15/24 16:01 650 mg Q4H PRN Administration Pain or Fever Allopurinol 100 mg 07/17/24 09:00 07/20/24 09:33 Allopurinol 100 Mg Tab PO 08/16/24 08:59 100 mg DAILY [facility] Administration Aspirin 81 mg 07/18/24 09:00 07/18/24 08:57 Aspirin 81 Mg Ectab PO 08/17/24 08:59 81 mg [id number] [facility] Administration Atorvastatin Calcium 40 mg 07/17/24 09:00 07/20/24 09:34 Atorvastatin 40 Mg Tab PO 08/16/24 08:59 40 mg DAILY [facility] Administration Folic Acid 1 mg 07/17/24 09:00 07/20/24 09:34 Folic Acid 1 Mg Tab PO 08/16/24 08:59 1 mg DAILY [facility] Administration Hydralazine HCl 10 mg 07/16/24 21:00 07/20/24 09:34 Hydralazine 10 Mg Tab PO 08/15/24 20:59 10 mg BID [facility] Administration Isosorbide Dinitrate 5 mg 07/18/24 10:30 07/20/24 09:33 Isosorbide Dinitrate 5 Mg Tab PO 08/17/24 10:29 5 mg BID [facility] Administration Levothyroxine Sodium 75 mcg 07/17/24 06:30 07/20/24 06:55 Levothyroxine Sodium 75 Mcg Tablet PO 08/16/24 06:29 75 mcg DAILY@0630 [facility] Administration Magnesium Oxide 400 mg 07/20/24 11:45 07/20/24 14:28 Magnesium Oxide 400 Mg Tab PO 08/19/24 11:44 400 mg Q2D [facility] Administration Vitamin D 10 mcg 07/17/24 09:00 07/20/24 09:33 Cholecalciferol 10 Mcg (400 Units) Tab PO 08/16/24 08:59 10 mcg DAILY [facility] Administration
[2024-07-20] MEDS: MAGNESIUM OXIDE 400 MG TAB PO SCH ×2 (09:33→14:28)
--- NOTE | 2024-07-20 10:25 | Cardiology Progress Note ---
Date of Service July 20, 2024 Assessment & Plan (1) Symptomatic anemia: (2) Acute kidney injury: (3) Elevated troponin: (4) Acute systolic CHF (congestive heart failure), NYHA class 3: (5) Ischemic cardiomyopathy: (6) ASCVD (arteriosclerotic cardiovascular disease): Plan Multifactorial presentation, acute kidney injury, symptomatic anemia without over evidence of active bleeding, UTI, new onset systolic congestive heart failure. Elevated high-sensitivity troponin. Patient with known ASCVD via remote catheterization circa 30 years ago in [place], nonobstructive coronary artery disease observed at that time. Echo this admission with moderately reduced systolic function, EF 35-40%, with slightly more focal hypokinesis of the apical inferior segment. Patient is not a candidate for intervention, thankfully without overt angina. EKG without acute change. Patient maintaining sinus rhythm, low atrial focus with frequent premature atrial contractions. No overt atrial fibrillation; additionally, the risks of anticoagulation appear to be greater than the benefit. Mild to moderate pulmonary hypertension (PASP 50 mmHg), suspect underlying sleep apnea. Volume status: Compensated to mildly hypovolemic. Symptomatic anemia. Stage IV chronic kidney disease. Increase creatinine noted this AM. Nephrology following. Recommendations: * ? additional 500 mLs IV fluid resuscitation today. * Continue conservative cardiac medical management. * Continue evidence based beta-destinee therapy as well as long-acting nitrates and hydralazine as alternative therapy for a patient with HFrEF who is unable to take FEDE/ARB. * Continue Aspirin and statin Admission and Anticipated Discharge Date Admission Date: July 16, 2024 Supervising Physician Co-Signing Physician Notes Attending attestation: Case reviewed with the advanced practitioner. I have personally performed a history and physical examination on the patient. I have reviewed the advanced practitioner's documentation on the date of service referenced in note, and I agree with, and take responsibility for the plan of care. Mental status improved compared to 07/19/2024. Receiving transfusion of packed red blood cells telemetry reveals sinus rhythm with PACs. Would not initiate anticoagulation. Cardiology to sign off. Please call with questions or concerns. Guido Underwood, DO Subjective Patient seen and examined. Chart, medications, telemetry reviewed. Family at bedside. Looks and feels better today. More alert. Ongoing bronchitic cough. No chest pain, palpitations, or shortness of breath. Telemetry: Sinus/sinus bradycardia with atrial ectopy. Cumulative I/O's: -3657 ml overall. Review of Systems Review of Systems: Complete Review of Systems is as stated above, negative, or noncontributory. Physical Exam Physical Exam: General: Alert to person and place. HENT: Normocephalic. Atraumatic. Mouth: Dry Eyes: PER. Conjunctiva pink, sclera pale. Neck: No JVD. Heart: Regular at 56 bpm. Grade I-II/ systolic murmur Lungs: Clear anteriorly. Abdomen: +BS. Soft. Nontender. No masses or organomegaly. Corbin catheter in place. Extremities: Thick, with lymphedematous changes. No cyanosis Pulses: Posterior tibial=1/4. Results & Data Vital Signs (Past 12 Hours) Vital Signs Temp Pulse Pulse Resp BP Pulse Ox O2 Del Method 07/20/24 09:00 Nasal Cannula 07/20/24 07:43 36.5 C 55 L 17 110/56 L 99 Nasal Cannula 07/20/24 07:00 51 L 07/20/24 02:55 36.6 C 66 18 116/73 93 Room Air 07/20/24 01:01 46 L O2 Flow Rate 07/20/24 09:00 2 07/20/24 07:43 2 07/20/24 07:00 07/20/24 02:55 07/20/24 01:01 Laboratory Results Comprehensive Metabolic Panel 07/20/24 Range/Units 06:13 Sodium 142 (136-145) mmol/L Potassium 4.6 (3.5-5.1) mmol/L Chloride 109 H (98-107) mmol/L Carbon Dioxide 24 (21-32) mmol/L BUN 91 H (6-23) mg/dl Creatinine 3.13 H (0.6-1.2) mg/dl Glucose 81 (70-99(Fasting)) mg/dl Calcium 8.8 (8.6-10.3) mg/dl Intake and Output 07/19/24 07/20/24 07/20/24 22:59 06:59 14:59 Intake Total 670 / 670 240 / 240 Output Total 350 / 550 100 / 550 0 / 0 Balance 320 / 120 -100 / 120 240 / 240 Intake: IV 550 / 550 Sodium Chloride 0.9% 500 ml @ 500 / 500 80 mls/hr IV .Q6H15M [facility], [facility]–1983 Rx#: [id number] cefTRIAXone SODIUM 2,000 mg In 50 / 50 50 ml @ 100 mls/hr IV Q24H [facility] Rx#:[id number] Oral 120 / 120 240 / 240 Output: Urine Amount (Catheter) 350 / 550 100 / 550 Corbin/Indwelling 350 / 550 100 / 550 # Bowel Movements 0 / 0 Other: Other Intake Source sips Weight 103.8 kg
--- NOTE | 2024-07-20 11:38 | Nephrology Progress Note ---
Date of Service July 20, 2024 Assessment & Plan (1) Acute worsening of stage 4 chronic kidney disease: Plan: further worsening stage 1 nonoliguric wendy on CKD 4, baseline creatinine 1.8-2. delirious pt > still not taking po UA w/ possible UTI > asx but cx E coli + standing wts initially improving 100.9 > 99.7 07/18; no standing weight >> w/ lethargy not an option today or yesterday 40 mg bid IV lasix held currently after AM dose 07/18 by cardiology daily standing wts when able and 1.5 L FR to continue other meds appropriate; potassium ok at 4.6 CXR 07/19 w/ pleural effusions and slightly improved edema -daily bmp -continue avoidance of nsaids and unless lifesaving IV con for CT magnesium 1.6 > 2.1 > 2.3 >> changed to q2d from daily po mag >>>>>>suggest pRBC if hgb dropping further 1 unit followed by 20 mg IV lasix x 1; if hgb stable or improved, suggest 1/2L plasmalyte (not NS) Care coordinated w/ Dr Torres via TText re meds, transfusion / IV fluid plan > we are in agreement. (2) Anemia: Plan: hgb down again >> 7.6 > 7.2 yesterday >> today's labs pending adn came back at 6.6 -daily hgb -monitor for bleeding -transfuse pRBC for chest pain or hgb 7 or less -t sat 25% on 07/20 Admission and Anticipated Discharge Date Admission Date: July 16, 2024 Subjective minimal po intake post 24 hrs. non verbal though reportedly was interacting earlier this am Review of Systems 2 Review of Systems: All systems reviewed & are unremarkable except as noted in Subjective Physical Exam 2 Constitutional: well developed, well nourished, + obese, + frail appearing, cooperative and + lethargic; no acute distress Eyes: EOM intact bilaterally (keeps eyes closed much of visit) ENMT: Mouth: + dry oral mucous membranes Respiratory: normal respiratory effort Auscultation: + diminished lung sounds Cardiovascular: Rate/Rhythm: regular rate and regular rhythm Extremities: n o edema Gastrointestinal (Abdomen): Inspection/Auscultation: normal bowel sounds P ercussion/Palpation: abdomen soft; abdomen nontender Musculoskeletal: Extremities: strength 5/5 throughout Skin: no rashes, warm and dry Psychiatric: Orientation: alert and oriented x 3 Results & Data Vital Signs (Past 12 Hours) Vital Signs Temp Pulse Pulse Resp BP Pulse Ox O2 Del Method 07/20/24 09:00 Nasal Cannula 07/20/24 07:43 36.5 C 55 L 17 110/56 L 99 Nasal Cannula 07/20/24 07:00 51 L 07/20/24 02:55 36.6 C 66 18 116/73 93 Room Air 07/20/24 01:01 46 L O2 Flow Rate 07/20/24 09:00 2 07/20/24 07:43 2 07/20/24 07:00 07/20/24 02:55 07/20/24 01:01 Laboratory Results 07/19/24 06:12 07/20/24 06:13 (2) Anemia Anemia type: unspecified type Qualified Code(s): D64.9 - Anemia, unspecified
[2024-07-20 11:57] LABS: Hematocrit (blood only) 22.6 % (37.0-47.0); Hemoglobin 6.6 g/dl (12.0-16.0); Mean Corpuscular Hemoglobin 30.8 pg (25.0-34.0); Mean Corpuscular Hgb Conc 29.2 g/dL (32.0-36.0); Mean Corpuscular Volume 105.6 fL (80.0-100.0); Mean Platelet Volume 11.7 fL (9.4-12.4); Platelet Count 176 K/uL (130-400); RDW Coefficient of Variation 14.6 % (11.5-14.5); RDW Standard Deviation 56.3 fL (36.4-46.3); Red Blood Count 2.14 M/uL (4.20-5.40); White Blood Count 5.42 K/ul (4.8-10.8)
[2024-07-20] MEDS ORDERED: SODIUM CHLORIDE 0.9% 100 ML IV PRN (12:08)
[2024-07-20] MEDS ORDERED: SODIUM CHLORIDE 0.9% 50 ML IV PRN (12:08)
[2024-07-20] MEDS: POLYETHYLENE (MIRALAX) 17 GM PACK PO SCH (16:16)
[2024-07-20] MEDS: FUROSEMIDE INJ 20 MG/2 ML VIAL IV SCH (17:20)
[2024-07-20 19:35] LABS: Hematocrit (blood only) 25.5 % (37.0-47.0); Hemoglobin 7.7 g/dl (12.0-16.0)
[2024-07-20 23:09] LABS: Hematocrit (blood only) 24.8 % (37.0-47.0); Hemoglobin 7.6 g/dl (12.0-16.0)
[2024-07-21 07:17] LABS: Hematocrit (blood only) 24.3 % (37.0-47.0); Hemoglobin 7.5 g/dl (12.0-16.0); Mean Corpuscular Hemoglobin 31.6 pg (25.0-34.0); Mean Corpuscular Hgb Conc 30.9 g/dL (32.0-36.0); Mean Corpuscular Volume 102.5 fL (80.0-100.0); Nucleated RBC # (auto) 0.02 K/uL (0.00-0.12); Nucleated RBC % (auto) 0.3 %; Platelet Count 180 K/uL (130-400); RDW Coefficient of Variation 15.3 % (11.5-14.5); RDW Standard Deviation 57.7 fL (36.4-46.3); Red Blood Count 2.37 M/uL (4.20-5.40); White Blood Count 6.77 K/ul (4.8-10.8)
[2024-07-21 07:48] LABS: Anion Gap 11 (3-11); BUN Creatinine Ratio 25.5 (10-20); Blood Urea Nitrogen 104 mg/dl (6-23); Calcium 8.6 mg/dl (8.6-10.3); Carbon Dioxide 26 mmol/L (21-32); Chloride 102 mmol/L (98-107); Creatinine Clr Calc Pharmacy 10.9 ml/min; Glucose 81 mg/dl (70-99(Fasting)); Magnesium 2.4 mg/dl (1.7-2.4); Phosphorus 7.8 mg/dl (2.5-4.9); Potassium 5.4 mmol/L (3.5-5.1); Sodium 139 mmol/L (136-145)
[2024-07-21 08:59] LABS: Immature Retic Fraction 24.8 % (2.3-15.9); Reticulocyte % 5.78 % (0.50-2.00); Reticulocytes # 0.14 10^6/uL (0.020-0.100)
[2024-07-21] MEDS: ACETAMINOPHEN 325 MG TAB PO STA (09:13)
[2024-07-21] MEDS: METOPROLOL SUCC 25MG EXT REL TAB PO SCH (09:14)
[2024-07-21 09:21] LABS: Bilirubin,Total 0.9 mg/dl (0.2-1.0)
[2024-07-21] MEDS: PLASMA-LYTE A 500 ML IV ONE ×2 (10:05→12:01)
[2024-07-21 10:13] LABS: Bilirubin Direct 0.2 mg/dl (0-0.2)
--- NOTE | 2024-07-21 11:07 | Nephrology Progress Note ---
Date of Service July 21, 2024 Assessment & Plan (1) Acute worsening of stage 4 chronic kidney disease: Plan: further worsening stage 1 nonoliguric wendy on CKD 4, baseline creatinine 1.8-2. Oral intake has not been great, but has been drinking the allowance UA w/ possible UTI > asx but cx E coli + standing wts initially improving 100.9 > 99.7 07/18; 100.6 yesterday -renal function continue to decline, uop has also tailed off, Ray prerenal, 2/ drop on hb yesterday, She has 1 unit PRBC yesterday and 500 mls of Isolyte today. would give her another 250 mls of Normal saline 40 mg bid IV lasix held currently after AM dose 07/18 by cardiology daily standing wts when able and 1.5 L FR to continue other meds appropriate; potassium raised at 5.4, will give one time dose of Lokelma/Valtessa. -daily bmp -continue avoidance of nsaids and unless lifesaving IV con for CT magnesium 1.6 > 2.1 > 2.3 >> changed to q2d from daily po mag . (2) Anemia: Plan: hgb down again , improved w/ 1 u PRBC -daily hgb -monitor for bleeding -transfuse pRBC for chest pain or hgb 7 or less -t sat 25% on 07/20 Admission and Anticipated Discharge Date Admission Date: July 16, 2024 Results & Data Vital Signs (Past 12 Hours) Vital Signs Temp Pulse Pulse Pulse Resp BP Pulse Ox 07/21/24 08:02 36.6 C 50 L 18 102/64 98 07/21/24 07:16 49 L 07/21/24 03:37 36.6 C 50 L 18 119/68 98 07/21/24 02:31 50 L 07/21/24 00:45 36.3 C L 85 20 110/55 L 95 07/21/24 00:14 O2 Del Method O2 Flow Rate 07/21/24 08:02 Nasal Cannula 2 07/21/24 07:16 07/21/24 03:37 Nasal Cannula 2 07/21/24 02:31 07/21/24 00:45 Nasal Cannula 2 07/21/24 00:14 Nasal Cannula 2 Laboratory Results 07/21/24 06:16 07/21/24 06:16 (2) Anemia Anemia type: unspecified type Qualified Code(s): D64.9 - Anemia, unspecified
--- NOTE | 2024-07-21 11:54 | Hospitalist Progress Note ---
Date of Service July 21, 2024 Assessment & Plan (1) Acute systolic CHF (congestive heart failure), NYHA class 3: (2) Acute renal failure superimposed on stage 4 chronic kidney disease: (3) Delirium due to another medical condition: (4) Mild cognitive impairment: (5) Acute metabolic encephalopathy: (6) Anemia, chronic renal failure: (7) E. coli UTI: (8) Ischemic cardiomyopathy: (9) Hypothyroid: (10) T2DM (type 2 diabetes mellitus): (11) Hypertension: (12) Hyperlipidemia: (13) ASCVD (arteriosclerotic cardiovascular disease): Plan Ms. Stacie Quintana is an 84-year-old female who has a significant past medical history of T2DM, HTN, HLD, hypothyroidism, hyperparathyroidism, venous insufficiency, CKD stage IV, aortic valve sclerosis, vitamin D deficiency, senile osteoporosis, gouty arthropathy and lymphedema of the bilateral lower extremities who was admitted 07/16 for decompensated heart failure, GILBERTO on CKD, and uncomplicated UTI. Course complicated by continued delirium and encephalopathy in the setting of progressing acute renal failure on chronic renal failure. Hgb down to 6.6 with no clear sign of bleeding, responded to 1 U PRBC. Concern for impending HD. #Acute on chronic macrocytic anemia b12 217, folate >22 Hgb <7 iso cardiac disease, will transfuse 1 UPRBC folowed by 20mg IV lasix no overt signs of bleed at this time elevated retic, normal t bili, no overt signs of hemolysis #GILBERTO on CKD IV baseline 1.8-2 Cr, uptrending to 3.13 40 mg bid IV lasix held as of 07/18, s/p 1/2 NS daily standing weights 1.5 L FR continue po mag Acoid nsaids/contrast and other nephrotoxic agents IV lasix s/p PRBC sp isolyte 500, plan for NS 500 Valtessa started shafer for I/Os #Acute metabolic encephalopathy *improving avoid medications that could alter mental status, concern that due to progressive renal dysfunction these medications are contributing to her encephalopathy. ABG: no evidence of hypercarbia Ammonia level <10, b12 217, folate >22 avoid benzos or antipsychotics if able Delirium precautions #Elevated troponin iso demand #Acute HFmrEF 35-40% 07/17 #PACs Cards does not suspect atrial fibrillation. No need for anticoagulation continue conservative med management at this [facility] continue BB, imdur and hydralazine Continue to monitor renal function Glucose was reviewed, continue to cover with insulin Discontinue Zyprexa, trazodone, Daughter and son at bedside at separate times, updated 1 at bedside. Multiple visits made to the bedside throughout the day #Acute uncomplicated UTI asymptomatic, but notably ill on admission s/p CTX SCDS Dispo contingent on hgb and renal function stabilizing PT/OT rehab recommendation Admission and Anticipated Discharge Date Admission Date: July 16, 2024 Subjective No acute concerns this am outside of right knee discomfort Denies any new symptoms--son at bedside states she is much improved over the last couple of days and despite labs seems to be subjectively better Denies shortness of breath, chest pain, or other acute concerns Physical Exam Constitutional: WD/WN, vitals as above Respiratory: diminished 2/2 habitus Results & Data Results & Data Vital Signs (Past 12 Hours) Vital Signs Temp Pulse Pulse Pulse Resp BP Pulse Ox 07/21/24 08:02 36.6 C 50 L 18 102/64 98 07/21/24 07:16 49 L 07/21/24 03:37 36.6 C 50 L 18 119/68 98 07/21/24 02:31 50 L 07/21/24 00:45 36.3 C L 85 20 110/55 L 95 07/21/24 00:14 O2 Del Method O2 Flow Rate 07/21/24 08:02 Nasal Cannula 2 07/21/24 07:16 07/21/24 03:37 Nasal Cannula 2 07/21/24 02:31 07/21/24 00:45 Nasal Cannula 2 07/21/24 00:14 Nasal Cannula 2 Laboratory Results Short CBC 07/20/24 07/20/24 07/20/24 Range/Units 06:16 19:16 22:28 WBC 5.42 (4.8-10.8) K/ul Hgb 6.6 L* 7.7 L 7.6 L (12.0-16.0) g/dl Hct 22.6 L 25.5 L 24.8 L (37.0-47.0) % Plt Count 176 (130-400) K/uL 07/21/24 Range/Units 06:16 WBC 6.77 (4.8-10.8) K/ul Hgb 7.5 L (12.0-16.0) g/dl Hct 24.3 L (37.0-47.0) % Plt Count 180 (130-400) K/uL BMP 07/21/24 06:16 Sodium 139 Potassium 5.4 H Chloride 102 Carbon Dioxide 26 BUN 104 H Creatinine 4.08 H D Glucose 81 Calcium 8.6 Liver Function 07/21/24 07/21/24 Range/Units 06:16 09:42 Total Bilirubin 0.9 (0.2-1.0) mg/dl Direct Bilirubin TNP 0.2 Medications Administered Home Medications Medication Instructions Recorded Confirmed Last Taken allopurinol 100 mg tablet 200 mg PO DAILY 07/16/24 07/16/24 Unknown aspirin 81 mg tablet,delayed 81 mg PO 2XWK 07/16/24 07/16/24 Unknown release atorvastatin 40 mg tablet 40 mg PO DAILY 07/16/24 07/16/24 Unknown chlorthalidone 25 mg tablet 50 mg PO DAILY 07/16/24 07/16/24 Unknown cholecalciferol (vitamin D3) 10 10 mcg PO DAILY 07/16/24 07/16/24 Unknown mcg (400 unit) capsule folic acid 1 mg tablet 1 mg PO DAILY 07/16/24 07/16/24 Unknown furosemide 20 mg tablet 20 mg PO DAILY 07/16/24 07/16/24 Unknown hydralazine 10 mg tablet 10 mg PO BID 07/16/24 07/16/24 Unknown levothyroxine 75 mcg tablet 75 mcg PO DAILY@0630 07/16/24 07/16/24 Unknown lisinopril 5 mg tablet 5 mg PO PM 07/16/24 07/16/24 Unknown metoprolol succinate 25 mg 25 mg PO DAILY 07/16/24 07/16/24 Unknown tablet,extended release 24 hr Active Medications Generic Name Dose Route Start Last Admin Trade Name Freq PRN Reason Stop Dose Admin Acetaminophen 650 mg 07/16/24 16:02 07/19/24 20:45 Acetaminophen 325 Mg Tab PO 08/15/24 16:01 650 mg Q4H PRN Administration Pain or Fever Allopurinol 100 mg 07/17/24 09:00 07/21/24 09:15 Allopurinol 100 Mg Tab PO 08/16/24 08:59 100 mg DAILY HUNTER Administration Aspirin 81 mg 07/18/24 09:00 07/18/24 08:57 Aspirin 81 Mg Ectab PO 08/17/24 08:59 81 mg [email or web address] HUNTER Administration Atorvastatin Calcium 40 mg 07/17/24 09:00 07/21/24 09:15 Atorvastatin 40 Mg Tab PO 08/16/24 08:59 40 mg DAILY [facility]UNTER Administration Folic Acid 1 mg 07/17/24 09:00 07/21/24 09:15 Folic Acid 1 Mg Tab PO 08/16/24 08:59 1 mg DAILY [facility]UNTER Administration Hydralazine HCl 10 mg 07/16/24 21:00 07/21/24 09:14 Hydralazine 10 Mg Tab PO 08/15/24 20:59 10 mg BID HUNTER Administration Isosorbide Dinitrate 5 mg 07/18/24 10:30 07/21/24 09:14 Isosorbide Dinitrate 5 Mg Tab PO 08/17/24 10:29 5 mg BID HUNTER Administration Levothyroxine Sodium 75 mcg 07/17/24 06:30 07/21/24 05:57 Levothyroxine Sodium 75 Mcg Tablet PO 08/16/24 06:29 75 mcg DAILY@0630 [facility] Administration Magnesium Oxide 400 mg 07/20/24 11:45 07/20/24 14:28 Magnesium Oxide 400 Mg Tab PO 08/19/24 11:44 400 mg Q2D [facility]UNTER Administration Metoprolol Succinate 12.5 mg 07/21/24 09:00 07/21/24 09:14 Metoprolol Succ 25mg Ext Rel Tab PO 08/20/24 08:59 Not Given DAILY [facility] Polyethylene Glycol 17 gm 07/20/24 15:30 07/21/24 09:13 Polyethylene (Miralax) 17 Gm Pack PO 08/19/24 15:29 17 gm DAILY [facility]UNTER Administration Vitamin D 10 mcg 07/17/24 09:00 07/21/24 09:15 Cholecalciferol 10 Mcg (400 Units) Tab PO 08/16/24 08:59 10 mcg DAILY HUNTER Administration
[2024-07-21] MEDS: PATIROMER CALCIUM SORBITEX 8.4 GM PACK PO STA (12:44)
[2024-07-21] MEDS: SODIUM CHLORIDE 0.9% 500 ML IV ONE (12:45)
[2024-07-22 07:46] LABS: Hemoglobin 7.3 g/dl (12.0-16.0); Mean Corpuscular Hemoglobin 31.3 pg (25.0-34.0); Mean Corpuscular Hgb Conc 30.4 g/dL (32.0-36.0); Mean Platelet Volume 11.5 fL (9.4-12.4); Platelet Count 169 K/uL (130-400); RDW Coefficient of Variation 14.4 % (11.5-14.5); RDW Standard Deviation 53.9 fL (36.4-46.3); Red Blood Count 2.33 M/uL (4.20-5.40); White Blood Count 5.62 K/ul (4.8-10.8)
[2024-07-22 08:07] LABS: BUN Creatinine Ratio 24.1 (10-20); Calcium 8.6 mg/dl (8.6-10.3); Creatinine Clr Calc Pharmacy 10.5 ml/min; Magnesium 2.4 mg/dl (1.7-2.4); Phosphorus 7.8 mg/dl (2.5-4.9); Potassium 4.9 mmol/L (3.5-5.1)
--- NOTE | 2024-07-22 11:25 | Hospitalist Progress Note ---
Date of Service July 22, 2024 Assessment & Plan (1) Acute systolic CHF (congestive heart failure), NYHA class 3: (2) Acute renal failure superimposed on stage 4 chronic kidney disease: (3) Delirium due to another medical condition: (4) Mild cognitive impairment: (5) Acute metabolic encephalopathy: (6) Anemia, chronic renal failure: (7) E. coli UTI: (8) Ischemic cardiomyopathy: (9) Hypothyroid: (10) T2DM (type 2 diabetes mellitus): (11) Hypertension: (12) Hyperlipidemia: (13) ASCVD (arteriosclerotic cardiovascular disease): Plan Ms. Stacie Quintana is an 84-year-old female who has a significant past medical history of T2DM, HTN, HLD, hypothyroidism, hyperparathyroidism, venous insufficiency, CKD stage IV, aortic valve sclerosis, vitamin D deficiency, senile osteoporosis, gouty arthropathy and lymphedema of the bilateral lower extremities who was admitted 07/16 for decompensated heart failure, GILBERTO on CKD, and uncomplicated UTI. Course complicated by continued delirium and encephalopathy in the setting of progressing acute renal failure on chronic renal failure. Hgb down to 6.6 with no clear sign of bleeding, responded to 1 U PRBC. Hgb remains in low-mid 7s, Concern for impending HD. Family and patient state they will pursue if its necessary Spoke with nephrology, will trial lasix once more and assess response. #Acute on chronic macrocytic anemia b12 217, folate >22 Hgb <7 iso cardiac disease, will transfuse 1 UPRBC folowed by 20mg IV lasix no overt signs of bleed at this time elevated retic, normal t bili, no overt signs of hemolysis will likely require epo #GILBERTO on CKD IV #Hyperkalemia #Hyperphosphatemia baseline 1.8-2 Cr, uptrending to 3.13 40 mg bid IV lasix held as of 07/18, s/p 1/2 NS daily standing weights 1.5 L FR continue po mag Acoid nsaids/contrast and other nephrotoxic agents IV lasix s/p PRBC, no response with 1 L IVF Valtessa x1 07/21 shafer for I/Os IV lasix 40mg now, reassess in am #Acute metabolic encephalopathy *improving avoid medications that could alter mental status, concern that due to progressiv e renal dysfunction these medications are contributing to her encephalopathy. ABG: no evidence of hypercarbia Ammonia level <10, b12 217, folate >22 avoid benzos or antipsychotics if able Delirium precautions #Elevated troponin iso demand #Acute HFmrEF 35-40% 07/17 #PACs Cards does not suspect atrial fibrillation. No need for anticoagulation continue conservative med management at this [facility] home imdur/hydral continue bb Continue to monitor renal function Glucose was reviewed, continue to cover with insulin Discontinue Zyprexa, trazodone, Daughter and son at bedside at separate times, updated 1 at bedside. Multiple visits made to the bedside throughout the day #Acute uncomplicated UTI asymptomatic, but notably ill on admission s/p CTX SCDS Dispo contingent on hgb and renal function stabilizing PT/OT rehab recommendation Admission and Anticipated Discharge Date Admission Date: July 16, 2024 Subjective NAEO Still with poor UOP but more so than days prior, net positive this admission Patient denies any acute concerns on exam Spoke to both patient's son and daughter at bedside Patient wants HD if that is necessary in the next coming days Physical Exam Constitutional: WD/WN, vitals as above Respiratory: diminished bibasilar breath sounds Cardiovascular: RRR Musculoskeletal: more edematous BUE/BLE Results & Data Results & Data Vital Signs (Past 12 Hours) Vital Signs Temp Pulse Pulse Pulse Resp BP Pulse Ox 07/22/24 07:37 36.7 C 60 16 106/64 98 07/22/24 07:29 63 07/22/24 03:11 36.9 C 60 18 107/64 96 07/21/24 23:40 51 L O2 Del Method O2 Flow Rate 07/22/24 07:37 Nasal Cannula 2 07/22/24 07:29 07/22/24 03:11 Nasal Cannula 2 07/21/24 23:40 Laboratory Results Short CBC 07/22/24 Range/Units 07:19 WBC 5.62 (4.8-10.8) K/ul Hgb 7.3 L (12.0-16.0) g/dl Hct 24.0 L (37.0-47.0) % Plt Count 169 (130-400) K/uL BMP 07/22/24 07:19 Sodium 135 L Potassium 4.9 Chloride 99 Carbon Dioxide 24 BUN 106 H Creatinine 4.40 H D Glucose 83 Calcium 8.6 Medications Administered Home Medications Medication Instructions Recorded Confirmed Last Taken allopurinol 100 mg tablet 200 mg PO DAILY 07/16/24 07/16/24 Unknown aspirin 81 mg tablet,delayed 81 mg PO 2XWK 07/16/24 07/16/24 Unknown release atorvastatin 40 mg tablet 40 mg PO DAILY 07/16/24 07/16/24 Unknown chlorthalidone 25 mg tablet 50 mg PO DAILY 07/16/24 07/16/24 Unknown cholecalciferol (vitamin D3) 10 10 mcg PO DAILY 07/16/24 07/16/24 Unknown mcg (400 unit) capsule folic acid 1 mg tablet 1 mg PO DAILY 07/16/24 07/16/24 Unknown furosemide 20 mg tablet 20 mg PO DAILY 07/16/24 07/16/24 Unknown hydralazine 10 mg tablet 10 mg PO BID 07/16/24 07/16/24 Unknown levothyroxine 75 mcg tablet 75 mcg PO DAILY@0630 07/16/24 07/16/24 Unknown lisinopril 5 mg tablet 5 mg PO PM 07/16/24 07/16/24 Unknown metoprolol succinate 25 mg 25 mg PO DAILY 07/16/24 07/16/24 Unknown tablet,extended release 24 hr Active Medications Generic Name Dose Route Start Last Admin Trade Name Freq PRN Reason Stop Dose Admin Acetaminophen 650 mg 07/16/24 16:02 07/19/24 20:45 Acetaminophen 325 Mg Tab PO 08/15/24 16:01 650 mg Q4H PRN Administration Pain or Fever Allopurinol 100 mg 07/17/24 09:00 07/22/24 09:10 Allopurinol 100 Mg Tab PO 08/16/24 08:59 100 mg DAILY [facility] Administration Aspirin 81 mg 07/18/24 09:00 07/22/24 09:10 Aspirin 81 Mg Ectab PO 08/17/24 08:59 81 mg [email or web address] [facility] Administration Atorvastatin Calcium 40 mg 07/17/24 09:00 07/22/24 09:10 Atorvastatin 40 Mg Tab PO 08/16/24 08:59 40 mg DAILY [facility] Administration Folic Acid 1 mg 07/17/24 09:00 07/22/24 09:10 Folic Acid 1 Mg Tab PO 08/16/24 08:59 1 mg DAILY [facility] Administration Hydralazine HCl 10 mg 07/16/24 21:00 07/21/24 09:14 Hydralazine 10 Mg Tab PO 08/15/24 20:59 10 mg BID [facility] Administration Isosorbide Dinitrate 5 mg 07/18/24 10:30 07/21/24 09:14 Isosorbide Dinitrate 5 Mg Tab PO 08/17/24 10:29 5 mg BID [facility] Administration Levothyroxine Sodium 75 mcg 07/17/24 06:30 07/22/24 05:38 Levothyroxine Sodium 75 Mcg Tablet PO 08/16/24 06:29 75 mcg DAILY@0630 [facility] Administration Magnesium Oxide 400 mg 07/20/24 11:45 07/22/24 09:10 Magnesium Oxide 400 Mg Tab PO 08/19/24 11:44 400 mg Q2D [facility] Administration Metoprolol Succinate 12.5 mg 07/21/24 09:00 07/22/24 09:23 Metoprolol Succ 25mg Ext Rel Tab PO 08/20/24 08:59 12.5 mg DAILY [facility] Administration Polyethylene Glycol 17 gm 07/20/24 15:30 07/22/24 09:12 Polyethylene (Miralax) 17 Gm Pack PO 08/19/24 15:29 Not Given DAILY [facility] Vitamin D 10 mcg 07/17/24 09:00 07/22/24 09:10 Cholecalciferol 10 Mcg (400 Units) Tab PO 08/16/24 08:59 10 mcg DAILY [facility]UNTER Administration
--- NOTE | 2024-07-22 12:47 | Nephrology Progress Note ---
Date of Service July 22, 2024 Assessment & Plan (1) Acute worsening of stage 4 chronic kidney disease: Plan: further worsening stage 1 nonoliguric wendy on CKD 4, baseline creatinine 1.8-2. Oral intake has not been great, but has been drinking the allowance UA w/ possible UTI > asx but cx E coli + standing wts initially improving 100.9 > 99.7 07/18; 100.6 on 07/20, 106.9 today -renal function continue to decline, UOP about the same as yesterday - drop on hb on 07/20, She has 1 unit PRBCw/ lasix on 07/20 and bolus of Isolyte and NS over the last 2 days as her BP was low, wt 106.9 today, Sodium has also dropped to 135. -40 mg bid IV lasix held currently after AM dose 07/18 by cardiology, -will give 40 mg IV today - Daily standing wts when able and 1.5 L FR to continue - potassium wnl w. single dose of Valtessa yesterday. Care co-ordinated w/ Dr Jacques. -daily bmp -continue avoidance of nsaids and unless lifesaving IV con for CT magnesium 1.6 > 2.1 > 2.3 >> changed to q2d from daily po mag . (2) Anemia: Plan: hgb down again , improved w/ 1 u PRBC -daily hgb -monitor for bleeding -transfuse pRBC for chest pain or hgb 7 or less Admission and Anticipated Discharge Date Admission Date: July 16, 2024 Subjective No acute concerns , She was resting comfortably Denies shortness of breath, chest pain, or other acute concerns Review of Systems 2 Review of Systems: Comfortable Results & Data Vital Signs (Past 12 Hours) Vital Signs Temp Pulse Pulse Pulse Resp BP Pulse Ox 07/22/24 11:48 36.6 C 56 L 14 114/72 98 07/22/24 09:10 07/22/24 07:37 36.7 C 60 16 106/64 98 07/22/24 07:29 63 07/22/24 03:11 36.9 C 60 18 107/64 96 O2 Del Method O2 Flow Rate 07/22/24 11:48 Nasal Cannula 2 07/22/24 09:10 Nasal Cannula 2 07/22/24 07:37 Nasal Cannula 2 07/22/24 07:29 07/22/24 03:11 Nasal Cannula 2 Laboratory Results 07/22/24 07:19 07/22/24 07:19 (2) Anemia Anemia type: unspecified type Qualified Code(s): D64.9 - Anemia, unspecified
[2024-07-22] MEDS: FUROSEMIDE 40 MG/4 ML VIAL IV ONE (14:34)
[2024-07-23 09:10] LABS: Hematocrit (blood only) 24.9 % (37.0-47.0); Hemoglobin 7.6 g/dl (12.0-16.0); Mean Corpuscular Hemoglobin 31.1 pg (25.0-34.0); Mean Corpuscular Hgb Conc 30.5 g/dL (32.0-36.0); Mean Platelet Volume 12.2 fL (9.4-12.4); Platelet Count 172 K/uL (130-400); RDW Coefficient of Variation 14.2 % (11.5-14.5); RDW Standard Deviation 52.4 fL (36.4-46.3); Red Blood Count 2.44 M/uL (4.20-5.40); White Blood Count 6.04 K/ul (4.8-10.8)
[2024-07-23 09:21] LABS: Anion Gap 11 (3-11); BUN Creatinine Ratio 27.8 (10-20); Blood Urea Nitrogen 110 mg/dl (6-23); Calcium 9.1 mg/dl (8.6-10.3); Carbon Dioxide 23 mmol/L (21-32); Chloride 100 mmol/L (98-107); Creatinine Clr Calc Pharmacy 11.7 ml/min; Glucose 83 mg/dl (70-99(Fasting)); Magnesium 2.5 mg/dl (1.7-2.4); Phosphorus 7.1 mg/dl (2.5-4.9); Sodium 134 mmol/L (136-145)
--- NOTE | 2024-07-23 12:14 | Nephrology Progress Note ---
Date of Service July 23, 2024 Assessment & Plan Admission and Anticipated Discharge Date Admission Date: July 16, 2024 Subjective Assessment & Plan (1) Acute worsening of stage 4 chronic kidney disease: Plan: slightly worse stage 1 nonoliguric wendy on CKD 4, baseline creatinine 1.8-2. UA w/ possible UTI > asx but cx E coli + standing wts improving 100.9 > 99.7 07/18; no standing weight today > reminded team but w/ lethargy not an option today Urine output has been low last few days.urine only 350 ml yesterday despite lasix 40 iv x 1 but is already 750 ml so far today. today is better. Still has e/o fluid overload/CHF. Peak creat of 4.4 yesterday and now downtrending. So no dialysis for today but would like to see sustained drop in creat before we can for sure. lasix 40 mg iv x 1 again. daily standing wts when able and 1.5 L FR to continue daily bmp continue avoidance of nsaids and unless lifesaving IV con for CT magnesium is now high at 2.5 so will Stop mag supplement. na slightly low but should get better with Iv lasix and further diuresis continue standing weights as feasible Care coordinated with hospitalist via TText re meds and we are in agreement. (2) Anemia: Plan: hgb is low at 7.6 today but is uptrending so will follow. daily hgb monitor for bleeding transfuse pRBC for hgb <7 Subjective feeling much better. In fact she was playing cards with her family at bedside. Still on o2 but breathing reported better. No other acute Symptoms. urine only 350 ml yesterday despite lasix 40 iv x 1 but is already 750 ml so far today. Review of Systems Review of Systems: Unobtainable due to mental health condition Physical Exam Constitutional: well developed, + obese, + frail appearing and + lethargic; no acute distress ENMT: Mouth: + dry oral mucous membranes Neck: no nuchal rigidity Respiratory: normal respiratory effort Auscultation: + diminished lung sounds Cardiovascular: Rate/Rhythm: regular rate and regular rhythm Extremities: no edema Gastrointestinal (Abdomen): Inspection/Auscultation: normal bowel sounds Percussion/Palpation: abdomen soft; abdomen nontender Skin: no rashes, warm and dry Results & Data Vital Signs (Past 12 Hours) Vital Signs Temp Pulse Pulse Resp BP Pulse Ox O2 Del Method 07/23/24 11:06 36.7 C 51 L 18 105/61 98 Nasal Cannula 07/23/24 08:00 Nasal Cannula 07/23/24 07:37 36.9 C 59 L 20 111/65 96 Nasal Cannula 07/23/24 07:00 64 07/23/24 03:02 36.5 C 68 18 112/41 L 92 Nasal Cannula O2 Flow Rate 07/23/24 11:06 2 07/23/24 08:00 2 07/23/24 07:37 2 07/23/24 07:00 07/23/24 03:02 2
[2024-07-23] MEDS: FUROSEMIDE 40 MG/4 ML VIAL IV ONE (12:55)
--- NOTE | 2024-07-23 14:17 | Hospitalist Progress Note ---
Date of Service July 23, 2024 Assessment & Plan (1) Acute systolic CHF (congestive heart failure), NYHA class 3: (2) Acute renal failure superimposed on stage 4 chronic kidney disease: (3) Delirium due to another medical condition: (4) Mild cognitive impairment: (5) Acute metabolic encephalopathy: (6) Anemia, chronic renal failure: (7) E. coli UTI: (8) Ischemic cardiomyopathy: (9) Hypothyroid: (10) T2DM (type 2 diabetes mellitus): (11) Hypertension: (12) Hyperlipidemia: (13) ASCVD (arteriosclerotic cardiovascular disease): Plan Ms. Stacie Quintana is an 84-year-old female who has a significant past medical history of T2DM, HTN, HLD, hypothyroidism, hyperparathyroidism, venous insufficiency, CKD stage IV, aortic valve sclerosis, vitamin D deficiency, senile osteoporosis, gouty arthropathy and lymphedema of the bilateral lower extremities who was admitted 07/16 for decompensated heart failure, GILBERTO on CKD, and uncomplicated UTI. Course complicated by continued delirium and encephalopathy in the setting of progressing acute renal failure on chronic renal failure. Hgb down to 6.6 with no clear sign of bleeding, responded to 1 U PRBC. Hgb remains in low-mid 7s, Concern for impending HD. Family and patient state they will pursue if its necessary Spoke with nephrology, will trial lasix once more and assess response. #Acute on chronic macrocytic anemia b12 217, folate >22 Hgb <7 iso cardiac disease, will transfuse 1 UPRBC folowed by 20mg IV lasix no overt signs of bleed at this time elevated retic, normal t bili, no overt signs of hemolysis will likely require epo in near future #GILBERTO on CKD IV #Azotemia #Hyperkalemia #Hyperphosphatemia baseline 1.8-2 Cr, uptrending to 4.40, now at 3.9 trialed on lasix, the IVF with minimal improvement Renal rest over weekend with diuretic trial started on 07/22 daily standing weights 1.5 L FR continue po mag Avoid nsaids/contrast and other nephrotoxic agents IV lasix s/p PRBC, no response with 1 L IVF Valtessa x1 07/21 shafer for I/Os day by day assessment for diuretics -IV lasix 40mg x 1 today per nephrology #Acute metabolic encephalopathy *stable avoid medications that could alter mental status, concern that due to progressive renal dysfunction these medications are contributing to her encephalopathy. ABG: no evidence of hypercarbia Ammonia level <10, b12 217, folate >22 avoid benzos or antipsychotics if able Delirium precautions #Elevated troponin iso demand #Acute HFmrEF 35-40% 07/17 #PACs Cards does not suspect atrial fibrillation. No need for anticoagulation continue conservative med management at this [facility] home imdur/hydral held 2/2 hypotension continue bb Continue to monitor renal function Glucose was reviewed, continue to cover with insulin Discontinue Zyprexa, trazodone, Daughter and son at bedside at separate times, updated 1 at bedside. Multiple visits made to the bedside throughout the day #Acute uncomplicated UTI asymptomatic, but notably ill on admission s/p CTX SCDS Dispo contingent on hgb and renal function stabilizing PT/OT rehab recommendation Admission and Anticipated Discharge Date Admission Date: July 16, 2024 Subjective NAEO Reports feeling tired this am and with pruritus Denies any nausea or vomiting, patient's family states patient is still at mentation baseline Physical Exam Constitutional: WD/WN, vitals as above Respiratory: normal respiratory effort, lungs clear to auscultation Cardiovascular: RRR Skin: BUE swelling, BLE nonpitting edema Neurologic: PERRL, EOMI, accommodation nl, no face palsy, no dysarthria Results & Data Results & Data Vital Signs (Past 12 Hours) Vital Signs Temp Pulse Pulse Resp BP Pulse Ox O2 Del Method 07/23/24 11:06 36.7 C 51 L 18 105/61 98 Nasal Cannula 07/23/24 08:00 Nasal Cannula 07/23/24 07:37 36.9 C 59 L 20 111/65 96 Nasal Cannula 07/23/24 07:00 64 07/23/24 03:02 36.5 C 68 18 112/41 L 92 Nasal Cannula O2 Flow Rate 07/23/24 11:06 2 07/23/24 08:00 2 07/23/24 07:37 2 07/23/24 07:00 07/23/24 03:02 2 Laboratory Results Home Medications Medication Instructions Recorded Confirmed Last Taken allopurinol 100 mg tablet 200 mg PO DAILY 07/16/24 07/16/24 Unknown aspirin 81 mg tablet,delayed 81 mg PO 2XWK 07/16/24 07/16/24 Unknown release atorvastatin 40 mg tablet 40 mg PO DAILY 07/16/24 07/16/24 Unknown chlorthalidone 25 mg tablet 50 mg PO DAILY 07/16/24 07/16/24 Unknown cholecalciferol (vitamin D3) 10 10 mcg PO DAILY 07/16/24 07/16/24 Unknown mcg (400 unit) capsule folic acid 1 mg tablet 1 mg PO DAILY 07/16/24 07/16/24 Unknown furosemide 20 mg tablet 20 mg PO DAILY 07/16/24 07/16/24 Unknown hydralazine 10 mg tablet 10 mg PO BID 07/16/24 07/16/24 Unknown levothyroxine 75 mcg tablet 75 mcg PO DAILY@0630 07/16/24 07/16/24 Unknown lisinopril 5 mg tablet 5 mg PO PM 07/16/24 07/16/24 Unknown metoprolol succinate 25 mg 25 mg PO DAILY 07/16/24 07/16/24 Unknown tablet,extended release 24 hr Active Medications Generic Name Dose Route Start Last Admin [facility] Reason Stop Dose Admin Acetaminophen 650 mg 07/16/24 16:02 07/23/24 09:12 Acetaminophen 325 Mg Tab PO 08/15/24 16:01 650 mg Q4H PRN Administration Pain or Fever Allopurinol 100 mg 07/17/24 09:00 07/23/24 09:07 Allopurinol 100 Mg Tab PO 08/16/24 08:59 100 mg DAILY HUNTER Administration Aspirin 81 mg 07/18/24 09:00 07/22/24 09:10 Aspirin 81 Mg Ectab PO 08/17/24 08:59 81 mg [email or web address] HUNTER Administration Atorvastatin Calcium 40 mg 07/17/24 09:00 07/23/24 09:07 Atorvastatin 40 Mg Tab PO 08/16/24 08:59 40 mg DAILY HUNTER Administration Folic Acid 1 mg 07/17/24 09:00 07/23/24 09:07 Folic Acid 1 Mg Tab PO 08/16/24 08:59 1 mg DAILY HUNTER Administration Hydralazine HCl 10 mg 07/16/24 21:00 07/21/24 09:14 Hydralazine 10 Mg Tab PO 08/15/24 20:59 10 mg BID HUNTER Administration Isosorbide Dinitrate 5 mg 07/18/24 10:30 07/21/24 09:14 Isosorbide Dinitrate 5 Mg Tab PO 08/17/24 10:29 5 mg BID HUNTER Administration Levothyroxine Sodium 75 mcg 07/17/24 06:30 07/23/24 05:27 Levothyroxine Sodium 75 Mcg Tablet PO 08/16/24 06:29 75 mcg DAILY@0630 HUNTER Administration Metoprolol Succinate 12.5 mg 07/21/24 09:00 07/23/24 09:07 Metoprolol Succ 25mg Ext Rel Tab PO 08/20/24 08:59 12.5 mg DAILY HUNTER Administration Polyethylene Glycol 17 gm 07/20/24 15:30 07/23/24 09:08 Polyethylene (Miralax) 17 Gm Pack PO 08/19/24 15:29 17 gm DAILY HUNTER Administration Vitamin D 10 mcg 07/17/24 09:00 07/23/24 09:06 Cholecalciferol 10 Mcg (400 Units) Tab PO 08/16/24 08:59 10 mcg DAILY HUNTER Administration Medications Administered Home Medications Medication Instructions Recorded Confirmed Last Taken allopurinol 100 mg tablet 200 mg PO DAILY 07/16/24 07/16/24 Unknown aspirin 81 mg tablet,delayed 81 mg PO 2XWK 07/16/24 07/16/24 Unknown release atorvastatin 40 mg tablet 40 mg PO DAILY 07/16/24 07/16/24 Unknown chlorthalidone 25 mg tablet 50 mg PO DAILY 07/16/24 07/16/24 Unknown cholecalciferol (vitamin D3) 10 10 mcg PO DAILY 07/16/24 07/16/24 Unknown mcg (400 unit) capsule folic acid 1 mg tablet 1 mg PO DAILY 07/16/24 07/16/24 Unknown furosemide 20 mg tablet 20 mg PO DAILY 07/16/24 07/16/24 Unknown hydralazine 10 mg tablet 10 mg PO BID 07/16/24 07/16/24 Unknown levothyroxine 75 mcg tablet 75 mcg PO DAILY@0630 07/16/24 07/16/24 Unknown lisinopril 5 mg tablet 5 mg PO PM 07/16/24 07/16/24 Unknown metoprolol succinate 25 mg 25 mg PO DAILY 07/16/24 07/16/24 Unknown tablet,extended release 24 hr Active Medications Generic Name Dose Route Start Last Admin Trade Name Freq PRN Reason Stop Dose Admin Acetaminophen 650 mg 07/16/24 16:02 07/23/24 09:12 Acetaminophen 325 Mg Tab PO 08/15/24 16:01 650 mg Q4H PRN Administration Pain or Fever Allopurinol 100 mg 07/17/24 09:00 07/23/24 09:07 Allopurinol 100 Mg Tab PO 08/16/24 08:59 100 mg DAILY HUNTER Administration Aspirin 81 mg 07/18/24 09:00 07/22/24 09:10 Aspirin 81 Mg Ectab PO 08/17/24 08:59 81 mg [email or web address] HUNTER Administration Atorvastatin Calcium 40 mg 07/17/24 09:00 07/23/24 09:07 Atorvastatin 40 Mg Tab PO 08/16/24 08:59 40 mg DAILY HUNTER Administration Folic Acid 1 mg 07/17/24 09:00 07/23/24 09:07 Folic Acid 1 Mg Tab PO 08/16/24 08:59 1 mg DAILY HUNTER Administration Hydralazine HCl 10 mg 07/16/24 21:00 07/21/24 09:14 Hydralazine 10 Mg Tab PO 08/15/24 20:59 10 mg BID HUNTER Administration Isosorbide Dinitrate 5 mg 07/18/24 10:30 07/21/24 09:14 Isosorbide Dinitrate 5 Mg Tab PO 08/17/24 10:29 5 mg BID HUNTER Administration Levothyroxine Sodium 75 mcg 07/17/24 06:30 07/23/24 05:27 Levothyroxine Sodium 75 Mcg Tablet PO 08/16/24 06:29 75 mcg DAILY@0630 HUNTER Administration Metoprolol Succinate 12.5 mg 07/21/24 09:00 07/23/24 09:07 Metoprolol Succ 25mg Ext Rel Tab PO 08/20/24 08:59 12.5 mg DAILY HUNTER Administration Polyethylene Glycol 17 gm 07/20/24 15:30 07/23/24 09:08 Polyethylene (Miralax) 17 Gm Pack PO 08/19/24 15:29 17 gm DAILY HUNTER Administration Vitamin D 10 mcg 07/17/24 09:00 07/23/24 09:06 Cholecalciferol 10 Mcg (400 Units) Tab PO 08/16/24 08:59 10 mcg DAILY HUNTER Administration
[2024-07-23] MEDS: NYSTATIN POWDER 15GM BTL EXT SCH (21:13)
[2024-07-24 08:44] LABS: Hematocrit (blood only) 23.1 % (37.0-47.0); Hemoglobin 7.2 g/dl (12.0-16.0); Mean Corpuscular Hgb Conc 31.2 g/dL (32.0-36.0); Mean Corpuscular Volume 99.6 fL (80.0-100.0); Platelet Count 160 K/uL (130-400); RDW Coefficient of Variation 13.9 % (11.5-14.5); RDW Standard Deviation 50.6 fL (36.4-46.3); Red Blood Count 2.32 M/uL (4.20-5.40)
[2024-07-24 09:00] LABS: BUN Creatinine Ratio 31.5 (10-20); Calcium 8.9 mg/dl (8.6-10.3); Creatinine Clr Calc Pharmacy 13.1 ml/min; Magnesium 2.5 mg/dl (1.7-2.4); Phosphorus 7.4 mg/dl (2.5-4.9); Potassium 4.6 mmol/L (3.5-5.1)
--- NOTE | 2024-07-24 10:44 | Nephrology Progress Note ---
Date of Service July 24, 2024 Assessment & Plan Admission and Anticipated Discharge Date Admission Date: July 16, 2024 Subjective Assessment & Plan (1) Acute worsening of stage 4 chronic kidney disease: Plan: nonoliguric wendy on CKD 4, baseline creatinine 1.8-2. UA w/ possible UTI > asx but cx E coli + standing wts improving 100.9 > 99.7 07/18; no standing weight today > reminded team but w/ lethargy not an option today Urine output has been low last few days. urine only 650 ml yesterday despite lasix 40 iv x 1 Still has e/o fluid overload/CHF. Peak creat of 4.4 and now downtrending. So no dialysis for today but would like to see sustained drop in creat before we can for sure. lasix 60 mg iv x 1 today daily standing wts when able and 1.5 L FR to continue daily bmp continue avoidance of nsaids and unless lifesaving IV con for CT na slightly low but should get better with Iv lasix and further diuresis continue standing weights as feasible Care coordinated with hospitalist and we are in agreement. (2) Anemia: Plan: hgb is low at 7.2 today. Can do Epogen 08872 units sub q today. She will need this as outpt also through CKD clinic monitor for bleeding transfuse pRBC for hgb <7 Subjective feeling much better. Still on o2 but breathing reported better. No other acute Symptoms. Has shafer and made urine 650 ml yesterday Review of Systems Review of Systems: Unobtainable due to mental health condition Physical Exam Constitutional: well developed, + obese, + frail appearing and + lethargic; no acute distress ENMT: Mouth: + dry oral mucous membranes Neck: no nuchal rigidity Respiratory: normal respiratory effort Auscultation: + diminished lung sounds Cardiovascular: Rate/Rhythm: regular rate and regular rhythm Extremities: no edema Gastrointestinal (Abdomen): Inspection/Auscultation: normal bowel sounds Percussion/Palpation: abdomen soft; abdomen nontender Skin: no rashes, warm and dry Results & Data Vital Signs (Past 12 Hours) Vital Signs Temp Pulse Pulse Resp BP BP Pulse Ox 07/24/24 09:26 07/24/24 07:47 36.9 C 57 L 20 102/67 95 07/24/24 07:34 53 L 07/24/24 03:34 36.6 C 72 20 95/51 L 97 07/24/24 00:12 52 L 07/23/24 23:49 36.7 C 56 L 20 93/55 L 98 07/23/24 23:12 O2 Del Method O2 Flow Rate 07/24/24 09:26 Nasal Cannula 2 07/24/24 07:47 Nasal Cannula 2 07/24/24 07:34 07/24/24 03:34 Nasal Cannula 2 07/24/24 00:12 07/23/24 23:49 Nasal Cannula 2 07/23/24 23:12 Nasal Cannula 2
--- NOTE | 2024-07-24 12:05 | Hospitalist Progress Note ---
Date of Service July 24, 2024 Assessment & Plan (1) Acute systolic CHF (congestive heart failure), NYHA class 3: (2) Acute renal failure superimposed on stage 4 chronic kidney disease: (3) Delirium due to another medical condition: (4) Mild cognitive impairment: (5) Acute metabolic encephalopathy: (6) Anemia, chronic renal failure: (7) E. coli UTI: (8) Ischemic cardiomyopathy: (9) Hypothyroid: (10) T2DM (type 2 diabetes mellitus): (11) Hypertension: (12) Hyperlipidemia: (13) ASCVD (arteriosclerotic cardiovascular disease): Plan Ms. Stacie Quintana is an 84-year-old female who has a significant past medical history of T2DM, HTN, HLD, hypothyroidism, hyperparathyroidism, venous insufficiency, CKD stage IV, aortic valve sclerosis, vitamin D deficiency, senile osteoporosis, gouty arthropathy and lymphedema of the bilateral lower extremities who was admitted 07/16 for decompensated heart failure, GILBERTO on CKD, and uncomplicated UTI. Course complicated by continued delirium and encephalopathy in the setting of progressing acute renal failure on chronic renal failure. Hgb down to 6.6 with no clear sign of bleeding, responded to 1 U PRBC. Hgb remains in low-mid 7s. Discussing role for EPO if necessary in coming days. Concern for impending HD. Family and patient state they will pursue if its necessary. Patient has been doing well with daily IV lasix and subtle downtrend in Cr with increase in UOP. Discussed case with nephrology, will continue daily lasix and reassess response. #Acute on chronic macrocytic anemia b12 217, folate >22 Hgb <7 iso cardiac disease, s/p transfusion prbc 07/20 no overt signs of bleed at this time elevated retic, normal t bili, no overt signs of hemolysis will likely require epo in near future trend cbc #GILBERTO on CKD IV #Azotemia #Hyperkalemia #Hyperphosphatemia baseline 1.8-2 Cr, uptrending to 4.40, now at 3.9 trialed on lasix, the IVF with minimal improvement Renal rest over weekend with diuretic trial started on 07/22 daily standing weights 1.5 L FR continue po mag Avoid nsaids/contrast and other nephrotoxic agents IV lasix s/p PRBC, no response with 1 L IVF Valtessa x1 07/21 shafer for I/Os day by day assessment for diuretics -IV lasix 60mg x 1 today per nephrology #Acute metabolic encephalopathy *stable avoid medications that could alter mental status, concern that due to progressive renal dysfunction these medications are contributing to her encephalopathy. ABG: no evidence of hypercarbia Ammonia level <10, b12 217, folate >22 avoid benzos or antipsychotics if able Delirium precautions #Elevated troponin iso demand #Acute HFmrEF 35-40% 07/17 #PACs Cards does not suspect atrial fibrillation. No need for anticoagulation continue conservative med management at this [facility] home imdur/hydral held 2/2 hypotension continue bb may consider low dose midodrine iso hypotension #DMTII Glucose was reviewed, continue to cover with insulin , #Acute uncomplicated UTI asymptomatic, but notably ill on admission s/p CTX SCDS Dispo contingent on hgb and renal function stabilizing PT/OT rehab recommendation Admission and Anticipated Discharge Date Admission Date: July 16, 2024 Subjective NAEO slight increase in UOP Patient denies any chest pain, SOB, or other acute concerns--just generalized fatigue Physical Exam Constitutional: WD/WN, vitals as above Respiratory: diminished 2/2 effort Cardiovascular: RRR KAVIN Skin: BUE edema, nonpitting BLE edema Results & Data Results & Data Vital Signs (Past 12 Hours) Vital Signs Temp Pulse Pulse Resp BP BP Pulse Ox 07/24/24 11:23 36.4 C L 52 L 20 97/60 L 96 07/24/24 09:26 07/24/24 07:47 36.9 C 57 L 20 102/67 95 07/24/24 07:34 53 L 07/24/24 03:34 36.6 C 72 20 95/51 L 97 07/24/24 00:12 52 L O2 Del Method O2 Flow Rate 07/24/24 11:23 Nasal Cannula 2 07/24/24 09:26 Nasal Cannula 2 07/24/24 07:47 Nasal Cannula 2 07/24/24 07:34 07/24/24 03:34 Nasal Cannula 2 07/24/24 00:12
[2024-07-24] MEDS: EPOETIN ALFA 10,000 UNITS/ML VIAL SQ ONE (12:23)
[2024-07-25 06:42] LABS: Hematocrit (blood only) 23.4 % (37.0-47.0); Hemoglobin 7.4 g/dl (12.0-16.0); Mean Corpuscular Hemoglobin 31.5 pg (25.0-34.0); Mean Corpuscular Hgb Conc 31.6 g/dL (32.0-36.0); Mean Corpuscular Volume 99.6 fL (80.0-100.0); Platelet Count 161 K/uL (130-400); RDW Coefficient of Variation 13.9 % (11.5-14.5); RDW Standard Deviation 49.5 fL (36.4-46.3); Red Blood Count 2.35 M/uL (4.20-5.40); White Blood Count 4.91 K/ul (4.8-10.8)
[2024-07-25 07:12] LABS: Anion Gap 10 (3-11); BUN Creatinine Ratio 34.5 (10-20); Blood Urea Nitrogen 120 mg/dl (6-23); Calcium 8.7 mg/dl (8.6-10.3); Carbon Dioxide 23 mmol/L (21-32); Chloride 97 mmol/L (98-107); Creatinine Clr Calc Pharmacy 13.4 ml/min; Glucose 82 mg/dl (70-99(Fasting)); Magnesium 2.6 mg/dl (1.7-2.4); Phosphorus 7.6 mg/dl (2.5-4.9); Sodium 130 mmol/L (136-145)
[2024-07-25] MEDS: CYANOCOBALAMIN (B-12) 500 MCG TABLET PO SCH (08:52)
--- NOTE | 2024-07-25 09:45 | Nephrology Progress Note ---
Date of Service July 25, 2024 Assessment & Plan Admission and Anticipated Discharge Date Admission Date: July 16, 2024 Subjective Assessment & Plan (1) Acute worsening of stage 4 chronic kidney disease: Plan: nonoliguric wendy on CKD 4, baseline creatinine 1.8-2. UA w/ possible UTI > asx but cx E coli + standing wts improving 100.9 > 99.7 07/18; no standing weight today > reminded team but w/ lethargy not an option today Urine output has been low last few days. urine only 450 ml yesterday despite lasix 40 iv x 1 Still has e/o fluid overload/CHF on exam though Peak creat of 4.4 and now creat downtrending. However BUN is still rising. So no dialysis for today but would like to see sustained drop in creat before we can for sure. had Pulm edema on last CXR 07/19. even though she had lasix iv last few days her urine output has been very low at 450 ml only . will repeat CXR to see if she needs more lasix or not. Maybe she needs a much higher dose to cause diuresis daily standing wts when able and 1.5 L FR to continue daily bmp continue avoidance of nsaids and unless lifesaving IV con for CT na getting lower and now 130. On exam she appears fluid overloaded. had Pulm edema on last CXR 07/19. even though she had lasix iv last few days her urine output has been very low at 450 ml only . will repeat CXR to see if she needs more lasix or not. Maybe she needs a much higher dose to cause diuresis continue standing weights as feasible Care coordinated with hospitalist and we are in agreement. (2) Anemia: Plan: hgb is low 7.4 Did give Epogen 46431 units sub q yesterday. She will need this as outpt also through CKD clinic monitor for bleeding transfuse pRBC for hgb <7 Subjective feeling better. Still on o2 but breathing reported better. No other acute Symptoms. Has shafer and made urine only 450 ml yesterday despite iv lasix 60 Physical Exam Constitutional: well developed, + obese, + frail appearing and + lethargic; no acute distress ENMT: Mouth: + dry oral mucous membranes Neck: no nuchal rigidity Respiratory: normal respiratory effort Auscultation: + diminished lung sounds Cardiovascular: Rate/Rhythm: regular rate and regular rhythm Extremities: no edema Gastrointestinal (Abdomen): Inspection/Auscultation: normal bowel sounds Percussion/Palpation: abdomen soft; abdomen nontender Skin: no rashes, warm and dry Results & Data Vital Signs (Past 12 Hours) Vital Signs Temp Pulse Pulse Resp BP Pulse Ox O2 Del Method 07/25/24 09:32 50 L 07/25/24 07:47 36.6 C 65 17 119/74 99 Nasal Cannula 07/25/24 03:17 45 L 07/25/24 02:29 36.4 C L 57 L 18 122/69 96 Nasal Cannula 07/24/24 22:27 Nasal Cannula 07/24/24 22:13 36.4 C L 44 L 18 102/61 92 Nasal Cannula O2 Flow Rate 07/25/24 09:32 07/25/24 07:47 2 07/25/24 03:17 07/25/24 02:29 2 07/24/24 22:27 2 07/24/24 22:13 2
--- NOTE | 2024-07-25 10:26 | XRay Report ---
XR chest 1V portable CLINICAL HISTORY: f/u Pulm edema COMPARISON STUDY: Chest radiograph July 19, 2024. FINDINGS: There is no pneumothorax. Trace bilateral pleural effusions are present. Bibasilar opacitie s are noted. Right basilar opacity is improved. Pulmonary edema has improved. There is no pneumothora x. Cardiomegaly is again noted. Mediastinal contours are stable. Upper mediastinal widening is unchan ged. IMPRESSION: 1. Cardiomegaly. Mild interval improvement in pulmonary edema. 2. Small bilateral pleural effusions with mild bibasilar opacities. ACT 112: Negative or not required by law. Electronically signed by: Navin Pereyra M.D. 07/25/2024 10:24 AM
--- NOTE | 2024-07-25 14:12 | Hospitalist Progress Note ---
Date of Service July 25, 2024 Assessment & Plan (1) Acute systolic CHF (congestive heart failure), NYHA class 3: (2) Acute renal failure superimposed on stage 4 chronic kidney disease: (3) Delirium due to another medical condition: (4) Mild cognitive impairment: (5) Acute metabolic encephalopathy: (6) Anemia, chronic renal failure: (7) E. coli UTI: (8) Ischemic cardiomyopathy: (9) Hypothyroid: (10) T2DM (type 2 diabetes mellitus): (11) Hypertension: (12) Hyperlipidemia: (13) ASCVD (arteriosclerotic cardiovascular disease): Plan 84-year-old female w/ PMH of T2DM, HTN, HLD, hypothyroidism, hyperparathyroidism, venous insufficiency, CKD stage IV, aortic valve sclerosis, vitamin D deficiency, senile osteoporosis, gouty arthropathy and lymphedema of the bilateral lower extremities who was admitted 07/16 for decompensated heart failure, GILBERTO on CKD, and uncomplicated UTI. She is being managed for the following: Acute on chronic macrocytic anemia: Admitting hemoglobin of 7.4, hemoglobin went down to 6.6 on 07/20 with no clear sign of bleeding. No signs of hemolysis. Iron levels fairly WNL, vitamin B-12 at 217 and folate at greater than 22. Status post 1 unit PRBC on 07/20, hemoglobin has been stable around 7.5 since then. Patient is a status post Epoetin Vidal 07/24. Likely anemia of chronic disease in the setting of chronic kidney disease. Will get FOBT Monitor H&H daily and as needed. Will continue to need EPO through CKD clinic. Add b12 supplement 07/25. GILBERTO over CKD stage IV Azotemia Hyperkalemia and hyperphosphatemia Hyponatremia Patient with baseline creatinine of 1.8 to 2.0, admitting creatinine of 2.71, peaked at 4.40 on 07/22. Potassium peaked at 5.4 on 07/21. S/P Valtessa x1 07/21 Phosphorus has been high to mid sevens. Nephrology on board, cautiously diuresing, FR of 1.5 L, patient with very low urine output, no need for dialysis for today. Creatinine very slowly improving. Avoid nephrotoxic's and NSAIDs. Appreciate nephrology input and management. shafer for I/Os Concern for impending HD. Family and patient state they will pursue if its necessary. Acute metabolic encephalopathy: *stable ABG w/ no hypercarbia, NH3 < 10, b12 at 217 Hospital course was complicated by continued delirium and encephalopathy in the setting of progressing acute renal failure on chronic renal failure. Avoid medications that could alter mental status, concern that due to progressive renal dysfunction these medications are contributing to her encephalopathy. c/w B12 supplement Currently mentation has been stable. pt does appears tiered than her normal per pt and her dtr. OOB and c/w PT/OT. 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 No need for anticoagulation Continue conservative med management at this time home imdur/hydral held 2/2 hypotension BB held 2/2 hydralazine held due to bradycardia may consider low dose midodrine iso hypotension it persistent hypotension. f/u cardio on dc. DMTII: Glucose was reviewed, continue to cover with insulin Acute uncomplicated UTI: asymptomatic, but notably ill on admission. s/p CTX SCDS, no chemo dvt px due to anemia. Dispo contingent on hgb and renal function stabilizing PT/OT -- rehab recommendation Admission and Anticipated Discharge Date Admission Date: July 16, 2024 Subjective Patient was seen and examined at bedside. Patient's daughter at bedside, who was also updated on plan of care. Patient was lying in bed, on 2 L oxygen via nasal cannula, NAD. Patient reports feeling tired, had multiple loose stools yesterday per RN, 1 stool today per RN. Patient denies abdominal pain. Physical Exam Physical Exam: GENERAL: Tired, oriented. NAD, on 2L NC O2. Appears weak/tired/ill. Obese class III. HEENT: No pallor, no icterus. Pupils equal, round and reactive to light. Oral mucosa moist. NECK: No JVD, no neck masses. HEART: S1 and S2 heard. Regular rate and rhythm. No murmur, no gallop. RESPIRATORY SYSTEM: Normal AP diameter. No accessory muscle use. No wheezing, no crackles. decreased b/l breath sounds 2/2 poor effort. ABDOMEN: Soft, bowel sounds present, nontender, no distention. CENTRAL NERVOUS SYSTEM: No facial droop. Speech is clear. Obeys simple commands. Moves extremities. EXTREMITIES: No edema/loose skin w/ wrinkles, no erythema seen. Results & Data Results & Data Vital Signs (Past 12 Hours) Vital Signs Temp Pulse Pulse Resp BP Pulse Ox O2 Del Method 07/25/24 13:13 36.8 C 51 L 18 107/67 100 Room Air 07/25/24 11:28 Nasal Cannula 07/25/24 09:32 50 L 07/25/24 07:47 36.6 C 65 17 119/74 99 Nasal Cannula 07/25/24 03:17 45 L 07/25/24 02:29 36.4 C L 57 L 18 122/69 96 Nasal Cannula O2 Flow Rate 07/25/24 13:13 07/25/24 11:28 2 07/25/24 09:32 07/25/24 07:47 2 07/25/24 03:17 07/25/24 02:29 2
[2024-07-25] MEDS: ONDANSETRON INJ 2 MG/ML 2 ML VIAL IV PRN (21:47)
[2024-07-26 06:48] LABS: Hematocrit (blood only) 22.9 % (37.0-47.0); Hemoglobin 7.2 g/dl (12.0-16.0); Mean Corpuscular Hgb Conc 31.4 g/dL (32.0-36.0); Mean Corpuscular Volume 98.7 fL (80.0-100.0); Mean Platelet Volume 12.1 fL (9.4-12.4); Platelet Count 166 K/uL (130-400); RDW Coefficient of Variation 13.9 % (11.5-14.5); Red Blood Count 2.32 M/uL (4.20-5.40); White Blood Count 5.02 K/ul (4.8-10.8)
[2024-07-26 07:19] LABS: BUN Creatinine Ratio 38.3 (10-20); Calcium 8.4 mg/dl (8.6-10.3); Creatinine Clr Calc Pharmacy 15.1 ml/min; Magnesium 2.5 mg/dl (1.7-2.4); Phosphorus 7.2 mg/dl (2.5-4.9); Potassium 4.9 mmol/L (3.5-5.1)
[2024-07-26] MEDS: FUROSEMIDE 40 MG/4 ML VIAL IV ONE (10:18)
[2024-07-26] MEDS: FUROSEMIDE 100 MG in DEXTROSE 5% 90 ML IV SCH (10:50)
[2024-07-26] MEDS ORDERED: SODIUM CHLORIDE 0.9% 50 ML IV PRN (11:59)
[2024-07-26] MEDS ORDERED: SODIUM CHLORIDE 0.9% 100 ML IV PRN (11:59)
--- NOTE | 2024-07-26 13:03 | Nephrology Progress Note ---
Date of Service July 26, 2024 Assessment & Plan (1) Acute worsening of stage 4 chronic kidney disease: Plan: patient with wendy on CKD 4, baseline creatinine 1.8-2. Etiology is likely ischemic ATN due to E coli UTI. Chest x-ray showed pulmonary edema. creatinine of 3.5 yesterday but downtrending 3.2 today. We will start Lasix drip today to see if patient responds. Discussed with the patient that if she does not respond to Lasix drip, she might end up needing dialysis. Patient is willing to do dialysis if needed. Patient lives alone and ambulates with a walker at baseline. Son helps with medications in a pillbox. - Will attempt IV Lasix 80 mg bolus followed by Lasix drip at 15 milligrams/hour. The goal is to make patient net negative 1 L daily. -daily bmp -continue avoidance of nsaids and unless lifesaving IV con for CT magnesium 1.6 > 2.1 > 2.3 >> changed to q2d from daily po mag Extensive discussion with patient and daughter who was at the bedside. (2) Anemia: Plan: hgb down again , improved w/ 1 u PRBC -daily hgb -monitor for bleeding -transfuse pRBC for chest pain or hgb 7 or less Admission and Anticipated Discharge Date Admission Date: July 16, 2024 Subjective Seen for acute kidney injury on CKD. No shortness of breath. She is eating well. She made 500 mL of urine yesterday. Creatinine stable at 3.2 today. Review of Systems 2 Review of Systems: All other systems were reviewed and negative except as noted in HPI Physical Exam 2 Physical Exam: General exam: Appears comfortable, no acute distress HEENT: Pupils are equal and reactive to light Neck: No JVD, neck is supple trachea is midline Respiratory system: Crackles bilaterally. Gastrointestinal: Abdomen is soft, non distended, non tender, bowel sounds are present CVS: Regular rate and rhythm. No murmurs, rubs or gallops Musculoskeletal: No joint or muscle tenderness Extremities: Non tender, no edema, peripheral pulses are present Neuro: Oriented, no tremors, no focal neurological deficits Skin: No rashes Results & Data Vital Signs (Past 12 Hours) Vital Signs Temp Pulse Resp BP Pulse Ox O2 Del Method O2 Flow Rate 07/26/24 11:11 36.3 C L 45 L 18 103/48 L 99 Nasal Cannula 2 07/26/24 07:39 36.4 C L 57 L 20 111/51 L 92 Nasal Cannula 2 07/26/24 07:14 Nasal Cannula 2 07/26/24 03:15 36.3 C L 60 18 113/57 L 96 Nasal Cannula 2 Laboratory Results 07/26/24 06:16 07/26/24 06:16 WBC 5.02 RBC 2.32 L MCV 98.7 MCH 31.0 MCHC 31.4 L RDW Std Deviation 50.0 H RDW Coeff of Roverto 13.9 Plt Count 166 MPV 12.1 Phosphorus 7.2 H (2) Anemia Anemia type: unspecified type Qualified Code(s): D64.9 - Anemia, unspecified
--- NOTE | 2024-07-26 14:45 | Hospitalist Progress Note ---
Date of Service July 26, 2024 Assessment & Plan (1) Acute systolic CHF (congestive heart failure), NYHA class 3: (2) Acute renal failure superimposed on stage 4 chronic kidney disease: (3) Delirium due to another medical condition: (4) Mild cognitive impairment: (5) Acute metabolic encephalopathy: (6) Anemia, chronic renal failure: (7) E. coli UTI: (8) Ischemic cardiomyopathy: (9) Hypothyroid: (10) T2DM (type 2 diabetes mellitus): (11) Hypertension: (12) Hyperlipidemia: (13) ASCVD (arteriosclerotic cardiovascular disease): Plan 84-year-old female w/ PMH of T2DM, HTN, HLD, hypothyroidism, hyperparathyroidism, venous insufficiency, CKD stage IV, aortic valve sclerosis, vitamin D deficiency, senile osteoporosis, gouty arthropathy and lymphedema of the bilateral lower extremities who was admitted 07/16 for decompensated heart failure, GILBERTO on CKD, and uncomplicated UTI. She is being managed for the following: Acute on chronic macrocytic anemia: Admitting hemoglobin of 7.4, hemoglobin went down to 6.6 on 07/20 with no clear sign of bleeding. No signs of hemolysis. Iron levels fairly WNL, vitamin B-12 at 217 and folate at greater than 22. Status post 1 unit PRBC on 07/20, hemoglobin has been stable around 7.5 since then. Patient is a status post Epoetin Vidal 07/24. Will get 1 unit prbc 07/26 Likely anemia of chronic disease in the setting of chronic kidney disease. Will get FOBT, still uncollected. Monitor H&H daily and as needed. Will continue to need EPO through CKD clinic. c/w b12 supplement Pt continues to be tired/lethargic and Hb borderline around 7, will transfuse 1 unit prbc today. GILBERTO over CKD stage IV Azotemia Hyperkalemia and hyperphosphatemia Hyponatremia Patient with baseline creatinine of 1.8 to 2.0, admitting creatinine of 2.71, peaked at 4.40 on 07/22. Potassium peaked at 5.4 on 07/21. S/P Valtessa x1 07/21 Phosphorus has been high to mid sevens. Nephrology on board, cautiously diuresing, FR of 1.5 L, patient with very low urine output, no need for dialysis for today. Creatinine very slowly improving. Avoid nephrotoxic's and NSAIDs. Appreciate nephrology input and management. shafer for I/Os Concern for impending HD. Family and patient state they will pursue if its necessary. Acute metabolic encephalopathy: *stable ABG w/ no hypercarbia, NH3 < 10, b12 at 217 Hospital course was complicated by continued delirium and encephalopathy in the setting of progressing acute renal failure on chronic renal failure. Avoid medications that could alter mental status, concern that due to progressive renal dysfunction these medications are contributing to her encephalopathy. c/w B12 supplement Currently mentation has been stable. pt does appears tiered than her normal per pt and her dtr. OOB and c/w PT/OT. 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 No need for anticoagulation Continue conservative med management at this time home imdur/hydral held 2/2 hypotension BB held 2/2 held due to bradycardia may consider low dose midodrine iso hypotension it persistent hypotension. f/u cardio on dc. DMTII: Glucose was reviewed, continue to cover with insulin Acute uncomplicated UTI: asymptomatic, but notably ill on admission. s/p CTX SCDS, no chemo dvt px due to anemia. Dispo contingent on hgb and renal function stabilizing PT/OT -- rehab recommendation Admission and Anticipated Discharge Date Admission Date: July 16, 2024 Subjective Patient was seen and examined at bedside. Patient's daughter at bedside, who was also updated on plan of care. Patient was lying in bed, on 2 L oxygen via nasal cannula, NAD. Patient reports feeling tired for last few days, discussed with patient and her daughter at bedside for need of blood transfusion due to her being tired x last few days and blood level being at borderline level of 7.2. They agreed. Will transfuse 1 unit PRBC today. Patient denies abdominal pain. Physical Exam Physical Exam: GENERAL: Tired, oriented. NAD, on 2L NC O2. Appears weak/tired/ill. Obese class III. HEENT: No pallor, no icterus. Pupils equal, round and reactive to light. Oral mucosa moist. NECK: No JVD, no neck masses. HEART: S1 and S2 heard. Regular rate and rhythm. No murmur, no gallop. RESPIRATORY SYSTEM: Normal AP diameter. No accessory muscle use. No wheezing, no crackles. decreased b/l breath sounds 2/2 poor effort. ABDOMEN: Soft, bowel sounds present, nontender, no distention. CENTRAL NERVOUS SYSTEM: No facial droop. Speech is clear. Obeys simple commands. Moves extremities. EXTREMITIES: No edema/loose skin w/ wrinkles, no erythema seen. Results & Data Results & Data Vital Signs (Past 12 Hours) Vital Signs Temp Pulse Pulse Resp BP Pulse Ox O2 Del Method 07/26/24 14:39 55 L 07/26/24 14:38 56 L 07/26/24 11:11 36.3 C L 45 L 18 103/48 L 99 Nasal Cannula 07/26/24 07:39 36.4 C L 57 L 20 111/51 L 92 Nasal Cannula 07/26/24 07:14 Nasal Cannula 07/26/24 03:15 36.3 C L 60 18 113/57 L 96 Nasal Cannula O2 Flow Rate 07/26/24 14:39 07/26/24 14:38 07/26/24 11:11 2 07/26/24 07:39 2 07/26/24 07:14 2 07/26/24 03:15 2
[2024-07-26] MEDS: diphenhydrAMINE HCL 25 MG/10 ML UDC PO PRN (15:29)
[2024-07-26 23:11] LABS: Hematocrit (blood only) 22.8 % (37.0-47.0); Hemoglobin 7.3 g/dl (12.0-16.0)
[2024-07-27 08:31] LABS: Bilirubin Direct 0.4 mg/dl (0-0.2); Bilirubin,Total 1.7 mg/dl (0.2-1.0); Calcium 8.2 mg/dl (8.6-10.3); Creatinine Clr Calc Pharmacy 14.4 ml/min; Potassium 4.6 mmol/L (3.5-5.1)
[2024-07-27 08:44] LABS: Hematocrit (blood only) 22.4 % (37.0-47.0); Mean Corpuscular Hgb Conc 31.3 g/dL (32.0-36.0); Mean Corpuscular Volume 99.1 fL (80.0-100.0); Mean Platelet Volume 12.2 fL (9.4-12.4); Platelet Count 155 K/uL (130-400); RDW Coefficient of Variation 14.5 % (11.5-14.5); RDW Standard Deviation 52.6 fL (36.4-46.3); Red Blood Count 2.26 M/uL (4.20-5.40); White Blood Count 4.29 K/ul (4.8-10.8)
[2024-07-27] MEDS: CALAMINE/PRAMOXINE LOTION 180 APPLN/180 ML BTL EXT PRN (10:19)
[2024-07-27] MEDS: metOLazone 5 MG TABLET PO ONE (10:21)
[2024-07-27 10:50] LABS: Uric Acid 5.3 mg/dl (2.6-7.2)
--- NOTE | 2024-07-27 11:26 | CT Scan Report ---
CT OF THE ABDOMEN AND PELVIS WITHOUT CONTRAST CLINICAL HISTORY: Evaluate for retroperitoneal bleed. COMPARISON STUDY: No previous studies for comparison. TECHNIQUE: Axial images of the abdomen and pelvis were obtained without IV contrast. Images were revi ewed in the axial, sagittal, and coronal planes. Automated exposure control was utilized for the rob dy. A dose lowering technique was utilized adhering to the principles of ALARA. FINDINGS: The heart is moderately enlarged. There are small bilateral pleural effusions. Associated b ilateral lower lobe opacities favor atelectasis. No pneumatosis, free air or portal venous gas is pre sent. There is no retroperitoneal hematoma. No hemoperitoneum is present. There is evidence for volum e overload with body wall edema. There is also presacral edema. There is no biliary ductal dilatation status post cholecystectomy. Unenhanced images of the liver, spleen, adrenal glands and pancreas are unremarkable. Small bilateral renal lesions are suboptimally assessed on unenhanced exam. There are no urinary calculi. There is no hydronephrosis. A Corbin balloon and gas within the bladder are presen t. There is no evidence for a bowel obstruction. There is extensive colonic diverticulosis without ev idence for acute diverticulitis. There is mild wall thickening with associated stranding of the proxi mal ascending colon. There are no fluid collections. There is no lymphadenopathy. No acute fractures. Endometrium appears prominent. IMPRESSION: 1. No retroperitoneal hematoma. 2. Evidence for volume overload with body wall edema, small bilateral pleural effusions and presacral edema. 3. Extensive colonic diverticulosis. No definite evidence for acute diverticulitis. Mild wall thicken ing with minimal pericolonic stranding of the proximal ascending colon. This may be due to underdiste ntion however a nonspecific] could appear similar. 4. Possible endometrial thickening which could be correlated with history of postmenopausal bleeding and pelvic ultrasound. ACT 112: Negative or not required by law. Electronically signed by: Navin Pereyra M.D. 07/27/2024 11:23 AM
[2024-07-27 13:37] LABS: Hematocrit (blood only) 22.3 % (37.0-47.0); Hemoglobin 7.1 g/dl (12.0-16.0)
--- NOTE | 2024-07-27 14:12 | Nephrology Progress Note ---
Date of Service July 27, 2024 Assessment & Plan (1) Acute worsening of stage 4 chronic kidney disease: Plan: patient with wendy on CKD 4, baseline creatinine 1.8-2. Etiology is likely ischemic ATN due to E coli UTI. Chest x-ray showed pulmonary edema. creatinine of 3.2 today. We will increase Lasix drip to 20mg/hr today to see if patient responds. will also add metolazone 5mg once. Discussed with the patient that if she does not respond to Lasix drip, she might end up needing dialysis. Patient is willing to do dialysis if needed. Patient lives alone and ambulates with a walker at baseline. Son helps with medications in a pillbox. - Will continue Lasix drip at 20 milligrams/hour. The goal is to make patient net negative 1 L daily. -daily bmp -continue avoidance of nsaids and unless lifesaving IV con for CT magnesium 1.6 > 2.1 > 2.3 >> changed to q2d from daily po mag Extensive discussion with patient and son who was at the bedside. (2) Anemia: Plan: hgb down again , improved w/ 1 u PRBC -daily hgb -monitor for bleeding -transfuse pRBC for chest pain or hgb 7 or less Admission and Anticipated Discharge Date Admission Date: July 16, 2024 Subjective She feels better today. No shortness of breath but still on oxygen nasal cannula. She is making about 600 mL of urine and slightly positive daily. Son was at the bedside today Review of Systems 2 Review of Systems: All other systems were reviewed and negative except as noted in HPI Physical Exam 2 Physical Exam: General exam: Appears comfortable, no acute distress HEENT: Pupils are equal and reactive to light Neck: No JVD, neck is supple trachea is midline Respiratory system: Crackles bilaterally. Gastrointestinal: Abdomen is soft, non distended, non tender, bowel sounds are present CVS: Regular rate and rhythm. No murmurs, rubs or gallops Musculoskeletal: No joint or muscle tenderness Extremities: Non tender, no edema, peripheral pulses are present Neuro: Oriented, no tremors, no focal neurological deficits Skin: No rashes Results & Data Vital Signs (Past 12 Hours) Vital Signs Temp Pulse Resp BP Pulse Ox O2 Del Method O2 Flow Rate 07/27/24 12:12 36.6 C 59 L 16 114/48 L 99 Nasal Cannula 2 07/27/24 07:52 36.6 C 83 20 105/57 L 98 Nasal Cannula 2 07/27/24 03:19 36.4 C L 61 18 126/64 96 Nasal Cannula 2 Laboratory Results 07/27/24 07:59 07/27/24 07:59 WBC 4.29 L RBC 2.26 L MCV 99.1 MCH 31.0 MCHC 31.3 L RDW Std Deviation 52.6 H RDW Coeff of Roverto 14.5 Plt Count 155 MPV 12.2 Albumin 3.0 L (2) Anemia Anemia type: unspecified type Qualified Code(s): D64.9 - Anemia, unspecified
[2024-07-27] MEDS ORDERED: SODIUM CHLORIDE 0.9% 100 ML IV PRN (14:15)
[2024-07-27] MEDS ORDERED: SODIUM CHLORIDE 0.9% 50 ML IV PRN (14:15)
--- NOTE | 2024-07-27 15:10 | Cardiology Progress Note ---
Date of Service July 27, 2024 Assessment & Plan (1) Sinus bradycardia: (2) Acute renal failure superimposed on stage 4 chronic kidney disease: (3) Acute systolic CHF (congestive heart failure), NYHA class 3: (4) Symptomatic anemia: (5) Elevated troponin: (6) Ischemic cardiomyopathy: (7) ASCVD (arteriosclerotic cardiovascular disease): Plan Sinus bradycardia on telemetry with transient heart rate into the low 30s while sleeping. Typically heart rate averaging in the low 50s to 60s throughout the day and night. No evidence of high degree heart block. Patient is asymptomatic. No indication for urgent transvenous pacemaker or permanent pacemaker at this time. Continue to hold beta-destinee and monitor telemetry. Obstructive sleep apnea suspected. Consider further evaluation with nocturnal pulse ox trend and CPAP trial if agreeable. (Patient declines possibility of CPAP at this time) Patient is volume overloaded/ hypervolemic hyponatremia/ADHF in the setting of acute renal insufficiency and reduced urine output. Lasix infusion increased to 20 mg daily by nephrology today. Closely monitor electrolytes, GFR, and fluid balance. May require hemodialysis pending clinical course. Nephrology input appreciated. Transfuse to maintain hemoglobin greater than 7.0g/dL Admission and Anticipated Discharge Date Admission Date: July 16, 2024 Subjective 84-year-old female seen examined at the bedside. Evaluation requested by hospitalist service due to transient bradycardia at approximately 11:45 AM today. Telemetry reviewed demonstrating sinus bradycardia with heart rate down into the low 30s. Per discussion with family at bedside, patient sleeping at the time of bradycardia. Patient denies lightheadedness, dizziness, syncope, or near syncope. Heart rate running 50-60s. Metoprolol on hold since 07/24/2024. Review of Systems Review of Systems: All systems reviewed & are unremarkable except as noted in Subjective Physical Exam Constitutional: well nourished and + obese Respiratory: no respiratory distress, no labored breathing and no retractions Auscultation: + diminished lung sounds (Bases bilateral) and + rales (Bases bilateral); no wheezes Cardiovascular: Rate/Rhythm: regular rate, regular rhythm and + bradycardic Heart Sounds: normal S1 and normal S2; no murmur Extremities: + edema (Mild pedal edema) Gastrointestinal (Abdomen): Inspection/Auscultation: abdomen normal to inspection and normal bowel sounds; abdomen not distended Neurologic: CN's II-XI intact bilaterally and moves all extremities Results & Data Vital Signs (Past 12 Hours) Vital Signs Temp Pulse Resp BP Pulse Ox O2 Del Method O2 Flow Rate 07/27/24 12:12 36.6 C 59 L 16 114/48 L 99 Nasal Cannula 2 07/27/24 07:52 36.6 C 83 20 105/57 L 98 Nasal Cannula 2 07/27/24 03:19 36.4 C L 61 18 126/64 96 Nasal Cannula 2 Laboratory Results Cardiac Enzymes 07/27/24 07/27/24 Range/Units 07:59 10:15 AST 12 L (13-39) U/L Lactate Dehydrogenase 139 (86-244) U/L CBC 07/26/24 07/26/24 07/26/24 Range/Units 20:05 20:32 22:50 WBC (4.8-10.8) K/ul RBC (4.20-5.40) M/uL Hgb Cancelled Cancelled 7.3 L Hct Cancelled Cancelled 22.8 L Plt Count (130-400) K/uL 07/27/24 07/27/24 Range/Units 07:59 12:55 WBC 4.29 L (4.8-10.8) K/ul RBC 2.26 L (4.20-5.40) M/uL Hgb 7.0 L 7.1 L Hct 22.4 L 22.3 L Plt Count 155 (130-400) K/uL Comprehensive Metabolic Panel 07/27/24 Range/Units 07:59 Sodium 129 L (136-145) mmol/L Potassium 4.6 (3.5-5.1) mmol/L Chloride 97 L (98-107) mmol/L Carbon Dioxide 23 (21-32) mmol/L BUN 121 H (6-23) mg/dl Creatinine 3.27 H (0.6-1.2) mg/dl Glucose 93 (70-99(Fasting)) mg/dl Calcium 8.2 L (8.6-10.3) mg/dl Direct Bilirubin 0.4 H (0-0.2) mg/dl AST 12 L (13-39) U/L ALT 11 (7-52) U/L Alkaline Phosphatase 65 (34-104) U/L Total Protein 5.0 L (6.0-8.3) gm/dl Albumin 3.0 L (3.4-5.0) gm/dl Intake and Output 07/27/24 07/27/24 07/27/24 06:59 14:59 22:59 Intake Total 200 / 819.00 340.00 / 340.00 Output Total 200 / 625 400 / 400 Balance 0 / 194.00 -60.00 / -60.00 Intake: IV 100 / 200.00 100.00 / 100.00 Furosemide 100 mg In Dextrose 5 100 / 200.00 100.00 / 100.00 % 90 ml @ 20 MG/HR 20 mls/hr IV .Q5H [facility] Rx#:[id number] Oral 100 / 340 240 / 240 Output: Urine Amount (Catheter) 200 / 625 400 / 400 Corbin/Indwelling 200 / 625 400 / 400 Other: # Unmeasured Voids 1 Weight 109.5 kg Weight Measurement Method Built in [facility]
--- NOTE | 2024-07-27 15:40 | Hospitalist Progress Note ---
Date of Service July 27, 2024 Assessment & Plan (1) Acute systolic CHF (congestive heart failure), NYHA class 3: (2) Acute renal failure superimposed on stage 4 chronic kidney disease: (3) Delirium due to another medical condition: (4) Mild cognitive impairment: (5) Acute metabolic encephalopathy: (6) Anemia, chronic renal failure: (7) E. coli UTI: (8) Ischemic cardiomyopathy: (9) Hypothyroid: (10) T2DM (type 2 diabetes mellitus): (11) Hypertension: (12) Hyperlipidemia: (13) ASCVD (arteriosclerotic cardiovascular disease): Plan 84-year-old female w/ PMH of T2DM, HTN, HLD, hypothyroidism, hyperparathyroidism, venous insufficiency, CKD stage IV, aortic valve sclerosis, vitamin D deficiency, senile osteoporosis, gouty arthropathy and lymphedema of the bilateral lower extremities who was admitted 07/16 for decompensated heart failure, GILBERTO on CKD, and uncomplicated UTI. She is being managed for the following: Acute on chronic macrocytic anemia: Admitting hemoglobin of 7.4, hemoglobin went down to 6.6 on 07/20 with no clear sign of bleeding. No signs of hemolysis. Iron levels fairly WNL, vitamin B-12 at 217 and folate at greater than 22. Status post 1 unit PRBC on 07/20 and 1 unit on 07/26. Patient is a status post Epoetin Vidal 07/24. No signs of hemolysis. 07/27 CTAP with no retroperitoneal hematoma. Urine collected in the back light yellow with no hematuria. FOBT remains uncollected, patient has not moved bowels since yesterday per RN. Likely anemia of chronic disease in the setting of chronic kidney disease. RO GI bleed. Hb is dropping closer to 7. Patient remains lethargic and tired. Will transfuse 1 more unit PRBC 07/27. Monitor H&H daily and as needed. Will continue to need EPO through CKD clinic. c/w b12 supplement Repeat H&H in the evening and in morning. GILBERTO over CKD stage IV Azotemia Hyperkalemia and hyperphosphatemia Hyponatremia Patient with baseline creatinine of 1.8 to 2.0, admitting creatinine of 2.71, peaked at 4.40 on 07/22. Potassium peaked at 5.4 on 07/21. S/P Valtessa x1 07/21 Phosphorus has been high to mid sevens. Nephrology on board, cautiously diuresing, FR of 1.5 L, patient with very low urine output, lasix drip rate increased. Creatinine ? Plateued. Avoid nephrotoxic's and NSAIDs. Appreciate nephrology input and management. shafer for I/Os Concern for impending HD. Family and patient state they will pursue if its necessary. Bradycardia: Has been more frequent and progressively more profound. Pt w/ no chest pain or sob or funny sensation in the chest during the events. Likely secondary to metabolic abnormalities/underlying RAMON ISO volume overload/impending renal failure. Will get nocturnal pulse ox, continue telemetry monitoring, continue to hold metoprolol. Requested cardio re-eval 07/27, Cardiology reevaluated, appreciate recommendation. Acute metabolic encephalopathy: *stable ABG w/ no hypercarbia, NH3 < 10, b12 at 217 Hospital course was complicated by continued delirium and encephalopathy in the setting of progressing acute renal failure on chronic renal failure. Avoid medications that could alter mental status, concern that due to progressive renal dysfunction these medications are contributing to her encephalopathy. c/w B12 supplement Currently mentation has been stable. pt does appears tired than her normal per pt and her dtr. OOB and c/w PT/OT. 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 No need for anticoagulation Continue conservative med management at this time home imdur/hydral held 2/2 hypotension BB held 2/2 held due to bradycardia may consider low dose midodrine iso hypotension it persistent hypotension. f/u cardio on dc. DMTII: Glucose was reviewed, continue to cover with insulin Acute uncomplicated UTI: asymptomatic, but notably ill on admission. s/p CTX SCDS, no chemo dvt px due to anemia. Dispo contingent on hgb and renal function stabilizing PT/OT -- rehab recommendation Admission and Anticipated Discharge Date Admission Date: July 16, 2024 Subjective Patient was seen and examined at bedside. Patient's daughter, grand dtr and son were at bedside, who were also updated on plan of care. Patient was lying in bed, on 2 L oxygen via nasal cannula, NAD. Patient continues to look ill and tired, hemoglobin has not improved much even after 1 unit PRBC transfusion yesterday. Per telemetry review, patient frequently getting bradycardia down to 30s but has no complaints s/a chest pain or funny sensation in the chest. Patient being remains lethargic. Per RN, patient did not have bowel movement since yesterday, patient is eating okay and had no acute events overnight. Physical Exam Physical Exam: GENERAL: Tired, oriented. NAD, on 2L NC O2. Appears weak/tired/ill/sick/frail. Obese class III. HEENT: + pallor, no icterus. Pupils equal, round and reactive to light. Oral mucosa moist. NECK: No JVD, no neck masses. HEART: S1 and S2 heard. Regular rate and rhythm. Bradycardin in 50s. No murmur, no gallop. RESPIRATORY SYSTEM: Normal AP diameter. No accessory muscle use. No wheezing, bb crackles. decreased b/l breath sounds 2/2 poor effort. ABDOMEN: Soft, bowel sounds present, nontender, no distention. CENTRAL NERVOUS SYSTEM: No facial droop. Speech is clear. Obeys simple commands. Moves extremities. EXTREMITIES: trace ble edema/loose skin w/ wrinkles, no erythema seen. Results & Data Results & Data Vital Signs (Past 12 Hours) Vital Signs Temp Pulse Resp BP Pulse Ox O2 Del Method O2 Flow Rate 07/27/24 12:12 36.6 C 59 L 16 114/48 L 99 Nasal Cannula 2 07/27/24 07:52 36.6 C 83 20 105/57 L 98 Nasal Cannula 2
[2024-07-27 20:02] LABS: Hematocrit (blood only) 25.7 % (37.0-47.0); Hemoglobin 8.2 g/dl (12.0-16.0)
[2024-07-28 06:11] LABS: Hematocrit (blood only) 22.8 % (37.0-47.0); Hemoglobin 7.3 g/dl (12.0-16.0); Mean Corpuscular Hemoglobin 30.8 pg (25.0-34.0); Mean Corpuscular Volume 96.2 fL (80.0-100.0); Mean Platelet Volume 12.2 fL (9.4-12.4); Platelet Count 161 K/uL (130-400); RDW Coefficient of Variation 13.3 % (11.5-14.5); RDW Standard Deviation 47.1 fL (36.4-46.3); Red Blood Count 2.37 M/uL (4.20-5.40); White Blood Count 4.63 K/ul (4.8-10.8)
[2024-07-28 06:34] LABS: BUN Creatinine Ratio 38.2 (10-20); Calcium 8.2 mg/dl (8.6-10.3); Creatinine Clr Calc Pharmacy 15.1 ml/min; Magnesium 2.1 mg/dl (1.7-2.4); Phosphorus 6.6 mg/dl (2.5-4.9)
[2024-07-28] MEDS: DOCUSATE SODIUM 100 MG CAP PO SCH (10:47)
[2024-07-28] MEDS: LACTULOSE SYRUP 20 GM/30 ML UDC PO ONE (10:47)
[2024-07-28] MEDS: metOLazone 5 MG TABLET PO ONE (10:47)
--- NOTE | 2024-07-28 12:56 | Nephrology Progress Note ---
Date of Service July 28, 2024 Assessment & Plan (1) Acute worsening of stage 4 chronic kidney disease: Plan: patient with wendy on CKD 4, baseline creatinine 1.8-2. Etiology is likely ischemic ATN due to E coli UTI. Chest x-ray showed pulmonary edema. creatinine of 3.1 today. We will continue Lasix drip to 20mg/hr. Discussed with the patient that if she does not respond to Lasix drip, she might end up needing dialysis. Patient is willing to do dialysis if needed. Patient lives alone and ambulates with a walker at baseline. Son helps with medications in a pillbox. - Will continue Lasix drip at 20 milligrams/hour. The goal is to make patient net negative 1 L daily. - will give metolazone 5 mg once today -daily bmp -continue avoidance of nsaids and IV con for CT magnesium 1.6 > 2.1 > 2.3 >> changed to q2d from daily po mag Extensive discussion with patient and son who was at the bedside. (2) Anemia: Plan: hgb down again 7.3 today. -daily hgb -monitor for bleeding -transfuse pRBC for chest pain or hgb 7 or less Admission and Anticipated Discharge Date Admission Date: July 16, 2024 Subjective seen for CKD and volume overload. She is making some urine and was net -700 mL. She is complaining of nausea this morning. Creatinine stable at 3.1. Daughter was at the bedside Review of Systems 2 Review of Systems: All other systems were reviewed and negative except as noted in HPI Physical Exam 2 Physical Exam: General exam: Appears comfortable, no acute distress HEENT: Pupils are equal and reactive to light Neck: No JVD, neck is supple trachea is midline Respiratory system: Crackles bilaterally. Gastrointestinal: Abdomen is soft, non distended, non tender, bowel sounds are present CVS: Regular rate and rhythm. No murmurs, rubs or gallops Musculoskeletal: No joint or muscle tenderness Extremities: Non tender, no edema, peripheral pulses are present Neuro: Oriented, no tremors, no focal neurological deficits Skin: No rashes Results & Data Vital Signs (Past 12 Hours) Vital Signs Temp Pulse Pulse Resp BP Pulse Ox Pulse Ox 07/28/24 12:01 07/28/24 11:39 36.4 C L 66 16 120/71 100 07/28/24 07:58 36.5 C 70 20 116/67 98 07/28/24 03:38 72 93 07/28/24 03:29 36.5 C 76 18 119/51 L 94 07/28/24 01:27 67 95 O2 Del Method O2 Del Method O2 Flow Rate 07/28/24 12:01 Nasal Cannula 2 07/28/24 11:39 Nasal Cannula 2 07/28/24 07:58 Nasal Cannula 2 07/28/24 03:38 Room Air 07/28/24 03:29 Room Air 07/28/24 01:27 Room Air Laboratory Results 07/28/24 05:42 07/28/24 05:42 WBC 4.63 L RBC 2.37 L MCV 96.2 MCH 30.8 MCHC 32.0 RDW Std Deviation 47.1 H RDW Coeff of Roverto 13.3 Plt Count 161 MPV 12.2 Phosphorus 6.6 H (2) Anemia Anemia type: unspecified type Qualified Code(s): D64.9 - Anemia, unspecified
[2024-07-28 13:00] LABS: Hematocrit (blood only) 23.9 % (37.0-47.0); Hemoglobin 7.8 g/dl (12.0-16.0)
--- NOTE | 2024-07-28 14:15 | Hospitalist Progress Note ---
Date of Service July 28, 2024 Assessment & Plan (1) Acute systolic CHF (congestive heart failure), NYHA class 3: (2) Acute renal failure superimposed on stage 4 chronic kidney disease: (3) Delirium due to another medical condition: (4) Mild cognitive impairment: (5) Acute metabolic encephalopathy: (6) Anemia, chronic renal failure: (7) E. coli UTI: (8) Ischemic cardiomyopathy: (9) Hypothyroid: (10) T2DM (type 2 diabetes mellitus): (11) Hypertension: (12) Hyperlipidemia: (13) ASCVD (arteriosclerotic cardiovascular disease): Plan 84-year-old female w/ PMH of T2DM, HTN, HLD, hypothyroidism, hyperparathyroidism, venous insufficiency, CKD stage IV, aortic valve sclerosis, vitamin D deficiency, senile osteoporosis, gouty arthropathy and lymphedema of the bilateral lower extremities who was admitted 07/16 for decompensated heart failure, GILBERTO on CKD, and uncomplicated UTI. She is being managed for the following: Acute on chronic macrocytic anemia: Admitting hemoglobin of 7.4, hemoglobin went down to 6.6 on 07/20 with no clear sign of bleeding. No signs of hemolysis. Iron levels fairly WNL, vitamin B-12 at 217 and folate at greater than 22. Status post 3 unit PRBC so far. Patient is a status post Epoetin Vidal 07/24. No signs of hemolysis. 07/27 CTAP with no retroperitoneal hematoma. Urine collected in the bag is light yellow with no hematuria. FOBT remains uncollected, patient has not moved bowels since 2 d per RN. Will give one time dose of lactulose today, pt has been denying miralax, advised pt to comply w/ bowel regimen. Likely anemia of chronic disease in the setting of chronic kidney disease. RO GI bleed. Hb seems stable today. c/t monitor HnH. Monitor H&H daily and as needed. Will continue to need EPO through CKD clinic. c/w b12 supplement and folate Repeat H&H in the evening and in morning. GILBERTO over CKD stage IV Azotemia Hyperkalemia and hyperphosphatemia Hyponatremia Patient with baseline creatinine of 1.8 to 2.0, admitting creatinine of 2.71, peaked at 4.40 on 07/22. Potassium peaked at 5.4 on 07/21. S/P Valtessa x1 07/21 Phosphorus has been high to mid sevens. Nephrology on board, cautiously diuresing, FR of 1.5 L, patient with very low urine output, lasix drip rate increased. Creatinine gradually improving Avoid nephrotoxic's and NSAIDs. Appreciate nephrology input and management. shafer for I/Os Concern for impending HD. Family and patient state they will pursue if its necessary. Bradycardia: Has been more frequent and progressively more profound. Pt w/ no chest pain or sob or funny sensation in the chest during the events. Likely secondary to metabolic abnormalities/underlying RAMON ISO volume overload/impending renal failure. Reviewed nocturnal pulse ox 07/28 --will need O2 HS, continue telemetry monitoring, continue to hold metoprolol. Cardio re- evaled 07/27, appreciate recommendation. Acute metabolic encephalopathy: *stable ABG w/ no hypercarbia, NH3 < 10, b12 at 217 Hospital course was complicated by continued delirium and encephalopathy in the setting of progressing acute renal failure on chronic renal failure. Avoid medications that could alter mental status, concern that due to progressive renal dysfunction these medications are contributing to her encephalopathy. c/w B12 supplement Currently mentation has been stable. pt does appears tired than her normal per pt and her dtr. OOB and c/w PT/OT. 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 No need for anticoagulation Continue conservative med management at this time home imdur/hydral held 2/2 hypotension BB held 2/2 held due to bradycardia may consider low dose midodrine iso hypotension it persistent hypotension. f/u cardio on dc. DMTII: Glucose was reviewed, continue to cover with insulin Acute uncomplicated UTI: asymptomatic, but notably ill on admission. s/p CTX SCDS, no chemo dvt px due to anemia. Dispo contingent on hgb and renal function stabilizing PT/OT -- rehab recommendation Admission and Anticipated Discharge Date Admission Date: July 16, 2024 Subjective Patient was seen and examined at bedside. Patient's daughter and son were at bedside, who were also updated on plan of care. Patient was lying in bed, on 2 L oxygen via nasal cannula, NAD. Patient continues to look ill and tired, patient with nausea and small vomiting after breakfast in the morning. Relieved with Zofran. Patient has not moved bowel in last 2 days, will give one-time dose of lactulose, patient reports moving gas and denies abdominal pain. Discussed with patient's daughter and son in detail regarding findings of nocturnal pulse oximetry and need for outpatient sleep study. They voiced understanding. Physical Exam Physical Exam: GENERAL: Tired, oriented. NAD, on 2L NC O2. Appears weak/tired/ill/sick/frail. Obese class III. HEENT: + pallor, no icterus. Pupils equal, round and reactive to light. Oral mucosa moist. NECK: No JVD, no neck masses. HEART: S1 and S2 heard. Regular rate and rhythm. Bradycardin in 50s. No murmur, no gallop. RESPIRATORY SYSTEM: Normal AP diameter. No accessory muscle use. No wheezing, bb crackles. decreased b/l breath sounds 2/2 poor effort. ABDOMEN: Soft, bowel sounds present, nontender, no distention. CENTRAL NERVOUS SYSTEM: No facial droop. Speech is clear. Obeys simple commands. Moves extremities. EXTREMITIES: trace ble edema/loose skin w/ wrinkles, no erythema seen. Results & Data Results & Data Vital Signs (Past 12 Hours) Vital Signs Temp Pulse Pulse Resp BP Pulse Ox Pulse Ox 07/28/24 12:01 07/28/24 11:39 36.4 C L 66 16 120/71 100 07/28/24 07:58 36.5 C 70 20 116/67 98 07/28/24 03:38 72 93 07/28/24 03:29 36.5 C 76 18 119/51 L 94 O2 Del Method O2 Del Method O2 Flow Rate 07/28/24 12:01 Nasal Cannula 2 07/28/24 11:39 Nasal Cannula 2 07/28/24 07:58 Nasal Cannula 2 07/28/24 03:38 Room Air 07/28/24 03:29 Room Air
[2024-07-28 20:16] LABS: Hematocrit (blood only) 25.6 % (37.0-47.0); Hemoglobin 8.1 g/dl (12.0-16.0)
[2024-07-28] MEDS: MELATONIN 3 MG TAB PO PRN (23:01)
[2024-07-29 07:02] LABS: Hematocrit (blood only) 25.3 % (37.0-47.0); Hemoglobin 8.3 g/dl (12.0-16.0); Mean Corpuscular Hemoglobin 31.2 pg (25.0-34.0); Mean Corpuscular Hgb Conc 32.8 g/dL (32.0-36.0); Mean Corpuscular Volume 95.1 fL (80.0-100.0); Mean Platelet Volume 12.1 fL (9.4-12.4); Platelet Count 195 K/uL (130-400); RDW Coefficient of Variation 13.4 % (11.5-14.5); Red Blood Count 2.66 M/uL (4.20-5.40); White Blood Count 5.83 K/ul (4.8-10.8)
[2024-07-29 07:28] LABS: BUN Creatinine Ratio 40.7 (10-20); Phosphorus 6.4 mg/dl (2.5-4.9); Potassium 3.9 mmol/L (3.5-5.1)
[2024-07-29] MEDS: POLYETHYLENE (MIRALAX) 17 GM PACK PO PRN (09:31)
--- NOTE | 2024-07-29 12:40 | XRay Report ---
EXAM: Radiograph of the Chest 1 View INDICATION: PE. Possible aspiration. TECHNIQUE: Frontal view of the chest. COMPARISON: 07/25/2024 FINDINGS: Lungs and pleural spaces: New small left basilar pleural effusion and triangular s infiltrate obscuring the left cardiac border. Streaky atelectasis or scarring in the bases is stable. Improved vascular congestion. No pneumothorax. Heart: Stable large cardiac shadow. Mediastinum: Normal contour. Bones/joints: No fracture, erosion or dislocation. Soft tissues: No abnormality noted. No radiopaque foreign body noted. Vasculature: Stable ectatic calcified aorta. Upper abdomen: No abnormality noted. IMPRESSION: 1. New small left pleural effusion and focus of left basilar atelectasis or pneumonia. 2. Improved vascular congestion. ACT 112: Negative or not required by law. Electronically signed by Charlene Restrepo 07-29-2024 12:40 PM
--- NOTE | 2024-07-29 14:51 | Hospitalist Progress Note ---
Date of Service July 29, 2024 Assessment & Plan (1) Acute systolic CHF (congestive heart failure), NYHA class 3: (2) Acute renal failure superimposed on stage 4 chronic kidney disease: (3) Delirium due to another medical condition: (4) Mild cognitive impairment: (5) Acute metabolic encephalopathy: (6) Anemia, chronic renal failure: (7) E. coli UTI: (8) Ischemic cardiomyopathy: (9) Hypothyroid: (10) T2DM (type 2 diabetes mellitus): (11) Hypertension: (12) Hyperlipidemia: (13) ASCVD (arteriosclerotic cardiovascular disease): Plan 84-year-old female w/ PMH of T2DM, HTN, HLD, hypothyroidism, hyperparathyroidism, venous insufficiency, CKD stage IV, aortic valve sclerosis, vitamin D deficiency, senile osteoporosis, gouty arthropathy and lymphedema of the bilateral lower extremities who was admitted 07/16 for decompensated heart failure, GILBERTO on CKD, and uncomplicated UTI. She is being managed for the following: Acute on chronic macrocytic anemia: Admitting hemoglobin of 7.4, hemoglobin went down to 6.6 on 07/20 with no clear sign of bleeding. No signs of hemolysis. Iron levels fairly WNL, vitamin B-12 at 217 and folate at greater than 22. Status post 3 unit PRBC so far. Patient is a status post Epoetin Vidal 07/24. No signs of hemolysis. 07/27 CTAP with no retroperitoneal hematoma. Urine collected in the bag is light yellow with no hematuria. FOBT remains uncollected, patient has not moved bowels since 3 d per RN. Will give one time dose of fleet enema today, pt has been denying miralax, advised pt to comply w/ bowel regimen. Likely anemia of chronic disease in the setting of chronic kidney disease. RO GI bleed. Hb seems stable today. c/t monitor HnH. Monitor H&H daily and as needed. Will continue to need EPO through CKD clinic. c/w b12 supplement and folate Repeat H&H in the evening and in morning. GILBERTO over CKD stage IV Azotemia Hyperkalemia and hyperphosphatemia Hyponatremia Patient with baseline creatinine of 1.8 to 2.0, admitting creatinine of 2.71, peaked at 4.40 on 07/22. Potassium peaked at 5.4 on 07/21. S/P Valtessa x1 11/23 Phosphorus has been high to mid sevens. Nephrology on board, cautiously diuresing, FR of 1.5 L, patient with very low urine output, lasix drip rate increased. Creatinine gradually improving, pt having better urine output. Avoid nephrotoxic's and NSAIDs. Appreciate nephrology input and management. shafer for I/Os Concern for impending HD. Family and patient state they will pursue if its necessary. Bradycardia: Has been more frequent and progressively more profound. Pt w/ no chest pain or sob or funny sensation in the chest during the events. Likely secondary to metabolic abnormalities/underlying RAMON ISO volume overload/impending renal failure. Reviewed nocturnal pulse ox 07/28 --will need O2 HS, continue telemetry monitoring, continue to hold metoprolol. Cardio re- evaled 07/27, appreciate recommendation. Acute metabolic encephalopathy: *stable ABG w/ no hypercarbia, NH3 < 10, b12 at 217 Hospital course was complicated by continued delirium and encephalopathy in the setting of progressing acute renal failure on chronic renal failure. Avoid medications that could alter mental status, concern that due to progressive renal dysfunction these medications are contributing to her encephalopathy. c/w B12 supplement Currently mentation has been stable. pt does appears tired than her normal per pt and her dtr. OOB and c/w PT/OT. 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 No need for anticoagulation Continue conservative med management at this time home imdur/hydral held 2/2 hypotension BB held 2/2 held due to bradycardia may consider low dose midodrine iso hypotension it persistent hypotension. f/u cardio on dc. DMTII: Glucose was reviewed, continue to cover with insulin Acute uncomplicated UTI: asymptomatic, but notably ill on admission. s/p CTX SCDS, no chemo dvt px due to anemia. Dispo contingent on hgb and renal function stabilizing PT/OT -- rehab recommendation Admission and Anticipated Discharge Date Admission Date: July 16, 2024 Subjective Patient was seen and examined at bedside. Patient's daughter at bedside, who was also updated on plan of care. Patient was lying in bed, on 2 L oxygen via nasal cannula, NAD. Patient continues to look ill and tired, no vomiting today. Patient has not moved bowel in last 3 days, has poor appetite and nausea, will give fleet enema today, patient reports moving gas and denies abdominal pain. Physical Exam Physical Exam: GENERAL: Tired, oriented. NAD, on 2L NC O2. Appears weak/tired/ill/sick/frail. Obese class III. HEENT: + pallor, no icterus. Pupils equal, round and reactive to light. Oral mucosa moist. NECK: No JVD, no neck masses. HEART: S1 and S2 heard. Regular rate and rhythm. Bradycardin in 50s. No murmur, no gallop. RESPIRATORY SYSTEM: Normal AP diameter. No accessory muscle use. No wheezing, bb crackles. decreased b/l breath sounds 2/2 poor effort. ABDOMEN: Soft, bowel sounds present, nontender, no distention. CENTRAL NERVOUS SYSTEM: No facial droop. Speech is clear. Obeys simple commands. Moves extremities. EXTREMITIES: trace ble edema/loose skin w/ wrinkles, no erythema seen. Results & Data Results & Data Vital Signs (Past 12 Hours) Vital Signs Temp Pulse Pulse Resp BP Pulse Ox O2 Del Method 07/29/24 11:37 36.4 C L 82 18 150/76 H 95 Room Air 07/29/24 07:27 36.4 C L 76 18 145/71 H 99 Nasal Cannula 07/29/24 07:00 Nasal Cannula 07/29/24 06:58 81 07/29/24 03:11 36.3 C L 72 20 138/73 100 Nasal Cannula O2 Flow Rate 07/29/24 11:37 07/29/24 07:27 2 07/29/24 07:00 2 07/29/24 06:58 07/29/24 03:11 2
--- NOTE | 2024-07-29 15:14 | Nephrology Progress Note ---
Date of Service July 29, 2024 Assessment & Plan (1) Acute worsening of stage 4 chronic kidney disease: Plan: patient with wendy on CKD 4, baseline creatinine 1.8-2. Etiology is likely ischemic ATN due to E coli UTI. Chest x-ray showed pulmonary edema. creatinine of 2.95 today. We will continue Lasix drip to 20mg/hr. Discussed with the patient that if she does not respond to Lasix drip, she might end up needing dialysis. Patient is willing to do dialysis if needed. Patient lives alone and ambulates with a walker at baseline. Son helps with medications in a pillbox. - Will continue Lasix drip at 20 milligrams/hour. The goal is to make patient net negative 1 L daily. - will give metolazone 5 mg once today - physical therapy. Patient might need rehab on discharge -daily bmp -continue avoidance of nsaids and IV con for CT magnesium 1.6 > 2.1 > 2.3 >> changed to q2d from daily po mag Extensive discussion with patient and son who was at the bedside. (2) Anemia: Plan: hemoglobin stable today -daily hgb -monitor for bleeding -transfuse pRBC for chest pain or hgb 7 or less Admission and Anticipated Discharge Date Admission Date: July 16, 2024 Subjective Seen for acute kidney injury on CKD and volume overload. She is making more urine with Lasix drip. Still extremely weak. She is on oxygen nasal cannula. Daughter was at the bedside. Review of Systems 2 Review of Systems: All other systems were reviewed and negative except as noted in HPI Physical Exam 2 Physical Exam: General exam: Appears comfortable, no acute distress HEENT: Pupils are equal and reactive to light Neck: No JVD, neck is supple trachea is midline Respiratory system: Crackles bilaterally. Gastrointestinal: Abdomen is soft, non distended, non tender, bowel sounds are present CVS: Regular rate and rhythm. No murmurs, rubs or gallops Musculoskeletal: No joint or muscle tenderness Extremities: Non tender, 1+ edema, peripheral pulses are present Neuro: Oriented, no tremors, no focal neurological deficits Skin: No rashes Results & Data Vital Signs (Past 12 Hours) Vital Signs Temp Pulse Pulse Resp BP Pulse Ox O2 Del Method 07/29/24 11:37 36.4 C L 82 18 150/76 H 95 Room Air 07/29/24 07:27 36.4 C L 76 18 145/71 H 99 Nasal Cannula 07/29/24 07:00 Nasal Cannula 07/29/24 06:58 81 O2 Flow Rate 07/29/24 11:37 07/29/24 07:27 2 07/29/24 07:00 2 07/29/24 06:58 Laboratory Results 07/29/24 06:38 07/29/24 06:38 WBC 5.83 RBC 2.66 L MCV 95.1 MCH 31.2 MCHC 32.8 RDW Std Deviation 47.0 H RDW Coeff of Roverto 13.4 Plt Count 195 MPV 12.1 Phosphorus 6.4 H (2) Anemia Anemia type: unspecified type Qualified Code(s): D64.9 - Anemia, unspecified
[2024-07-29] MEDS: ALBUT/IPRATROP 3MG/0.5MG NEB 3 ML VIAL NEB PRN (15:30)
[2024-07-29] MEDS: SOD PHOSPHATE/SOD BIPHOSPHATE ENEMA 132 ML BTL PR STA (17:19)
[2024-07-29] MEDS: SOD PHOSPHATE/SOD BIPHOSPHATE ENEMA 132 ML BTL PR ONE (18:09)
[2024-07-30 07:28] LABS: Hematocrit (blood only) 24.4 % (37.0-47.0); Hemoglobin 8.1 g/dl (12.0-16.0); Mean Corpuscular Hemoglobin 31.5 pg (25.0-34.0); Mean Corpuscular Hgb Conc 33.2 g/dL (32.0-36.0); Mean Corpuscular Volume 94.9 fL (80.0-100.0); Mean Platelet Volume 12.3 fL (9.4-12.4); Platelet Count 195 K/uL (130-400); RDW Coefficient of Variation 13.5 % (11.5-14.5); Red Blood Count 2.57 M/uL (4.20-5.40); White Blood Count 6.38 K/ul (4.8-10.8)
[2024-07-30 07:40] LABS: BUN Creatinine Ratio 40.6 (10-20); Calcium 8.9 mg/dl (8.6-10.3); Creatinine Clr Calc Pharmacy 16.3 ml/min; Magnesium 1.9 mg/dl (1.7-2.4); Phosphorus 6.5 mg/dl (2.5-4.9); Potassium 3.3 mmol/L (3.5-5.1)
--- NOTE | 2024-07-30 07:50 | Cardiology Progress Note ---
Date of Service July 30, 2024 Assessment & Plan (1) Sinus bradycardia: Plan Plans: * Bradycardia noted - while sleeping * Suspect underlying RAMON * Continue ASA 81 mg twice a week (needs clarification as an outpt) * LDL 44 on 07-20-2024 * Continue Lipitor 40 mg po per day * eGFR - 15 * Continue Hydralazine 10 mg po BID (afterload reduction) * Continue Isordil 5 mg po BID (afterload/preload reduction) * Continue Toprol XL 12.5 mg po per day - will continue as patient has no pauses and bradycardia at night is asymptomatic * Patient is currently on Lasix Drip 20 mg/hr - patient's last ECHO suggests that central venous pressures are low; would consider transitioning to PO diuretics if Renal Team concurs * No Aldactone - Creat >2 * Jardiance may be considered (UTI) * Consider D/C Corbin * K+ goal 4.5-5 * Repletion - Consider Kdur 40 meq po BID * Repeat BMP in PM * Mag goal >2 * Hgb goal >8 * Mobilize * Follow up with cardiology * Please call back with any additional question * Pt seen and examined in conjunction with [facility] staff. Jackson Acevedo Admission and Anticipated Discharge Date Admission Date: July 16, 2024 Subjective Events Overnight: * HR to 37 bpm overnight (one episode) * No pauses on telemetry Consult: BradyCardia and CHF Subjective: No complaints Review of Systems Review of Systems: All systems reviewed & are unremarkable except as noted in HPI & below Physical Exam Physical Exam: Obese No elevation in JVP S1S2 Soft 2/6 systolic murmur Decreased BS at Left base Trace LE edema Warm and well perfused Results & Data Vital Signs (Past 12 Hours) Vital Signs Temp Pulse Pulse Resp BP Pulse Ox O2 Del Method 07/30/24 07:38 65 07/30/24 07:23 36.3 C L 72 18 101/66 91 Room Air 07/30/24 03:33 36.5 C 74 18 137/74 93 Room Air 07/30/24 00:24 36.4 C L 74 18 126/78 94 Room Air 07/29/24 22:20 70 07/29/24 20:10 119/69 07/29/24 19:51 36.6 C 78 20 95/60 L 94 Room Air Laboratory Results CBC 07/30/24 Range/Units 06:08 WBC 6.38 (4.8-10.8) K/ul RBC 2.57 L (4.20-5.40) M/uL Hgb 8.1 L (12.0-16.0) g/dl Hct 24.4 L (37.0-47.0) % Plt Count 195 (130-400) K/uL Comprehensive Metabolic Panel 07/30/24 Range/Units 06:08 Sodium 127 L (136-145) mmol/L Potassium 3.3 L (3.5-5.1) mmol/L Chloride 87 L (98-107) mmol/L Carbon Dioxide 29 (21-32) mmol/L BUN 117 H (6-23) mg/dl Creatinine 2.88 H (0.6-1.2) mg/dl Glucose 94 (70-99(Fasting)) mg/dl Calcium 8.9 (8.6-10.3) mg/dl Intake and Output 07/29/24 07/30/24 07/30/24 22:59 06:59 14:59 Intake Total 300 / 895 275 / 895 Output Total 1203 / 2955 902 / 2955 Balance -903 / -2060 -627 / -2060 Intake: IV 100 / 500 200 / 500 Furosemide 100 mg In Dextrose 5 100 / 500 200 / 500 % 90 ml @ 20 MG/HR 20 mls/hr IV .Q5H [facility] Rx#:[id number] Oral 200 / 395 75 / 395 Output: Urine Amount (Catheter) 1200 / 2950 900 / 2950 Corbin/Indwelling 1200 / 2950 900 / 2950 # Bowel Movements 3 / 5 2 / 5 Other: Weight 109.3 kg Weight Measurement Method Built in [facility] Diagnostic Findings ECHOcardiogram: 07-17-2024 LVEF 35-40% Mild to moderate LVH MR - mild TR - mild Pulm Htn - mild to moderate - PASP 50 mmHg Normal IVC size [id number] NSR with APCs RBBB Lateral T wave abnormalities CXR: 07-29-2024 New small Left Pleural Effusion Focus of Left Basilar Atelectasis or PNA Improved Vascular Congestions Medications Administered Current Inpatient Medications Acetaminophen (Acetaminophen 325 Mg Tab) 650 mg PO Q4H PRN PRN Reason: Pain or Fever Stop: 08/15/24 16:01 Last Admin: 07/23/24 09:12 Dose: 650 mg Albuterol (Albut/Ipratrop 3mg/0.5mg Neb 3 Ml Vial) 3 ml NEB Q6R PRN; Protocol PRN Reason: sob, wheeze, resp distress Stop: 08/28/24 12:07 Last Admin: 07/29/24 15:30 Dose: 3 ml Allopurinol (Allopurinol 100 Mg Tab) 100 mg PO DAILY [facility] Stop: 08/16/24 08:59 Last Admin: 07/29/24 08:03 Dose: 100 mg Aspirin (Aspirin 81 Mg Ectab) 81 mg PO SuWe@0900 [facility] Stop: 08/17/24 08:59 Last Admin: 07/29/24 08:03 Dose: 81 mg Atorvastatin Calcium (Atorvastatin 40 Mg Tab) 40 mg PO DAILY [facility] Stop: 08/16/24 08:59 Last Admin: 07/29/24 08:03 Dose: 40 mg Calamine/Pramoxine (Calamine/Pramoxine Lotion 180 Appln/180 Ml Btl) 1 appln EXT BID PRN PRN Reason: itchy skin Stop: 08/24/24 11:58 Last Admin: 07/29/24 19:42 Dose: 1 appln Cyanocobalamin (Cyanocobalamin (B-12) 500 Mcg Tablet) 500 mcg PO QAM [facility] Stop: 08/24/24 08:59 Last Admin: 07/29/24 08:03 Dose: 500 mcg Diphenhydramine HCl (Diphenhydramine Hcl 25 Mg/10 Ml Udc) 12.5 mg PO Q8H PRN PRN Reason: allergic reaction Stop: 08/25/24 13:59 Last Admin: 07/29/24 19:41 Dose: 12.5 mg Docusate Sodium (Docusate Sodium 100 Mg Cap) 100 mg PO BID [facility] Stop: 08/27/24 09:44 Last Admin: 07/29/24 19:41 Dose: 100 mg Folic Acid (Folic Acid 1 Mg Tab) 1 mg PO DAILY [facility] Stop: 08/16/24 08:59 Last Admin: 07/29/24 08:03 Dose: 1 mg Hydralazine HCl (Hydralazine 10 Mg Tab) 10 mg PO BID [facility] Stop: 08/15/24 20:59 Last Admin: 07/21/24 09:14 Dose: 10 mg Furosemide 100 mg/ Dextrose 100 mls @ 20 mls/hr IV .Q5H [facility] Stop: 08/25/24 10:14 Last Admin: 07/30/24 04:44 Dose: 20 mg/hr, 20 mls/hr Isosorbide Dinitrate (Isosorbide Dinitrate 5 Mg Tab) 5 mg PO BID [facility] Stop: 08/17/24 10:29 Last Admin: 07/21/24 09:14 Dose: 5 mg Levothyroxine Sodium (Levothyroxine Sodium 75 Mcg Tablet) 75 mcg PO DAILY@0630 [facility] Stop: 08/16/24 06:29 Last Admin: 07/30/24 04:44 Dose: 75 mcg Melatonin (Melatonin 3 Mg Tab) 6 mg PO HS PRN PRN Reason: Sleep Stop: 08/15/24 20:59 Last Admin: 07/29/24 19:41 Dose: 6 mg Metoprolol Succinate (Metoprolol Succ 25mg Ext Rel Tab) 12.5 mg PO DAILY [facility] Stop: 08/20/24 08:59 Last Admin: 07/24/24 08:40 Dose: 12.5 mg Nystatin (Nystatin Powder 15gm Btl) 1 appln EXT BID [facility] Stop: 08/22/24 20:59 Last Admin: 07/29/24 19:42 Dose: 1 appln Ondansetron HCl (Ondansetron Inj 2 Mg/Ml 2 Ml Vial) 4 mg IV Q6H PRN PRN Reason: Nausea Stop: 08/15/24 16:01 Last Admin: 07/29/24 10:37 Dose: 4 mg Polyethylene Glycol (Polyethylene (Miralax) 17 Gm Pack) 17 gm PO DAILY [facility] Stop: 08/29/24 08:59 Vitamin D (Cholecalciferol 10 Mcg (400 Units) Tab) 10 mcg PO DAILY [facility] Stop: 08/16/24 08:59 Last Admin: 07/29/24 08:03 Dose: 10 mcg
[2024-07-30] MEDS: POLYETHYLENE (MIRALAX) 17 GM PACK PO SCH (08:22)
[2024-07-30] MEDS: POTASSIUM CHLORIDE CRTAB 20 MEQ TABCR PO STA (10:44)
--- NOTE | 2024-07-30 12:22 | Nephrology Progress Note ---
Date of Service July 30, 2024 Assessment & Plan (1) Acute worsening of stage 4 chronic kidney disease: Plan: patient with wendy on CKD 4, baseline creatinine 1.8-2. Etiology is likely ischemic ATN due to E coli UTI. Chest x-ray showed improving/resolved pulmonary edema. creatinine of 2.88 today, which is essentially stable. We will continue Lasix drip to 20mg/hr. My partner had discussed with the patient / family that if she does not respond to Lasix drip, she might end up needing dialysis. Patient is willing to do dialysis if needed. That said, no HD needed today. Patient lives alone and ambulates with a walker at baseline. Son helps with medications in a pillbox. - Will continue Lasix drip at 20 milligrams/hour through the day >> but stop this evening given downtrend in sodium and now nearly a week of BUN 110-120 >> consider torsemide for AM - had metolazone 5 mg once on 07/29; none today -had po K 20 mEq x 1 today >> will give another 20 mEq - physical therapy. Patient will need rehab on discharge -daily bmp -continue avoidance of nsaids and IV con for CT -hyperphosphatemia noted > phos 6.5 (2) Anemia: Plan: hemoglobin stable today in low 8's at 8.1 -daily hgb -monitor for bleeding -transfuse pRBC for chest pain or hgb 7 or less (3) Hypertension: Plan: has been reasonably controlled on gtt -consider po diuretics in am -continue toprol current dose >note imdur, hydralazine currently/appropriately on hold since 07/21 Admission and Anticipated Discharge Date Admission Date: July 16, 2024 Subjective still quite weak. seen on late AM rounds. pt c/o nausea and poor po; c/o marked fatigue and generalize weakness Review of Systems 2 Review of Systems: All systems reviewed & are unremarkable except as noted in Subjective Physical Exam 2 Constitutional: well developed, well nourished, + obese, + frail appearing and cooperative; no acute distress Eyes: EOM intact bilaterally ENMT: Mouth: + dry oral mucous membranes Respiratory: normal respiratory effort; no respiratory distress and no cough Auscultation: + diminished lung sounds, + crackles (fine posterior) and + wheezes (exp occasional) Cardiovascular: Rate/Rhythm: regular rate and regular rhythm Extremities: n o edema Gastrointestinal (Abdomen): Inspection/Auscultation: normal bowel sounds P ercussion/Palpation: abdomen soft; abdomen nontender Musculoskeletal: Extremities: strength 5/5 throughout Skin: no rashes, warm and dry Psychiatric: Orientation: alert and oriented x 3 Results & Data Vital Signs (Past 12 Hours) Vital Signs Temp Pulse Pulse Resp BP Pulse Ox O2 Del Method 07/30/24 12:03 36.4 C L 73 18 109/63 94 Room Air 07/30/24 11:54 Room Air 07/30/24 07:38 65 07/30/24 07:23 36.3 C L 72 18 101/66 91 Room Air 07/30/24 03:33 36.5 C 74 18 137/74 93 Room Air 07/30/24 00:24 36.4 C L 74 18 126/78 94 Room Air Laboratory Results 07/30/24 06:08 07/30/24 06:08 Diagnostic Findings CXR 1. New small left pleural effusion and focus of left basilar atelectasis or pneumonia. 2. Improved vascular congestion. (2) Anemia Anemia type: unspecified type Qualified Code(s): D64.9 - Anemia, unspecified
--- NOTE | 2024-07-30 14:41 | Hospitalist Progress Note ---
Date of Service July 30, 2024 Assessment & Plan (1) Acute systolic CHF (congestive heart failure), NYHA class 3: (2) Acute renal failure superimposed on stage 4 chronic kidney disease: (3) Delirium due to another medical condition: (4) Mild cognitive impairment: (5) Acute metabolic encephalopathy: (6) Anemia, chronic renal failure: (7) E. coli UTI: (8) Ischemic cardiomyopathy: (9) Hypothyroid: (10) T2DM (type 2 diabetes mellitus): (11) Hypertension: (12) Hyperlipidemia: (13) ASCVD (arteriosclerotic cardiovascular disease): Plan 84-year-old female w/ PMH of T2DM, HTN, HLD, hypothyroidism, hyperparathyroidism, venous insufficiency, CKD stage IV, aortic valve sclerosis, vitamin D deficiency, senile osteoporosis, gouty arthropathy and lymphedema of the bilateral lower extremities who was admitted 07/16 for decompensated heart failure, GILBERTO on CKD, and uncomplicated UTI. She is being managed for the following: Acute on chronic macrocytic anemia: Admitting hemoglobin of 7.4, hemoglobin went down to 6.6 on 07/20 with no clear sign of bleeding. No signs of hemolysis. Iron levels fairly WNL, vitamin B-12 at 217 and folate at greater than 22. Status post 3 unit PRBC so far. Patient is a status post Epoetin Vidal 07/24. No signs of hemolysis. 07/27 CTAP with no retroperitoneal hematoma. Urine collected in the bag is light yellow with no hematuria. 07/30 FOBT neg. GI bleed ruled out. Likely anemia of chronic disease in the setting of chronic kidney disease. Hb seems stable x 2 days. c/t monitor HnH. Monitor H&H daily and as needed. Will continue to need EPO through CKD clinic. c/w b12 supplement and folate Repeat H&H in the evening and in morning. GILBERTO over CKD stage IV Azotemia Hyperkalemia and hyperphosphatemia Hyponatremia Patient with baseline creatinine of 1.8 to 2.0, admitting creatinine of 2.71, peaked at 4.40 on 07/22. Potassium peaked at 5.4 on 07/21. S/P Valtessa x1 07/21 Phosphorus has been high to mid 6s. Nephrology on board, cautiously diuresing, FR of 1.5 L, patient with improving urine output, on lasix drip. Creatinine gradually improving, pt having better urine output. Na 127. Avoid nephrotoxic's and NSAIDs. Appreciate nephrology input and management. shafer for I/Os Concern for impending HD. Family and patient state they will pursue if its necessary. Bradycardia: Has been more frequent and progressively more profound. Pt w/ no chest pain or sob or funny sensation in the chest during the events. Likely secondary to metabolic abnormalities/underlying RAMON ISO volume overload/impending renal failure. Reviewed nocturnal pulse ox 07/28 --will need O2 HS, continue telemetry monitoring, continue to hold metoprolol. Cardio re- evaled 07/27, appreciate recommendation. Acute metabolic encephalopathy: *stable ABG w/ no hypercarbia, NH3 < 10, b12 at 217 Hospital course was complicated by continued delirium and encephalopathy in the setting of progressing acute renal failure on chronic renal failure. Avoid medications that could alter mental status, concern that due to progressive renal dysfunction these medications are contributing to her en cephalopathy. c/w B12 supplement Currently mentation has been stable. pt does appears tired than her normal per pt and her dtr. OOB and c/w PT/OT. 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 No need for anticoagulation Continue conservative med management at this time home imdur/hydral held 2/2 hypotension BB held 2/2 held due to bradycardia resumed 07/30 w/ cards recs. may consider low dose midodrine iso hypotension it persistent hypotension. f/u cardio on dc. DMTII: Glucose was reviewed, continue to cover with insulin Acute uncomplicated UTI: asymptomatic, but notably ill on admission. s/p CTX hep sc for dvt px Dispo contingent on hgb and renal function stabilizing PT/OT -- rehab recommendation Pt's dtr aparna updated over the phone 07/30. Admission and Anticipated Discharge Date Admission Date: July 16, 2024 Subjective Patient was seen and examined at bedside. Patient was lying in bed, on RA, NAD. Patient continues to look ill and tired, no nausea and vomiting today. Patient had a good large bowel movement today morning, FOBT was negative. Patient denies any increasing cough or febrile illness. Physical Exam Physical Exam: GENERAL: Tired, oriented. NAD, on RA. Appears weak/tired/ill/sick/frail. Obese class III. HEENT: + pallor, no icterus. Pupils equal, round and reactive to light. Oral mucosa moist. NECK: No JVD, no neck masses. HEART: S1 and S2 heard. Regular rate and rhythm. No murmur, no gallop. RESPIRATORY SYSTEM: Normal AP diameter. No accessory muscle use. No wheezing, bb crackles. decreased b/l breath sounds 2/2 poor effort. ABDOMEN: Soft, bowel sounds present, nontender, no distention. CENTRAL NERVOUS SYSTEM: No facial droop. Speech is clear. Obeys simple commands. Moves extremities. EXTREMITIES: trace ble edema/loose skin w/ wrinkles, no erythema seen. Results & Data Results & Data Vital Signs (Past 12 Hours) Vital Signs Temp Pulse Pulse Resp BP Pulse Ox O2 Del Method 07/30/24 12:03 36.4 C L 73 18 109/63 94 Room Air 07/30/24 11:54 Room Air 07/30/24 07:38 65 07/30/24 07:23 36.3 C L 72 18 101/66 91 Room Air 07/30/24 03:33 36.5 C 74 18 137/74 93 Room Air
[2024-07-30] MEDS: HEPARIN SOD 5,000 UNIT/0.5 ML VIAL SQ SCH (20:45)
[2024-07-30] MEDS: POTASSIUM CHLORIDE CRTAB 20 MEQ TABCR PO ONE (22:54)
[2024-07-31 06:45] LABS: Hematocrit (blood only) 25.5 % (37.0-47.0); Hemoglobin 8.4 g/dl (12.0-16.0); Mean Corpuscular Hemoglobin 31.2 pg (25.0-34.0); Mean Corpuscular Hgb Conc 32.9 g/dL (32.0-36.0); Mean Corpuscular Volume 94.8 fL (80.0-100.0); Mean Platelet Volume 12.3 fL (9.4-12.4); Platelet Count 229 K/uL (130-400); RDW Coefficient of Variation 13.2 % (11.5-14.5); RDW Standard Deviation 45.2 fL (36.4-46.3); Red Blood Count 2.69 M/uL (4.20-5.40); White Blood Count 6.86 K/ul (4.8-10.8)
[2024-07-31 06:51] LABS: BUN Creatinine Ratio 36.9 (10-20); Calcium 8.9 mg/dl (8.6-10.3); Creatinine Clr Calc Pharmacy 14.3 ml/min; Phosphorus 6.2 mg/dl (2.5-4.9); Potassium 3.8 mmol/L (3.5-5.1)
--- NOTE | 2024-07-31 11:40 | Nephrology Progress Note ---
Date of Service July 31, 2024 Assessment & Plan (1) Acute worsening of stage 4 chronic kidney disease: Plan: patient with wendy on CKD 4, baseline creatinine 1.8-2. Etiology is likely ischemic ATN due to E coli UTI. Chest x-ray showed improving/resolved pulmonary edema. creatinine of 3.1 today, which has climbed a bit from yesterday, though not so high as peak value 4.4 on 07/22. My partner had discussed with the patient / family that if she does not respond to Lasix drip, she might end up needing dialysis. Patient is willing to do dialysis if needed. That said, no HD needed today. Patient lives alone and ambulates with a walker at baseline. Son helps with medications in a pillbox Stopped lasix gtt end of day 07/30 after midday 07/26 start. sodium 127, BUN remains elevated as is creatinine. >> will give torsemide 10 mg today and consider higher dosefor AM if labs start to recovery - had metolazone 5 mg once on 07/29; none today -had po K 20 mEq x 1 yesterday; K <4 today >> will give another 20 mEq - physical therapy. Patient will need rehab on discharge -daily bmp -continue avoidance of nsaids and IV con for CT -hyperphosphatemia noted > phos 6.2 no indication for dialysis currently and hopeful she will not need it this admission Care coordinated w/ Dr Cruz regarding change in diuretics, K supplementation, dialysis disposition: we are in agreement (2) Anemia: Plan: hemoglobin stable today in low 8's at 8.4 -daily hgb -monitor for bleeding -transfuse pRBC for chest pain or hgb 7 or less (3) Hypertension: Plan: has been reasonably controlled on gtt; acceptable control this AM as well -po diuretics as above -continue toprol current dose >note imdur, hydralazine currently/appropriately on hold since 07/21 Admission and Anticipated Discharge Date Admission Date: July 16, 2024 Subjective no acute interval events clinically Physical Exam 2 Constitutional: well developed, well nourished, + obese, + frail appearing, cooperative and + lethargic; no acute distress Eyes: EOM intact bilaterally ENMT: Ears: + external ear abnormality Nose: no external nose abnormality Mouth: + dry oral mucous membranes Neck: no nuchal rigidity Respiratory: normal respiratory effort; no respiratory distress and no cough Auscultation: + diminished lung sounds, + crackles (fine posterior) and + wheezes (exp occasional) Cardiovascular: Rate/Rhythm: regular rate and regular rhythm Extremities: n o edema Gastrointestinal (Abdomen): Inspection/Auscultation: normal bowel sounds P ercussion/Palpation: abdomen soft; abdomen nontender Musculoskeletal: Extremities: strength 5/5 throughout Skin: no rashes, warm and dry Psychiatric: Orientation: alert and oriented x 3 Results & Data Vital Signs (Past 12 Hours) Vital Signs Temp Pulse Pulse Resp BP Pulse Ox O2 Del Method 07/31/24 08:01 36.2 C L 73 18 127/72 95 Room Air 07/31/24 07:20 74 07/31/24 02:31 36.4 C L 69 16 104/63 94 Room Air 07/30/24 23:59 67 Laboratory Results 07/31/24 05:55 07/31/24 05:55 phos 6.2 (2) Anemia Anemia type: unspecified type Qualified Code(s): D64.9 - Anemia, unspecified
[2024-07-31] MEDS: TORSEMIDE 10 MG TAB PO SCH (12:48)
[2024-07-31] MEDS: POTASSIUM CHLORIDE CRTAB 20 MEQ TABCR PO ONE (12:49)
--- NOTE | 2024-07-31 13:54 | Communication Note ---
Date of Service: July 31, 2024 Call to Sharon Goyal pt's daughter per request for update on kidney status. Per daughter today is best she's looked in a while. Daughter believes pt itchiness is from uremia. asking for pt to be more up /active w/ PT. Explained we have stopped lasix gtt and transitioning to low dose torsemide to start, though likely to need higher dose in next few days. While I can not rule out need for dialysis in this patient's future, I am cautiously optimistic that she will not need it during this hospital admission. Daughter appreciated update; will convey PT request to hospitalist ( last seen July 27 ). time spent 15 minutes.
--- NOTE | 2024-07-31 16:02 | Hospitalist Progress Note ---
Date of Service July 31, 2024 Assessment & Plan (1) Acute systolic CHF (congestive heart failure), NYHA class 3: (2) Acute renal failure superimposed on stage 4 chronic kidney disease: (3) Delirium due to another medical condition: (4) Mild cognitive impairment: (5) Acute metabolic encephalopathy: (6) Anemia, chronic renal failure: (7) E. coli UTI: (8) Ischemic cardiomyopathy: (9) Hypothyroid: (10) T2DM (type 2 diabetes mellitus): (11) Hypertension: (12) Hyperlipidemia: (13) ASCVD (arteriosclerotic cardiovascular disease): Plan 84-year-old female w/ PMH of T2DM, HTN, HLD, hypothyroidism, hyperparathyroidism, venous insufficiency, CKD stage IV, aortic valve sclerosis, vitamin D deficiency, senile osteoporosis, gouty arthropathy and lymphedema of the bilateral lower extremities who was admitted 07/16 for decompensated heart failure, GILBERTO on CKD, and uncomplicated UTI. She is being managed for the following: Acute on chronic macrocytic anemia: Admitting hemoglobin of 7.4, hemoglobin went down to 6.6 on 07/20 with no clear sign of bleeding. No signs of hemolysis. Iron levels fairly WNL, vitamin B-12 at 217 and folate at greater than 22. Status post 3 unit PRBC so far. Patient is a status post Epoetin Vidal 07/24. No signs of hemolysis. 07/27 CTAP with no retroperitoneal hematoma. Urine collected in the bag is light yellow with no hematuria. 07/30 FOBT neg. GI bleed ruled out. Likely anemia of chronic disease in the setting of chronic kidney disease. Hb seems stable x 2 days. c/t monitor HnH. Monitor H&H daily and as needed. Will continue to need EPO through CKD clinic. c/w b12 supplement and folate Repeat H&H in morning. GILBERTO over CKD stage IV Azotemia Hyperkalemia and hyperphosphatemia Hyponatremia Patient with baseline creatinine of 1.8 to 2.0, admitting creatinine of 2.71, peaked at 4.40 on 07/22. Potassium peaked at 5.4 on 07/21. S/P Valtessa x1 07/21 Phosphorus has been high to mid 6s. Nephrology on board, cautiously diuresing, FR of 1.5 L, patient with improving urine output, Diuresis changed to torsemide Creatinine gradually improving, pt having better urine output. Na 127. Avoid nephrotoxic's and NSAIDs. Appreciate nephrology input and management. shafer for I/Os Concern for impending HD. Family and patient state they will pursue if its necessary. Bradycardia: Has been more frequent and progressively more profound. Pt w/ no chest pain or sob or funny sensation in the chest during the events. Likely secondary to metabolic abnormalities/underlying RAMON ISO volume overload/impending renal failure. Reviewed nocturnal pulse ox 07/28 --will need O2 HS, continue telemetry monitoring, metoprolol resume with cardiology recommendation. Cardio re-evaled 07/27, appreciate recommendation. Acute metabolic encephalopathy: *stable ABG w/ no hypercarbia, NH3 < 10, b12 at 217 Hospital course was complicated by continued delirium and encephalopathy in the setting of progressing acute renal failure on chronic renal failure. Avoid medications that could alter mental status, concern that due to progressive renal dysfunction these medications are contributing to her encephalopathy. c/w B12 supplement Currently mentation has been stable. pt does appears tired than her normal per pt and her dtr. OOB and c/w PT/OT. 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 No need for anticoagulation Continue conservative med management at this time home imdur/hydral held 2/2 hypotension BB held 2/2 held due to bradycardia resumed 07/30 w/ cards recs. may consider low dose midodrine iso hypotension it persistent hypotension. f/u cardio on dc. DMTII: Glucose was reviewed, continue to cover with insulin Acute uncomplicated UTI: asymptomatic, but notably ill on admission. s/p CTX hep sc for dvt px Dispo contingent on hgb and renal function stabilizing PT/OT -- rehab recommendation Pt's dtr aparna updated at bedside 07/31. Admission and Anticipated Discharge Date Admission Date: July 16, 2024 Subjective Patient was seen and examined at bedside. Patient was lying in bed, on RA, NAD. Patient continues to look ill and tired, no nausea and vomiting today. Ate breakfast okay. Moving bowels. RN communicated to increase PT activity for patient. Patient denies any increasing cough or febrile illness. Physical Exam Physical Exam: GENERAL: Tired, oriented. NAD, on RA. Appears weak/tired/ill/sick/frail. Obese class III. HEENT: + pallor, no icterus. Pupils equal, round and reactive to light. Oral mucosa moist. NECK: No JVD, no neck masses. HEART: S1 and S2 heard. Regular rate and rhythm. No murmur, no gallop. RESPIRATORY SYSTEM: Normal AP diameter. No accessory muscle use. No wheezing, bb crackles. decreased b/l breath sounds 2/2 poor effort. ABDOMEN: Soft, bowel sounds present, nontender, no distention. CENTRAL NERVOUS SYSTEM: No facial droop. Speech is clear. Obeys simple commands. Moves extremities. EXTREMITIES: trace ble edema/loose skin w/ wrinkles, no erythema seen. Results & Data Results & Data Vital Signs (Past 12 Hours) Vital Signs Temp Pulse Pulse Resp BP Pulse Ox O2 Del Method 07/31/24 12:02 36.3 C L 67 18 129/58 L 96 Room Air 07/31/24 08:01 36.2 C L 73 18 127/72 95 Room Air 07/31/24 07:20 74
[2024-08-01 06:51] LABS: Hematocrit (blood only) 24.4 % (37.0-47.0); Mean Corpuscular Hemoglobin 31.4 pg (25.0-34.0); Mean Corpuscular Hgb Conc 32.8 g/dL (32.0-36.0); Mean Corpuscular Volume 95.7 fL (80.0-100.0); Mean Platelet Volume 12.2 fL (9.4-12.4); Nucleated RBC # (auto) 0.02 K/uL (0.00-0.12); Nucleated RBC % (auto) 0.3 %; Platelet Count 213 K/uL (130-400); RDW Coefficient of Variation 13.2 % (11.5-14.5); RDW Standard Deviation 45.4 fL (36.4-46.3); Red Blood Count 2.55 M/uL (4.20-5.40); White Blood Count 6.08 K/ul (4.8-10.8)
[2024-08-01 07:18] LABS: BUN Creatinine Ratio 37.8 (10-20); Calcium 8.8 mg/dl (8.6-10.3); Creatinine Clr Calc Pharmacy 14.7 ml/min; Phosphorus 5.7 mg/dl (2.5-4.9); Potassium 3.7 mmol/L (3.5-5.1)
--- NOTE | 2024-08-01 13:35 | Nephrology Progress Note ---
Date of Service August 01, 2024 Assessment & Plan (1) Acute worsening of stage 4 chronic kidney disease: Plan: patient with wendy on CKD 4, baseline creatinine 1.8-2. Etiology is likely ischemic ATN due to E coli UTI. Chest x-ray showed improving/resolved pulmonary edema. creatinine of 3.2 today, which has again climbed a bit from yesterday, though not so high as peak value 4.4 on 07/22. My partner had discussed with the patient / family that if she does not respond to Lasix drip, she might end up needing dialysis. Patient is willing to do dialysis if needed. That said, no HD needed today. Patient lives alone and ambulates with a walker at baseline. Son helps with medications in a pillbox Stopped lasix gtt end of day 07/30 after midday 07/26 start. sodium 127 plateau'd, BUN remains elevated as is creatinine. >> continue torsemide 10 mg today and again consider higher dose for AM if labs start to recover - had metolazone 5 mg once on 07/29; none today -had po K 20 mEq x 1 yesterday; K <4 today >> will again give another 20 mEq today - physical therapy. Patient will need rehab on discharge -daily bmp -continue avoidance of nsaids and IV con for CT -hyperphosphatemia noted > phos 6.2 no indication for dialysis currently; though w/ volume issues, elevated BUN, diminished UOP cannot r/o need this admission; given wheezes asked Dr Cruz to consider standing nebs; also will get CXR in AM Plan of care reviewed with Dr Cruz re diuretic plans, CXR, possible nebs; we are in agreement. (2) Anemia: Plan: hemoglobin downtrending today to 8 after days in low 8's -daily hgb -monitor for bleeding -transfuse pRBC for chest pain or hgb 7 or less (3) Hypertension: Plan: has been reasonably controlled on gtt; acceptable control this AM as well -po diuretics as above -continue toprol current dose >note imdur, hydralazine currently/appropriately on hold since 07/21 Admission and Anticipated Discharge Date Admission Date: July 16, 2024 Subjective decreased UOP on lower diuretics >> 300 ML 6A-2P; 75 mL 2-4 pm; seen on early PM rounds; pt denies sob, n/v; taking minimal po; worked w/ PT today Review of Systems 2 Review of Systems: All systems reviewed & are unremarkable except as noted in Subjective Physical Exam 2 Constitutional: well developed, well nourished, + obese, + frail appearing, cooperative and + lethargic; no acute distress Eyes: EOM intact bilaterally (visually impaired) ENMT: Mouth: + dry oral mucous membranes Neck: no nuchal rigidity Respiratory: normal respiratory effort; no respiratory distress and no cough Auscultation: + diminished lung sounds and + wheezes (scattered expiratory) Cardiovascular: Rate/Rhythm: regular rate and regular rhythm Extremities: n o edema Gastrointestinal (Abdomen): Inspection/Auscultation: normal bowel sounds P ercussion/Palpation: abdomen soft; abdomen nontender Musculoskeletal: Extremities: strength 5/5 throughout Skin: no rashes, warm and dry Psychiatric: Orientation: alert and oriented x 3 Results & Data Vital Signs (Past 12 Hours) Vital Signs Temp Pulse Pulse Resp BP Pulse Ox O2 Del Method 08/01/24 11:39 36.7 C 65 18 100/65 94 Room Air 08/01/24 09:00 Room Air 08/01/24 07:55 36.5 C 69 17 118/67 94 Room Air 08/01/24 07:17 59 L 08/01/24 03:46 36.5 C 62 18 123/70 96 Room Air Laboratory Results 08/01/24 06:12 08/01/24 06:12 (2) Anemia Anemia type: unspecified type Qualified Code(s): D64.9 - Anemia, unspecified
[2024-08-01] MEDS: POTASSIUM CHLORIDE CRTAB 20 MEQ TABCR PO STA (13:54)
--- NOTE | 2024-08-01 15:21 | Hospitalist Progress Note ---
Date of Service August 01, 2024 Assessment & Plan (1) Acute systolic CHF (congestive heart failure), NYHA class 3: (2) Acute renal failure superimposed on stage 4 chronic kidney disease: (3) Delirium due to another medical condition: (4) Mild cognitive impairment: (5) Acute metabolic encephalopathy: (6) Anemia, chronic renal failure: (7) E. coli UTI: (8) Ischemic cardiomyopathy: (9) Hypothyroid: (10) T2DM (type 2 diabetes mellitus): (11) Hypertension: (12) Hyperlipidemia: (13) ASCVD (arteriosclerotic cardiovascular disease): Plan 84-year-old female w/ PMH of T2DM, HTN, HLD, hypothyroidism, hyperparathyroidism, venous insufficiency, CKD stage IV, aortic valve sclerosis, vitamin D deficiency, senile osteoporosis, gouty arthropathy and lymphedema of the bilateral lower extremities who was admitted 07/16 for decompensated heart failure, GILBERTO on CKD, and uncomplicated UTI. She is being managed for the following: Acute on chronic macrocytic anemia: Admitting hemoglobin of 7.4, hemoglobin went down to 6.6 on 07/20 with no clear sign of bleeding. No signs of hemolysis. Iron levels fairly WNL, vitamin B-12 at 217 and folate at greater than 22. Status post 3 unit PRBC so far. Patient is a status post Epoetin Vidal 07/24. No signs of hemolysis. 07/27 CTAP with no retroperitoneal hematoma. Urine collected in the bag is light yellow with no hematuria. 07/30 FOBT neg. GI bleed ruled out. Likely anemia of chronic disease in the setting of chronic kidney disease. Hb seems stable x 2 days. c/t monitor HnH. Monitor H&H daily and as needed. Will continue to need EPO through CKD clinic. c/w b12 supplement and folate Repeat H&H in morning. GILBERTO over CKD stage IV Azotemia Hyperkalemia and hyperphosphatemia Hyponatremia Patient with baseline creatinine of 1.8 to 2.0, admitting creatinine of 2.71, peaked at 4.40 on 07/22. Potassium peaked at 5.4 on 07/21. S/P Valtessa x1 07/21 Phosphorus has been high to mid 6s. Nephrology on board, cautiously diuresing, FR of 1.5 L, patient with improving urine output, Diuresis changed to torsemide Creatinine gradually improving, pt having better urine output. Na 127. Avoid nephrotoxic's and NSAIDs. Appreciate nephrology input and management. shafer for I/Os Concern for impending HD. Family and patient state they will pursue if its necessary. Bradycardia: Has been more frequent and progressively more profound. Pt w/ no chest pain or sob or funny sensation in the chest during the events. Likely secondary to metabolic abnormalities/underlying RAMON ISO volume overload/impending renal failure. Reviewed nocturnal pulse ox 07/28 --will need O2 HS, continue telemetry monitoring, metoprolol resume with cardiology recommendation. Cardio re-evaled 07/27, appreciate recommendation. Acute metabolic encephalopathy: *stable ABG w/ no hypercarbia, NH3 < 10, b12 at 217 Hospital course was complicated by continued delirium and encephalopathy in the setting of progressing acute renal failure on chronic renal failure. Avoid medications that could alter mental status, concern that due to progressive renal dysfunction these medications are contributing to her encephalopathy. c/w B12 supplement Currently mentation has been stable. pt does appears tired than her normal per pt and her dtr. OOB and c/w PT/OT. 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 No need for anticoagulation Continue conservative med management at this time home imdur/hydral held 2/2 hypotension BB held 2/2 held due to bradycardia resumed 07/30 w/ cards recs. may consider low dose midodrine iso hypotension it persistent hypotension. f/u cardio on dc. DMTII: Glucose was reviewed, continue to cover with insulin Acute uncomplicated UTI: asymptomatic, but notably ill on admission. s/p CTX hep sc for dvt px Dispo contingent on hgb and renal function stabilizing PT/OT -- rehab recommendation Pt's dtr aparna updated at bedside 08/01. Admission and Anticipated Discharge Date Admission Date: July 16, 2024 Subjective Patient was seen and examined at bedside. Patient was lying in bed, on RA, NAD. Patient continues to look ill and tired, no nausea and vomiting today. Ate breakfast okay. Moving bowels. RN communicated to increase PT activity for patient. Patient denies any increasing cough or febrile illness. Physical Exam Physical Exam: GENERAL: Tired, oriented. NAD, on RA. Appears weak/tired/ill/sick/frail. Obese class III. HEENT: + pallor, no icterus. Pupils equal, round and reactive to light. Oral mucosa moist. NECK: No JVD, no neck masses. HEART: S1 and S2 heard. Regular rate and rhythm. No murmur, no gallop. RESPIRATORY SYSTEM: Normal AP diameter. No accessory muscle use. No wheezing, bb crackles. decreased b/l breath sounds 2/2 poor effort. ABDOMEN: Soft, bowel sounds present, nontender, no distention. CENTRAL NERVOUS SYSTEM: No facial droop. Speech is clear. Obeys simple commands. Moves extremities. EXTREMITIES: trace ble edema/loose skin w/ wrinkles, no erythema seen. Results & Data Results & Data Vital Signs (Past 12 Hours) Vital Signs Temp Pulse Pulse Resp BP Pulse Ox O2 Del Method 08/01/24 15:19 60 08/01/24 11:39 36.7 C 65 18 100/65 94 Room Air 08/01/24 09:00 Room Air 08/01/24 07:55 36.5 C 69 17 118/67 94 Room Air 08/01/24 07:17 59 L 08/01/24 03:46 36.5 C 62 18 123/70 96 Room Air
[2024-08-02 07:13] LABS: Hematocrit (blood only) 24.9 % (37.0-47.0); Mean Corpuscular Hemoglobin 30.8 pg (25.0-34.0); Mean Corpuscular Hgb Conc 32.1 g/dL (32.0-36.0); Mean Corpuscular Volume 95.8 fL (80.0-100.0); Mean Platelet Volume 11.8 fL (9.4-12.4); Platelet Count 215 K/uL (130-400); RDW Coefficient of Variation 14.2 % (11.5-14.5); RDW Standard Deviation 49.2 fL (36.4-46.3); White Blood Count 5.08 K/ul (4.8-10.8)
[2024-08-02 07:38] LABS: BUN Creatinine Ratio 37.8 (10-20); Calcium 8.9 mg/dl (8.6-10.3); Creatinine Clr Calc Pharmacy 14.1 ml/min; Magnesium 2.1 mg/dl (1.7-2.4); Phosphorus 5.7 mg/dl (2.5-4.9); Potassium 3.8 mmol/L (3.5-5.1)
--- NOTE | 2024-08-02 09:25 | XRay Report ---
XR chest 1V portable CLINICAL HISTORY: f/u pul edema, has crackles. COMPARISON STUDY: Chest radiograph July 29, 2024. FINDINGS: There is no pneumothorax. Small bilateral pleural effusions persist. Left pleural effusion has slightly improved. Minimal right midlung opacity is present. Cardiomediastinal silhouette is unch anged. Pulmonary vascular congestion is similar to prior exam. IMPRESSION: 1. Cardiomegaly with pulmonary vascular congestion, similar to prior exam. 2. Small bilateral pleural effusions. Slight improvement in the left pleural effusion. 3. Minimal right midlung opacity. This may reflect atelectasis but can be assessed on follow-up exams to ensure resolution. ACT 112: Negative or not required by law. Electronically signed by: Navin Pereyra M.D. 08/02/2024 9:24 AM
--- NOTE | 2024-08-02 12:37 | Nephrology Progress Note ---
Date of Service August 02, 2024 Assessment & Plan (1) Acute worsening of stage 4 chronic kidney disease: Plan: patient with wendy on CKD 4, baseline creatinine 1.8-2. Etiology is likely ischemic ATN due to E coli UTI. Chest x-ray shows today unchanged pulmonary edema but exam worse. creatinine of 3.3 today, which has yet again climbed a bit from yesterday, though not so high as peak value 4.4 on 07/22. BUN climbing, hgb dropping, phos elevated earlier in week. My partner had discussed with the patient / family that if she does not respond to Lasix drip, she might end up needing dialysis. Patient is willing to do dialysis if needed. That said, no HD needed today. w/ her small stature and advanced age/sedentary lifestyle, creatinine of 3 w/ volume overload represents more significant impairment than GFR would suggest. Patient lives alone and ambulates with a walker at baseline. Son helps with medications in a pillbox Stopped lasix gtt end of day 07/30 after midday 07/26 start. at this point I feel we need to start moving toward dialysis reviewed risks/benefits/indications / alternatives w/ pt and w/ her son Buster Quick by phone; attempted to reach her daughter who's RN by phone but she was unavailable. consent obtained after review and on chart. vascular consult placed for TDC hopefully in AM pending availableility; else 08/06 w/ temp cath on weekend if needed. plan first HD day of TDC placement, dialysis 3 days in a row (skipping tuesday) to lower dysequilibrium risk which is high for her given BUN and frailty; so hoping first HD tomorrow >> continue torsemide 10 mg today for now - physical therapy. Patient will need rehab on discharge -daily bmp -continue avoidance of nsaids and IV con for CT -hyperphosphatemia noted > phos 6.2 yesterday no indication for emergent dialysis currently; though w/ volume issues, elevated BUN, diminished UOP we do need to start moving toward it. Ultimately OP dialysis at [facility] most likely given where she lives, else [place] Plan of care reviewed with Dr Anthony sheehan dialysis, diuretic plans; we are in agreement. (2) Anemia: Plan: hemoglobin further downtrending today to 8 after days in low 8's -daily hgb -monitor for bleeding -transfuse pRBC for chest pain or hgb 7 or less (3) Hypertension: Plan: has been reasonably controlled on gtt; acceptable control and even some low readings -po diuretics as above -continue toprol current dose >note imdur, hydralazine currently/appropriately on hold since 07/21 Admission and Anticipated Discharge Date Admission Date: July 16, 2024 Subjective no acute interval events clinically; on standing nebs now; no sob, onoing itch; tolerating po Review of Systems 2 Review of Systems: All systems reviewed & are unremarkable except as noted in Subjective Physical Exam 2 Constitutional: well developed, well nourished, + obese, + frail appearing and cooperative; no acute distress Eyes: EOM intact bilaterally (visually impaired) ENMT: Mouth: + dry oral mucous membranes Respiratory: normal respiratory effort; no respiratory distress and no cough Auscultation: + diminished lung sounds and + crackles (thicker today bases posterior) Cardiovascular: Rate/Rhythm: regular rate and regular rhythm Extremities: n o edema Gastrointestinal (Abdomen): Inspection/Auscultation: normal bowel sounds P ercussion/Palpation: abdomen soft; abdomen nontender Musculoskeletal: Extremities: strength 5/5 throughout Skin: no rashes, warm and dry Psychiatric: Orientation: alert and oriented x 3 Results & Data Vital Signs (Past 12 Hours) Vital Signs Temp Pulse Pulse Resp BP Pulse Ox O2 Del Method 08/02/24 11:22 36.3 C L 56 L 20 124/69 95 Room Air 08/02/24 11:08 Room Air 08/02/24 07:59 36.3 C L 53 L 18 105/68 94 Room Air 08/02/24 07:29 57 L 08/02/24 04:15 36.5 C 59 L 20 125/58 L 95 Room Air Laboratory Results 08/02/24 06:49 08/02/24 06:49 Diagnostic Findings CXR today 1. Cardiomegaly with pulmonary vascular congestion, similar to prior exam. 2. Small bilateral pleural effusions. Slight improvement in the left pleural effusion. 3. Minimal right midlung opacity. This may reflect atelectasis but can be assessed on follow-up exams to ensure resolution. (2) Anemia Anemia type: unspecified type Qualified Code(s): D64.9 - Anemia, unspecified
--- NOTE | 2024-08-02 13:40 | Hospitalist Progress Note ---
Date of Service August 02, 2024 Assessment & Plan (1) Acute systolic CHF (congestive heart failure), NYHA class 3: (2) Acute renal failure superimposed on stage 4 chronic kidney disease: (3) Delirium due to another medical condition: (4) Mild cognitive impairment: (5) Acute metabolic encephalopathy: (6) Anemia, chronic renal failure: (7) E. coli UTI: (8) Ischemic cardiomyopathy: (9) Hypothyroid: (10) T2DM (type 2 diabetes mellitus): (11) Hypertension: (12) Hyperlipidemia: (13) ASCVD (arteriosclerotic cardiovascular disease): Plan 84-year-old female w/ PMH of T2DM, HTN, HLD, hypothyroidism, hyperparathyroidism, venous insufficiency, CKD stage IV, aortic valve sclerosis, vitamin D deficiency, senile osteoporosis, gouty arthropathy and lymphedema of the bilateral lower extremities who was admitted 07/16 for decompensated heart failure, GILBERTO on CKD, and uncomplicated UTI. She is being managed for the following: Acute on chronic macrocytic anemia: Admitting hemoglobin of 7.4, hemoglobin went down to 6.6 on 07/20 with no clear sign of bleeding. No signs of hemolysis. Iron levels fairly WNL, vitamin B-12 at 217 and folate at greater than 22. Status post 3 unit PRBC so far. Patient is a status post Epoetin Vidal 07/24. No signs of hemolysis. 07/27 CTAP with no retroperitoneal hematoma. Urine collected in the bag is light yellow with no hematuria. 07/30 FOBT neg. GI bleed ruled out. Likely anemia of chronic disease in the setting of chronic kidney disease. Hb seems stable x 2 days. c/t monitor HnH. Monitor H&H daily and as needed. Will continue to need EPO through CKD clinic. c/w b12 supplement and folate Repeat H&H in morning. GILBERTO over CKD stage IV Azotemia Hyperkalemia and hyperphosphatemia Hyponatremia Patient with baseline creatinine of 1.8 to 2.0, admitting creatinine of 2.71, peaked at 4.40 on 07/22. Potassium peaked at 5.4 on 07/21. S/P Valtessa x1 07/21 Phosphorus has been high to mid 6s. Nephrology on board, cautiously diuresing, FR of 1.5 L, patient with uptrending Cr on PO torsemide, plan for dialysis per nephro. Creatinine gradually rising up, pt having slowly decreasing UO, Na 129 today. Avoid nephrotoxic's and NSAIDs. Appreciate nephrology input and management. shafer for I/Os Concern for impending HD. Family and patient state they will pursue if its necessary. d/w nephro, plan for HD in coming days. Bradycardia: Has been more frequent and progressively more profound. Pt w/ no chest pain or sob or funny sensation in the chest during the events. Likely secondary to metabolic abnormalities/underlying RAMON ISO volume overlo ad/impending renal failure. Reviewed nocturnal pulse ox 07/28 --will need O2 HS , continue telemetry monitoring, metoprolol resumed with cardiology recommendation. Cardio re-evaled 07/27, appreciate recommendation. Acute metabolic encephalopathy: *stable ABG w/ no hypercarbia, NH3 < 10, b12 at 217 Hospital course was complicated by continued delirium and encephalopathy in the setting of progressing acute renal failure on chronic renal failure. Avoid medications that could alter mental status, concern that due to progressive renal dysfunction these medications are contributing to her encephalopathy. c/w B12 supplement Currently mentation has been stable. pt does appears tired than her normal per pt and her dtr. OOB and c/w PT/OT. 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 No need for anticoagulation Continue conservative med management at this time home imdur/hydral held 2/2 hypotension BB held 2/2 held due to bradycardia resumed 07/30 w/ cards recs. may consider low dose midodrine iso hypotension it persistent hypotension. f/u cardio on dc. DMTII: Glucose was reviewed, continue to cover with insulin Acute uncomplicated UTI: asymptomatic, but notably ill on admission. s/p CTX hep sc for dvt px Dispo contingent on hgb and renal function stabilizing PT/OT -- rehab recommendation Pt's dtr son updated at bedside 08/02. Admission and Anticipated Discharge Date Admission Date: July 16, 2024 Subjective Patient was seen and examined at bedside. Patient was lying in bed, on RA, NAD. Patient continues to look ill and tired, no nausea and vomiting today. Eating ok. Moving bowels. Patient denies any increasing cough or febrile illness. Patient's son at bedside who was also updated on plan of care. Physical Exam Physical Exam: GENERAL: Tired, oriented. NAD, on RA. Appears weak/tired/ill/sick/frail. Obese class III. HEENT: + pallor, no icterus. Pupils equal, round and reactive to light. Oral mucosa moist. NECK: No JVD, no neck masses. HEART: S1 and S2 heard. Regular rate and rhythm. No murmur, no gallop. RESPIRATORY SYSTEM: Normal AP diameter. No accessory muscle use. No wheezing, bb crackles. decreased b/l breath sounds 2/2 poor effort. ABDOMEN: Soft, bowel sounds present, nontender, no distention. CENTRAL NERVOUS SYSTEM: No facial droop. Speech is clear. Obeys simple commands. Moves extremities. EXTREMITIES: trace ble edema/loose skin w/ wrinkles, no erythema seen. Results & Data Results & Data Vital Signs (Past 12 Hours) Vital Signs Temp Pulse Pulse Resp BP Pulse Ox O2 Del Method 08/02/24 11:22 36.3 C L 56 L 20 124/69 95 Room Air 08/02/24 11:08 Room Air 08/02/24 07:59 36.3 C L 53 L 18 105/68 94 Room Air 08/02/24 07:29 57 L 08/02/24 04:15 36.5 C 59 L 20 125/58 L 95 Room Air
[2024-08-02] MEDS: ALBUT/IPRATROP 3MG/0.5MG NEB 3 ML VIAL NEB SCH (15:13)
[2024-08-03] MEDS ORDERED: IRON SUCROSE 50 MG in SYRINGE 0 ML IV ONE (07:00)
[2024-08-03 07:08] LABS: Hematocrit (blood only) 23.9 % (37.0-47.0); Hemoglobin 7.6 g/dl (12.0-16.0); Mean Corpuscular Hemoglobin 30.9 pg (25.0-34.0); Mean Corpuscular Hgb Conc 31.8 g/dL (32.0-36.0); Mean Corpuscular Volume 97.2 fL (80.0-100.0); Mean Platelet Volume 12.2 fL (9.4-12.4); Nucleated RBC # (auto) 0.02 K/uL (0.00-0.12); Nucleated RBC % (auto) 0.4 %; Platelet Count 207 K/uL (130-400); RDW Standard Deviation 49.4 fL (36.4-46.3); Red Blood Count 2.46 M/uL (4.20-5.40); White Blood Count 5.14 K/ul (4.8-10.8)
[2024-08-03] MEDS ORDERED: ALBUT/IPRATROP 3MG/0.5MG NEB 3 ML VIAL NEB PRN (08:07)
[2024-08-03 09:56] LABS: BUN Creatinine Ratio 36.2 (10-20); Calcium 8.8 mg/dl (8.6-10.3); Creatinine Clr Calc Pharmacy 13.6 ml/min; Magnesium 2.2 mg/dl (1.7-2.4); Phosphorus 6.1 mg/dl (2.5-4.9); Potassium 3.8 mmol/L (3.5-5.1)
--- NOTE | 2024-08-03 10:08 | Consultation ---
Date of Consultation August 03, 2024 Assessment & Plan (1) Acute renal failure superimposed on stage 4 chronic kidney disease: Recommend insertion of permcath for dialysis. I have discussed the risks options and benefits of the procedure with the patient. The patient understands the risks options and benefits and agrees to the procedure. History of Present Illness Reason for Consultation: Acute kidney injury Attending Physician: Linden Urbina MD History of Present Illness This is an 84yo female with CKD with worsening kidney function most likely from sepsis. She is now overloaded and in need of dilaysis. She has no access at present Allergies Allergy/AdvReac Type Severity Reaction Status Date / Time pecan nut Allergy Severe ANAPHYLAXIS Verified 03/02/17 09:41 coconut Allergy Verified 07/24/24 10:13 coconut oil Allergy Verified 07/24/24 10:13 kiwi Allergy Verified 07/24/24 10:13 nut - unspecified Allergy Verified 07/24/24 10:13 Home Medications Medication Instructions Recorded Confirmed Type allopurinol 100 mg tablet 200 mg PO DAILY 07/16/24 07/16/24 History aspirin 81 mg tablet,delayed 81 mg PO 2XWK 07/16/24 07/16/24 History release atorvastatin 40 mg tablet 40 mg PO DAILY 07/16/24 07/16/24 History chlorthalidone 25 mg tablet 50 mg PO DAILY 07/16/24 07/16/24 History cholecalciferol (vitamin D3) 10 10 mcg PO DAILY 07/16/24 07/16/24 History mcg (400 unit) capsule folic acid 1 mg tablet 1 mg PO DAILY 07/16/24 07/16/24 History furosemide 20 mg tablet 20 mg PO DAILY 07/16/24 07/16/24 History hydralazine 10 mg tablet 10 mg PO BID 07/16/24 07/16/24 History levothyroxine 75 mcg tablet 75 mcg PO DAILY@0630 07/16/24 07/16/24 History lisinopril 5 mg tablet 5 mg PO PM 07/16/24 07/16/24 History metoprolol succinate 25 mg 25 mg PO DAILY 07/16/24 07/16/24 History tablet,extended release 24 hr Patient History Medical History CKD (chronic kidney disease) stage 4, GFR 15-29 ml/min Gouty arthropathy Osteoporosis Vitamin D deficiency Aortic valve sclerosis Hyperparathyroidism T2DM (type 2 diabetes mellitus) Foot pain, right Hypothyroid Hyperlipidemia Hypertension Surgical History Hx of cholecystectomy Hx of appendectomy Family History Mother No problems noted. 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: No Beliefs That Will Affect Care: None Current Living Situation: Alone Other Information That Helps Us Care for You: No Feels Safe at Home: Yes Safety Concerns: Feels Safe At This Time Assistive Devices: Walker Review of Systems Review of Systems: All systems reviewed & are unremarkable except as noted in HPI & below Physical Exam Constitutional: WD/WN, vitals as above Respiratory: normal respiratory effort, lungs clear to auscultation Cardiovascular: Rate/Rhythm: regular rate and regular rhythm Neurologic: CN's II-XI intact bilaterally and moves all extremities Psychiatric: A+Ox3, euthymic affect Results & Data Vital Signs (Past 12 Hours) Vital Signs Temp Pulse Pulse Resp BP Pulse Ox O2 Del Method 08/03/24 07:58 36.4 C L 64 129/69 94 Room Air 08/03/24 07:16 57 L 16 97 Room Air 08/03/24 07:07 49 L 08/03/24 04:00 36.4 C L 49 L 22 102/45 L 95 Room Air 08/03/24 00:27 Nasal Cannula 08/02/24 23:00 36.4 C L 58 L 20 111/58 L 98 Room Air 08/02/24 22:19 53 L O2 Flow Rate 08/03/24 07:58 08/03/24 07:16 08/03/24 07:07 08/03/24 04:00 08/03/24 00:27 2 08/02/24 23:00 08/02/24 22:19
--- NOTE | 2024-08-03 11:27 | Pre Anesthesia Assessment ---
Date of Service August 03, 2024 Pre Sedation Assessment Vital Signs Temp Pulse Pulse Resp BP Pulse Ox O2 Del Method 08/03/24 11:25 50 L 16 130/46 L 100 Oxymask 08/03/24 10:51 36.9 C 55 L 20 84/71 L 94 Room Air 08/03/24 07:58 36.4 C L 64 129/69 94 Room Air 08/03/24 07:16 57 L 16 97 Room Air 08/03/24 07:07 49 L 08/03/24 04:00 36.4 C L 49 L 22 102/45 L 95 Room Air 08/03/24 00:27 Nasal Cannula 08/02/24 23:00 36.4 C L 58 L 20 111/58 L 98 Room Air 08/02/24 22:19 53 L 08/02/24 19:57 51 L 15 99 Room Air 08/02/24 19:30 36.6 C 58 L 18 116/69 96 Room Air 08/02/24 15:56 36.3 C L 54 L 20 113/70 93 Room Air 08/02/24 15:15 49 L 12 96 Room Air 08/02/24 15:10 45 L O2 Flow Rate 08/03/24 11:25 4 08/03/24 10:51 08/03/24 07:58 08/03/24 07:16 08/03/24 07:07 08/03/24 04:00 08/03/24 00:27 2 08/02/24 23:00 08/02/24 22:19 08/02/24 19:57 08/02/24 19:30 08/02/24 15:56 08/02/24 15:15 08/02/24 15:10 Cardiovascular RRR, no murmur, no edema Respiratory normal respiratory effort, lungs clear to auscultation Pre-Sedation Airway Assessment Smoking Status: Never smoker Hx Sleep Apnea: No Short, Thick Neck: No Thyromental Distance: > or= 3.5 Finger Breadths Oral Cavity: + WNL Mallampati Class: II ASA: ASA4 NPO Status Date of Last Intake of Fluids: 08/03/24 Time of Last Intake of Fluids: 06:00 Date of Last Intake of Solid Food: 08/02/24 Time of Last Intake of Solid Foods: 19:00 Procedure Planning Contraindications for Sedation: none Current Medications Reviewed: Yes Notes The planned sedation has been discussed with the patient. Informed Consent was obtained. I have identified the patient, determined the appropriateness of sedation and have assessed the patient immediately prior to the procedure. All medicine(s) and interventions are by my order.
[2024-08-03] MEDS: HEPARIN SOD (PORCINE) 5,000 UNITS/ML VIAL ONE (11:37)
[2024-08-03] MEDS: LIDOCAINE 1% LOCAL 20 ML VIAL ONE (11:37)
--- NOTE | 2024-08-03 11:48 | Operative Report ---
Post Operative Report Pre & Post Diagnosis Operation Date: 08/03/24 08:10 Pre-Op Diagnosis: ACUTE KIDNEY INJURY Post-Op Diagnosis: ACUTE KIDNEY INJURY I identified the patient and participated in the time-out.: Yes Procedure Operation Date: 08/03/24 08:10 Actual Procedures p Perm Catheter Placement,Right Internal Jugular Approach, Ultrasound Localization of Right Internal Jugular Vein,Fluorscopy for Positioning,Moderate Sedation [id number](Right) - Gilbert Harp MD Surgeon Gilbert Harp MD Lead Sprinkler none Estimated Blood Loss 5 Findings Consistent with Post-Op Diagnosis Specimens none Anesthesia Type RN Sedation Complications none Disposition Accompanied Patient To Recovery: No Disposition: Recovery Room Indications This is an 84-year-old female with chronic kidney disease and acute kidney inju ry secondary to sepsis. She has fluid overload and is in need of dialysis. PermCath was recommended. I have discussed the risks options and benefits of the procedure with the patient. The patient understands the risks options and benefits and agrees to the procedure. Description of Procedure Patient was taken to the angio suite and placed in the supine position. The right side of the neck and chest wall were prepped and draped in a sterile manner. The patient was identified and a timeout performed. Local anesthesia was then administered to the appropriate areas of the neck and chest wall. Ultrasound was then used to locate the right internal jugular vein. The vein compressed easily, had no filing defects, and was patent. The vein was then punctured under direct ultrasound imaging. A guidewire was then passed centrally under fluoroscopic imaging. A stab wound was then made in the anterior chest wall and a 19 cm permcath was passed from the stab wound on the chest wall to the puncture site on the neck. The puncture site was then dilated till the 14Fr peel away sheath was inserted. The permcath was then inserted through the sheath to a central position in the distal superior vena cava. The peel away sheath was then removed. The catheter was then sutured in place using nylon sutures. The puncture was then closed using a 4-0 Vicryl subcuticular suture. Dermabond was used for a dressing on the puncture site. Both ports aspirated and flushed easily and were then packed with heparin. A sterile dressing was applied to the catheter. The patient left the operation room in satisfactory condition and tolerated the procedure well. All needle and sponge counts were correct at the end of the procedure. I attest to the content of the Intraoperative Record and any orders documented therein. Any exceptions are noted below.
--- NOTE | 2024-08-03 11:49 | Post Anesthesia Assessment ---
Date of Service August 03, 2024 Post Sedation Assessment Vital Signs Temp Pulse Pulse Resp BP Pulse Ox O2 Del Method 08/03/24 11:40 50 L 16 108/42 L 100 Oxymask 08/03/24 11:30 54 L 16 116/41 L 100 Oxymask 08/03/24 11:25 50 L 16 130/46 L 100 Oxymask 08/03/24 10:51 36.9 C 55 L 20 84/71 L 94 Room Air 08/03/24 07:58 36.4 C L 64 129/69 94 Room Air 08/03/24 07:16 57 L 16 97 Room Air 08/03/24 07:07 49 L 08/03/24 04:00 36.4 C L 49 L 22 102/45 L 95 Room Air 08/03/24 00:27 Nasal Cannula 08/02/24 23:00 36.4 C L 58 L 20 111/58 L 98 Room Air 08/02/24 22:19 53 L 08/02/24 19:57 51 L 15 99 Room Air 08/02/24 19:30 36.6 C 58 L 18 116/69 96 Room Air 08/02/24 15:56 36.3 C L 54 L 20 113/70 93 Room Air 08/02/24 15:15 49 L 12 96 Room Air 08/02/24 15:10 45 L O2 Flow Rate 08/03/24 11:40 4 08/03/24 11:30 4 08/03/24 11:25 4 08/03/24 10:51 08/03/24 07:58 08/03/24 07:16 08/03/24 07:07 08/03/24 04:00 08/03/24 00:27 2 08/02/24 23:00 08/02/24 22:19 08/02/24 19:57 08/02/24 19:30 08/02/24 15:56 08/02/24 15:15 08/02/24 15:10 Recovery Score Activity: Moves 4 extremities Respiration: Deep Breath/Cough Circulation: +/-20% PreAnes Value Consciousness: Fully Awake Oxygen Saturation: O2 needed for >90% Post Anesthesia Score: 9 Discharge Sedation Level of Care: Fast Track Phase II Post Sedation Plan On clinical assessment, the patient appears to have tolerated the sedation without complications. Patient is recovering as anticipated. Patient will continue to be monitored by nursing and may be discharged when sedation discharge criteria are met per below protocol. Upon Completions of procedure up to 15 minutes continue every 5 minute vital signs and the P.A.R. score; then discharge to a Phase I or Fast Track to Phase II per the following guidelines: * Discharge Patient to appropriate Phase II area if PAR is 8 or greater or return to pre- procedure baseline. The post - procedure orders will be as directed. * If PAR score is less than 8 or not return to pre-procedure baseline then patient will follow Phase I monitoring till PAR is reached for Phase II. The Phase I may be done in procedure room or may call to secure a Phase I area. * If naloxone or flumazenil are used for reversal, hold in Phase I for continued monitoring from when last reversal dose was given for a minimum of 60 minutes or longer pending the nurse and/or physician discretion of patient condition before discharge to Phase II. Please call the Sedation Physician to re-evaluate and complete post-note for discharge to Phase II area. Do NOT discharge from procedure sedation or Phase 1 until post- sedation evaluation note is complete by procedure /sedation MD Sedation Discharge Instructions to be given to the patient at discharge to home.
--- NOTE | 2024-08-03 12:55 | Hospitalist Progress Note ---
Date of Service August 03, 2024 Assessment & Plan (1) Acute systolic CHF (congestive heart failure), NYHA class 3: (2) Acute renal failure superimposed on stage 4 chronic kidney disease: (3) Delirium due to another medical condition: (4) Mild cognitive impairment: (5) Acute metabolic encephalopathy: (6) Anemia, chronic renal failure: (7) E. coli UTI: (8) Ischemic cardiomyopathy: (9) Hypothyroid: (10) T2DM (type 2 diabetes mellitus): (11) Hypertension: (12) Hyperlipidemia: (13) ASCVD (arteriosclerotic cardiovascular disease): Plan 84-year-old female w/ PMH of T2DM, HTN, HLD, hypothyroidism, hyperparathyroidism, venous insufficiency, CKD stage IV, aortic valve sclerosis, vitamin D deficiency, senile osteoporosis, gouty arthropathy and lymphedema of the bilateral lower extremities who was admitted 07/16 for decompensated heart failure, GILBERTO on CKD, and uncomplicated UTI. She is being managed for the following: Acute on chronic macrocytic anemia: Admitting hemoglobin of 7.4, hemoglobin went down to 6.6 on 07/20 with no clear sign of bleeding. No signs of hemolysis. Iron levels fairly WNL, vitamin B-12 at 217 and folate at greater than 22. No signs of hemolysis. 07/27 CTAP with no retroperitoneal hematoma. Urine collected in the bag is light yellow with no hematuria. 07/30 FOBT neg. GI bleed ruled out. Likely anemia of chronic disease in the setting of chronic kidney disease. Status post 3 unit PRBC so far. Patient is a status post Epoetin Vidal 07/24. Hemoglobin remains stable at 7.6 since the blood transfusion Will monitor hemoglobin Bleeding per vagina Does not seems to be coming out from urethra and urine remains clear Noted to be from today and will observe If the bleeding continues we will get GILBERTO over CKD stage IV Azotemia Hyperkalemia and hyperphosphatemia Hyponatremia Patient with baseline creatinine of 1.8 to 2.0, admitting creatinine of 2.71, peaked at 4.40 on 07/22. Potassium peaked at 5.4 on 07/21. S/P Valtessa x1 07/21 Phosphorus has been high to mid 6s. Nephrology on board, cautiously diuresing, FR of 1.5 L, patient with uptrending Cr on PO torsemide, plan for dialysis per nephro. Creatinine gradually rising up, pt having slowly decreasing UO, Na 129 today. Avoid nephrotoxic's and NSAIDs. BUN and creatinine remains elevated and does not seems to be improved Status post permacatheter placement for dialysis Bradycardia: Has been more frequent and progressively more profound. Pt w/ no chest pain or sob or funny sensation in the chest during the events. Likely secondary to metabolic abnormalities/underlying RAMON ISO volume overload/impending renal failure. Reviewed nocturnal pulse ox 07/28 --will need O2 HS, continue telemetry monitoring, metoprolol resumed with cardiology recommendation. Cardio re-evaled 07/27, appreciate recommendation. no more bradycardia Acute metabolic encephalopathy: *stable ABG w/ no hypercarbia, NH3 < 10, b12 at 217 Hospital course was complicated by continued delirium and encephalopathy in the setting of progressing acute renal failure on chronic renal failure. Avoid medications that could alter mental status, concern that due to progressive renal dysfunction these medications are contributing to her encephalopathy. OOB and c/w PT/OT. 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 No need for anticoagulation Continue conservative med management at this time home imdur/hydral held 2/2 hypotension BB held 2/2 held due to bradycardia resumed 07/30 w/ cards recs. may consider low dose midodrine iso hypotension it persistent hypotension. f/u cardio on dc. DMTII: Glucose was reviewed, continue to cover with insulin Acute uncomplicated UTI: asymptomatic, but notably ill on admission. s/p CTX hep sc for dvt px Dispo contingent on hgb and renal function stabilizing PT/OT -- rehab recommendation Discussed with the daughter and answered all of her question Admission and Anticipated Discharge Date Admission Date: July 16, 2024 Subjective 08/03/2024 The patient was seen and examined in medical telemetry unit in presence of the daughter She remains stable and complaints of generalized weakness Noted to have some bleeding from the vagina Denies any other significant symptoms Review of Systems Review of Systems: All systems reviewed and are unremarkable except as noted below Physical Exam Physical Exam: Lying in bed without any acute distress Constitutional: well developed, well nourished, + ill appearing and + obese Eyes: PERRL, conjunctivae normal, anicteric sclerae ENMT: external ear and nose normal, oropharynx normal Neck: trachea midline, no thyromegaly Respiratory: no respiratory distress Auscultation: + diminished lung sounds ( at the dependent part and bases) Cardiovascular: Rate/Rhythm: regular rate and regular rhythm; not tachycardic Heart Sounds: normal S1 and normal S2; no murmur Extremities: + edema ( chronic edema bilaterally with lymphedema) Gastrointestinal (Abdomen): Inspection/Auscultation: + abdomen distended and normal bowel sounds Percussion/Palpation: abdomen soft; abdomen nontender Musculoskeletal: No acute arthritis involving any of the joint Neurologic: normal touch/pain/proprioception and moves all extremities; no focal motor deficits Psychiatric: A+Ox3, euthymic affect Lymphatic: no cervical or axillary lymphadenopathy Results & Data Results & Data Vital Signs (Past 12 Hours) Vital Signs Temp Pulse Pulse Resp BP Pulse Ox O2 Del Method 08/03/24 12:09 36.4 C L 50 L 16 111/57 L 93 Room Air 08/03/24 11:45 52 L 16 106/52 L 100 Oxymask 08/03/24 11:44 Room Air 08/03/24 11:40 50 L 16 108/42 L 100 Oxymask 08/03/24 11:30 54 L 16 116/41 L 100 Oxymask 08/03/24 11:25 50 L 16 130/46 L 100 Oxymask 08/03/24 10:51 36.9 C 55 L 20 84/71 L 94 Room Air 08/03/24 07:58 36.4 C L 64 129/69 94 Room Air 08/03/24 07:16 57 L 16 97 Room Air 08/03/24 07:07 49 L 08/03/24 04:00 36.4 C L 49 L 22 102/45 L 95 Room Air O2 Flow Rate 08/03/24 12:09 08/03/24 11:45 4 08/03/24 11:44 08/03/24 11:40 4 08/03/24 11:30 4 08/03/24 11:25 4 08/03/24 10:51 08/03/24 07:58 08/03/24 07:16 08/03/24 07:07 08/03/24 04:00 Laboratory Results Short CBC 08/03/24 Range/Units 05:52 WBC 5.14 (4.8-10.8) K/ul Hgb 7.6 L (12.0-16.0) g/dl Hct 23.9 L (37.0-47.0) % Plt Count 207 (130-400) K/uL [facility] 08/03/24 05:52 Sodium 130 L Potassium 3.8 Chloride 89 L Carbon Dioxide 30 BUN 122 H Creatinine 3.37 H Glucose 79 Calcium 8.8 Medications Administered Current Inpatient Medications Acetaminophen (Acetaminophen 325 Mg Tab) 650 mg PO Q4H PRN PRN Reason: Pain or Fever Stop: 08/15/24 16:01 Last Admin: 08/03/24 12:07 Dose: 650 mg Albuterol (Albut/Ipratrop 3mg/0.5mg Neb 3 Ml Vial) 3 ml NEB Q6R PRN; Protocol PRN Reason: sob, wheeze, resp distress Stop: 09/01/24 12:59 Allopurinol (Allopurinol 100 Mg Tab) 100 mg PO DAILY [facility] Stop: 08/16/24 08:59 Last Admin: 08/03/24 08:53 Dose: 100 mg Aspirin (Aspirin 81 Mg Ectab) 81 mg PO SuWe@0900 [facility] Stop: 08/17/24 08:59 Last Admin: 08/01/24 09:09 Dose: 81 mg Atorvastatin Calcium (Atorvastatin 40 Mg Tab) 40 mg PO DAILY [facility] Stop: 08/16/24 08:59 Last Admin: 08/03/24 08:54 Dose: 40 mg Calamine/Pramoxine (Calamine/Pramoxine Lotion 180 Appln/180 Ml Btl) 1 appln EXT BID PRN PRN Reason: itchy skin Stop: 08/24/24 11:58 Last Admin: 08/03/24 07:33 Dose: 1 appln Cyanocobalamin (Cyanocobalamin (B-12) 500 Mcg Tablet) 500 mcg PO QAM [facility] Stop: 08/24/24 08:59 Last Admin: 08/03/24 08:54 Dose: 500 mcg Diphenhydramine HCl (Diphenhydramine Hcl 25 Mg/10 Ml Udc) 12.5 mg PO Q8H PRN PRN Reason: allergic reaction Stop: 08/25/24 13:59 Last Admin: 08/02/24 20:32 Dose: 12.5 mg Docusate Sodium (Docusate Sodium 100 Mg Cap) 100 mg PO BID [facility] Stop: 08/27/24 09:44 Last Admin: 08/03/24 08:54 Dose: Not Given Folic Acid (Folic Acid 1 Mg Tab) 1 mg PO DAILY [facility] Stop: 08/16/24 08:59 Last Admin: 08/03/24 08:54 Dose: 1 mg Heparin Sodium (Porcine) (Heparin Sod 5,000 Unit/0.5 Ml Vial) 5,000 units SQ Q12 [facility] Stop: 08/29/24 20:59 Last Admin: 08/03/24 10:32 Dose: Not Given Hydralazine HCl (Hydralazine 10 Mg Tab) 10 mg PO BID [facility] Stop: 08/15/24 20:59 Last Admin: 07/21/24 09:14 Dose: 10 mg Isosorbide Dinitrate (Isosorbide Dinitrate 5 Mg Tab) 5 mg PO BID [facility] Stop: 08/17/24 10:29 Last Admin: 07/21/24 09:14 Dose: 5 mg Levothyroxine Sodium (Levothyroxine Sodium 75 Mcg Tablet) 75 mcg PO DAILY@0630 [facility] Stop: 08/16/24 06:29 Last Admin: 08/03/24 06:10 Dose: 75 mcg Melatonin (Melatonin 3 Mg Tab) 6 mg PO HS PRN PRN Reason: Sleep Stop: 08/15/24 20:59 Last Admin: 08/02/24 20:32 Dose: 6 mg Metoprolol Succinate (Metoprolol Succ 25mg Ext Rel Tab) 12.5 mg PO DAILY [facility] Stop: 08/20/24 08:59 Last Admin: 08/03/24 08:55 Dose: 12.5 mg Nystatin (Nystatin Powder 15gm Btl) 1 appln EXT BID [facility] Stop: 08/22/24 20:59 Last Admin: 08/03/24 08:02 Dose: 1 appln Ondansetron HCl (Ondansetron Inj 2 Mg/Ml 2 Ml Vial) 4 mg IV Q6H PRN PRN Reason: Nausea Stop: 08/15/24 16:01 Last Admin: 07/29/24 10:37 Dose: 4 mg Polyethylene Glycol (Polyethylene (Miralax) 17 Gm Pack) 17 gm PO DAILY [facility] Stop: 08/29/24 08:59 Last Admin: 08/03/24 08:55 Dose: Not Given Torsemide (Torsemide 10 Mg Tab) 10 mg PO QAM [facility] Stop: 08/30/24 11:44 Last Admin: 08/03/24 08:53 Dose: 10 mg Vitamin D (Cholecalciferol 10 Mcg (400 Units) Tab) 10 mcg PO DAILY [facility] Stop: 08/16/24 08:59 Last Admin: 08/03/24 08:54 Dose: 10 mcg
[2024-08-03] MEDS: fentaNYL citrate PF 100 MCG/2 ML VIAL ONE (13:22)
[2024-08-03] MEDS: ceFAZolin 2,000 MG/15 ML IV PUSH IV ONE (13:22)
[2024-08-03] MEDS: MIDAZOLAM HCL 1 MG/ML 2ML VIAL ONE (13:23)
--- NOTE | 2024-08-03 16:36 | Nephrology Progress Note ---
Date of Service August 03, 2024 Assessment & Plan (1) Acute worsening of stage 4 chronic kidney disease: Plan: patient with wendy on CKD 4, baseline creatinine 1.8-2. Etiology is likely ischemic ATN due to E coli UTI. Chest x-ray shows today unchanged pulmonary edema but exam worse. creatinine of 3.3 today, which has yet again climbed a bit from yesterday, though not so high as peak value 4.4 on 07/22. BUN climbing, hgb dropping, phos elevated earlier in week. My partner had discussed with the patient / family that if she does not respond to Lasix drip, she might end up needing dialysis. Patient is willing to do dialysis if needed. That said, no HD needed today. w/ her small stature and advanced age/sedentary lifestyle, creatinine of 3 w/ volume overload represents more significant impairment than GFR would suggest. Patient lives alone and ambulates with a walker at baseline. Son helps with medications in a pillbox Stopped lasix gtt end of day 07/30 after midday 07/26 start. at this point I feel we need to start moving toward dialysis reviewed risks/benefits/indications / alternatives w/ pt and w/ her son Buster Quick by phone; attempted to reach her daughter who's RN by phone but she was unavailable. consent obtained after review and on chart. vascular consult placed for TDC today pending availablility; else 08/06 w/ temp cath on weekend if needed. plan first HD day of TDC placement, dialysis 3 days in a row (skipping tuesday) to lower dysequilibrium risk which is high for her given BUN and frailty; so hoping first HD today or tomorrow >> continue torsemide 10 mg today for now - physical therapy. Patient will need rehab on discharge -daily bmp -continue avoidance of nsaids and IV con for CT -hyperphosphatemia noted > phos 6.2 yesterday needs to start chronic HD given volume issues, elevated BUN, diminished UOP Ultimately OP [facility] at [facility] most [facility] given where she lives, else [place] Plan of care reviewed with Dr Carlitos sheehan dialysis, diuretic plans; we are in agreement. (2) Anemia: Plan: hemoglobin further downtrending today to 7.6 after days in low 8's -daily hgb -monitor for bleeding -transfuse pRBC for chest pain or hgb 7 or less (3) Hypertension: Plan: acceptable control and even some low readings -po diuretics as above -continue toprol current dose >note imdur, hydralazine currently/appropriately on hold since 07/21 Admission and Anticipated Discharge Date Admission Date: July 16, 2024 Subjective no interval events. seen on early am rounds; made NPO for possible procedure today >> she did get TDC and will have first HD today. no sob, no uncontrolled pain, no n/v Review of Systems 2 Review of Systems: All systems reviewed & are unremarkable except as noted in Subjective Physical Exam 2 Constitutional: well developed, well nourished, + obese, + frail appearing, cooperative and + lethargic; no acute distress Eyes: EOM intact bilaterally (visually impaired) ENMT: Ears: + external ear abnormality Nose: no external nose abnormality Mouth: + dry oral mucous membranes Neck: no nuchal rigidity Respiratory: normal respiratory effort; no respiratory distress and no cough Auscultation: + diminished lung sounds Cardiovascular: Rate/Rhythm: regular rate and regular rhythm Extremities: n o edema Gastrointestinal (Abdomen): Inspection/Auscultation: normal bowel sounds P ercussion/Palpation: abdomen soft; abdomen nontender Musculoskeletal: Extremities: strength 5/5 throughout Skin: no rashes, warm and dry Psychiatric: Orientation: alert and oriented x 3 Results & Data Vital Signs (Past 12 Hours) Vital Signs Temp Pulse Pulse Pulse Resp BP Pulse Ox 08/03/24 16:30 36.3 C L 53 L 16 137/74 94 08/03/24 15:48 36.0 C L 47 L 08/03/24 13:00 36.4 C L 58 L 14 118/70 95 08/03/24 12:45 36.5 C 59 L 16 117/65 94 08/03/24 12:09 36.4 C L 50 L 16 111/57 L 93 08/03/24 11:45 52 L 16 106/52 L 100 08/03/24 11:44 08/03/24 11:40 50 L 16 108/42 L 100 08/03/24 11:30 54 L 16 116/41 L 100 08/03/24 11:25 50 L 16 130/46 L 100 08/03/24 10:51 36.9 C 55 L 20 84/71 L 94 08/03/24 07:58 36.4 C L 64 129/69 94 08/03/24 07:16 57 L 16 97 08/03/24 07:07 49 L O2 Del Method O2 Flow Rate 08/03/24 16:30 Room Air 08/03/24 15:48 08/03/24 13:00 Room Air 08/03/24 12:45 Room Air 08/03/24 12:09 Room Air 08/03/24 11:45 Oxymask 4 08/03/24 11:44 Room Air 08/03/24 11:40 Oxymask 4 08/03/24 11:30 Oxymask 4 08/03/24 11:25 Oxymask 4 08/03/24 10:51 Room Air 08/03/24 07:58 Room Air 08/03/24 07:16 Room Air 08/03/24 07:07 Laboratory Results 08/03/24 05:52 08/03/24 05:52 (2) Anemia Anemia type: unspecified type Qualified Code(s): D64.9 - Anemia, unspecified
[2024-08-03] MEDS ORDERED: HEPARIN SOD (PORCINE) 1000 UNIT/ML IV ONE (16:57)
[2024-08-03] MEDS ORDERED: HEPARIN SOD (PORCINE) 1000 UNIT/ML IV SCH (17:00)
[2024-08-04] MEDS: IRON SUCROSE 50 MG in SYRINGE 0 ML IV ONE (08:06)
[2024-08-04] MEDS: EPOETIN ALFA 10,000 UNITS/ML VIAL IV ONE (08:06)
[2024-08-04 08:15] LABS: Basophils # (auto) 0.02 K/uL (0.00-0.20); Basophils % (auto) 0.5 %; Eosinophils # (auto) 0.34 K/uL (0.00-0.50); Eosinophils % (auto) 7.8 %; Hematocrit (blood only) 25.6 % (37.0-47.0); Hemoglobin 7.9 g/dl (12.0-16.0); Immature Granulocytes # (auto) 0.02 K/uL (0.01-0.20); Immature Granulocytes % (auto) 0.5 %; Lymphocytes # (auto) 1.16 K/uL (1.20-3.40); Lymphocytes % (auto) 26.5 %; Mean Corpuscular Hemoglobin 30.5 pg (25.0-34.0); Mean Corpuscular Hgb Conc 30.9 g/dL (32.0-36.0); Mean Corpuscular Volume 98.8 fL (80.0-100.0); Mean Platelet Volume 11.8 fL (9.4-12.4); Monocytes # (auto) 0.26 K/uL (0.11-0.59); Monocytes % (auto) 5.9 %; Neutrophils # (auto) 2.57 K/uL (1.40-6.50); Neutrophils % (auto) 58.8 %; Nucleated RBC # (auto) 0.03 K/uL (0.00-0.12); Nucleated RBC % (auto) 0.7 %; Platelet Count 189 K/uL (130-400); RDW Coefficient of Variation 14.3 % (11.5-14.5); RDW Standard Deviation 51.4 fL (36.4-46.3); Red Blood Count 2.59 M/uL (4.20-5.40); White Blood Count 4.37 K/ul (4.8-10.8)
[2024-08-04 08:26] LABS: BUN Creatinine Ratio 32.7 (10-20); Creatinine Clr Calc Pharmacy 20.4 ml/min
[2024-08-04 08:49] LABS: Basophilic Stippling 1+; Ovalocytes 1+; Polychromasia 2+
[2024-08-04] MEDS: HEPARIN SOD (PORCINE) 1000 UNIT/ML IV ONE (10:27)
[2024-08-04] MEDS: HEPARIN SOD (PORCINE) 1000 UNIT/ML IV SCH (10:28)
[2024-08-04] MEDS: EPOETIN ALFA 20,000 UNITS/ML VIAL IV ONE (12:17)
--- NOTE | 2024-08-04 13:59 | Nephrology Progress Note ---
Date of Service August 04, 2024 Assessment & Plan (1) Acute worsening of stage 4 chronic kidney disease: Plan: patient with wendy on CKD 4, baseline creatinine 1.8-2. Etiology is likely ischemic ATN due to E coli UTI. Chest x-ray shows today unchanged pulmonary edema but exam worse. creatinine of 3.3 today, which has yet again climbed a bit from yesterday, though not so high as peak value 4.4 on 07/22. BUN climbing, hgb dropping, phos elevated earlier in week. My partner had discussed with the patient / family that if she does not respond to Lasix drip, she might end up needing dialysis. Patient is willing to do dialysis if needed. That said, no HD needed today. w/ her small stature and advanced age/sedentary lifestyle, creatinine of 3 w/ volume overload represents more significant impairment than GFR would suggest. Patient lives alone and ambulates with a walker at baseline. Son helps with medications in a pillbox Stopped lasix gtt end of day 07/30 after midday 07/26 start. Had TDC on 08/03 and Ist HD which she tolerated well with no concerns, 2 nd today dialysis 3 days in a row (skipping tuesday) to lower dysequilibrium risk which is high for her given BUN and frailty >> continue torsemide 10 mg today for now - physical therapy. Patient will need rehab on discharge -daily bmp -continue avoidance of nsaids and IV con for CT systems integration manager to arrange for OP dialysis at [facility] most likely given where she lives, else [place] (2) Anemia: Plan: -daily hgb -monitor for bleeding -transfuse pRBC for chest pain or hgb 7 or less (3) Hypertension: Plan: acceptable control and even some low readings -po diuretics as above -continue toprol current dose >note imdur, hydralazine currently/appropriately on hold since 07/21 Admission and Anticipated Discharge Date Admission Date: July 16, 2024 Subjective NO interval events. Tolerated HD well w/ 1.5 lit UF Review of Systems 2 Review of Systems: lying comfortably in bed NO shortness of breath Physical Exam 2 Physical Exam: Constitutional: well developed, we ll nourished, + ob mikel, + frail appea ring, cooperative and + lethargic; n o acute distress Eyes: EOM intact bilater ally (visually imp aired) ENMT: Ears: + external e ar abnormality No se: no external no se abnormality Mo uth: + dry oral mu cous membranes Neck: no nuchal rigidity Respiratory: normal respiratory effort; no respir atory distress and no cough Auscult ation: + diminishe d lung sounds Cardiovascular: Rate/Rhythm: regul ar rate and regula r rhythm Extremit ies: no edema Gastrointestinal ( Abdomen): Inspection/Auscult ation: normal mounika l sounds Percussi on/Palpation: abdo men soft; abdomen nontender Musculoskeletal: Extremities: stren gth 5/5 throughout Skin: no rashes, warm an d dry Psychiatric: Orientation: alert and oriented x 3 Results & Data Vital Signs (Past 12 Hours) Vital Signs Temp Pulse Pulse Pulse Resp BP BP 08/04/24 13:15 36.5 C 54 L 15 135/75 08/04/24 12:18 36.5 C 49 L 126/68 08/04/24 12:00 49 L 120/60 08/04/24 11:30 46 L 96/60 L 08/04/24 11:00 45 L 132/57 L 08/04/24 10:51 08/04/24 10:30 46 L 131/66 08/04/24 10:27 44 L 08/04/24 10:00 50 L 131/62 08/04/24 09:30 50 L 147/63 H 08/04/24 09:13 36.5 C 51 L 08/04/24 08:02 36.4 C L 61 18 116/53 L 08/04/24 02:37 36.4 C L 52 L 18 117/66 Pulse Ox O2 Del Method 08/04/24 13:15 95 Room Air 08/04/24 12:18 08/04/24 12:00 08/04/24 11:30 08/04/24 11:00 08/04/24 10:51 Room Air 08/04/24 10:30 08/04/24 10:27 08/04/24 10:00 08/04/24 09:30 08/04/24 09:13 08/04/24 08:02 97 Room Air 08/04/24 02:37 94 Room Air Laboratory Results 08/04/24 07:27 08/04/24 07:27 (2) Anemia Anemia type: unspecified type Qualified Code(s): D64.9 - Anemia, unspecified
--- NOTE | 2024-08-04 15:21 | Hospitalist Progress Note ---
Date of Service August 04, 2024 Assessment & Plan (1) Acute systolic CHF (congestive heart failure), NYHA class 3: (2) Acute renal failure superimposed on stage 4 chronic kidney disease: (3) Delirium due to another medical condition: (4) Mild cognitive impairment: (5) Acute metabolic encephalopathy: (6) Anemia, chronic renal failure: (7) E. coli UTI: (8) Ischemic cardiomyopathy: (9) Hypothyroid: (10) T2DM (type 2 diabetes mellitus): (11) Hypertension: (12) Hyperlipidemia: (13) ASCVD (arteriosclerotic cardiovascular disease): Plan 84-year-old female w/ PMH of T2DM, HTN, HLD, hypothyroidism, hyperparathyroidism, venous insufficiency, CKD stage IV, aortic valve sclerosis, vitamin D deficiency, senile osteoporosis, gouty arthropathy and lymphedema of the bilateral lower extremities who was admitted 07/16 for decompensated heart failure, GILBERTO on CKD, and uncomplicated UTI. She is being managed for the following: GILBERTO over CKD stage IV Azotemia Hyperkalemia and hyperphosphatemia Hyponatremia Patient with baseline creatinine of 1.8 to 2.0, admitting creatinine of 2.71, peaked at 4.40 on 07/22. Potassium peaked at 5.4 on 07/21. S/P Valtessa x1 07/21 Phosphorus has been high to mid 6s. Nephrology on board, cautiously diuresing, FR of 1.5 L, patient with uptrending Cr on PO torsemide, plan for dialysis per nephro. Creatinine gradually rising up, pt having slowly decreasing UO, Na 129 today. Avoid nephrotoxic's and NSAIDs. BUN and creatinine remains elevated and does not seems to be improved Status post permacatheter placement for dialysis Status post hemodialysis with 1.5 L out today08/04/2024 She has been feeling much better following the dialysis Denies any significant symptoms Acute on chronic macrocytic anemia: Admitting hemoglobin of 7.4, hemoglobin went down to 6.6 on 07/20 with no clear sign of bleeding. No signs of hemolysis. Iron levels fairly WNL, vitamin B-12 at 217 and folate at greater than 22. No signs of hemolysis. 07/27 CTAP with no retroperitoneal hematoma. Urine collected in the bag is light yellow with no hematuria. 07/30 FOBT neg. GI bleed ruled out. Likely anemia of chronic disease in the setting of chronic kidney disease. Status post 3 unit PRBC so far. Patient is a status post Epoetin Vidal 07/24. Hemoglobin remains stable at 7.6 since the blood transfusion Will monitor hemoglobin- hemoglobin remains stable at 7.9 as of 08/04/2024 Bleeding per vagina Does not seems to be coming out from urethra and urine remains clear Noted to be from today and will observe If the bleeding continues we will get No report of bleeding as of today Bradycardia: Has been more frequent and progressively more profound. Pt w/ no chest pain or sob or funny sensation in the chest during the events. Likely secondary to metabolic abnormalities/underlying RAMON ISO volume overload/impending renal failure. Reviewed nocturnal pulse ox 07/28 --will need O2 HS, continue telemetry monitoring, metoprolol resumed with cardiology recommendation. Cardio re-evaled 07/27, appreciate recommendation. no more bradycardia- heart rate has been running around 45 Acute metabolic encephalopathy: *stable ABG w/ no hypercarbia, NH3 < 10, b12 at 217 Hospital course was complicated by continued delirium and encephalopathy in the setting of progressing acute renal failure on chronic renal failure. Avoid medications that could alter mental status, concern that due to progressive renal dysfunction these medications are contributing to her encephalopathy. OOB and c/w PT/OT. 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 No need for anticoagulation Continue conservative med management at this time home imdur/hydral held 2/2 hypotension BB held 2/2 held due to bradycardia resumed 07/30 w/ cards recs. may consider low dose midodrine iso hypotension it persistent hypotension. f/u cardio on dc. DMTII: Glucose was reviewed, continue to cover with insulin Acute uncomplicated UTI: asymptomatic, but notably ill on admission. s/p CTX hep sc for dvt px Dispo contingent on hgb and renal function stabilizing PT/OT -- rehab recommendation Discussed with the daughter and answered all of her question Admission and Anticipated Discharge Date Admission Date: July 16, 2024 Subjective 08/03/2024 The patient was seen and examined in medical telemetry unit in presence of the daughter She remains stable and complaints of generalized weakness Noted to have some bleeding from the vagina Denies any other significant symptoms 08/04/2024 The patient was seen and examined in medical telemetry unit in presence of the She is status post dialysis and about 1.5 L out She feels a little better following dialysis Review of Systems Review of Systems: All systems reviewed and are unremarkable except as noted below Physical Exam Physical Exam: Lying in bed without any acute distress Constitutional: well developed, well nourished, + ill appearing and + obese Eyes: PERRL, conjunctivae normal, anicteric sclerae ENMT: external ear and nose normal, oropharynx normal Neck: trachea midline, no thyromegaly Respiratory: no respiratory distress Auscultation: + diminished lung sounds ( at the dependent part and bases) Cardiovascular: Rate/Rhythm: regular rate and regular rhythm; not tachycardic Heart Sounds: normal S1 and normal S2; no murmur Extremities: + edema ( chronic edema bilaterally with lymphedema) Gastrointestinal (Abdomen): Inspection/Auscultation: + abdomen distended and normal bowel sounds Percussion/Palpation: abdomen soft; abdomen nontender Neurologic: normal touch/pain/proprioception and moves all extremities; no focal motor deficits Psychiatric: A+Ox3, euthymic affect Lymphatic: no cervical or axillary lymphadenopathy Results & Data Results & Data Vital Signs (Past 12 Hours) Vital Signs Temp Pulse Pulse Pulse Resp BP BP 08/04/24 15:12 36.8 C 45 L 18 111/68 08/04/24 13:15 36.5 C 54 L 15 135/75 08/04/24 12:18 36.5 C 49 L 126/68 08/04/24 12:00 49 L 120/60 08/04/24 11:30 46 L 96/60 L 08/04/24 11:00 45 L 132/57 L 08/04/24 10:51 08/04/24 10:30 46 L 131/66 08/04/24 10:27 44 L 08/04/24 10:00 50 L 131/62 08/04/24 09:30 50 L 147/63 H 08/04/24 09:13 36.5 C 51 L 08/04/24 08:02 36.4 C L 61 18 116/53 L Pulse Ox O2 Del Method 08/04/24 15:12 95 Room Air 08/04/24 13:15 95 Room Air 08/04/24 12:18 08/04/24 12:00 08/04/24 11:30 08/04/24 11:00 08/04/24 10:51 Room Air 08/04/24 10:30 08/04/24 10:27 08/04/24 10:00 08/04/24 09:30 08/04/24 09:13 08/04/24 08:02 97 Room Air Laboratory Results Short CBC 08/04/24 Range/Units 07:27 WBC 4.37 L (4.8-10.8) K/ul Hgb 7.9 L (12.0-16.0) g/dl Hct 25.6 L (37.0-47.0) % Plt Count 189 (130-400) K/uL BMP 08/04/24 07:27 Sodium 134 L Potassium 4.0 Chloride 95 L Carbon Dioxide 31 BUN 73 H D Creatinine 2.23 H D Glucose 69 L Calcium 9.0 Medications Administered Current Inpatient Medications Acetaminophen (Acetaminophen 325 Mg Tab) 650 mg PO Q4H PRN PRN Reason: Pain or Fever Stop: 08/15/24 16:01 Last Admin: 08/04/24 14:31 Dose: 650 mg Albuterol (Albut/Ipratrop 3mg/0.5mg Neb 3 Ml Vial) 3 ml NEB Q6R PRN; Protocol PRN Reason: sob, wheeze, resp distress Stop: 09/01/24 12:59 Allopurinol (Allopurinol 100 Mg Tab) 100 mg PO DAILY [facility] Stop: 08/16/24 08:59 Last Admin: 08/04/24 08:39 Dose: 100 mg Aspirin (Aspirin 81 Mg Ectab) 81 mg PO SuWe@0900 [facility] Stop: 08/17/24 08:59 Last Admin: 08/01/24 09:09 Dose: 81 mg Atorvastatin Calcium (Atorvastatin 40 Mg Tab) 40 mg PO DAILY [facility] Stop: 08/16/24 08:59 Last Admin: 08/04/24 08:39 Dose: 40 mg Calamine/Pramoxine (Calamine/Pramoxine Lotion 180 Appln/180 Ml Btl) 1 appln EXT BID PRN PRN Reason: itchy skin Stop: 08/24/24 11:58 Last Admin: 08/03/24 07:33 Dose: 1 appln Cyanocobalamin (Cyanocobalamin (B-12) 500 Mcg Tablet) 500 mcg PO QAM [facility] Stop: 08/24/24 08:59 Last Admin: 08/04/24 08:39 Dose: 500 mcg Diphenhydramine HCl (Diphenhydramine Hcl 25 Mg/10 Ml Udc) 12.5 mg PO Q8H PRN PRN Reason: allergic reaction Stop: 08/25/24 13:59 Last Admin: 08/03/24 17:15 Dose: 12.5 mg Docusate Sodium (Docusate Sodium 100 Mg Cap) 100 mg PO BID [facility] Stop: 08/27/24 09:44 Last Admin: 08/04/24 08:45 Dose: 100 mg Folic Acid (Folic Acid 1 Mg Tab) 1 mg PO DAILY [facility] Stop: 08/16/24 08:59 Last Admin: 08/04/24 08:39 Dose: 1 mg Heparin Sodium (Porcine) (Heparin Sod 5,000 Unit/0.5 Ml Vial) 5,000 units SQ Q12 [facility] Stop: 08/29/24 20:59 Last Admin: 08/04/24 08:54 Dose: 5,000 units Hydralazine HCl (Hydralazine 10 Mg Tab) 10 mg PO BID [facility] Stop: 08/15/24 20:59 Last Admin: 07/21/24 09:14 Dose: 10 mg Isosorbide Dinitrate (Isosorbide Dinitrate 5 Mg Tab) 5 mg PO BID [facility] Stop: 08/17/24 10:29 Last Admin: 07/21/24 09:14 Dose: 5 mg Levothyroxine Sodium (Levothyroxine Sodium 75 Mcg Tablet) 75 mcg PO DAILY@0630 [facility] Stop: 08/16/24 06:29 Last Admin: 08/04/24 06:17 Dose: 75 mcg Melatonin (Melatonin 3 Mg Tab) 6 mg PO HS PRN PRN Reason: Sleep Stop: 08/15/24 20:59 Last Admin: 08/02/24 20:32 Dose: 6 mg Metoprolol Succinate (Metoprolol Succ 25mg Ext Rel Tab) 12.5 mg PO DAILY [facility] Stop: 08/20/24 08:59 Last Admin: 08/04/24 08:38 Dose: 12.5 mg Nystatin (Nystatin Powder 15gm Btl) 1 appln EXT BID [facility] Stop: 08/22/24 20:59 Last Admin: 08/04/24 08:35 Dose: 1 appln Ondansetron HCl (Ondansetron Inj 2 Mg/Ml 2 Ml Vial) 4 mg IV Q6H PRN PRN Reason: Nausea Stop: 08/15/24 16:01 Last Admin: 08/04/24 13:02 Dose: 4 mg Polyethylene Glycol (Polyethylene (Miralax) 17 Gm Pack) 17 gm PO DAILY [facility] Stop: 08/29/24 08:59 Last Admin: 08/04/24 08:45 Dose: 17 gm Torsemide (Torsemide 10 Mg Tab) 10 mg PO QAM [facility] Stop: 08/30/24 11:44 Last Admin: 08/04/24 08:38 Dose: 10 mg Vitamin D (Cholecalciferol 10 Mcg (400 Units) Tab) 10 mcg PO DAILY [facility] Stop: 08/16/24 08:59 Last Admin: 08/04/24 08:38 Dose: 10 mcg
[2024-08-05 07:10] LABS: BUN Creatinine Ratio 17.9 (10-20); Calcium 9.1 mg/dl (8.6-10.3); Creatinine Clr Calc Pharmacy 23.8 ml/min; Magnesium 1.9 mg/dl (1.7-2.4)
--- NOTE | 2024-08-05 12:16 | Hospitalist Progress Note ---
Date of Service August 05, 2024 Assessment & Plan (1) Acute systolic CHF (congestive heart failure), NYHA class 3: (2) Acute renal failure superimposed on stage 4 chronic kidney disease: (3) Delirium due to another medical condition: (4) Mild cognitive impairment: (5) Acute metabolic encephalopathy: (6) Anemia, chronic renal failure: (7) E. coli UTI: (8) Ischemic cardiomyopathy: (9) Hypothyroid: (10) T2DM (type 2 diabetes mellitus): (11) Hypertension: (12) Hyperlipidemia: (13) ASCVD (arteriosclerotic cardiovascular disease): Plan 84-year-old female w/ PMH of T2DM, HTN, HLD, hypothyroidism, hyperparathyroidism, venous insufficiency, CKD stage IV, aortic valve sclerosis, vitamin D deficiency, senile osteoporosis, gouty arthropathy and lymphedema of the bilateral lower extremities who was admitted 07/16 for decompensated heart failure, GILBERTO on CKD, and uncomplicated UTI. She is being managed for the following: GILBERTO over CKD stage IV Azotemia Hyperkalemia and hyperphosphatemia Hyponatremia Patient with baseline creatinine of 1.8 to 2.0, admitting creatinine of 2.71, peaked at 4.40 on 07/22. Potassium peaked at 5.4 on 07/21. S/P Valtessa x1 07/21 Phosphorus has been high to mid 6s. Nephrology on board, cautiously diuresing, FR of 1.5 L, patient with uptrending Cr on PO torsemide, plan for dialysis per nephro. Creatinine gradually rising up, pt having slowly decreasing UO, Na 129 today. Avoid nephrotoxic's and NSAIDs. BUN and creatinine remains elevated and does not seems to be improved Status post permacatheter placement for dialysis Status post hemodialysis with 1.5 L out today08/04/2024 She has been feeling much better following the dialysis Denies any significant symptoms Creatinine is a little better following hemodialysis and the patient has been feeling much better Will have another session of hemodialysis tomorrow Likely discharge tomorrow following set up of outpatient hemodialysis as per technology professional Acute on chronic macrocytic anemia: Admitting hemoglobin of 7.4, hemoglobin went down to 6.6 on 07/20 with no clear sign of bleeding. No signs of hemolysis. Iron levels fairly WNL, vitamin B-12 at 217 and folate at greater than 22. No signs of hemolysis. 07/27 CTAP with no retroperitoneal hematoma. Urine collected in the bag is light yellow with no hematuria. 07/30 FOBT neg. GI bleed ruled out. Likely anemia of chronic disease in the setting of chronic kidney disease. Status post 3 unit PRBC so far. Patient is a status post Epoetin Vidal 07/24. Hemoglobin remains stable at 7.6 since the blood transfusion Will monitor hemoglobin- hemoglobin remains stable at 7.9 as of 08/04/2024 Bleeding per vagina Does not seems to be coming out from urethra and urine remains clear Noted to be from today and will observe If the bleeding continues we will get No report of bleeding as of today Bradycardia: Has been more frequent and progressively more profound. Pt w/ no chest pain or sob or funny sensation in the chest during the events. Likely secondary to metabolic abnormalities/underlying RAMON ISO volume overload/impending renal failure. Reviewed nocturnal pulse ox 07/28 --will need O2 HS, continue telemetry monitoring, metoprolol resumed with cardiology recommendation. Cardio re-evaled 07/27, appreciate recommendation. No more bradycardia- heart rate has been running around 45 Heart rate remains in the lower side at 51 Acute metabolic encephalopathy: ABG w/ no hypercarbia, NH3 < 10, b12 at 217 Hospital course was complicated by continued delirium and encephalopathy in the setting of progressing acute renal failure on chronic renal failure. Avoid medications that could alter mental status, concern that due to progressive renal dysfunction these medications are contributing to her encephalopathy. OOB and c/w PT/OT. 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 No need for anticoagulation Continue conservative med management at this time home imdur/hydral held 2/2 hypotension BB held 2/2 held due to bradycardia resumed 07/30 w/ cards recs. may consider low dose midodrine iso hypotension it persistent hypotension. f/u cardio on dc. DMTII: Glucose was reviewed, continue to cover with insulin Acute uncomplicated UTI: asymptomatic, but notably ill on admission. s/p CTX hep sc for dvt px Dispo contingent on hgb and renal function stabilizing PT/OT -- rehab recommendation Discussed with the daughter and answered all of her question Admission and Anticipated Discharge Date Admission Date: July 16, 2024 Subjective 08/03/2024 The patient was seen and examined in medical telemetry unit in presence of the daughter She remains stable and complaints of generalized weakness Noted to have some bleeding from the vagina Denies any other significant symptoms 08/04/2024 The patient was seen and examined in medical telemetry unit in presence of the She is status post dialysis and about 1.5 L out She feels a little better following dialysis 08/05/2024 The patient was seen and examined in medical telemetry unit in presence of the daughter She has been feeling much better but remains generally weak Her renal function is slightly improved following dialysis Possible discharge tomorrow Review of Systems Review of Systems: All systems reviewed and are unremarkable except as noted below Physical Exam Physical Exam: Lying in bed without any acute distress Constitutional: well developed, well nourished, + ill appearing and + obese Eyes: PERRL, conjunctivae normal, anicteric sclerae ENMT: external ear and nose normal, oropharynx normal Neck: trachea midline, no thyromegaly Respiratory: no respiratory distress Auscultation: + diminished lung sounds ( at the dependent part and bases) Cardiovascular: Rate/Rhythm: regular rate and regular rhythm; not tachycardic Heart Sounds: normal S1 and normal S2; no murmur Extremities: + edema ( chronic edema bilaterally with lymphedema) Gastrointestinal (Abdomen): Inspection/Auscultation: + abdomen distended and normal bowel sounds Percussion/Palpation: abdomen soft; abdomen nontender Neurologic: normal touch/pain/proprioception and moves all extremities; no focal motor deficits Psychiatric: A+Ox3, euthymic affect Lymphatic: no cervical or axillary lymphadenopathy Results & Data Results & Data Vital Signs (Past 12 Hours) Vital Signs Temp Pulse Pulse Pulse Resp BP Pulse Ox 08/05/24 11:56 36.5 C 51 L 14 124/54 L 97 08/05/24 08:08 36.6 C 59 L 16 137/80 92 08/05/24 07:21 08/05/24 03:24 36.3 C L 49 L 18 126/61 94 08/05/24 00:18 50 L O2 Del Method 08/05/24 11:56 Room Air 08/05/24 08:08 Room Air 08/05/24 07:21 Room Air 08/05/24 03:24 Room Air 08/05/24 00:18 Laboratory Results [facility] 08/05/24 06:15 Sodium 137 Potassium 4.0 Chloride 101 Carbon Dioxide 30 BUN 33 H D Creatinine 1.84 H D Glucose 79 Calcium 9.1 Medications Administered Current Inpatient Medications Acetaminophen (Acetaminophen 325 Mg Tab) 650 mg PO Q4H PRN PRN Reason: Pain or Fever Stop: 08/15/24 16:01 Last Admin: 08/04/24 14:31 Dose: 650 mg Albuterol (Albut/Ipratrop 3mg/0.5mg Neb 3 Ml Vial) 3 ml NEB Q6R PRN; Protocol PRN Reason: sob, wheeze, resp distress Stop: 09/01/24 12:59 Allopurinol (Allopurinol 100 Mg Tab) 100 mg PO DAILY [facility] Stop: 08/16/24 08:59 Last Admin: 08/05/24 09:03 Dose: 100 mg Aspirin (Aspirin 81 Mg Ectab) 81 mg PO SuWe@0900 [facility] Stop: 08/17/24 08:59 Last Admin: 08/05/24 09:03 Dose: 81 mg Atorvastatin Calcium (Atorvastatin 40 Mg Tab) 40 mg PO DAILY [facility] Stop: 08/16/24 08:59 Last Admin: 08/05/24 09:02 Dose: 40 mg Calamine/Pramoxine (Calamine/Pramoxine Lotion 180 Appln/180 Ml Btl) 1 appln EXT BID PRN PRN Reason: itchy skin Stop: 08/24/24 11:58 Last Admin: 08/03/24 07:33 Dose: 1 appln Cyanocobalamin (Cyanocobalamin (B-12) 500 Mcg Tablet) 500 mcg PO QAM [facility] Stop: 08/24/24 08:59 Last Admin: 08/05/24 09:04 Dose: 500 mcg Diphenhydramine HCl (Diphenhydramine Hcl 25 Mg/10 Ml Udc) 12.5 mg PO Q8H PRN PRN Reason: allergic reaction Stop: 08/25/24 13:59 Last Admin: 08/03/24 17:15 Dose: 12.5 mg Docusate Sodium (Docusate Sodium 100 Mg Cap) 100 mg PO BID [facility] Stop: 08/27/24 09:44 Last Admin: 08/05/24 09:09 Dose: 100 mg Folic Acid (Folic Acid 1 Mg Tab) 1 mg PO DAILY [facility] Stop: 08/16/24 08:59 Last Admin: 08/05/24 09:04 Dose: 1 mg Heparin Sodium (Porcine) (Heparin Sod 5,000 Unit/0.5 Ml Vial) 5,000 units SQ Q12 [facility] Stop: 08/29/24 20:59 Last Admin: 08/05/24 09:08 Dose: 5,000 units Hydralazine HCl (Hydralazine 10 Mg Tab) 10 mg PO BID [facility] Stop: 08/15/24 20:59 Last Admin: 07/21/24 09:14 Dose: 10 mg Isosorbide Dinitrate (Isosorbide Dinitrate 5 Mg Tab) 5 mg PO BID [facility] Stop: 08/17/24 10:29 Last Admin: 07/21/24 09:14 Dose: 5 mg Levothyroxine Sodium (Levothyroxine Sodium 75 Mcg Tablet) 75 mcg PO DAILY@0630 [facility] Stop: 08/16/24 06:29 Last Admin: 08/05/24 06:05 Dose: 75 mcg Melatonin (Melatonin 3 Mg Tab) 6 mg PO HS PRN PRN Reason: Sleep Stop: 08/15/24 20:59 Last Admin: 08/04/24 20:36 Dose: 6 mg Metoprolol Succinate (Metoprolol Succ 25mg Ext Rel Tab) 12.5 mg PO DAILY [facility] Stop: 08/20/24 08:59 Last Admin: 08/05/24 09:02 Dose: 12.5 mg Nystatin (Nystatin Powder 15gm Btl) 1 appln EXT BID [facility] Stop: 08/22/24 20:59 Last Admin: 08/05/24 09:01 Dose: 1 appln Ondansetron HCl (Ondansetron Inj 2 Mg/Ml 2 Ml Vial) 4 mg IV Q6H PRN PRN Reason: Nausea Stop: 08/15/24 16:01 Last Admin: 08/04/24 13:02 Dose: 4 mg Polyethylene Glycol (Polyethylene (Miralax) 17 Gm Pack) 17 gm PO DAILY [facility] Stop: 08/29/24 08:59 Last Admin: 08/05/24 11:15 Dose: Not Given Torsemide (Torsemide 10 Mg Tab) 10 mg PO QAM [facility] Stop: 08/30/24 11:44 Last Admin: 08/05/24 09:03 Dose: 10 mg Vitamin D (Cholecalciferol 10 Mcg (400 Units) Tab) 10 mcg PO DAILY [facility] Stop: 08/16/24 08:59 Last Admin: 08/05/24 09:03 Dose: 10 mcg
[2024-08-06 07:09] LABS: Basophils # (auto) 0.03 K/uL (0.00-0.20); Basophils % (auto) 0.5 %; Eosinophils # (auto) 0.34 K/uL (0.00-0.50); Eosinophils % (auto) 5.4 %; Hemoglobin 8.5 g/dl (12.0-16.0); Immature Granulocytes # (auto) 0.05 K/uL (0.01-0.20); Immature Granulocytes % (auto) 0.8 %; Lymphocytes # (auto) 1.83 K/uL (1.20-3.40); Lymphocytes % (auto) 28.9 %; Mean Corpuscular Hemoglobin 30.9 pg (25.0-34.0); Mean Corpuscular Hgb Conc 30.4 g/dL (32.0-36.0); Mean Corpuscular Volume 101.8 fL (80.0-100.0); Mean Platelet Volume 11.5 fL (9.4-12.4); Monocytes # (auto) 0.35 K/uL (0.11-0.59); Monocytes % (auto) 5.5 %; Neutrophils # (auto) 3.74 K/uL (1.40-6.50); Neutrophils % (auto) 58.9 %; Nucleated RBC # (auto) 0.03 K/uL (0.00-0.12); Nucleated RBC % (auto) 0.5 %; Platelet Count 178 K/uL (130-400); RDW Coefficient of Variation 14.4 % (11.5-14.5); RDW Standard Deviation 53.4 fL (36.4-46.3); Red Blood Count 2.75 M/uL (4.20-5.40); White Blood Count 6.34 K/ul (4.8-10.8)
[2024-08-06 07:35] LABS: BUN Creatinine Ratio 15.7 (10-20); Calcium 9.3 mg/dl (8.6-10.3); Creatinine Clr Calc Pharmacy 18.3 ml/min; Magnesium 1.9 mg/dl (1.7-2.4); Potassium 3.8 mmol/L (3.5-5.1)
[2024-08-06] MEDS ORDERED: EPOETIN ALFA 20,000 UNITS in SYRINGE 0 ML IV SCH (09:15)
[2024-08-06] MEDS ORDERED: EPOETIN ALFA 20,000 UNITS/ML VIAL SQ ONE (09:30)
[2024-08-06 10:06] LABS: Hepatitis B Surface Ab Quant < 3.00 mIU/mL (>or=10mIU/mL Immune); Hepatitis B Surface Antibody Non-Immune
[2024-08-06 11:03] LABS: Hep B Surface Ag with confirm Negative (Negative)
[2024-08-06] MEDS: EPOETIN ALFA 20,000 UNITS/ML VIAL IV ONE (11:19)
--- NOTE | 2024-08-06 11:33 | Dialysis Progress Note ---
Date of Service August 06, 2024 Assessment & Plan Admission and Anticipated Discharge Date Admission Date: July 16, 2024 Subjective Assessment & Plan (1) Acute worsening of stage 4 chronic kidney disease: Plan: patient with wendy on CKD 4, baseline creatinine 1.8-2. Etiology is likely ischemic ATN due to E coli UTI. Chest x-ray shows today unchanged pulmonary edema but exam worse. creatinine of 3.3 today, which has yet again climbed a bit from yesterday, though not so high as peak value 4.4 on 07/22. BUN climbing, hgb dropping, phos elevated earlier in week. My partner had discussed with the patient / family that if she does not respond to Lasix drip, she might end up needing dialysis. With her small stature and advanced age/sedentary lifestyle, creatinine of 3 w/ volume overload represents more significant impairment than GFR would suggest. So was started on [id number]/5/2024. Patient lives alone and ambulates with a walker at baseline. Son helps with medications in a pillbox Had TDC on 08/03 and has had 2 dialysis session without problem--Tuesday and Tuesday. NO issues today also. can worker to arrange for [facility] unit in [place]. For discharge continue torsemide 20 mg -1 tab daily. Daily bmp continue avoidance of nsaids and IV con for CT manager printing to arrange for OP dialysis at [facility] most likely given where she lives, else [place] Seen during dialysis. S--No issues with CVC. BP fine. today is third dialysis and seems to be doing fine. tolerating it well. o---Physical Exam Constitutional: well developed, well nourished, + obese, + frail appearing and cooperative; no acute distress ENMT: Mouth: + dry oral mucous membranes Respiratory: normal respiratory effort; no respiratory distress and no cough Auscultation: + diminished lung sounds and + crackles (thicker today bases posterior) Cardiovascular: Rate/Rhythm: regular rate and regular rhythm Extremities: no edema Gastrointestinal (Abdomen): Inspection/Auscultation: normal bowel sounds Percussion/Palpation: abdomen soft; abdomen nontender Skin: no rashes, warm and dry Psychiatric: Orientation: alert and oriented x 3 Results & Data Vital Signs (Past 12 Hours) Vital Signs Temp Pulse Pulse Pulse Resp BP BP 08/06/24 10:00 60 110/50 L 08/06/24 09:32 69 125/45 L 08/06/24 09:27 36.9 C 63 08/06/24 08:02 36.4 C L 51 L 20 142/74 H 08/06/24 03:06 36.2 C L 50 L 16 116/74 Pulse Ox O2 Del Method 08/06/24 10:00 08/06/24 09:32 08/06/24 09:27 08/06/24 08:02 94 Room Air 08/06/24 03:06 93 Room Air
--- NOTE | 2024-08-06 16:05 | Hospitalist Progress Note ---
Date of Service August 06, 2024 Assessment & Plan (1) Acute systolic CHF (congestive heart failure), NYHA class 3: (2) Acute renal failure superimposed on stage 4 chronic kidney disease: (3) Delirium due to another medical condition: (4) Mild cognitive impairment: (5) Acute metabolic encephalopathy: (6) Anemia, chronic renal failure: (7) E. coli UTI: (8) Ischemic cardiomyopathy: (9) Hypothyroid: (10) T2DM (type 2 diabetes mellitus): (11) Hypertension: (12) Hyperlipidemia: (13) ASCVD (arteriosclerotic cardiovascular disease): Plan 84-year-old female w/ PMH of T2DM, HTN, HLD, hypothyroidism, hyperparathyroidism, venous insufficiency, CKD stage IV, aortic valve sclerosis, vitamin D deficiency, senile osteoporosis, gouty arthropathy and lymphedema of the bilateral lower extremities who was admitted 07/16 for decompensated heart failure, GILBERTO on CKD, and uncomplicated UTI. She is being managed for the following: GILBERTO over CKD stage IV Azotemia Hyperkalemia and hyperphosphatemia Hyponatremia Patient with baseline creatinine of 1.8 to 2.0, admitting creatinine of 2.71, peaked at 4.40 on 07/22. Potassium peaked at 5.4 on 07/21. S/P Valtessa x1 07/21 Phosphorus has been high to mid 6s. Nephrology on board, cautiously diuresing, FR of 1.5 L, patient with uptrending Cr on PO torsemide, plan for dialysis per nephro. Creatinine gradually rising up, pt having slowly decreasing UO, Na 129 today. Avoid nephrotoxic's and NSAIDs. BUN and creatinine remains elevated and does not seems to be improved Status post permacatheter placement for dialysis Status post hemodialysis with 1.5 L out today08/04/2024 She has been feeling much better following the dialysis Denies any significant symptoms Creatinine is a little better following hemodialysis and the patient has been feeling much better Will have another session of hemodialysis tomorrow Likely discharge tomorrow following set up of outpatient hemodialysis as per elevator troubleshooter Has had dialysis today and feeling much better following dialysis She wants to go to rehab for short-term and the caser up is working on it Acute on chronic macrocytic anemia: Admitting hemoglobin of 7.4, hemoglobin went down to 6.6 on 07/20 with no clear sign of bleeding. No signs of hemolysis. Iron levels fairly WNL, vitamin B-12 at 217 and folate at greater than 22. No signs of hemolysis. 07/27 CTAP with no retroperitoneal hematoma. Urine collected in the bag is light yellow with no hematuria. 07/30 FOBT neg. GI bleed ruled out. Likely anemia of chronic disease in the setting of chronic kidney disease. Status post 3 unit PRBC so far. Patient is a status post Epoetin Vidal 07/24. Hemoglobin remains stable at 7.6 since the blood transfusion Will monitor hemoglobin- hemoglobin remains stable at 7.9 as of 08/04/2024 Hemoglobin remains stable at 8.5 Bleeding per vagina Does not seems to be coming out from urethra and urine remains clear Noted to be from today and will observe If the bleeding continues we will get No report of bleeding as of today- no more report of bleeding per vagina Bradycardia: Has been more frequent and progressively more profound. Pt w/ no chest pain or sob or funny sensation in the chest during the events. Likely secondary to metabolic abnormalities/underlying RAMON ISO volume overload/impending renal failure. Reviewed nocturnal pulse ox 07/28 --will need O2 HS, continue telemetry monitoring, metoprolol resumed with cardiology recommendation. Cardio re-evaled 07/27, appreciate recommendation. No more bradycardia- heart rate has been running around 45 Heart rate remains in the lower side at 51-59 Acute metabolic encephalopathy: ABG w/ no hypercarbia, NH3 < 10, b12 at 217 Hospital course was complicated by continued delirium and encephalopathy in the setting of progressing acute renal failure on chronic renal failure. Avoid medications that could alter mental status, concern that due to progr essive renal dysfunction these medications are contributing to her encephalopathy. OOB and c/w PT/OT. 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 No need for anticoagulation Continue conservative med management at this time home imdur/hydral held 2/2 hypotension BB held 2/2 held due to bradycardia resumed 07/30 w/ cards recs. may consider low dose midodrine iso hypotension it persistent hypotension. f/u cardio on dc. DMTII: Glucose was reviewed, continue to cover with insulin Acute uncomplicated UTI: asymptomatic, but notably ill on admission. s/p CTX hep sc for dvt px Dispo contingent on hgb and renal function stabilizing PT/OT -- rehab recommendation Discussed with the daughter and answered all of her question Admission and Anticipated Discharge Date Admission Date: July 16, 2024 Subjective 08/03/2024 The patient was seen and examined in medical telemetry unit in presence of the daughter She remains stable and complaints of generalized weakness Noted to have some bleeding from the vagina Denies any other significant symptoms 08/04/2024 The patient was seen and examined in medical telemetry unit in presence of the usband She is status post dialysis and about 1.5 L out She feels a little better following dialysis 08/05/2024 The patient was seen and examined in medical telemetry unit in presence of the daughter She has been feeling much better but remains generally weak Her renal function is slightly improved following dialysis Possible discharge tomorrow 08/06/2024 The patient was seen and examined in medical telemetry unit in presence of the family members She has been feeling much better following dialysis She wants to go to rehab and awaiting placement Review of Systems Review of Systems: All systems reviewed and are unremarkable except as noted below Physical Exam Physical Exam: Lying in bed without any acute distress Constitutional: well developed, well nourished, + ill appearing and + obese Eyes: PERRL, conjunctivae normal, anicteric sclerae ENMT: external ear and nose normal, oropharynx normal Neck: trachea midline, no thyromegaly Respiratory: no respiratory distress Auscultation: + diminished lung sounds ( at the dependent part and bases) Cardiovascular: Rate/Rhythm: regular rate and regular rhythm; not tachycardic Heart Sounds: normal S1 and normal S2; no murmur Extremities: + edema ( chronic edema bilaterally with lymphedema) Gastrointestinal (Abdomen): Inspection/Auscultation: + abdomen distended and normal bowel sounds Percussion/Palpation: abdomen soft; abdomen nontender Neurologic: normal touch/pain/proprioception and moves all extremities; no focal motor deficits Psychiatric: A+Ox3, euthymic affect Lymphatic: no cervical or axillary lymphadenopathy Results & Data Results & Data Vital Signs (Past 12 Hours) Vital Signs Temp Pulse Pulse Pulse Resp BP BP 08/06/24 14:53 59 L 08/06/24 13:17 70 08/06/24 13:05 36.4 C L 58 L 20 119/54 L 08/06/24 12:41 36.8 C 54 L 125/55 L 08/06/24 12:30 59 L 100/51 L 08/06/24 12:00 58 L 124/54 L 08/06/24 11:30 60 111/51 L 08/06/24 11:00 57 L 126/54 L 08/06/24 10:30 59 L 110/43 L 08/06/24 10:00 60 110/50 L 08/06/24 09:32 69 125/45 L 08/06/24 09:27 36.9 C 63 08/06/24 08:02 36.4 C L 51 L 20 142/74 H 08/06/24 08:00 61 Pulse Ox O2 Del Method 08/06/24 14:53 08/06/24 13:17 08/06/24 13:05 93 Room Air 08/06/24 12:41 08/06/24 12:30 08/06/24 12:00 08/06/24 11:30 08/06/24 11:00 08/06/24 10:30 08/06/24 10:00 08/06/24 09:32 08/06/24 09:27 08/06/24 08:02 94 Room Air 08/06/24 08:00 Laboratory Results Short CBC 08/06/24 Range/Units 06:31 WBC 6.34 (4.8-10.8) K/ul Hgb 8.5 L (12.0-16.0) g/dl Hct 28.0 L (37.0-47.0) % Plt Count 178 (130-400) K/uL BMP 08/06/24 06:31 Sodium 137 Potassium 3.8 Chloride 100 Carbon Dioxide 30 BUN 39 H Creatinine 2.48 H D Glucose 80 Calcium 9.3 Medications Administered Current Inpatient Medications Acetaminophen (Acetaminophen 325 Mg Tab) 650 mg PO Q4H PRN PRN Reason: Pain or Fever Stop: 08/15/24 16:01 Last Admin: 08/04/24 14:31 Dose: 650 mg Albuterol (Albut/Ipratrop 3mg/0.5mg Neb 3 Ml Vial) 3 ml NEB Q6R PRN; Protocol PRN Reason: sob, wheeze, resp distress Stop: 09/01/24 12:59 Allopurinol (Allopurinol 100 Mg Tab) 100 mg PO DAILY [facility] Stop: 08/16/24 08:59 Last Admin: 08/06/24 13:20 Dose: 100 mg Aspirin (Aspirin 81 Mg Ectab) 81 mg PO SuWe@0900 [facility] Stop: 08/17/24 08:59 Last Admin: 08/05/24 09:03 Dose: 81 mg Atorvastatin Calcium (Atorvastatin 40 Mg Tab) 40 mg PO DAILY [facility] Stop: 08/16/24 08:59 Last Admin: 08/06/24 13:21 Dose: 40 mg Calamine/Pramoxine (Calamine/Pramoxine Lotion 180 Appln/180 Ml Btl) 1 appln EXT BID PRN PRN Reason: itchy skin Stop: 08/24/24 11:58 Last Admin: 08/03/24 07:33 Dose: 1 appln Cyanocobalamin (Cyanocobalamin (B-12) 500 Mcg Tablet) 500 mcg PO QAM [facility] Stop: 08/24/24 08:59 Last Admin: 08/06/24 13:21 Dose: 500 mcg Diphenhydramine HCl (Diphenhydramine Hcl 25 Mg/10 Ml Udc) 12.5 mg PO Q8H PRN PRN Reason: allergic reaction Stop: 08/25/24 13:59 Last Admin: 08/03/24 17:15 Dose: 12.5 mg Docusate Sodium (Docusate Sodium 100 Mg Cap) 100 mg PO BID [facility] Stop: 08/27/24 09:44 Last Admin: 08/06/24 13:35 Dose: 100 mg Folic Acid (Folic Acid 1 Mg Tab) 1 mg PO DAILY [facility] Stop: 08/16/24 08:59 Last Admin: 08/06/24 13:21 Dose: 1 mg Heparin Sodium (Porcine) (Heparin Sod 5,000 Unit/0.5 Ml Vial) 5,000 units SQ Q12 [facility] Stop: 08/29/24 20:59 Last Admin: 08/06/24 13:35 Dose: 5,000 units Hydralazine HCl (Hydralazine 10 Mg Tab) 10 mg PO BID [facility] Stop: 08/15/24 20:59 Last Admin: 07/21/24 09:14 Dose: 10 mg Isosorbide Dinitrate (Isosorbide Dinitrate 5 Mg Tab) 5 mg PO BID [facility] Stop: 08/17/24 10:29 Last Admin: 07/21/24 09:14 Dose: 5 mg Levothyroxine Sodium (Levothyroxine Sodium 75 Mcg Tablet) 75 mcg PO DAILY@0630 [facility] Stop: 08/16/24 06:29 Last Admin: 08/06/24 05:40 Dose: 75 mcg Melatonin (Melatonin 3 Mg Tab) 6 mg PO HS PRN PRN Reason: Sleep Stop: 08/15/24 20:59 Last Admin: 08/04/24 20:36 Dose: 6 mg Metoprolol Succinate (Metoprolol Succ 25mg Ext Rel Tab) 12.5 mg PO DAILY [facility] Stop: 08/20/24 08:59 Last Admin: 08/06/24 13:21 Dose: 12.5 mg Nystatin (Nystatin Powder 15gm Btl) 1 appln EXT BID [facility] Stop: 08/22/24 20:59 Last Admin: 08/06/24 13:21 Dose: 1 appln Ondansetron HCl (Ondansetron Inj 2 Mg/Ml 2 Ml Vial) 4 mg IV Q6H PRN PRN Reason: Nausea Stop: 08/15/24 16:01 Last Admin: 08/04/24 13:02 Dose: 4 mg Polyethylene Glycol (Polyethylene (Miralax) 17 Gm Pack) 17 gm PO DAILY [facility] Stop: 08/29/24 08:59 Last Admin: 08/06/24 13:21 Dose: Not Given Torsemide (Torsemide 20 Mg Tab) 20 mg PO QAM [facility] Stop: 09/06/24 08:59 Vitamin D (Cholecalciferol 10 Mcg (400 Units) Tab) 10 mcg PO DAILY [facility] Stop: 08/16/24 08:59 Last Admin: 08/06/24 13:21 Dose: 10 mcg
[2024-08-07] MEDS ORDERED: TORSEMIDE 100 MG TAB PO SCH (09:00)
--- NOTE | 2024-08-07 10:09 | Nephrology Progress Note ---
Date of Service August 07, 2024 Assessment & Plan Admission and Anticipated Discharge Date Admission Date: July 16, 2024 Subjective Assessment & Plan (1) Acute worsening of stage 4 chronic kidney disease: Plan: patient with gilberto on CKD 4, baseline creatinine 1.8-2. Etiology is likely ischemic ATN due to E coli UTI. Chest x-ray shows today unchanged pulmonary edema but exam worse. creatinine of 3.3 today, which has yet again climbed a bit from yesterday, though not so high as peak value 4.4 on 07/22. BUN climbing, hgb dropping, phos elevated earlier in week. My partner had discussed with the patient / family that if she does not respond to Lasix drip, she might end up needing dialysis. With her small stature and advanced age/sedentary lif estyle, creatinine of 3 w/ volume overload represents more significant impairment than GFR would suggest. So was started on [id number]/5/2024. Patient lives alone and ambulates with a walker at baseline. Son helps with medications in a pillbox Had TDC on 08/03 and has had 3 dialysis session without problem--Tuesday and Tuesday and then tuesday. print binding worker to arrange for [facility] unit in [place]. This was discussed with patient and her daughter. For discharge continue torsemide 20 mg -1 tab daily. Daily bmp and CBC continue avoidance of nsaids and IV con for CT Discussed with daughter at bedside and patient and updated about dialysis, chance of GILBERTO recovery and post discharge management and f/u. time spent 45 mins S--had dialysis yesterday also. No issues with CVC. BP fine. She had her third dialysis and seems to be doing fine. tolerating it well. o---Physical Exam Constitutional: well developed, well nourished, + obese, + frail appearing and cooperative; no acute distress ENMT: Mouth: + dry oral mucous membranes Respiratory: normal respiratory effort; no respiratory distress and no cough Auscultation: + diminished lung sounds and + crackles (thicker today bases posterior) Cardiovascular: Rate/Rhythm: regular rate and regular rhythm Extremities: no edema Gastrointestinal (Abdomen): Inspection/Auscultation: normal bowel sounds Percussion/Palpation: abdomen soft; abdomen nontender Skin: no rashes, warm and dry Psychiatric: Orientation: alert and oriented x 3 Results & Data Vital Signs (Past 12 Hours) Vital Signs Temp Pulse Pulse Pulse Resp BP Pulse Ox 08/07/24 07:45 36.7 C 72 18 128/76 94 08/07/24 07:23 08/07/24 03:31 36.7 C 67 18 126/59 L 92 08/07/24 00:00 36.6 C 65 20 129/59 L 94 08/06/24 23:00 57 L O2 Del Method 08/07/24 07:45 Room Air 08/07/24 07:23 Room Air 08/07/24 03:31 Room Air 08/07/24 00:00 Room Air 08/06/24 23:00
[2024-08-07] MEDS: TORSEMIDE 20 MG TAB PO SCH (11:02)
--- NOTE | 2024-08-07 13:53 | Hospitalist Progress Note ---
Date of Service August 07, 2024 Assessment & Plan (1) Acute systolic CHF (congestive heart failure), NYHA class 3: (2) Acute renal failure superimposed on stage 4 chronic kidney disease: (3) Delirium due to another medical condition: (4) Mild cognitive impairment: (5) Acute metabolic encephalopathy: (6) Anemia, chronic renal failure: (7) E. coli UTI: (8) Ischemic cardiomyopathy: (9) Hypothyroid: (10) T2DM (type 2 diabetes mellitus): (11) Hypertension: (12) Hyperlipidemia: (13) ASCVD (arteriosclerotic cardiovascular disease): Plan 84-year-old female w/ PMH of T2DM, HTN, HLD, hypothyroidism, hyperparathyroidism, venous insufficiency, CKD stage IV, aortic valve sclerosis, vitamin D deficiency, senile osteoporosis, gouty arthropathy and lymphedema of the bilateral lower extremities who was admitted 07/16 for decompensated heart failure, GILBERTO on CKD, and uncomplicated UTI. She is being managed for the following: GILBERTO over CKD stage IV Azotemia Hyperkalemia and hyperphosphatemia Hyponatremia Patient with baseline creatinine of 1.8 to 2.0, admitting creatinine of 2.71, peaked at 4.40 on 07/22. Potassium peaked at 5.4 on 07/21. S/P Valtessa x1 07/21 Phosphorus has been high to mid 6s. Nephrology on board, cautiously diuresing, FR of 1.5 L, patient with uptrending Cr on PO torsemide, plan for dialysis per nephro. Creatinine gradually rising up, pt having slowly decreasing UO, Na 129 today. Avoid nephrotoxic's and NSAIDs. BUN and creatinine remains elevated and does not seems to be improved Status post permacatheter placement for dialysis Status post hemodialysis with 1.5 L out today08/04/2024 She has been feeling much better following the dialysis Denies any significant symptoms Creatinine is a little better following hemodialysis and the patient has been feeling much better Will have another session of hemodialysis tomorrow Likely discharge tomorrow following set up of outpatient hemodialysis as per butter grader Has had dialysis today and feeling much better following dialysis She wants to go to rehab for short-term and the senior case manager is working on it Remains medically stable and feeling a little better following ongoing dialysis data processing manager is working on placement to [facility] Outpatient dialysis is set up with [facility] center under care of Dr. Hancock Clinically stable to be discharged when will be he will accept ELSI Acute on chronic macrocytic anemia: Admitting hemoglobin of 7.4, hemoglobin went down to 6.6 on 07/20 with no clear sign of bleeding. No signs of hemolysis. Iron levels fairly WNL, vitamin B-12 at 217 and folate at greater than 22. No signs of hemolysis. 07/27 CTAP with no retroperitoneal hematoma. Urine collected in the bag is light yellow with no hematuria. 07/30 FOBT neg. GI bleed ruled out. Likely anemia of chronic disease in the setting of chronic kidney disease. Status post 3 unit PRBC so far. Patient is a status post Epoetin Vidal 07/24. Hemoglobin remains stable at 7.6 since the blood transfusion Will monitor hemoglobin- hemoglobin remains stable at 7.9 as of 08/04/2024 Hemoglobin remains stable at 8.5. 112 1024 Bleeding per vagina Does not seems to be coming out from urethra and urine remains clear Noted to be from today and will observe If the bleeding continues we will get No report of bleeding as of today- no more report of bleeding per vagina Bradycardia: Has been more frequent and progressively more profound. Pt w/ no chest pain or sob or funny sensation in the chest during the events. Likely secondary to metabolic abnormalities/underlying RAMON ISO volume overload/impending renal failure. Reviewed nocturnal pulse ox 07/28 --will need O2 HS, continue telemetry monitoring, metoprolol resumed with cardiology recommendation. Cardio re-evaled 07/27, appreciate recommendation. No more bradycardia- heart rate has been running around 45 Heart rate remains in the lower side at 51-59 Heart rate remains stable at 61/min Acute metabolic encephalopathy: ABG w/ no hypercarbia, NH3 < 10, b12 at 217 Hospital course was complicated by continued delirium and encephalopathy in the setting of progressing acute renal failure on chronic renal failure. Avoid medications that could alter mental status, concern that due to progressive renal dysfunction these medications are contributing to her encephalopathy. OOB and c/w PT/OT. 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 No need for anticoagulation Continue conservative med management at this time home imdur/hydral held 2/2 hypotension BB held 2/2 held due to bradycardia resumed 07/30 w/ cards recs. may consider low dose midodrine iso hypotension it persistent hypotension. f/u cardio on dc. DMTII: Glucose was reviewed, continue to cover with insulin Acute uncomplicated UTI: asymptomatic, but notably ill on admission. s/p CTX hep sc for dvt px Dispo contingent on hgb and renal function stabilizing PT/OT -- rehab recommendation Discussed with the daughter and answered all of her question Discussed with the daughter and the patient is awaiting acceptance and transfer to the facility to continue physical therapy and dialysis as an outpatient Admission and Anticipated Discharge Date Admission Date: July 16, 2024 Subjective 08/03/2024 The patient was seen and examined in medical telemetry unit in presence of the daughter She remains stable and complaints of generalized weakness Noted to have some bleeding from the vagina Denies any other significant symptoms 08/04/2024 The patient was seen and examined in medical telemetry unit in presence of the She is status post dialysis and about 1.5 L out She feels a little better following dialysis 08/05/2024 The patient was seen and examined in medical telemetry unit in presence of the daughter She has been feeling much better but remains generally weak Her renal function is slightly improved following dialysis Possible discharge tomorrow 08/06/2024 The patient was seen and examined in medical telemetry unit in presence of the family members She has been feeling much better following dialysis She wants to go to rehab and awaiting placement 08/07/2024 The patient was seen and examined in medical telemetry unit in presence of the daughter The patient wants to go home and she lives alone PT recommended short-term rehab and the patient does not want to go to rehab The daughter is aware and she is going to complains mom for short-term rehab data processing manager is trying to place her in [facility] Review of Systems Review of Systems: All systems reviewed and are unremarkable except as noted below Physical Exam Physical Exam: Lying in bed without any acute distress Constitutional: well developed, well nourished, + ill appearing and + obese Eyes: PERRL, conjunctivae normal, anicteric sclerae ENMT: external ear and nose normal, oropharynx normal Neck: trachea midline, no thyromegaly Respiratory: no respiratory distress Auscultation: + diminished lung sounds ( at the dependent part and bases) Cardiovascular: Rate/Rhythm: regular rate and regular rhythm; not tachycardic Heart Sounds: normal S1 and normal S2; no murmur Extremities: + edema ( chronic edema bilaterally with lymphedema) Gastrointestinal (Abdomen): Inspection/Auscultation: + abdomen distended and normal bowel sounds Percussion/Palpation: abdomen soft; abdomen nontender Musculoskeletal: No acute arthritis involving any of the joint Neurologic: normal touch/pain/proprioception and moves all extremities; no focal motor deficits Psychiatric: A+Ox3, euthymic affect Lymphatic: no cervical or axillary lymphadenopathy Results & Data Results & Data Vital Signs (Past 12 Hours) Vital Signs Temp Pulse Pulse Resp BP Pulse Ox O2 Del Method 08/07/24 11:53 36.6 C 61 18 114/59 L 97 Room Air 08/07/24 07:45 36.7 C 72 18 128/76 94 Room Air 08/07/24 07:23 Room Air 08/07/24 03:31 36.7 C 67 18 126/59 L 92 Room Air Medications Administered Current Inpatient Medications Acetaminophen (Acetaminophen 325 Mg Tab) 650 mg PO Q4H PRN PRN Reason: Pain or Fever Stop: 08/15/24 16:01 Last Admin: 08/04/24 14:31 Dose: 650 mg Albuterol (Albut/Ipratrop 3mg/0.5mg Neb 3 Ml Vial) 3 ml NEB Q6R PRN; Protocol PRN Reason: sob, wheeze, resp distress Stop: 09/01/24 12:59 Allopurinol (Allopurinol 100 Mg Tab) 100 mg PO DAILY [facility] Stop: 08/16/24 08:59 Last Admin: 08/07/24 11:01 Dose: 100 mg Aspirin (Aspirin 81 Mg Ectab) 81 mg PO SuWe@0900 [facility] Stop: 08/17/24 08:59 Last Admin: 08/05/24 09:03 Dose: 81 mg Atorvastatin Calcium (Atorvastatin 40 Mg Tab) 40 mg PO DAILY [facility] Stop: 08/16/24 08:59 Last Admin: 08/07/24 11:01 Dose: 40 mg Calamine/Pramoxine (Calamine/Pramoxine Lotion 180 Appln/180 Ml Btl) 1 appln EXT BID PRN PRN Reason: itchy skin Stop: 08/24/24 11:58 Last Admin: 08/03/24 07:33 Dose: 1 appln Cyanocobalamin (Cyanocobalamin (B-12) 500 Mcg Tablet) 500 mcg PO QAM [facility] Stop: 08/24/24 08:59 Last Admin: 08/07/24 11:01 Dose: 500 mcg Diphenhydramine HCl (Diphenhydramine Hcl 25 Mg/10 Ml Udc) 12.5 mg PO Q8H PRN PRN Reason: allergic reaction Stop: 08/25/24 13:59 Last Admin: 08/03/24 17:15 Dose: 12.5 mg Docusate Sodium (Docusate Sodium 100 Mg Cap) 100 mg PO BID [facility] Stop: 08/27/24 09:44 Last Admin: 08/07/24 12:08 Dose: Not Given Epoetin Vidal (Epoetin Vidal 20,000 Units/Ml Vial) 20,000 units IV ONE ONE Stop: 08/08/24 07:01 Folic Acid (Folic Acid 1 Mg Tab) 1 mg PO DAILY [facility] Stop: 08/16/24 08:59 Last Admin: 08/07/24 11:01 Dose: 1 mg Heparin Sodium (Porcine) (Heparin Sod 5,000 Unit/0.5 Ml Vial) 5,000 units SQ Q12 [facility] Stop: 08/29/24 20:59 Last Admin: 08/07/24 12:35 Dose: 5,000 units Hydralazine HCl (Hydralazine 10 Mg Tab) 10 mg PO BID [facility] Stop: 08/15/24 20:59 Last Admin: 07/21/24 09:14 Dose: 10 mg Isosorbide Dinitrate (Isosorbide Dinitrate 5 Mg Tab) 5 mg PO BID [facility] Stop: 08/17/24 10:29 Last Admin: 07/21/24 09:14 Dose: 5 mg Levothyroxine Sodium (Levothyroxine Sodium 75 Mcg Tablet) 75 mcg PO DAILY@0630 [facility] Stop: 08/16/24 06:29 Last Admin: 08/07/24 06:03 Dose: 75 mcg Melatonin (Melatonin 3 Mg Tab) 6 mg PO HS PRN PRN Reason: Sleep Stop: 08/15/24 20:59 Last Admin: 08/04/24 20:36 Dose: 6 mg Metoprolol Succinate (Metoprolol Succ 25mg Ext Rel Tab) 12.5 mg PO DAILY [facility] Stop: 08/20/24 08:59 Last Admin: 08/07/24 11:01 Dose: 12.5 mg Nystatin (Nystatin Powder 15gm Btl) 1 appln EXT BID [facility] Stop: 08/22/24 20:59 Last Admin: 08/07/24 11:02 Dose: 1 appln Ondansetron HCl (Ondansetron Inj 2 Mg/Ml 2 Ml Vial) 4 mg IV Q6H PRN PRN Reason: Nausea Stop: 08/15/24 16:01 Last Admin: 08/04/24 13:02 Dose: 4 mg Polyethylene Glycol (Polyethylene (Miralax) 17 Gm Pack) 17 gm PO DAILY [facility] Stop: 08/29/24 08:59 Last Admin: 08/07/24 12:08 Dose: Not Given Torsemide (Torsemide 20 Mg Tab) 20 mg PO QAM [facility] Stop: 09/06/24 08:59 Last Admin: 08/07/24 11:02 Dose: 20 mg Vitamin D (Cholecalciferol 10 Mcg (400 Units) Tab) 10 mcg PO DAILY [facility] Stop: 08/16/24 08:59 Last Admin: 08/07/24 11:01 Dose: 10 mcg
[2024-08-08 06:27] LABS: BUN Creatinine Ratio 11.7 (10-20); Calcium 9.1 mg/dl (8.6-10.3); Creatinine Clr Calc Pharmacy 20.2 ml/min
[2024-08-08 07:03] LABS: Basophils # (auto) 0.05 K/uL (0.00-0.20); Basophils % (auto) 0.6 %; Eosinophils # (auto) 0.43 K/uL (0.00-0.50); Eosinophils % (auto) 4.8 %; Hematocrit (blood only) 28.9 % (37.0-47.0); Hemoglobin 9.2 g/dl (12.0-16.0); Immature Granulocytes # (auto) 0.11 K/uL (0.01-0.20); Immature Granulocytes % (auto) 1.2 %; Lymphocytes # (auto) 2.78 K/uL (1.20-3.40); Lymphocytes % (auto) 30.9 %; Mean Corpuscular Hemoglobin 31.3 pg (25.0-34.0); Mean Corpuscular Hgb Conc 31.8 g/dL (32.0-36.0); Mean Corpuscular Volume 98.3 fL (80.0-100.0); Mean Platelet Volume 11.3 fL (9.4-12.4); Monocytes # (auto) 0.53 K/uL (0.11-0.59); Monocytes % (auto) 5.9 %; Neutrophils # (auto) 5.11 K/uL (1.40-6.50); Neutrophils % (auto) 56.6 %; Platelet Count 152 K/uL (130-400); Polychromasia 1+; RDW Coefficient of Variation 14.4 % (11.5-14.5); RDW Standard Deviation 51.1 fL (36.4-46.3); Red Blood Count 2.94 M/uL (4.20-5.40); White Blood Count 9.01 K/ul (4.8-10.8)
--- NOTE | 2024-08-08 10:04 | Nephrology Progress Note ---
Date of Service August 08, 2024 Assessment & Plan Admission and Anticipated Discharge Date Admission Date: July 16, 2024 Subjective Assessment & Plan (1) Acute worsening of stage 4 chronic kidney disease: Plan: patient with gilberto on CKD 4, baseline creatinine 1.8-2. Etiology is likely ischemic ATN due to E coli UTI. Chest x-ray shows today unchanged pulmonary edema but exam worse. creatinine of 3.3 today, which has yet again climbed a bit from yesterday, though not so high as peak value 4.4 on 07/22. BUN climbing, hgb dropping, phos elevated earlier in week. My partner had discussed with the patient / family that if she does not respond to Lasix drip, she might end up needing dialysis. With her small stature and advanced age/sedentary lif estyle, creatinine of 3 w/ volume overload represents more significant impairment than GFR would suggest. So was started on [id number]/2024. Patient lives alone and ambulates with a walker at baseline. Son helps with medications in a pillbox Had TDC on 08/03 and has had 3 dialysis session without problem--Tuesday and Tuesday and then tuesday. animal nursery worker to arrange for [facility] unit in [place] as she is going to [facility]. If unable to then only do [facility]. This was discussed with patient and her daughter. For discharge continue torsemide 20 mg -1 tab daily. Daily bmp and CBC continue avoidance of nsaids and IV con for CT Discussed with daughter at bedside and patient and updated about dialysis, chance of GILBERTO recovery and post discharge management and f/u. time spent 45 mins S--Seen during dialysis. No issues with CVC. BP fine. tolerating it well. o---Physical Exam Constitutional: well developed, well nourished, + obese, + frail appearing and cooperative; no acute distress ENMT: Mouth: + dry oral mucous membranes Respiratory: normal respiratory effort; no respiratory distress and no cough Auscultation: + diminished lung sounds and + crackles (thicker today bases posterior) Cardiovascular: Rate/Rhythm: regular rate and regular rhythm Extremities: no edema Gastrointestinal (Abdomen): Inspection/Auscultation: normal bowel sounds Percussion/Palpation: abdomen soft; abdomen nontender Skin: no rashes, warm and dry Psychiatric: Orientation: alert and oriented x 3 Results & Data Vital Signs (Past 12 Hours) Vital Signs Temp Pulse Pulse Pulse Resp BP Pulse Ox 08/08/24 08:21 36.5 C 70 20 137/81 96 08/08/24 07:36 51 L 08/08/24 03:25 36.5 C 53 L 18 131/74 96 08/07/24 23:44 52 L 08/07/24 23:17 36.6 C 56 L 16 128/71 97 O2 Del Method 08/08/24 08:21 Room Air 08/08/24 07:36 08/08/24 03:25 Room Air 08/07/24 23:44 08/07/24 23:17 Room Air
[2024-08-08] MEDS: EPOETIN ALFA 20,000 UNITS/ML VIAL IV ONE (11:07)
--- NOTE | 2024-08-08 14:53 | Hospitalist Progress Note ---
Date of Service August 08, 2024 Assessment & Plan (1) Acute systolic CHF (congestive heart failure), NYHA class 3: (2) Acute renal failure superimposed on stage 4 chronic kidney disease: (3) Delirium due to another medical condition: (4) Mild cognitive impairment: (5) Acute metabolic encephalopathy: (6) Anemia, chronic renal failure: (7) E. coli UTI: (8) Ischemic cardiomyopathy: (9) Hypothyroid: (10) T2DM (type 2 diabetes mellitus): (11) Hypertension: (12) Hyperlipidemia: (13) ASCVD (arteriosclerotic cardiovascular disease): Plan 84-year-old female w/ PMH of T2DM, HTN, HLD, hypothyroidism, hyperparathyroidism, venous insufficiency, CKD stage IV, aortic valve sclerosis, vitamin D deficiency, senile osteoporosis, gouty arthropathy and lymphedema of the bilateral lower extremities who was admitted 07/16 for decompensated heart failure, GILBERTO on CKD, and uncomplicated UTI. She is being managed for the following: GILBERTO over CKD stage IV Acute worsening of stage IV CKD Azotemia Hyperkalemia and hyperphosphatemia Hyponatremia Patient with baseline creatinine of 1.8 to 2.0, admitting creatinine of 2.71, peaked at 4.40 on 07/22. and potassium peaked at 5.4 on 07/21, needing Veltassa. Patient underwent diuresis with IV bolus and then IV drip, could not be transitioned to oral diuretics as she started making decreased urine output with worsening renal function on oral diuretics. Received TDC on 08/03, has been receiving hemodialysis since then, creatinine has been more stable Patient has been feeling better with better p.o. intake and ambulation currently. Corbin catheter was initially placed for I's and O's monitoring, since patient is currently getting HD, will remove Corbin. Outpatient dialysis has been set up by complex case manager. Patient is a stable to discharge to rehab. Acute on chronic macrocytic anemia: Admitting hemoglobin of 7.4, hemoglobin went down to 6.6 on 07/20 with no clear sign of bleeding. No signs of hemolysis. Iron levels fairly WNL, vitamin B-12 at 217 and folate at greater than 22. No signs of hemolysis. 07/27 CTAP with no retroperitoneal hematoma. Urine with no hematuria. 07/30 FOBT neg. GI bleed ruled out. Likely anemia of chronic disease in the setting of chronic kidney disease. Status post 3 unit PRBC so far. Patient is a status post Epoetin Vidal 07/24. Hemoglobin has been stable/improving after hemodialysis. Bleeding per vagina: Resolved for now per signout per prior attending, pt w/ no further complaints. will continue to monitor. Bradycardia: Likely secondary to metabolic abnormalities/underlying RAMON ISO volume overload/impending renal failure. Reviewed nocturnal pulse ox 07/28 --will need O2 HS, continue telemetry monitoring, metoprolol resumed with cardiology recommendation. Heart rate in 50s, more stable now. Follow-up with cardiology as prior upon discharge. Acute metabolic encephalopathy: resolved. ABG w/ no hypercarbia, NH3 < 10, b12 at 217 Hospital course was complicated by continued delirium and encephalopathy in the setting of progressing acute renal failure on chronic renal failure. Avoid medications that could alter mental status, concern that due to progressive renal dysfunction these medications are contributing to her encephalopathy. OOB and c/w PT/OT. 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 No need for anticoagulation Continue conservative med management at this time home imdur/hydral held 2/2 hypotension BB held 2/2 held due to bradycardia resumed 07/30 w/ cards recs. f/u cardio on dc. DMTII: Glucose was reviewed, continue to cover with insulin Acute uncomplicated UTI: asymptomatic, but notably ill on admission. s/p CTX hep sc for dvt px Dispo: stable for dc to rehab. PT/OT -- rehab recommendation Admission and Anticipated Discharge Date Admission Date: July 16, 2024 Subjective patient was seen and examined at bedside. Patient was lying in bed, on room air, NAD, getting hemodialysis. Patient reports no new acute event overnight, reports eating okay and moving bowels okay. Per RN patient is moving around better than prior. Physical Exam Physical Exam: GENERAL: Sleeping, woke up to exam. NAD, on RA. Appears weak/frail. Obese class III. HEENT: No pallor, no icterus. Pupils equal, round and reactive to light. Oral mucosa moist. NECK: No JVD, no neck masses. HEART: S1 and S2 heard. Regular rate and rhythm. No murmur, no gallop. RESPIRATORY SYSTEM: Normal AP diameter. No accessory muscle use. No wheezing, bb crackles. decreased b/l breath sounds 2/2 poor effort. ABDOMEN: Soft, bowel sounds present, nontender, no distention. CENTRAL NERVOUS SYSTEM: No facial droop. Speech is clear. Obeys simple commands. Moves extremities. EXTREMITIES: trace ble edema, no erythema seen. Results & Data Results & Data Vital Signs (Past 12 Hours) Vital Signs Temp Pulse Pulse Resp BP BP Pulse Ox 08/08/24 14:14 65 08/08/24 12:10 36.5 C 62 138/58 L 08/08/24 12:00 65 140/60 08/08/24 11:30 63 118/55 L 08/08/24 11:00 53 L 86/63 L 08/08/24 10:30 62 126/44 L 08/08/24 10:00 67 94/54 L 08/08/24 09:30 67 114/48 L 08/08/24 09:04 36.5 C 76 08/08/24 08:21 36.5 C 70 20 137/81 96 08/08/24 07:36 51 L 08/08/24 03:25 36.5 C 53 L 18 131/74 96 O2 Del Method 08/08/24 14:14 08/08/24 12:10 08/08/24 12:00 08/08/24 11:30 08/08/24 11:00 08/08/24 10:30 08/08/24 10:00 08/08/24 09:30 08/08/24 09:04 08/08/24 08:21 Room Air 08/08/24 07:36 08/08/24 03:25 Room Air
[2024-08-09 08:56] LABS: Hematocrit (blood only) 34.7 % (37.0-47.0); Hemoglobin 10.6 g/dl (12.0-16.0)
[2024-08-09 09:11] LABS: Calcium 9.2 mg/dl (8.6-10.3); Creatinine Clr Calc Pharmacy 19.2 ml/min; Potassium 4.1 mmol/L (3.5-5.1)
--- NOTE | 2024-08-09 10:35 | Nephrology Progress Note ---
Date of Service August 09, 2024 Assessment & Plan Admission and Anticipated Discharge Date Admission Date: July 16, 2024 Subjective Assessment & Plan (1) Acute worsening of stage 4 chronic kidney disease: Plan: patient with wendy on CKD 4, baseline creatinine 1.8-2. Etiology is likely ischemic ATN due to E coli UTI. Chest x-ray shows today unchanged pulmonary edema but exam worse. creatinine of 3.3 today, which has yet again climbed a bit from yesterday, though not so high as peak value 4.4 on 07/22. BUN climbing, hgb dropping, phos elevated earlier in week. My partner had discussed with the patient / family that if she does not respond to Lasix drip, she might end up needing dialysis. With her small stature and advanced age/sedentary lif estyle, creatinine of 3 w/ volume overload represents more significant impairment than GFR would suggest. So was started on /5/2024. Patient lives alone and ambulates with a walker at baseline. Son helps with medications in a pillbox Had TDC on 08/03 and started dialysis. emergency worker to arrange for [facility] unit in [place] as she is going to [facility]. her days will be TTS so given this will do a short 2 hr dialysis today and then will be tuesday For discharge continue torsemide 20 mg -1 tab daily. Daily bmp and CBC continue avoidance of nsaids and IV con for CT S--Denies any new issues. No issues with CVC. BP fine. tolerating it well. o---Physical Exam Constitutional: well developed, well nourished, + obese, + frail appearing and cooperative; no acute distress ENMT: Mouth: + dry oral mucous membranes Respiratory: normal respiratory effort; no respiratory distress and no cough Auscultation: + diminished lung sounds and + crackles (thicker today bases posterior) Cardiovascular: Rate/Rhythm: regular rate and regular rhythm Extremities: no edema Gastrointestinal (Abdomen): Inspection/Auscultation: normal bowel sounds Percussion/Palpation: abdomen soft; abdomen nontender Skin: no rashes, warm and dry Psychiatric: Orientation: alert and oriented x 3 Results & Data Vital Signs (Past 12 Hours) Vital Signs Temp Pulse Pulse Pulse Resp BP Pulse Ox 08/09/24 07:51 36.8 C 91 H 20 149/71 H 97 08/09/24 04:09 36.6 C 70 18 121/50 L 94 08/09/24 00:10 72 08/08/24 23:10 36.9 C 76 16 131/75 95 O2 Del Method 08/09/24 07:51 Room Air 08/09/24 04:09 Room Air 08/09/24 00:10 08/08/24 23:10 Room Air
--- NOTE | 2024-08-09 13:07 | Hospitalist Progress Note ---
Date of Service August 09, 2024 Assessment & Plan (1) Acute systolic CHF (congestive heart failure), NYHA class 3: (2) Acute renal failure superimposed on stage 4 chronic kidney disease: (3) Delirium due to another medical condition: (4) Mild cognitive impairment: (5) Acute metabolic encephalopathy: (6) Anemia, chronic renal failure: (7) E. coli UTI: (8) Ischemic cardiomyopathy: (9) Hypothyroid: (10) T2DM (type 2 diabetes mellitus): (11) Hypertension: (12) Hyperlipidemia: (13) ASCVD (arteriosclerotic cardiovascular disease): Plan 84-year-old female w/ PMH of T2DM, HTN, HLD, hypothyroidism, hyperparathyroidism, venous insufficiency, CKD stage IV, aortic valve sclerosis, vitamin D deficiency, senile osteoporosis, gouty arthropathy and lymphedema of the bilateral lower extremities who was admitted 07/16 for decompensated heart failure, GILBERTO on CKD, and uncomplicated UTI. She is being managed for the following: GILBERTO over CKD stage IV Acute worsening of stage IV CKD Azotemia Hyperkalemia and hyperphosphatemia Hyponatremia Patient with baseline creatinine of 1.8 to 2.0, admitting creatinine of 2.71, peaked at 4.40 on 07/22. and potassium peaked at 5.4 on 07/21, needing Veltassa. Patient underwent diuresis with IV bolus and then IV drip, could not be transitioned to oral diuretics as she started making decreased urine output with worsening renal function on oral diuretics. Received TDC on 08/03, has been receiving hemodialysis since then, creatinine has been more stable Patient has been feeling better with better p.o. intake and ambulation currently. Corbin catheter was initially placed for I's and O's monitoring, since patient is currently getting HD, will remove Corbin. Outpatient dialysis has been set up by case management manager. Patient is a stable to discharge to rehab. Acute on chronic macrocytic anemia: Admitting hemoglobin of 7.4, hemoglobin went down to 6.6 on 07/20 with no clear sign of bleeding. No signs of hemolysis. Iron levels fairly WNL, vitamin B-12 at 217 and folate at greater than 22. No signs of hemolysis. 07/27 CTAP with no retroperitoneal hematoma. Urine with no hematuria. 07/30 FOBT neg. GI bleed ruled out. Likely anemia of chronic disease in the setting of chronic kidney disease. Status post 3 unit PRBC so far. Patient is a status post Epoetin Vidal 07/24. Hemoglobin has been stable/improving after hemodialysis. Bleeding per vagina: Resolved for now per signout per prior attending, pt w/ no further complaints. will continue to monitor. Bradycardia: Likely secondary to metabolic abnormalities/underlying RAMON ISO volume overload/impending renal failure. Reviewed nocturnal pulse ox 07/28 --will need O2 HS, continue telemetry monitoring, metoprolol resumed with cardiology recommendation. Heart rate in 50s, more stable now. Follow-up with cardiology as prior upon discharge. Acute metabolic encephalopathy: resolved. ABG w/ no hypercarbia, NH3 < 10, b12 at 217 Hospital course was complicated by continued delirium and encephalopathy in the setting of progressing acute renal failure on chronic renal failure. Avoid medications that could alter mental status, concern that due to progressive renal dysfunction these medications are contributing to her encephalopathy. OOB and c/w PT/OT. 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 No need for anticoagulation Continue conservative med management at this time home imdur/hydral held 2/2 hypotension, consider resuming as BP stably better. BB held 2/2 held due to bradycardia resumed 07/30 w/ cards recs. f/u cardio on dc. DMTII: Glucose was reviewed, continue to cover with insulin Acute uncomplicated UTI: asymptomatic, but notably ill on admission. s/p CTX hep sc for dvt px Dispo: stable for dc to rehab. PT/OT -- rehab recommendation Admission and Anticipated Discharge Date Admission Date: July 16, 2024 Subjective Patient was seen and examined at bedside. Patient was lying in bed, on room air, NAD, sitting up in chair. Patient reports no new acute event overnight, reports eating okay and moving bowels okay. Physical Exam Physical Exam: GENERAL: Alert Ox3, sitting up in chair, NAD, on RA. Appears weak/frail. Obese class III. HEENT: No pallor, no icterus. Pupils equal, round and reactive to light. Oral mucosa moist. NECK: No JVD, no neck masses. HEART: S1 and S2 heard. Regular rate and rhythm. No murmur, no gallop. RESPIRATORY SYSTEM: Normal AP diameter. No accessory muscle use. No wheezing, bb crackles. decreased b/l breath sounds 2/2 poor effort. ABDOMEN: Soft, bowel sounds present, nontender, no distention. CENTRAL NERVOUS SYSTEM: No facial droop. Speech is clear. Obeys simple commands. Moves extremities. EXTREMITIES: trace ble edema, no erythema seen. Results & Data Results & Data Vital Signs (Past 12 Hours) Vital Signs Temp Pulse Pulse Resp BP BP Pulse Ox 08/09/24 12:30 66 156/57 H 08/09/24 12:00 68 140/54 L 08/09/24 11:49 36.5 C 67 08/09/24 11:38 36.9 C 63 16 119/74 98 08/09/24 07:51 36.8 C 91 H 20 149/71 H 97 08/09/24 04:09 36.6 C 70 18 121/50 L 94 O2 Del Method 08/09/24 12:30 08/09/24 12:00 08/09/24 11:49 08/09/24 11:38 Room Air 08/09/24 07:51 Room Air 08/09/24 04:09 Room Air
--- NOTE | 2024-08-10 09:37 | Nephrology Progress Note ---
Date of Service August 10, 2024 Assessment & Plan Admission and Anticipated Discharge Date Admission Date: July 16, 2024 Subjective Assessment & Plan (1) Acute worsening of stage 4 chronic kidney disease: Plan: patient with wendy on CKD 4, baseline creatinine 1.8-2. Etiology is likely ischemic ATN due to E coli UTI. Chest x-ray shows today unchanged pulmonary edema but exam worse. creatinine of 3.3 today, which has yet again climbed a bit from yesterday, though not so high as peak value 4.4 on 07/22. BUN climbing, hgb dropping, phos elevated earlier in week. My partner had discussed with the patient / family that if she does not respond to Lasix drip, she might end up needing dialysis. With her small stature and advanced age/sedentary lif estyle, creatinine of 3 w/ volume overload represents more significant impairment than GFR would suggest. Patient lives alone and ambulates with a walker at baseline. Son helps with medications in a pillbox Had TDC on 08/03 and started dialysis. auto body worker to arrange for [facility] in [place] as she is going to [facility]. Her days will be TTS so given this will did a short 2 hr dialysis yesterday and then will be tuesday. D/c renal diet to see if she eats more. For discharge continue torsemide 20 mg -1 tab daily. Daily bmp and CBC continue avoidance of nsaids and IV con for CT S--Denies any new issues. very poor appetite. No issues with CVC. BP fine. tolerating dialysis well. TTS schedule from now o---Physical Exam Constitutional: well developed, well nourished, + obese, + frail appearing and cooperative; no acute distress ENMT: Mouth: + dry oral mucous membranes Respiratory: normal respiratory effort; no respiratory distress and no cough Auscultation: + diminished lung sounds and + crackles (thicker today bases posterior) Cardiovascular: Rate/Rhythm: regular rate and regular rhythm Extremities: no edema Gastrointestinal (Abdomen): Inspection/Auscultation: normal bowel sounds Percussion/Palpation: abdomen soft; abdomen nontender Skin: no rashes, warm and dry Psychiatric: Orientation: alert and oriented x 3 Results & Data Vital Signs (Past 12 Hours) Vital Signs Temp Pulse Pulse Resp BP Pulse Ox O2 Del Method 08/10/24 07:42 36.6 C 70 16 119/58 L 93 Room Air 08/10/24 07:00 61 08/10/24 02:45 36.6 C 69 16 125/70 91 Room Air 08/10/24 00:08 82 08/09/24 23:26 36.7 C 67 16 118/68 95 Room Air
[2024-08-10 09:40] LABS: BUN Creatinine Ratio 9.5 (10-20); Calcium 9.3 mg/dl (8.6-10.3); Creatinine Clr Calc Pharmacy 19.7 ml/min; Potassium 3.7 mmol/L (3.5-5.1)
--- NOTE | 2024-08-10 15:14 | Hospitalist Progress Note ---
Date of Service August 10, 2024 Assessment & Plan (1) Acute systolic CHF (congestive heart failure), NYHA class 3: (2) Acute renal failure superimposed on stage 4 chronic kidney disease: (3) Delirium due to another medical condition: (4) Mild cognitive impairment: (5) Acute metabolic encephalopathy: (6) Anemia, chronic renal failure: (7) E. coli UTI: (8) Ischemic cardiomyopathy: (9) Hypothyroid: (10) T2DM (type 2 diabetes mellitus): (11) Hypertension: (12) Hyperlipidemia: (13) ASCVD (arteriosclerotic cardiovascular disease): Plan 84-year-old female w/ PMH of T2DM, HTN, HLD, hypothyroidism, hyperparathyroidism, venous insufficiency, CKD stage IV, aortic valve sclerosis, vitamin D deficiency, senile osteoporosis, gouty arthropathy and lymphedema of the bilateral lower extremities who was admitted 07/16 for decompensated heart failure, GILBERTO on CKD, and uncomplicated UTI. She is being managed for the following: GILBERTO over CKD stage IV Acute worsening of stage IV CKD Azotemia Hyperkalemia and hyperphosphatemia Hyponatremia Patient with baseline creatinine of 1.8 to 2.0, admitting creatinine of 2.71, peaked at 4.40 on 07/22. and potassium peaked at 5.4 on 07/21, needing Veltassa. Patient underwent diuresis with IV bolus and then IV drip, could not be transitioned to oral diuretics as she started making decreased urine output with worsening renal function on oral diuretics. Received TDC on 08/03, has been receiving hemodialysis since then, creatinine has been more stable Patient has been feeling better with better p.o. intake and ambulation currently. Corbin catheter was initially placed for I's and O's monitoring, since patient is currently getting HD, will remove Corbin. Outpatient dialysis has been set up by caser in. Patient is a stable to discharge to rehab. Acute on chronic macrocytic anemia: Admitting hemoglobin of 7.4, hemoglobin went down to 6.6 on 07/20 with no clear sign of bleeding. No signs of hemolysis. Iron levels fairly WNL, vitamin B-12 at 217 and folate at greater than 22. No signs of hemolysis. 07/27 CTAP with no retroperitoneal hematoma. Urine with no hematuria. 07/30 FOBT neg. GI bleed ruled out. Likely anemia of chronic disease in the setting of chronic kidney disease. Status post 3 unit PRBC so far. Patient is a status post Epoetin Vidal 07/24. Hemoglobin has been stable/improving after hemodialysis. Bleeding per vagina: Resolved for now per signout per prior attending, pt w/ no further complaints. will continue to monitor. Bradycardia: Likely secondary to metabolic abnormalities/underlying RAMON ISO volume overload/impending renal failure. Reviewed nocturnal pulse ox 07/28 --will need O2 HS, continue telemetry monitoring, metoprolol resumed with cardiology recommendation. Heart rate in 50s, more stable now. Follow-up with cardiology as prior upon discharge. Acute metabolic encephalopathy: resolved. ABG w/ no hypercarbia, NH3 < 10, b12 at 217 Hospital course was complicated by continued delirium and encephalopathy in the setting of progressing acute renal failure on chronic renal failure. Avoid medications that could alter mental status, concern that due to progressive renal dysfunction these medications are contributing to her encephalopathy. OOB and c/w PT/OT. 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 No need for anticoagulation Continue conservative med management at this time home imdur/hydral held 2/2 hypotension, Has been resumed, blood pressure holding up. BB held 2/2 held due to bradycardia resumed 07/30 w/ cards recs. f/u cardio on dc. DMTII: Glucose was reviewed, continue to cover with insulin Acute uncomplicated UTI: asymptomatic, but notably ill on admission. s/p CTX hep sc for dvt px Dispo: stable for dc to rehab. To [facility] until discharge. PT/OT -- rehab recommendation Admission and Anticipated Discharge Date Admission Date: July 16, 2024 Subjective Patient was seen and examined at bedside. Patient was lying in bed, on room air, NAD, sitting up in chair. Patient reports no new acute event overnight, reports eating okay and moving bowels okay. Physical Exam Physical Exam: GENERAL: Alert Ox3, sitting up in chair, NAD, on RA. Appears weak/frail. Obese class III. HEENT: No pallor, no icterus. Pupils equal, round and reactive to light. Oral mucosa moist. NECK: No JVD, no neck masses. HEART: S1 and S2 heard. Regular rate and rhythm. No murmur, no gallop. RESPIRATORY SYSTEM: Normal AP diameter. No accessory muscle use. No wheezing, bb crackles. decreased b/l breath sounds 2/2 poor effort. ABDOMEN: Soft, bowel sounds present, nontender, no distention. CENTRAL NERVOUS SYSTEM: No facial droop. Speech is clear. Obeys simple commands. Moves extremities. EXTREMITIES: trace ble edema, no erythema seen. Results & Data Results & Data Vital Signs (Past 12 Hours) Vital Signs Temp Pulse Pulse Resp BP Pulse Ox O2 Del Method 08/10/24 12:29 36.7 C 65 16 108/65 95 Room Air 08/10/24 08:00 Room Air 08/10/24 07:42 36.6 C 70 16 119/58 L 93 Room Air 08/10/24 07:00 61
--- NOTE | 2024-08-11 13:55 | Hospitalist Progress Note ---
Date of Service August 11, 2024 Assessment & Plan (1) Acute systolic CHF (congestive heart failure), NYHA class 3: (2) Acute renal failure superimposed on stage 4 chronic kidney disease: (3) Delirium due to another medical condition: (4) Mild cognitive impairment: (5) Acute metabolic encephalopathy: (6) Anemia, chronic renal failure: (7) E. coli UTI: (8) Ischemic cardiomyopathy: (9) Hypothyroid: (10) T2DM (type 2 diabetes mellitus): (11) Hypertension: (12) Hyperlipidemia: (13) ASCVD (arteriosclerotic cardiovascular disease): Plan 84-year-old female w/ PMH of T2DM, HTN, HLD, hypothyroidism, hyperparathyroidism, venous insufficiency, CKD stage IV, aortic valve sclerosis, vitamin D deficiency, senile osteoporosis, gouty arthropathy and lymphedema of the bilateral lower extremities who was admitted 07/16 for decompensated heart failure, GILBERTO on CKD, and uncomplicated UTI. She is being managed for the following: GILBERTO over CKD stage IV Acute worsening of stage IV CKD Azotemia Hyperkalemia and hyperphosphatemia Hyponatremia Patient with baseline creatinine of 1.8 to 2.0, admitting creatinine of 2.71, peaked at 4.40 on 07/22. and potassium peaked at 5.4 on 07/21, needing Veltassa. Patient underwent diuresis with IV bolus and then IV drip, could not be transitioned to oral diuretics as she started making decreased urine output with worsening renal function on oral diuretics. Received TDC on 08/03, has been receiving hemodialysis since then, creatinine has been more stable Patient has been feeling better with better p.o. intake and ambulation currently. Outpatient dialysis has been set up by case management specialist. Patient is a stable to discharge to rehab. Acute on chronic macrocytic anemia: Admitting hemoglobin of 7.4, hemoglobin went down to 6.6 on 07/20 with no clear sign of bleeding. No signs of hemolysis. Iron levels fairly WNL, vitamin B-12 at 217 and folate at greater than 22. No signs of hemolysis. 07/27 CTAP with no retroperitoneal hematoma. Urine with no hematuria. 07/30 FOBT neg. GI bleed ruled out. Likely anemia of chronic disease in the setting of chronic kidney disease. Status post 3 unit PRBC so far. Patient is a status post Epoetin Vidal 07/24. Hemoglobin has been stable/improving after hemodialysis. Bleeding per vagina: Resolved for now per signout per prior attending, pt w/ no further complaints. will continue to monitor. Bradycardia: Likely secondary to metabolic abnormalities/underlying RAMON ISO volume overload/impending renal failure. Reviewed nocturnal pulse ox 07/28 --will need O2 HS, continue telemetry monitoring, metoprolol resumed with cardiology recommendation. Heart rate in 50s, more stable now. Follow-up with cardiology as prior upon discharge. Acute metabolic encephalopathy: resolved. ABG w/ no hypercarbia, NH3 < 10, b12 at 217 Hospital course was complicated by continued delirium and encephalopathy in the setting of progressing acute renal failure on chronic renal failure. Avoid medications that could alter mental status, concern that due to progressive renal dysfunction these medications are contributing to her encephalopathy. OOB and c/w PT/OT. 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 No need for anticoagulation Continue conservative med management at this time home imdur/hydral held 2/2 hypotension, Has been resumed, blood pressure holding up. BB held 2/2 held due to bradycardia resumed 07/30 w/ cards recs. f/u cardio on dc. DMTII: Glucose was reviewed, continue to cover with insulin Acute uncomplicated UTI: asymptomatic, but notably ill on admission. s/p CTX hep sc for dvt px Dispo: stable for dc to rehab. To [facility] until discharge. PT/OT -- rehab recommendation Admission and Anticipated Discharge Date Admission Date: July 16, 2024 Subjective Patient was seen and examined at bedside. Patient was lying in bed, on room air, NAD, resting comfortably. Patient reports no new acute event overnight, reports eating okay and moving bowels okay. Physical Exam Physical Exam: GENERAL: Alert Ox3, sitting up in chair, NAD, on RA. Appears weak/frail. Obese class III. HEENT: No pallor, no icterus. Pupils equal, round and reactive to light. Oral mucosa moist. NECK: No JVD, no neck masses. HEART: S1 and S2 heard. Regular rate and rhythm. No murmur, no gallop. RESPIRATORY SYSTEM: Normal AP diameter. No accessory muscle use. No wheezing, bb crackles. decreased b/l breath sounds 2/2 poor effort. ABDOMEN: Soft, bowel sounds present, nontender, no distention. CENTRAL NERVOUS SYSTEM: No facial droop. Speech is clear. Obeys simple commands. Moves extremities. EXTREMITIES: trace ble edema, no erythema seen. Results & Data Results & Data Vital Signs (Past 12 Hours) Vital Signs Temp Pulse Pulse Pulse Resp BP BP 08/11/24 12:32 36.6 C 73 18 134/85 08/11/24 12:27 36.6 C 73 141/84 H 08/11/24 12:04 70 08/11/24 12:00 68 142/82 H 08/11/24 11:30 69 124/63 08/11/24 11:00 69 131/59 L 08/11/24 10:30 70 111/56 L 08/11/24 10:00 72 114/49 L 08/11/24 09:30 71 109/52 L 08/11/24 09:20 71 127/56 L 08/11/24 09:14 36.5 C 73 08/11/24 08:02 36.6 C 67 16 114/56 L Pulse Ox O2 Del Method 08/11/24 12:32 99 Room Air 08/11/24 12:27 08/11/24 12:04 08/11/24 12:00 08/11/24 11:30 08/11/24 11:00 08/11/24 10:30 08/11/24 10:00 08/11/24 09:30 08/11/24 09:20 08/11/24 09:14 08/11/24 08:02 95 Room Air
--- NOTE | 2024-08-11 19:49 | Nephrology Progress Note ---
Date of Service August 11, 2024 Assessment & Plan (1) Acute worsening of stage 4 chronic kidney disease: Plan: Given her challenges w/ volume and baseline CKD4 prior to admission >> calling this ESRd. after wendy on CKD 4, baseline creatinine 1.8-2. Etiology is likely ischemic ATN due to E coli UTI. With her small stature and advanced age/sedentary lifestyle, creatinine of 3 w/ volume overload represents more significant impairment than GFR would suggest. BUN improved to 21 today, far cry from 120s prior to starting. Patient lives alone and ambulates with a walker at baseline. Son helps with medications in a pillbox Had TDC on 08/03 and started dialysis. Last tx 08/11 most recently To start at [facility] unit in [place] as she is going to [facility]. Her days will be TTS; tolerated HD today w/ 1L UF D/c renal diet to see if she eats more. For discharge continue torsemide 20 mg -1 tab daily. Daily bmp and CBC continue avoidance of nsaids and IV con for CT Will sign off from here and picker tender [facility] care [place] [facility] [place] is slated to start next week (2) Anemia: Plan: improving anemia w/ hgb uptrending to 10.6 today -cont ZAC and other anemia meds at HD -daily hgb -monitor for bleeding -transfuse pRBC for chest pain or hgb 7 or less (3) Hypertension: Plan: well controlled now -continue toprol, torsemide current doses >note imdur, hydralazine currently/appropriately on hold since 07/21 Admission and Anticipated Discharge Date Admission Date: July 16, 2024 Subjective seen on evening rounds. pt tolerated HD today w/ 1L UF. edema improved. she's very eager for d/c, frustrated to be here still. no uncontrolled pain; no n Review of Systems 2 Review of Systems: All systems reviewed & are unremarkable except as noted in Subjective Physical Exam 2 Constitutional: well developed, well nourished, + obese, + frail appearing and cooperative; no acute distress Eyes: EOM intact bilaterally (visually impaired) ENMT: Mouth: + dry oral mucous membranes Neck: no nuchal rigidity Respiratory: normal respiratory effort; no respiratory distress and no cough Auscultation: + diminished lung sounds Cardiovascular: Rate/Rhythm: regular rate and regular rhythm Extremities: + edema (trace) Gastrointestinal (Abdomen): Inspection/Auscultation: normal bowel sounds P ercussion/Palpation: abdomen soft; abdomen nontender Musculoskeletal: Extremities: strength 5/5 throughout Skin: no rashes, warm and dry Psychiatric: Orientation: alert and oriented x 3 Results & Data Vital Signs (Past 12 Hours) Vital Signs Temp Pulse Pulse Pulse Resp BP BP 08/11/24 15:22 36.3 C L 74 20 122/65 08/11/24 14:50 08/11/24 13:58 63 08/11/24 12:32 36.6 C 73 18 134/85 08/11/24 12:27 36.6 C 73 141/84 H 08/11/24 12:04 70 08/11/24 12:00 68 142/82 H 08/11/24 11:30 69 124/63 08/11/24 11:00 69 131/59 L 08/11/24 10:30 70 111/56 L 08/11/24 10:00 72 114/49 L 08/11/24 09:30 71 109/52 L 08/11/24 09:20 71 127/56 L 08/11/24 09:14 36.5 C 73 08/11/24 08:02 36.6 C 67 16 114/56 L Pulse Ox O2 Del Method 08/11/24 15:22 98 Room Air 08/11/24 14:50 Room Air 08/11/24 13:58 08/11/24 12:32 99 Room Air 08/11/24 12:27 08/11/24 12:04 08/11/24 12:00 08/11/24 11:30 08/11/24 11:00 08/11/24 10:30 08/11/24 10:00 08/11/24 09:30 08/11/24 09:20 08/11/24 09:14 08/11/24 08:02 95 Room Air Laboratory Results 08/09/24 08:12 08/10/24 08:52 (2) Anemia Anemia type: unspecified type Qualified Code(s): D64.9 - Anemia, unspecified
[2024-08-12 08:18] LABS: BUN Creatinine Ratio 12.2 (10-20); Calcium 9.1 mg/dl (8.6-10.3); Creatinine Clr Calc Pharmacy 22.9 ml/min; Potassium 4.3 mmol/L (3.5-5.1)
--- NOTE | 2024-08-12 11:28 | Hospitalist Progress Note ---
Date of Service August 12, 2024 Assessment & Plan (1) Acute systolic CHF (congestive heart failure), NYHA class 3: (2) Acute renal failure superimposed on stage 4 chronic kidney disease: (3) Delirium due to another medical condition: (4) Mild cognitive impairment: (5) Acute metabolic encephalopathy: (6) Anemia, chronic renal failure: (7) E. coli UTI: (8) Ischemic cardiomyopathy: (9) Hypothyroid: (10) T2DM (type 2 diabetes mellitus): (11) Hypertension: (12) Hyperlipidemia: (13) ASCVD (arteriosclerotic cardiovascular disease): Plan 84-year-old female w/ PMH of T2DM, HTN, HLD, hypothyroidism, hyperparathyroidism, venous insufficiency, CKD stage IV, aortic valve sclerosis, vitamin D deficiency, senile osteoporosis, gouty arthropathy and lymphedema of the bilateral lower extremities who was admitted 07/16 for decompensated heart failure, GILBERTO on CKD, and uncomplicated UTI. She is being managed for the following: GILBERTO over CKD stage IV Acute worsening of stage IV CKD Azotemia Hyperkalemia and hyperphosphatemia Hyponatremia Patient with baseline creatinine of 1.8 to 2.0, admitting creatinine of 2.71, peaked at 4.40 on 07/22. and potassium peaked at 5.4 on 07/21, needing Veltassa. Patient underwent diuresis with IV bolus and then IV drip, could not be transitioned to oral diuretics as she started making decreased urine output with worsening renal function on oral diuretics. Received TDC on 08/03, has been receiving hemodialysis since then, creatinine has been more stable Patient has been feeling better with better p.o. intake and ambulation currently. Outpatient dialysis has been set up by case finishing machine adjuster. Patient is a stable to discharge to rehab. Acute on chronic macrocytic anemia: Admitting hemoglobin of 7.4, hemoglobin went down to 6.6 on 07/20 with no clear sign of bleeding. No signs of hemolysis. Iron levels fairly WNL, vitamin B-12 at 217 and folate at greater than 22. No signs of hemolysis. 07/27 CTAP with no retroperitoneal hematoma. Urine with no hematuria. 07/30 FOBT neg. GI bleed ruled out. Likely anemia of chronic disease in the setting of chronic kidney disease. Status post 3 unit PRBC so far. Patient is a status post Epoetin Vidal 07/24. Hemoglobin has been stable/improving after hemodialysis. Bleeding per vagina: Resolved for now per signout per prior attending, pt w/ no further complaints. will continue to monitor. Bradycardia: Likely secondary to metabolic abnormalities/underlying RAMON ISO volume overload/impending renal failure. Reviewed nocturnal pulse ox 07/28 --will need O2 HS, continue telemetry monitoring, metoprolol resumed with cardiology recommendation. Heart rate in 50s, more stable now. Follow-up with cardiology as prior upon discharge. Acute metabolic encephalopathy: resolved. ABG w/ no hypercarbia, NH3 < 10, b12 at 217 Hospital course was complicated by continued delirium and encephalopathy in the setting of progressing acute renal failure on chronic renal failure. Avoid medications that could alter mental status, concern that due to progressive renal dysfunction these medications are contributing to her encephalopathy. OOB and c/w PT/OT. 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 No need for anticoagulation Continue conservative med management at this time home imdur/hydral held 2/2 hypotension, Has been resumed, blood pressure holding up. BB held 2/2 held due to bradycardia resumed 07/30 w/ cards recs. f/u cardio on dc. DMTII: Glucose was reviewed, continue to cover with insulin Acute uncomplicated UTI: asymptomatic, but notably ill on admission. s/p CTX hep sc for dvt px Dispo: stable for dc to rehab. To [facility] until discharge. PT/OT -- rehab recommendation Admission and Anticipated Discharge Date Admission Date: July 16, 2024 Subjective Patient was seen and examined at bedside. Patient was lying in bed, on room air, NAD, resting comfortably. Patient reports no new acute event overnight, reports eating okay and moving bowels okay. Patient's daughter and son at bedside who were also updated on plan of care. Physical Exam Physical Exam: GENERAL: Alert Ox3, sitting up in chair, NAD, on RA. Appears weak/frail. Obese class III. HEENT: No pallor, no icterus. Pupils equal, round and reactive to light. Oral mucosa moist. NECK: No JVD, no neck masses. HEART: S1 and S2 heard. Regular rate and rhythm. No murmur, no gallop. RESPIRATORY SYSTEM: Normal AP diameter. No accessory muscle use. No wheezing, bb crackles. decreased b/l breath sounds 2/2 poor effort. ABDOMEN: Soft, bowel sounds present, nontender, no distention. CENTRAL NERVOUS SYSTEM: No facial droop. Speech is clear. Obeys simple commands. Moves extremities. EXTREMITIES: trace ble edema, no erythema seen. Results & Data Results & Data Vital Signs (Past 12 Hours) Vital Signs Temp Pulse Resp BP Pulse Ox O2 Del Method 08/12/24 07:23 36.4 C L 80 16 135/71 93 Room Air 08/12/24 00:54 36.8 C 71 18 139/72 94 Room Air
[2024-08-13 05:47] VITALS: BP 121/75; PULSE 80; RESP 18; TEMP 98.2; O2SAT 95
--- NOTE | 2024-08-13 10:24 | Discharge Summary ---
Date of Service August 13, 2024 Admission HPI Per Admitting Provider This is an 84-year-old female who has a significant past medical history of T2DM, HTN, HLD, hypothyroidism, hyperparathyroidism, venous insufficiency, CKD stage IV, aortic valve sclerosis, vitamin D deficiency, senile osteoporosis, gouty arthropathy and lymphedema of the bilateral lower extremities who presents to ED secondary to worsening shortness of breath. History obtained from patient, family at bedside and and patient and chart review. She reports acute onset of shortness of breath that started 2 days ago. She typically lives at home alone and ambulates with assist device. She noted 2 days ago she was becoming more short of breath with exertion. She denies any shortness of breath at rest, orthopnea or PND, but she does sleep in a recliner. She does note an intermittent cough, but nothing that is new. She denies any significant weight gain or change in her chronic lower extremity edema. She asked reports a 16 pound weight loss as she reports she has been trying to lose weight and is watch ing her bread intake. She feels she is cautious on her salt intake. She has been taking her medications regularly. No recent illness. She denies any fever, chills, sweats, chest pain, hemoptysis, nausea, vomiting, abdominal pain, melena, medic easier, hematuria, change in her bowel or urinary habits. Family at bedside also states that she has a caregiver that comes to the house to help her bathe and they also report no new changes in regards to any possible concerns for bleeding. Son at bedside feels her medications and is competent she is taking her medications appropriately. Per outpatient chart review her last echocardiogram was in April 2022 which revealed a preserved EF of 55%, grade 1 diastolic dysfunction aortic valve sclerosis. Her baseline creatinine is approximately 1.8-2 which she follows with [facility] nephrology. Her most recent A1c over a year ago was 4.8. Her last hemoglobin 1 year ago was 11.3. Admission Exam Per Admitting Provider Gen: WD/WN, elderly, F, lying in bed, answers questions appropriately, NAD, A&O x3 HEENT: Normocephalic, atraumatic, conjunctivae moist, sclerae anicteric, mucous membranes moist. Lung: Clear to Auscultation bilaterally, no wheezes/rales/rhonchi Heart: Regular rate, regular rhythm, no murmurs, rubs, or gallops Abdomen: obese Soft, NT, ND +BS x 4 Extremities: bilateral lymphedema, nonpitting, no erythema Skin: Warm, no rash, negative turgor. Principal Diagnosis GILBERTO over CKD stage IV Acute worsening of stage IV CKD Azotemia Hyperkalemia and hyperphosphatemia Hyponatremia Acute on chronic macrocytic anemia Bradycardia Acute metabolic encephalopathy: resolved Acute uncomplicated UTI Discharge Exam GENERAL: Alert Ox3, sitting up in chair, NAD, on RA. Appears weak/frail. Obese class III. HEENT: No pallor, no icterus. Pupils equal, round and reactive to light. Oral mucosa moist. NECK: No JVD, no neck masses. HEART: S1 and S2 heard. Regular rate and rhythm. No murmur, no gallop. RESPIRATORY SYSTEM: Normal AP diameter. No accessory muscle use. No wheezing, bb crackles. decreased b/l breath sounds 2/2 poor effort. ABDOMEN: Soft, bowel sounds present, nontender, no distention. CENTRAL NERVOUS SYSTEM: No facial droop. Speech is clear. Obeys simple commands. Moves extremities. EXTREMITIES: trace ble edema, no erythema seen. Discharge Data Allergies Allergy/AdvReac Type Severity Reaction Status Date / Time pecan nut Allergy Severe ANAPHYLAXIS Verified 03/02/17 09:41 coconut Allergy Verified 07/24/24 10:13 coconut oil Allergy Verified 07/24/24 10:13 kiwi Allergy Verified 07/24/24 10:13 nut - unspecified Allergy Verified 07/24/24 10:13 Consultations 07/16/24 12:45 ED Decision to Admit Stat 07/16/24 14:28 Consult Cardiology Routine Consult Nephrology Routine 07/27/24 14:08 Consult Cardiology Routine 08/02/24 13:21 Consult Vascular Surgery Routine Procedures Performed Operation Date: 08/03/24 08:10 Actual Procedures p Perm Catheter Placement,Right Internal Jugular Approach, Ultrasound Localization of Right Internal Jugular Vein,Fluorscopy for Positioning,Moderate Sedation [id number](Right) - Gilbert Harp MD Ordered Studies 07/27/24 10:04 CT abd pelvis wo con Routine 08/03/24 10:19 EV cvc insrt tunnel wo prt/locate technician Routine Hospital Course (1) Acute systolic CHF (congestive heart failure), NYHA class 3: (2) Acute renal failure superimposed on stage 4 chronic kidney disease: (3) Delirium due to another medical condition: (4) Mild cognitive impairment: (5) Acute metabolic encephalopathy: (6) Anemia, chronic renal failure: (7) E. coli UTI: (8) Ischemic cardiomyopathy: (9) Hypothyroid: (10) T2DM (type 2 diabetes mellitus): (11) Hypertension: (12) Hyperlipidemia: (13) ASCVD (arteriosclerotic cardiovascular disease): Plan 84-year-old female w/ PMH of T2DM, HTN, HLD, hypothyroidism, hyperparathyroidism, venous insufficiency, CKD stage IV, aortic valve sclerosis, vitamin D deficiency, senile osteoporosis, gouty arthropathy and lymphedema of the bilateral lower extremities who was admitted 07/16 for decompensated heart failure, GILBERTO on CKD, and uncomplicated UTI. She was managed for the following: GILBERTO over CKD stage IV Acute worsening of stage IV CKD Azotemia Hyperkalemia and hyperphosphatemia Hyponatremia Patient with baseline creatinine of 1.8 to 2.0, admitting creatinine of 2.71, peaked at 4.40 on 07/22. and potassium peaked at 5.4 on 07/21, needing Veltassa. Patient underwent diuresis with IV bolus and then IV drip, could not be transitioned to oral diuretics as she started making decreased urine output with worsening renal function on oral diuretics. Received TDC on 08/03, has been receiving hemodialysis since then, creatinine has been more stable Patient has been feeling better with better p.o. intake and ambulation currently. Outpatient dialysis has been set up by case maker. Patient is a stable to discharge to rehab. Acute on chronic macrocytic anemia: Admitting hemoglobin of 7.4, hemoglobin went down to 6.6 on 07/20 with no clear sign of bleeding. No signs of hemolysis. Iron levels fairly WNL, vitamin B-12 at 217 and folate at greater than 22. No signs of hemolysis. 07/27 CTAP with no retroperitoneal hematoma. Urine with no hematuria. 07/30 FOBT neg. GI bleed ruled out. Likely anemia of chronic disease in the setting of chronic kidney disease. Status post 3 unit PRBC so far. Patient is a status post Epoetin Vidal 07/24. Hemoglobin has been stable/improving after hemodialysis. Bleeding per vagina: Resolved for now per signout per prior attending, pt w/ no further complaints. will continue to monitor. Bradycardia: Likely secondary to metabolic abnormalities/underlying RAMON ISO volume overload/impending renal failure. Reviewed nocturnal pulse ox 07/28 --will need O2 HS, continue telemetry monitoring, metoprolol resumed with cardiology recommendation. Heart rate in 50s, more stable now. Follow-up with cardiology as prior upon discharge. Acute metabolic encephalopathy: resolved. ABG w/ no hypercarbia, NH3 < 10, b12 at 217 Hospital course was complicated by continued delirium and encephalopathy in the setting of progressing acute renal failure on chronic renal failure. Avoid medications that could alter mental status, concern that due to progressive renal dysfunction these medications are contributing to her encephalopathy. OOB and c/w PT/OT. 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 No need for anticoagulation Continue conservative med management at this time home imdur/hydral held 2/2 hypotension, Has been resumed, blood pressure holding up. BB held 2/2 held due to bradycardia resumed 07/30 w/ cards recs. f/u cardio on dc. DMTII: Glucose was reviewed, continue to cover with insulin Acute uncomplicated UTI: asymptomatic, but notably ill on admission. s/p CTX hep sc for dvt px Dispo: stable for dc to rehab. To [facility] until discharge. PT/OT -- rehab recommendation Patient being to SNF with following instruction at the point of discharge: Follow-up with your primary care physician within a week time and likely you will need labs CBC/CMP/magnesium/phosphorus.. You were evaluated for acute worsening of your Stage IV chronic kidney disease, you were started on hemodialysis, follow hemodialysis as scheduled. Follow-up with nephrology in about 2 weeks time upon discharge. Follow-up with cardiology in 2 to 4 weeks time of discharge. Your 07/28/2024 nocturnal pulse oximetry test was positive for hypoxemia during sleep [accumulated time of about 44 minutes with SpO2 less than 88%]. You will need 2 L nasal cannula oxygen during sleep. You will benefit from outpatient sleep study, coordinate with your PCP office to set up the test. Take your medications as prescribed. Please make sure that you are able to get your medications today by calling your pharmacy before you leave the hospital so that your treatment continuity is not broken. Home Health Attestation I certify that this patient is under my care and that I, or a physicians psychology assistant working with me, had a face to-face encounter that meets the home health [id number] encounter requirements with this patient. The encounter with the patient was in whole, or in part, for the following medical condition, which is the primary reason for home health care (list medical condition): I certify that, based on my findings, the following services are medically necessary home health services: My clinical findings support the need for the above services because: Further, I certify that my clinical findings support that this patient is homebound (i.e. absences from home require considerable and taxing effort and are for medical reasons or adventism services or infrequently or of short duration when for other reasons) because: Certification for Home Health Services: Based on the above findings, I certify that this patient is confined to the home and needs intermittent detention care, physical therapy and/or speech therapy or continues to need occupational therapy. The patient is under my care, and I have initiated the establishment of the plan of care. This patient will be followed by a physician who will periodically review the plan of care. Total Time Total Time Spent Total Time Spent (In Minutes): 40 Discharge Plan Discharge Items Patient Disposition: Transfer Residential Fac Reason For Visit: ACUTE CHF Discharge Diagnosis: GILBERTO over CKD stage IV Acute worsening of stage IV CKD Azotemia Hyperkalemia and hyperphosphatemia Hyponatremia Acute on chronic macrocytic anemia Bradycardia Acute metabolic encephalopathy: resolved Acute uncomplicated UTI Activity: Resume your previous activity Non-emergency contact: Primary Care Provider Call non-emergency contact if: you have any medication questions, your symptoms worsen and your temperature is above 101 Follow-up/Referrals: Jovita Gutiérrez DO [Primary Care Provider] - Diet: Regular Fluids: 1500ml (6 cups) Addtl Attending Provider Instructions: Follow-up with your primary care physician within a week time and likely you will need labs CBC/CMP/magnesium/phosphorus.. You were evaluated for acute worsening of your Stage IV chronic kidney disease, you were started on hemodialysis, follow hemodialysis as scheduled. Follow-up with nephrology in about 2 weeks time upon discharge. Follow-up with cardiology in 2 to 4 weeks time of discharge. Your 07/28/2024 nocturnal pulse oximetry test was positive for hypoxemia during sleep [accumulated time of about 44 minutes with SpO2 less than 88%]. You will need 2 L nasal cannula oxygen during sleep. You will benefit from outpatient sleep study, coordinate with your PCP office to set up the test. Take your medications as prescribed. Please make sure that you are able to get your medications today by calling your pharmacy before you leave the hospital so that your treatment continuity is not broken. Pending Studies at Discharge: No Stand-Alone Forms: My [facility] Skilled Items Patient informed of condition?: Yes DNR: No Discharge Level of Care: Skilled Communicable Disease: No Discharge Prognosis: Stable Lines: None Urinary Catheter: No Medications and DC Order Prescriptions: New isosorbide dinitrate 5 mg Tablet 5 mg PO BID Qty: 60 0RF metoprolol succinate 25 mg Tablet Extended Release 24 Hr 12.5 mg PO DAILY Qty: 15 0RF torsemide 20 mg Tablet 20 mg PO QAM Qty: 30 0RF docusate sodium 100 mg Capsule 100 mg PO BID PRN (Reason: constipation) Qty: 30 0RF cyanocobalamin (vitamin B-12) 500 mcg Tablet 500 mcg PO QAM Qty: 30 0RF Continued atorvastatin 40 mg tablet 40 mg PO DAILY hydralazine 10 mg tablet 10 mg PO BID allopurinol 100 mg tablet 200 mg PO DAILY aspirin [Aspir-81] 81 mg Tablet,Delayed Release (Dr/Ec) 81 mg PO 2XWK levothyroxine 75 mcg tablet 75 mcg PO DAILY@0630 folic acid 1 mg Tablet 1 mg PO DAILY cholecalciferol (vitamin D3) 10 mcg (400 unit) Capsule 10 mcg PO DAILY Discontinued chlorthalidone 25 mg tablet 50 mg PO DAILY lisinopril 5 mg tablet 5 mg PO PM furosemide 20 mg tablet 20 mg PO DAILY metoprolol succinate 25 mg tablet extended release 24 hr 25 mg PO DAILY Discharge Orders: Discharge Order (Routine); Ordered 08/13/24 Ordered By: Siva Cruz Admission Data Admit Date/Time: 07/16/24 13:51 Attending Provider: Siva Cruz Admit Provider: Riley Olson Primary Care Provider: Jovita Gutiérrez [facility]; Siva [facility]; [facility]; Riley Akers; Unique Gomez; Gilbert Harp
== END 2024-08-13 13:13 | DRG 291 ==
LOC: ED 10:24 → 2S 13:51 → SUATTDRO 13:51 → 2S 15:50 → 2N 07-18 21:52 → 3W 08-11 23:58